=== PATIENT | male | born 1960 | race Caucasian/White ===

== ENCOUNTER 2018-06-06 15:14 | Emergency (ER) | payer OTHER, SELFPAY ==
[2018-06-06 15:15] VITALS: BP 125/82; PULSE 115; RESP 16; TEMP 36.6; O2SAT 95; BMI 39.9
--- NOTE | 2018-06-06 15:35 | RAD_ITS ---
STUDY: X-RAY CHEST REASON FOR EXAM: Male, 57 years old. Fall, pain. TECHNIQUE: PA and lateral views of the chest. COMPARISON: May 15, 2018 FINDINGS: The lungs are clear and expanded. There is no demonstrated pleural abnormality. Normal size heart. Normal mediastinum and artis. Normal visualized pulmonary arteries. Normal visualized aortic arch and descending thoracic aorta. Normal visualized thoracic spine. Normal visualized ribs, clavicles, and shoulders. There are postsurgical changes within the left upper quadrant of the abdomen. RAD/Chest PA and Lateral IMPRESSION: No acute cardiopulmonary process. Electronically Signed: Chen Bass MD at 16:13 EDT Tel , Service support ,
--- NOTE | 2018-06-06 15:35 | RAD_ITS ---
STUDY: X-RAY - RIGHT SHOULDER REASON FOR EXAM: Male, 57 years old. Fall, pain TECHNIQUE: 2 view(s) of the shoulder. COMPARISON: Chest radiograph dated May 15, 2015 and June 06, 2018 FINDINGS: Normal glenohumeral articulation. Normal acromioclavicular joint. Normal acromion. Normal humeral head and visualized proximal humerus. The soft tissue structures are unremarkable. Normal visualized pulmonary apex. RAD/Shoulder min 2 Views IMPRESSION: Within normal limits x-ray examination of the shoulder. Electronically Signed: Chen Bass MD at 16:16 EDT Tel , Service support ,
--- NOTE | 2018-06-06 15:36 | RAD_ITS ---
STUDY: X-RAY - LEFT KNEE REASON FOR EXAM: Male, 57 years old. Fall, pain TECHNIQUE: 5 view(s) of the knee. COMPARISON: None. FINDINGS: Normal visualized distal femur. Normal visualized proximal tibia and fibula. Normal proximal tibiofibular articulation. Normal medial femorotibial compartment. Normal lateral femorotibial compartment. Normal patellofemoral articulation. The soft tissue structures are unremarkable. RAD/Knee 4 or More Views IMPRESSION: No acute osseous injury. Electronically Signed: Chen Bass MD at 16:15 EDT Tel , Service support ,
--- NOTE | 2018-06-06 15:42 | ED.DCSUM_ITS ---
- ER Visit Summary Date of Service: 06/06/18 Chief Complaint: Fall History of Present Illness: The patient is a 57 M who fell on a wet floor in the kitchen last evening. Patient has pain to the right upper chest/shoulder area as well as left knee. Patient did go to work today but has been trying to use his left arm as moving his right arm does create more pain. He denies striking his head or loss of consciousness. Physical Examination: Vital signs are remarkable only for heart rate of 115. Head neck examination was no external sign of trauma. Is no C-spine tenderness. Heart is regular rate and rhythm. Lung sounds are clear. He does have reproducible right upper chest wall tenderness. There is no crepitus. Abdomen is soft and nontender. Extremity examination reveals minimal tenderness at the right shoulder joint itself. He does have full range of motion. He has strong distal pulses. Lower external examination was moderate tenderness of the anterior portion of the left knee with mild edema. There is no ecchymosis or abrasion. He has full range of motion with strong pulses. Test Results: Right shoulder x-rays are unremarkable. Chest x-ray shows no acute process. Left knee x-ray shows no acute osseous injury. Emergency Department Course and Treatment: My suspicion is the patient has muscular tenderness of the right upper chest from his fall. He is a diabetic so we will avoid anti-inflammatories. He will be given a prescription for Percocet. He drove himself to the ER so he will take first dose after getting home. Treatment Plan: [] Disposition: Discharge Impression: 1. Mechanical fall 2. Right shoulder/chest wall strain 3. Left knee contusion This note was generated with [employer] dictation software. It may contain incorrect words, spelling, and punctuation that were not noted in review of the chart prior to signing ED Disposition - Plan for ED Patient: Chief Complaint: Upper Extremity Injury Referrals: Bryn Renteria DO [Primary Care Provider] -
--- NOTE | 2018-06-06 16:26 | ED.DEP ---
ED Disposition - Plan for ED Patient: Disposition: Home or Assisted Living Chief Complaint: Upper Extremity Injury Instructions: ED Strain Chest Wall, ED Contusion Lower Ext Prescriptions: Oxycodone HCl/Acetaminophen [Percocet 5/325] 1 tablet PO Q6H PRN PRN 3 Days #12 tablet PRN Reason: Pain Referrals: Bryn Renteria DO [Primary Care Provider] - 1 Week if not improving
[2018-06-06 16:31] VITALS: PULSE 100; RESP 16; O2SAT 96
--- NOTE | 2018-06-06 16:32 | ED.RN ---
REVIEWED D/C INSTRUCTIONS, FOLLOW UP CARE, PRESCRIPTION, AND S/S THAT WOULD WARRANT A RETURN TO THE ED WITH PT. PT VERBALIZED AN UNDERSTANDING AND DENIES FURTHER QUESTIONS FOR THIS RN. PT SKIN P/W/D, RESP EVEN AND UNLABORED, PT A&O X 3, NO DISTRESS NOTED. PT AMBULATED OUT OF ED, GAIT STEADY.
== END 2018-06-06 16:32 | disposition home or self-care (01) ==
PROVIDERS: Emergency Provider Emergency Medicine; Family Provider Family Medicine; PCP Family Medicine
DX: S29.011A Strain of muscle and tendon of front wall of thorax, initial encounter (principal); S46.911A Strain of unspecified muscle, fascia and tendon at shoulder and upper arm level, right arm, initial encounter; W01.0XXA Fall on same level from slipping, tripping and stumbling without subsequent striking against object, initial encounter; Y93.9 Activity, unspecified; Y92.89 Other specified places as the place of occurrence of the external cause; I11.0 Hypertensive heart disease with heart failure; I50.9 Heart failure, unspecified; E11.9 Type 2 diabetes mellitus without complications; S80.02XA Contusion of left knee, initial encounter
CPT/HCPCS: 71046; 73030; 73564; 99283

== ENCOUNTER → 2018-11-12 08:17 | Outpatient (CLI) | payer OTHER, SELFPAY ==
[2018-11-12 09:42] LABS: Absolute Lymphocyte Count 1.23 X10^3/ul (0.83-4.51); Absolute Neutrophil Count 1.9 X10^3/uL (2.0-7.7); Basophil# 0.01 X10^3/uL; Basophil% 0.3 % (0-1); Eosinophil# 0.06 X10^3/uL; Eosinophils% 1.7 % (0-5); Hematocrit 42.4 % (40-54); Lymphocyte # 1.23 X10^3/ul (4.0); Lymphocyte % 35.5 % (19-41); Mean Corpuscular Hgb 31.7 pg (27.0-32.0); Mean Corpuscular Volume 96.1 fL (80-94); Mean Platelet Vol. 9.7 fl (6.2-12.0); Monocyte# 0.21 X10^3/uL; Monocyte% 6.1 % (0-10); Neutrophil # 1.94 X10^3/uL (2.7-7.7); Neutrophil % 56.1 % (47-70); Platelet Count 191 K/mm3 (150-450); RBC Distribution Width CV 13.1 % (11.6-14.6); RBC Distribution Width SD 44.5 fl (35.1-43.9); Red Blood Count 4.41 M/mm3 (4.6-6.2); White Blood Count 3.5 K/mm3 (4.4-11.0)
[2018-11-12 09:43] LABS: POSITIVE COUNT NO; POSITIVE DIFFERENTIAL NO; POSITIVE MORPHOLOGY NO
[2018-11-12 10:06] LABS: Microalbumin,Random Urine 11.3 mg/L (NO RANGE EST.); Microalbumin:Creatinine Ratio 6.3 mg/g CRE (<30 mg/g CRE)
[2018-11-12 10:23] LABS: ALB/GLOB Ratio 1.2 RATIO (0.9-2.4); AST(SGOT) 20 U/L (15-37); Alanine Aminotransfer ALT/SGPT 41 U/L (16-61); Albumin, Serum 3.6 g/dL (3.2-5.0); Alkaline Phosphatase 84 U/L (45-117); Anion Gap 8 (5-15); BUN 12 mg/dL (7-18); BUN/Creat Ratio 12.6 RATIO (10-20); Calcium,Total 8.7 mg/dL (8.5-10.1); Chloride 107 mmol/L (98-107); Cholesterol 173 mg/dL (200); Creatinine, Serum 0.95 mg/dL (0.70-1.30); EST Glomerular Filtration Rate 87 mL/min (>60); Est Glom Filt Rate - Afr Amer 105 mL/min (>60); Glucose 165 mg/dL (74-106); High Density Lipoprotein 27 mg/dL; Potassium 3.9 mmol/L (3.5-5.1); Protein, Total 6.6 g/dL (6.4-8.2); Sodium Level 143 mmol/L (136-145); Triglycerides 400 mg/dL
== END ==
PROVIDERS: Family Provider Family Medicine; PCP Family Medicine; Referring Provider Family Medicine; Visit Provider Family Medicine
DX: E11.9 Type 2 diabetes mellitus without complications (principal); I25.10 Atherosclerotic heart disease of native coronary artery without angina pectoris
CPT/HCPCS: 36415; 80053; 80061; 82043; 82570; 85025

== ENCOUNTER 2019-01-09 20:15 | Emergency (ER) | payer OTHER, SELFPAY ==
[2019-01-09 20:16] VITALS: BP 134/95; PULSE 104; RESP 18; TEMP 36.4; O2SAT 93; BMI 36.5
--- NOTE | 2019-01-09 23:00 | RAD_ITS ---
STUDY: X-RAY CHEST REASON FOR EXAM: Male, 58 years old. Shortness of breath and cough. TECHNIQUE: Frontal and lateral views of the chest. COMPARISON: 06/06/2018. FINDINGS: The lungs are clear and expanded. There is no demonstrated pleural abnormality. Normal size heart. Implanted rn cardiac is seen in the left chest wall. Normal mediastinum and artis. Normal visualized pulmonary arteries. Normal visualized aortic arch and descending thoracic aorta. Normal visualized thoracic spine. Normal visualized ribs, clavicles, and shoulders. There is no demonstrated abnormality of the visualized soft tissue structures of the upper abdomen. RAD/Chest PA and Lateral IMPRESSION: No acute chest disease. Electronically Signed: Reynaldo Dwyer MD at 23:17 EDT , Service support ,
--- NOTE | 2019-01-09 23:00 | EKG12_ITS ---
Test Reason : SOB Blood Pressure : / mmHG Vent. Rate : 105 BPM Atrial Rate : 105 BPM P-R Int : 144 ms QRS Dur : 082 ms QT Int : 320 ms P-R-T Axes : 042 -03 034 degrees QTc Int : 422 ms Sinus tachycardia Otherwise normal ECG Confirmed by CLAUDIO MCKEON, MARILYN ([id number]), photograph editor RADHA SENA ([id number]) on 01/12/2019 11:08:00 AM Referred By: SUE Confirmed By:MARILYN SNYDER MD
[2019-01-10] LABS: Absolute Neutrophil Count 2.3 X10^3/uL (2.0-7.7); Basophil# 0.01 X10^3/uL; Basophil% 0.2 % (0-1); Eosinophil# 0.05 X10^3/uL; Eosinophils% 1.1 % (0-5); Hematocrit 41.8 % (40-54); Hemoglobin 13.9 g/dl (13.0-16.5); Lymphocyte % 40.3 % (19-41); Mean Corp Hgb Conc 33.3 g/gl (32-36); Mean Corpuscular Hgb 32.3 pg (27.0-32.0); Mean Corpuscular Volume 97.2 fL (80-94); Mean Platelet Vol. 9.3 fl (6.2-12.0); Monocyte# 0.44 X10^3/uL; Monocyte% 9.3 % (0-10); Neutrophil % 48.9 % (47-70); Platelet Count 200 K/mm3 (150-450); RBC Distribution Width CV 13.2 % (11.6-14.6); RBC Distribution Width SD 45.8 fl (35.1-43.9); White Blood Count 4.7 K/mm3 (4.4-11.0)
[2019-01-10 00:04] LABS: POSITIVE COUNT NO; POSITIVE DIFFERENTIAL NO; POSITIVE MORPHOLOGY NO
[2019-01-10 00:17] LABS: Anion Gap 7 (5-15); BUN 13 mg/dL (7-18); BUN/Creat Ratio 11.9 RATIO (10-20); Calcium,Total 8.9 mg/dL (8.5-10.1); Chloride 103 mmol/L (98-107); Creatinine, Serum 1.09 mg/dL (0.70-1.30); EST Glomerular Filtration Rate 74 mL/min (>60); Est Glom Filt Rate - Afr Amer 89 mL/min (>60); Estimated Creatinine Clearance 78.68 ml/min; Glucose 208 mg/dL (74-106); Potassium 4.3 mmol/L (3.5-5.1); Sodium Level 138 mmol/L (136-145)
[2019-01-10 00:53] VITALS: O2SAT 94
[2019-01-10 00:55] VITALS: BP 136/97; PULSE 107; RESP 22; TEMP 36.6; O2SAT 93
[2019-01-10 01:22] VITALS: PULSE 110; RESP 14
[2019-01-10] MEDS: Ipratropium/Albuterol Sulfate 3 ML AMPUL.NEB INHALATION (01:22)
[2019-01-10] MEDS: Albuterol 2.5 MG/3 ML VIAL.NEB. INHALATION (01:22)
[2019-01-10] MEDS: predniSONE 20 MG Tablet 60 MG PO (01:25)
[2019-01-10 01:26] VITALS: BP 133/96; PULSE 115; RESP 14; TEMP 37.1; O2SAT 97
--- NOTE | 2019-01-10 02:03 | ED.DCSUM_ITS ---
- ER Visit Summary Date of Service: 01/10/19 Chief Complaint: Cough and shortness of breath History of Present Illness: The patient is a 58 M who reports a 2-week history of cough and shortness of breath. He has been bringing up yellow sputum. He states he does break out in sweats but does not know if he is running a fever. He was seen by his PCP earlier today. He was given doxycycline, albuterol, and guaifenesin/codeine cough syrup. Patient was unable to lie down tonight to sleep secondary to his cough. He states he feels like he is wheezing and tight. Past history significant for diabetes, hypertension, high cholesterol, CHF, SC, coronary disease, kidney stones. He has no history of lung disease. Physical Examination: Vital signs grossly unremarkable. Patient sitting upright in bed no acute distress. He is nontoxic appearing. Head neck examination is normal. Heart is regular rate and rhythm. Lungs sounds are diminished throughout. Abdomen is soft nontender. Extremity examination was no calf tenderness or edema. Test Results: EKG is sinus at 105 with no acute ischemia. Two-view chest x-ray shows no acute disease. CBC and chemistry studies significant only for glucose of 208. Emergency Department Course and Treatment: Patient is given a DuoNeb treatment followed by albuterol here. He was also given a dose of p.o. prednisone. On repeat evaluation he does have improved air movement throughout. He states his cough seems to be improving. He does feel as if he is able to breathe deeper. He will be given a prescription for 3 or 4 additional days of prednisone at home. Treatment Plan: [] Disposition: Discharge Impression: Bronchitis This note was generated with [employer] dictation software. It may contain incorrect words, spelling, and punctuation that were not noted in review of the chart prior to signing ED Disposition - Plan for ED Patient: Disposition: Home or Assisted Living Instructions: ED Upper Resp Infec Abx Tx Prescriptions: Prednisone [Deltasone] 40 mg PO DAILY #8 tablet Referrals: Bryn Renteria DO [Primary Care Provider] - 5-7 Days
[2019-01-10 02:18] VITALS: BP 144/92; PULSE 105; RESP 22; TEMP 37.1; O2SAT 93; O2SAT 94
== END 2019-01-10 02:20 | disposition home or self-care (01) ==
PROVIDERS: Emergency Provider Emergency Medicine; Family Provider Family Medicine; PCP Family Medicine
DX: J40 Bronchitis, not specified as acute or chronic (principal); I25.10 Atherosclerotic heart disease of native coronary artery without angina pectoris; I11.0 Hypertensive heart disease with heart failure; I50.9 Heart failure, unspecified; E11.9 Type 2 diabetes mellitus without complications; E78.00 Pure hypercholesterolemia, unspecified; F32.9 Major depressive disorder, single episode, unspecified; F41.9 Anxiety disorder, unspecified; Z79.84 Long term (current) use of oral hypoglycemic drugs; Z79.899 Other long term (current) drug therapy; I25.2 Old myocardial infarction; Z87.442 Personal history of urinary calculi
CPT/HCPCS: 71046; 80048; 85025; 93005; 94640; 99284; A4216

== ENCOUNTER → 2019-01-31 17:30 | Outpatient (CLI) | payer OTHER, SELFPAY ==
[2019-01-09 20:16] VITALS: BMI 36.5
== END ==
PROVIDERS: Family Provider Family Medicine; PCP Family Medicine; Visit Provider Family Medicine
DX: R30.0 Dysuria (principal); R35.0 Frequency of micturition
CPT/HCPCS: 87086

== ENCOUNTER → 2019-03-01 15:13 | Outpatient (CLI) | payer OTHER, SELFPAY ==
[2019-02-16 15:56] VITALS: BMI 37.7
[2019-03-01 16:51] LABS: Hematocrit 40.1 % (40-54); Hemoglobin 13.1 g/dl (13.0-16.5); Mean Corp Hgb Conc 32.7 g/gl (32-36); Mean Corpuscular Hgb 31.4 pg (27.0-32.0); Mean Corpuscular Volume 96.2 fL (80-94); Mean Platelet Vol. 9.9 fl (6.2-12.0); Platelet Count 220 K/mm3 (150-450); RBC Distribution Width CV 13.3 % (11.6-14.6); RBC Distribution Width SD 45.1 fl (35.1-43.9); Red Blood Count 4.17 M/mm3 (4.6-6.2); White Blood Count 4.2 K/mm3 (4.4-11.0)
[2019-03-01 16:52] LABS: Scan Indicated on CBC? Y/N NO
[2019-03-01 16:56] LABS: Anion Gap 4 (5-15); BUN 14 mg/dL (7-18); BUN/Creat Ratio 12.3 RATIO (10-20); Calcium,Total 8.8 mg/dL (8.5-10.1); Chloride 106 mmol/L (98-107); Creatinine, Serum 1.14 mg/dL (0.70-1.30); EST Glomerular Filtration Rate 70 mL/min (>60); Est Glom Filt Rate - Afr Amer 85 mL/min (>60); Glucose 163 mg/dL (74-106); Potassium 3.8 mmol/L (3.5-5.1); Sodium Level 140 mmol/L (136-145)
== END ==
PROVIDERS: Family Provider Family Medicine; PCP Family Medicine; Referring Provider Internal Medicine Cardiovascular Disease; Visit Provider Internal Medicine Cardiovascular Disease
DX: R55 Syncope and collapse (principal)
CPT/HCPCS: 36415; 80048; 85027

== ENCOUNTER 2019-03-13 07:22 | Day surgery (SDC) | payer OTHER, SELFPAY ==
[2019-02-16 15:56] VITALS: BMI 37.7
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
[2019-03-09 12:55] VITALS: BMI 37.7
--- NOTE | 2019-03-15 10:39 | CL.IE_ITS ---
Patient: AVE [facility] Study Date: 03/13/2019 Performing: Harvey Pittman MD : 1960 Age: 58 Gender: male PROCEDURES PERFORMED [id number] OF LOOP RECORDER INDICATIONS Removal of loop recorder PROCEDURE DETAILS The patient was brought to the Catheterization Lab in the postabsorptive nonsedated state. Infor med consent was obtained prior to the procedure. Local anesthetic was given subcutaneously to the le ft upper chest area with Lidocaine 2%. Incision was made to the left upper chest. ICM Loop Recorder w as removed. The patient tolerated the procedure well. 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 Device Recommendations: Follow up with Primary Care Physician PROCEDURE MEDICATIONS Versed 1 mg IV Oxygen: 2 L/min via nasal cannula Signed By Harvey Pittman MD On 03/15/2019 10:39:09 Harvey Pittman MD
== END 2019-03-13 09:15 | disposition home or self-care (01) ==
LOC: CLSP 07:23
PROVIDERS: Family Provider Family Medicine; PCP Family Medicine; Referring Provider Internal Medicine Cardiovascular Disease; Visit Provider Internal Medicine Cardiovascular Disease
DX: R55 Syncope and collapse (principal); E11.9 Type 2 diabetes mellitus without complications; I10 Essential (primary) hypertension; I42.9 Cardiomyopathy, unspecified; Z79.84 Long term (current) use of oral hypoglycemic drugs; Z79.899 Other long term (current) drug therapy; Z98.890 Other specified postprocedural states
CPT/HCPCS: 33286; 99152; 99153; J7040

== ENCOUNTER → 2019-10-13 08:48 | Outpatient (CLI) | payer OTHER, SELFPAY ==
[2019-07-25 17:02] VITALS: BMI 37.7
[2019-10-13 10:50] LABS: Hemoglobin A1c 7.1 % (4.2-6.3)
[2019-10-13 10:57] LABS: AST(SGOT) 19 U/L (15-37); Alanine Aminotransfer ALT/SGPT 31 U/L (16-61); Albumin, Serum 3.5 g/dL (3.2-5.0); Alkaline Phosphatase 91 U/L (45-117); Anion Gap 3 (5-15); BUN 18 mg/dL (7-18); Calcium,Total 8.5 mg/dL (8.5-10.1); Chloride 107 mmol/L (98-107); Cholesterol 199 mg/dL (200); EST Glomerular Filtration Rate 81 mL/min (>60); Est Glom Filt Rate - Afr Amer 98 mL/min (>60); Globulin 3.4 g/dL (2.2-4.2); Glucose 173 mg/dL (74-106); High Density Lipoprotein 27 mg/dL; Protein, Total 6.9 g/dL (6.4-8.2); Sodium Level 140 mmol/L (136-145); Triglycerides 349 mg/dL; Very Low Density Lipoprotein 70 mg/dL (5-40)
[2019-10-13 11:04] LABS: Microalbumin,Random Urine < 5.0 mg/L (NO RANGE EST.)
== END ==
PROVIDERS: Family Provider Family Medicine; PCP Family Medicine; Referring Provider Family Medicine; Visit Provider Family Medicine
DX: E11.9 Type 2 diabetes mellitus without complications (principal)
CPT/HCPCS: 36415; 80053; 80061; 82043; 82570; 83036

== ENCOUNTER → 2020-01-08 15:44 | Outpatient (CLI) | payer OTHER, SELFPAY ==
[2020-01-08 15:38] VITALS: BMI 37.7
--- NOTE | 2020-01-08 15:58 | RAD_ITS ---
STUDY: X-RAY - RIGHT HAND REASON FOR EXAM: Male, 59 years old. injury, hit wall, pain across knuckles and at 5th metacarpal TECHNIQUE: 3 view(s) of the hand. COMPARISON: None. FINDINGS: Normal radiocarpal articulation. Normal distal radioulnar joint. Normal visualized carpal bones. Normal carpal articulations Normal carpometacarpal articulation of the thumb. Normal second through fifth carpometacarpal joints. Subtle nondisplaced oblique fracture the base of the fifth metacarpal bone. Normal metacarpophalangeal joint of the thumb. Normal interphalangeal joint of the thumb. Normal proximal and distal phalanges of the thumb. Normal metacarpophalangeal joints of the second through fifth fingers. Normal proximal and distal interphalangeal joints of the second through fifth fingers. Normal phalanges of the second through fifth fingers. The soft tissue structures are unremarkable. RAD/Hand Min 3 Views IMPRESSION: Subtle nondisplaced oblique fracture the base of the fifth metacarpal bone. Electronically Signed: Arpit North MD at 16:09 EDT Tel , Service support ,
== END ==
PROVIDERS: PCP Family Medicine; Referring Provider Physician Assistant Surgical; Visit Provider Physician Assistant Surgical
DX: M79.641 Pain in right hand (principal)
CPT/HCPCS: 73130

== ENCOUNTER 2020-04-23 20:28 | Emergency (ER) | payer OTHER, SELFPAY ==
[2020-04-04 14:45] VITALS: BMI 37.3
[2020-04-23 20:30] VITALS: BP 145/84; PULSE 80; RESP 16; TEMP 36.4; O2SAT 96; BMI 36.8
--- NOTE | 2020-04-23 20:38 | RAD_ITS ---
STUDY: X-RAY - LUMBAR SPINE REASON FOR EXAM: Male, 59 years old. Fall TECHNIQUE: 3 view(s) of the lumbar spine were obtained. COMPARISON: None FINDINGS: There is no evidence of fracture or dislocation in the lumbar spine. The vertebral body heights are well-maintained. There are mild degenerative changes with disc space narrowing at L4/L5 and L5/S1. RAD/Lumbar Spine 2 or 3 Views IMPRESSION: No fracture or dislocation in the lumbar spine. Mild degenerative changes in the lower lumbar spine. Electronically Signed: Nayan Aldrich, at 22:07 EDT Tel , Service support ,
--- NOTE | 2020-04-23 20:45 | ED.VIS.GEN ---
History of Present Illness Informant: Patient Onset: Today Context: Sudden Onset Timing: Continuous Current Severity: Moderate Maximum Severity: Moderate Narrative: The patient is a 59-year-old male who presents to the emergency department with left hip and low back injury. Patient states he was walking his dog. He states he stepped off a curb, and his left hip gave out. He fell to the ground. He was unable to stand because of pain. Did not strike his head. He denies loss of consciousness. Patient was brought in by squad. He denies any numbness or tingling in his leg. He states the fall was strictly mechanical. Prior similar symptoms: No Recent Illness/Hospitalization: No <Houston Ennis - Last Filed: 04/23/20 20:45> <Houston Tian - Last Filed: 04/24/20 00:56> Chief Complaint: Lower Extremity Injury Past Medical History Prior records reviewed: Yes Past Medical History: - - Hypertension Surgical History: - - Multiple knee surgeries Smoking Status: Never smoker - Family History Maternal Family History: Family History (Last Reviewed 04/04/20 @ 15:00 by LEON Colmenares) Mother Cancer Diabetes Father Diabetes Hypertension Hyperlipidemia CVA (cerebral vascular accident) CAD (coronary artery disease) Brother Diabetes Myocardial infarction Family History: Reports: Unknown <Houston Ennis - Last Filed: 04/23/20 20:45> - Family History Maternal Family History: Family History (Last Reviewed 04/04/20 @ 15:00 by LEON Colmenares) Mother Cancer Diabetes Father Diabetes Hypertension Hyperlipidemia CVA (cerebral vascular accident) CAD (coronary artery disease) Brother Diabetes Myocardial infarction <Houston Tian - Last Filed: 04/24/20 00:56> - Allergies and Home Meds Allergies/Adverse Reactions: Allergies adhesive Allergy (Unknown, Verified 04/23/20 20:30) Unknown meperidine HCl [From Demerol] Allergy (Unknown, Verified 04/23/20 20:30) Hives cefadroxil hydrate [From Duricef] Adverse Reaction (Unknown, Verified 04/23/20 20:30) Other PATIENT PASSES OUT Primary Care Physician: Bryn Renteria DO [Primary Care Provider] - Review of Systems General: Denies: Chills, Fever, Sweats Eyes: Denies: Visual changes - bilaterally, Diplopia ENT: Denies: Rhinorrhea, Sore throat Cardiovascular: Denies: Chest pain, Palpitations Respiratory: Denies: Dyspnea, Cough, Dyspnea on exertion Gastrointestinal: Denies: Abdominal pain, Nausea, Vomiting, Diarrhea, Melena, Hematochezia Genitourinary: Denies: Dysuria, Hematuria, Frequency Musculoskeletal: Denies: Back pain, Extremity Pain Skin: Denies: Rash, Wounds Neurological: Denies: Headache, Weakness, Numbness <LoliHouston - Last Filed: 04/23/20 20:45> Physical Exam Vital Signs/Narrative: Vital Signs Temp Pulse Resp BP Pulse Ox 04/23/20 20:30 97.6 F L 80 16 145/84 H 96 Inital Vital Signs reviewed: Yes General: Well nourished, Well developed, No Acute Distress Head: Normocephalic, Atraumatic Eyes: Perrl, EOMI ENT: Moist mucous membranes, No rhinorrhea Neck: Supple, Nontender Cardiovascular: Regular rate, Regular rhythm, No murmurs Respiratory: No distress, CTA bilaterally, Chest nontender Abdomen: Soft, Nontender, Nondistended, Normal bowel sounds Back: Nontender, Normal Inspection Extremities: Nontender, Tenderness - Mild tenderness over the left hip. Minimal pain with logroll. Normal pulses. Skin: Normal color, No rash Neurological: Alert, Oriented x3, Cranial nerves II-XII grossly intact, Normal Strength, Normal Sensation Psychological: Normal affect, Normal Mood <LoliHouston Patrick Last Filed: 04/23/20 20:45> Vital Signs/Narrative: Vital Signs Pulse Resp BP Pulse Ox 04/23/20 23:02 79 18 123/77 H 95 <JaylanHouston Nguyen Last Filed: 04/24/20 00:56> Diagnostic/Tx/Re-eval Clinical Impression(s) from Imaging Studies Lumbar Spine X-Ray 04/23/20 20:38 IMPRESSION: No fracture or dislocation in the lumbar spine. Mild degenerative changes in the lower lumbar spine. Electronically Signed: Nayan Aldrich, at 22:07 EDT Tel , Service support , Hip/Pelvis X-Ray 04/23/20 21:30 IMPRESSION: Normal x-ray examination of the pelvis and left hip. Electronically Signed: Nayan Aldrich, at 22:16 EDT Tel , Service support , Pelvis CT 04/23/20 22:39 IMPRESSION: No acute findings in the pelvis. No fracture identified. Sigmoid diverticulosis. Degenerative changes L5-S1. Electronically Signed: Erasmo Diaz MD at 23:56 EDT , Service support , Laboratory Data 04/23/20 04/23/20 20:20 20:20 WBC 5.3 RBC 4.48 L Hgb 14.5 Hct 43.5 MCV 97.1 H MCH 32.4 H MCHC 33.3 RDW Std Deviation 45.3 H RDW Coeff of Juancarlos 12.8 Plt Count 231 MPV 9.8 Immature Gran % (Auto) 0.400 Neut % (Auto) 58.9 Lymph % (Auto) 32.5 [place] % (Auto) 6.7 Eos % (Auto) 1.3 Baso % (Auto) 0.2 Absolute Neuts (auto) 3.1 Absolute Lymphs (auto) 1.71 Nucleated RBC % 0 Sodium 142 Potassium 3.9 Chloride 107 Carbon Dioxide 31.0 Anion Gap 4 L BUN 16 Creatinine 1.11 Estim Creat Clear Calc 76.32 Est GFR (MDRD) Af Amer 87 Est GFR (MDRD) Non-Af 72 BUN/Creatinine Ratio 14.4 Glucose 230 H Calcium 8.8 - Medical Decision Making Patient was endorsed to me by the outgoing physician. I performed a independent history and physical and agree with the above noted history and physical. Patient CT imaging of his pelvis came back as negative. I repeat evaluated the patient at 0045 and he had improvement of his symptoms and was able to ambulate with nursing. Patient at this point will be discharged home. Patient was discharged in stable condition. <Houston Tian - Last Filed: 04/24/20 00:56> ED Disposition <Houston Ennis - Last Filed: 04/23/20 20:45> <Houston Tian - Last Filed: 04/24/20 00:56> - Plan for ED Patient: Disposition: Home or Assisted Living Diagnosis: Fall, Left hip pain Instructions: ED Sprain Hip Referrals: Bryn Renteria DO [Primary Care Provider] - 3-5 Days if not improving
[2020-04-23 20:51] LABS: Absolute Lymphocyte Count 1.71 X10^3/uL (0.83-4.51); Absolute Neutrophil Count 3.1 X10^3/uL (2.0-7.7); Basophil# 0.01 X10^3/uL; Basophil% 0.2 % (0-1); Eosinophil# 0.07 X10^3/uL; Eosinophils% 1.3 % (0-5); Hematocrit 43.5 % (40-54); Hemoglobin 14.5 g/dL (13.0-16.5); Lymphocyte # 1.71 X10^3/ul (4.0); Lymphocyte % 32.5 % (19-41); Mean Corp Hgb Conc 33.3 g/dL (32-36); Mean Corpuscular Hgb 32.4 pg (27.0-32.0); Mean Corpuscular Volume 97.1 fL (80-94); Mean Platelet Vol. 9.8 fl (6.2-12.0); Monocyte# 0.35 X10^3/uL; Monocyte% 6.7 % (0-10); NRBC Flagged by Analyzer 0 % (0-5); Neutrophil % 58.9 % (47-70); Platelet Count 231 K/mm3 (150-450); RBC Distribution Width CV 12.8 % (11.6-14.6); RBC Distribution Width SD 45.3 fl (35.1-43.9); Red Blood Count 4.48 M/mm3 (4.6-6.2); White Blood Count 5.3 K/mm3 (4.4-11.0)
[2020-04-23 21:02] LABS: Anion Gap 4 (5-15); BUN 16 mg/dL (7-18); BUN/Creat Ratio 14.4 RATIO (10-20); Calcium,Total 8.8 mg/dL (8.5-10.1); Chloride 107 mmol/L (98-107); Creatinine, Serum 1.11 mg/dL (0.70-1.30); EST Glomerular Filtration Rate 72 mL/min (>60); Est Glom Filt Rate - Afr Amer 87 mL/min (>60); Estimated Creatinine Clearance 76.32 ml/min; Glucose 230 mg/dL (74-106); Potassium 3.9 mmol/L (3.5-5.1); Sodium Level 142 mmol/L (136-145)
--- NOTE | 2020-04-23 21:30 | RAD_ITS ---
STUDY: X-RAY - PELVIS AND LEFT HIP REASON FOR EXAM: Male, 59 years old. FALL TECHNIQUE: 3 views of the pelvis and left hip. COMPARISON: None. FINDINGS: There is a non-specific bowel gas pattern. Normal visualized soft tissue structures. Normal bilateral iliac wings, sacroiliac joints and visualized sacrum. Normal bilateral superior and inferior pubic rami. Normal pubic symphysis. Normal bilateral ischial tuberosities. Normal visualized femoral head. Normal acetabulum. Normal hip joint. RAD/HIP, UNI W/ Pelvis 2-3 Views IMPRESSION: Normal x-ray examination of the pelvis and left hip. Electronically Signed: Nayan Aldrich, at 22:16 EDT Tel , Service support ,
--- NOTE | 2020-04-23 22:39 | CT_ITS ---
STUDY: CT PELVIS WITHOUT CONTRAST REASON FOR EXAM: Male, 59 years old. Low back and left hip pain after fall. RADIATION DOSAGE (If Supplied By Facility): CTDIvol = ( 39.94 ) mGy, DLP = ( 1416.26 ) mGycm TECHNIQUE: Transaxial imaging of the pelvis was performed with oral contrast, and without intravenous administration of contrast material. Individualized dose optimization techniques were used for this CT. COMPARISON: CT abdomen and pelvis July 21, 2014. Lumbar spine, pelvis and left hip series April 23, 2020. FINDINGS: Normal urinary bladder. Borderline prostate gland enlargement. Normal visualized small intestine. Sigmoid diverticulosis. No intra-abdominal free air. There is no pelvic fluid. There is no pelvic mass lesion or lymphadenopathy. Normal visualized pelvic arteries. Ventral mesh related to hernia repair. L5-S1 disc space narrowing with vacuum disc. CT/Pelvis without IV Contrast IMPRESSION: No acute findings in the pelvis. No fracture identified. Sigmoid diverticulosis. Degenerative changes L5-S1. Electronically Signed: Erasmo Diaz MD at 23:56 EDT , Service support ,
[2020-04-23 23:02] VITALS: BP 123/77; PULSE 79; RESP 18; O2SAT 95
[2020-04-23] MEDS: Morphine 4 MG/ML Syringe IV (23:16)
[2020-04-24 01:04] VITALS: BP 148/100; PULSE 78; RESP 16; O2SAT 98
== END 2020-04-24 01:05 | disposition home or self-care (01) ==
PROVIDERS: Emergency Medicine; Emergency Provider Emergency Medicine; PCP Family Medicine
DX: M25.552 Pain in left hip (principal); W10.1XXA Fall (on)(from) sidewalk curb, initial encounter; Y93.K1 Activity, walking an animal; Y92.9 Unspecified place or not applicable; Y99.9 Unspecified external cause status; I10 Essential (primary) hypertension; Z79.899 Other long term (current) drug therapy
CPT/HCPCS: 72100; 72192; 73502; 80048; 85025; 96374; 99285; A4216

== ENCOUNTER 2020-11-15 11:21 | Day surgery (SDC) | payer OTHER, SELFPAY ==
[2020-10-11 15:33] VITALS: BMI 36.5
--- NOTE | 2020-11-15 | IMM_PTH ---
PATIENT: [facility] [place] [facility] [id number] AGE/SX: 60/M ROOM: RE11/15/[address]: Dr. Hilario Rodríguez MD : 1960 BED: DIS: 11/15/2020 SPEC #: [id number] RECD: 11/19/20 11:26 STATUS: LAZ REQ #: [id number] MARIA INES: 11/15/20 00:[address]: Hilario Rodríguez DEPT: IMMUNOHISTOCHEMISTRY RECD BY: Светлана Carpenter ENTERED: 11/19/20 11:28 SP TYPE: IMMUNO OTHR DR: Dr. Bryn Renteria DO Tissues: E - Skin of face, NOS Procedures: MELAN-A (initial) S-100 (add) PHYSICIAN & INSTITUTION [place] [id number] SPECIMEN INFORMATION: Tissue Source: E - Soft tissue mass, right lower lateral cheek by earlobe Clinical Info: Lesions Specimen Number: [id number] E1 CPT code: 16334, 48136 METHODOLOGY: Deparaffinized sections of prefer/formalin-fixed tissue or PAP/DQ stained slides are incubated with monoclonal/polyclonal antibodies/oligonucleotide probes. Localization is made via biotin free immunoperoxidase method. Appropriate controls are performed and reacted as expected. Results on target cell population are indicated in the following table: RESULTS: ANTIBODY / CLONE RESULT Block E1 Melan A (A103) positive S-100 (4C4.9) positive These tests were developed and their performance characteristics determined by [facility]. They may not have been cleared or approved by the U.S. Food and Drug Administration. The FDA has determined that such clearance or approval is not necessary. The above immunohistochemical/dualISH markers are ordered and reviewed by the Pathologist. INTERPRETATION: E. Soft tissue mass, right lower lateral cheek by earlobe, biopsy: Consistent with residual intradermal nevus. AM:mela 11/19/2020
--- NOTE | 2020-11-15 | LES_PTH ---
PATIENT: [address] LOC: [facility] [place] U#:[id number] AGE/SX: 60/M ROOM: RE11/15/[address]: Dr. Hilario Rodríguez MD : 1960 BED: DIS: 11/15/2020 SPEC #: [id number] RECD: 11/15/20 13:31 STATUS: LAZ REMainor #: [id number] MARIA INES: 11/15/20 00:[address]: Hilario Rodríguez DEPT: SURGICAL PATHOLOGY RECD BY: Светлана Carpenter ENTERED: 11/15/20 14:11 SP TYPE: Lesion OTHR DR: Dr. Bryn Renteria, DO Tissues: A - Skin of face, NOS B - Skin of face, NOS C - Skin of face, NOS D - Skin of scalp, NOS E - Skin of face, NOS Procedures: Frozen Section (charge) Frozen Section Add'l ([facility]) Surgery Specimen Level IV HEADER OPERATION: Excision infected soft tissue mass right lower lateral cheek PRE-OP DIAGNOSIS: 1.5 cm painful lesion on right lateral lower cheek by earlobe with associated soft tissue mass; 6 mm lesion right lateral lower cheek by mandibular angle; 1.7 cm lesion right cheek; 1.7 cm lesion left temporal scalp by hairline TISSUE SUBMITTED: A - 1.5 cm painful lesion on right lateral cheek by earlobe, FS, B - 6 mm lesion right lateral lower cheek by mandibular angle, FS, C - 1.7 cm lesion right cheek, FS, D - 1.7 cm lesion left temporal scalp by hairline, FS, E - Soft tissue mass, right lower lateral cheek by earlobe, suture at 12 o'clock FROZEN SECTION DIAGNOSIS A. Skin lesion, right lateral lower cheek by earlobe, shave biopsy: Intradermal nevus. B. Skin lesion, right lateral lower cheek, mandible angle, shave biopsy: Intradermal nevus. C. Skin lesion of right cheek, shave biopsy: Actinic keratosis and solar elastosis. D. Skin lesion, left temporal scalp, shave biopsy: Seborrheic keratosis. AM:mela 11/15/2020 MICROSCOPIC DIAGNOSIS A. Skin lesion of right lateral lower cheek by earlobe, biopsy: Intradermal nevus. Solar elastosis. B. Skin lesion, right lateral lower cheek by mandible, shave biopsy: Intradermal nevus. Solar elastosis. C. Skin lesion, right cheek, shave biopsy: Actinic keratosis with seborrheic keratosis-like features. Solar elastosis. D. Skin lesion, left temporal scalp by hairline, shave biopsy: Seborrheic keratosis, inflamed. E. Soft tissue mass, right lower lateral cheek by earlobe, biopsy: Residual intradermal nevus. Solar elastosis and actinic change. Focal ulceration with associated acute and chronic inflammation and granulation. See comment. AM:mela 11/19/2020 COMMENT E. Immunohistochemistry ([id number]) supports the above diagnosis. MICROSCOPIC DESCRIPTION Slides are reviewed. GROSS DESCRIPTION A - Received fresh for frozen section consultation labeled with the patient's name is a specimen designated lesion right lateral lower cheek by earlobe. The specimen consists of an ovoid fragment of shave skin measuring 1 x 1 x 0.5 cm. The specimen is trisected and totally submitted in one cassette for frozen section consultation. / AM: 11/15/20 B - Received fresh for frozen section consultation labeled with the patient's name is a specimen designated lesion right lateral lower cheek by mandible angle. The specimen consists of ovoid fragment of shave skin measuring 0.8 x 0.7 x 0.4 cm. The specimen is inked, bisected and totally submitted in one cassette for frozen section consultation. / AM: 11/15/20 C - Received fresh for frozen section consultation labeled with the patient's name is a specimen designated lesion right cheek. The specimen consists of ovoid fragment of shave skin measuring 1.5 x 1.5 x 0.4 cm. The specimen serially sectioned and totally submitted in one cassette for frozen section consultation. / AM:mela 11/15/20 D - Received fresh for frozen section consultation labeled with the patient's name is a specimen designated lesion left temporal scalp by hairline. The specimen consists of ovoid fragment of shave skin measuring 1.8 x 1.5 x 0.1 cm. The specimen is inked, serially sectioned and totally submitted in two cassettes for frozen section consultation. / AM:mela 11/15/20 E - Received in fixative is one container labeled with the patient's name and designated soft tissue mass right lower lateral cheek by earlobe, suture at 12 o'clock. The specimen consists of a lalitha-shaped piece of prince skin measuring 2 x 1.5 cm and up to 0.5 cm in thickness. The specimen is oriented by a suture at 12 o'clock. The specimen is inked as follows: 12 to 3 o'clock - black, 3 to 6 o'clock - blue, 6 to 9 o'clock - green and 9 to 12 o'clock - yellow. The specimen is serially sectioned and submitted entirely in two cassettes. / SJ:emla 11/18/20 TC:5 CPT: 94009 x5, 91823 x4, 16372
--- NOTE | 2020-11-15 10:14 | PCM.HP.BLA ---
History and Physical Date of Admission: 11/15/20 HISTORY OF PRESENT ILLNESS Patient is a 60 year old male who presents for evaluation for TBSE. He has concerns about lesions on his right lateral lower cheek by the ear lobe, right lateral lower cheek by mandibular angle, right cheek, and left temporal scalp that have increased in size over the last several months and have developed irregular borders and have become more raised in configuration. The lesion right lateral lower cheek by mandibular angle had some recent drainage. I could not express any drainage today. He denies fever. He denies trauma. He presents at this time for further evaluation and treatment. PAST MEDICAL HISTORY Neoplasm of skin of scalp Neoplasm of skin of right cheek Cheek mass Essential (primary) hypertension Electric current accident Afib Heart disease Heart failure IBS (irritable bowel syndrome) Dizziness and giddiness History of ventral hernia Shortness of breath Syncope and collapse Type 2 diabetes mellitus PAST SURGICAL HISTORY Shannan fundoplication arthroscopy of right knee left knee surgery repair of hiatal hernia right knee surgery laparoscopic cholecystectomy left heart catheterization loop recorder ALLERGIES adhesive meperidine HCl [From Demerol] cefadroxil hydrate [From Duricef] MEDICATIONS Glipizide carvedilol ALPRAZolam [Xanax] calcium carbonate-vitamin D3 cyanocobalamin (vitamin B-12) dicyclomine FAMILY HISTORY Mother - Cancer, Diabetes Father - Diabetes, Hypertension, Hyperlipidemia, CVA (cerebral vascular accident), CAD (coronary artery disease Brother - Diabetes, Myocardial infarction SOCIAL HISTORY Smoking Status: Never smoker alcohol intake: never substance use type: does not use REVIEW OF SYSTEMS General - Denies fever, fatigue, and weight loss. Eyes - Denies cataracts. History of glaucoma. ENT - Denies nasal congestion and sore throat. Endocrine - Denies excessive thirst and urination. History Type 2 DM, treated medically. Skin - Denies personal and family history of skin cancer. He has concerns about several facial skin lesions. Right lateral lower cheek by earlobe has increased in size, will drain white/prince drainage on occasion and has become painful. Lesion on right lateral lower cheek by right mandibular angle is enlarging, raised and changing color. Lesion on left temporal scalp is raised and brown in color. Lesion on right cheek is raised brown. Musculoskeletal - Complains of joint pain, joint stiffness, back pain. Denies muscle and joint weakness and arthritis. History of bilateral knee surgery. Neuro - Denies headaches. Cardiovascular - Denies chest pain, fatigue, and shortness of breath with exertion. History of Atrial fibrillation, heart disease, and heart failure. Psych - Denies anxiety and depression. Respiratory - Denies chronic cough and shortness of breath. History of sleep apnea. Gastrointestinal - Denies nausea, vomiting, diarrhea, and constipation. History of Cholecystectomy, hernia repair and irritable bowel syndrome. Hematologic - Denies abnormal bruising and bleeding. Genitourinary - Denies hematuria and urinary frequency. PHYSICAL EXAMINATION General - Alert and oriented. HEENT - PERRL. EOMI. Throat is clear. On the right lateral lower cheek by ear lobe is a lesion that measures 1.5 cm. Adjacent to this lesion inferiorly is an underlying soft tissue mass that is tender to palpation. There has been recent drainage from this mass. It is raised in configuration. Has irregular borders. No ulceration. No fluctuance. No purulent drainage noted. The skin is adherent to the underlying soft tissue mass. On the right lateral lower cheek by mandibular angle is a lesion that measures 6 mm. It is raised in configuration. Has irregular borders. No ulceration. Lesion is nontender. On the right cheek is a lesion that measures 1.5 cm. It is brownish in color and raised in configuration. Has irregular borders. No ulceration. Lesion is nontender. On the left temporal scalp near the hairline is a lesion that measures 1.7 cm. It is brownish in color and raised in configuration. Has irregular borders. No ulceration. Lesion is nontender. Neck - Supple and non-tender. No cervical adenopathy. No suspicious lesions noted. Lungs- Clear to auscultation. Heart - Regular rate and rhythm. Abdomen - Soft and non distended. Extremities - FROM. No axillary adenopathy. Radial pulses are palpable. No suspicious lesions noted. Neuro - CN II-XII grossly intact. Psych - Normal mood and affect. ASSESSMENT 1. 1.5 cm painful lesion on right lateral lower cheek by ear lobe with associated soft tissue mass. 2. 6 mm lesion right lateral lower cheek by mandibular angle. 3. 1.7 cm lesion right cheek. 4. 1.7 cm lesion left temporal scalp by hairline. 5. Diabetes. PLAN Recommend excision of these lesions (right lateral lower cheek by ear lobe, right lateral lower cheek by mandibular angle, right cheek, and left temporal scalp by hairline) and send them to Pathology for analysis to rule out carcinoma. If carcinoma is present, then further excision would be done with skin flap or skin graft reconstruction. For the soft tissue mass component adjacent to the right lateral lower cheek by ear lobe lesion which has skin adherence, depending on how much skin needs to be excised to minimize recurrence, a local skin flap may be needed for reconstruction. Surgery will be done on an outpatient basis under local anesthesia and IV sedation. Patient states he gets HgbA1c checked periodically by his PCP. His last HgbA1c was 7.0 from 11/12/20. For elective surgery, the HgbA1c needs to be less than 8. Patient was informed of the risks and complications of the procedure including alternatives to surgery. These were discussed with the patient personally. Patient voices understanding and wishes to proceed. Some of the risks and complications were included in a form from the [employer]. We discussed the current risks associated with COVID-19. While it is understood that there is a community spread of COVID-19, the risk of tosin COVID-19 while at [facility] ([facility]) is very low; however, the risk cannot be completely mitigated because of the community spread of the disease. We discussed in detail the risk of exposure to and/or potential harm posed by the COVID-19 virus with having a surgery/procedure at this time versus the risk of delaying the surgery/procedure. It is not possible to know either the risk of delaying the surgery or procedure or chance of getting an infection with perfect accuracy, but a joint decision was made to proceed at this time with the scheduled surgery/procedure as indicated on the consent form. Patient was notified that we will need to comply with any screening or testing [facility] wishes to perform or that surgery may be delayed for any positive results. Discussed with the patient that I was tested for COVID-19 on 05/02/20 which was negative and on 05/16/20 which was negative and on 05/30/20 which was negative and on 06/13/20 which was negative and on 06/27/20 which was negative and on 07/18/20 which was negative and on 08/08/20 which was negative and on 09/12/20 which was negative and on 10/03/20 which was negative and on 10/22/20 which was negative. My testing regimen at this time is to be COVID-19 tested every 2 weeks or so. I received the COVID-19 vaccine (Moderna) on 10/30/20. Procedure Criteria Procedure Type: Elective COVID Risk Discussion: The surgeon/proceduralist and patient have discussed in detail the risk of exposure to and/or potential harm posed by the COVID-19 virus with having a surgery/procedure at this time versus the risk of delaying the surgery/procedure. It is not possible to know either the risk of delaying the surgery or procedure or chance of getting an infection with perfect accuracy, but a joint decision was made between the patient and the surgeon/proceduralist to proceed at this time with the scheduled surgery/procedure as indicated on the consent form.
[2020-11-15] MEDS: Lactated Ringers 1,000 ML 100 ML IV ×2 (12:09→14:41)
[2020-11-15 12:10] VITALS: BP 139/93; PULSE 71; RESP 16; TEMP 36.4; O2SAT 96; BMI 36.2
[2020-11-15] MEDS: Lidocaine 1%/Epi 1:200 (30ml) 30 ML AMPUL (13:20)
[2020-11-15] MEDS: Mupirocin Ointment 22gm Tube 1 APPLIC (14:03)
[2020-11-15] MEDS: Silver Nitrate (BKC) 1 EACH (14:20)
--- NOTE | 2020-11-15 14:23 | OP.PCM_ITS ---
Report of Operation Date of Procedure: 11/15/20 Pre-Operative Diagnosis: 1. 1.5 cm painful lesion on right lateral lower cheek by ear lobe with associated soft tissue mass. 2. 6 mm lesion right lateral lower cheek by mandibular angle. 3. 1.7 cm lesion right cheek. 4. 1.7 cm lesion left temporal scalp by hairline. 5. Diabetes. Post-Operative Diagnosis: 1. 1 cm painful soft tissue mass right lateral lower cheek by ear lobe. 2. 1.5 cm intradermal nevus right lateral lower cheek by ea r lobe. 3. 6 mm intradermal nevus right lateral lower cheek by mandibular angle. 4. 1.7 cm actinic keratosis right cheek. 5. 1.7 cm seborrheic keratosis left temporal scalp by hairline. 5. Diabetes. Surgery/Procedure Performed:: 1. Excision 1 cm painful soft tissue mass right lateral lower cheek by ear lobe with rhomboid transposition skin flap reconstruction (4.5 cm2). 2. Intradermal exicison 1.5 cm intradermal nevus right lateral lower cheek by ear lobe. 3. Intradermal excision 6 mm intradermal nevus right lateral lower cheek by mandibular angle. 4. In tradermal excision 1.7 cm actinic keratosis right cheek. 5. Intradermal excision 1.7 cm seborrheic keratosis left temporal scalp by hairline. Description of Surgical Findings:: Patient is a 60 year old male who presents for evaluation for TBSE. He has concerns about lesions on his right lateral lower cheek by the ear lobe, right lateral lower cheek by mandibular angle, right cheek, and left temporal scalp that have increased in size over the last several months and have developed irregular borders and have become more raised in configuration. The lesion right lateral lower cheek by mandibular angle had some recent drainage. I could not express any drainage today. He denies fever. He denies trauma. Patient was informed of the risks and complications of the procedure including alternatives to surgery. These were discussed with the patient personally. Patient voices understanding and wishes to proceed. Some of the risks and complications were included in a form from the [employer]. Frozen section right cheek - actinic keratosis. Frozen section right lateral lower cheek by ear lobe - intradermal nevus. Frozen section right lateral lower cheek by mandibular angle - intradermal nevus. Frozen section left temporal scalp - seborrheic keratosis. group home counselor: None Type of Anesthesia:: General Specimen's removed: 1. Lesion on right lateral lower cheek by ear lobe to Pathology as a frozen section. 2. Lesion right lateral lower cheek by leandro bular angle to Pathology as a frozen section. 3. Lesion right cheek to Pathology as a frozen section. 4. Lesion left temporal scalp by hairline to Pathology as a frozen section.. 5. Painful soft tissue mass right lateral lower cheek by ear lobe to Pathology. Drains: None. Estimated Blood Loss (mL): 10 ml. Description of Procedure: Patient was taken to OR in supine position and was placed under general anesthesia. The face was prepped and draped in the usual fashion. SCD's were placed for DVT prophylaxis. Perioperative antibiotics were given intravenously. For the procedure, I wore an N95 mask and wore proper eyewear protection. Using xylocaine with epinephrine, the lesions were infiltrated, (right lateral lower cheek by ear lobe, right lateral lower cheek by mandibular angle, right cheek, and left temporal scalp). After waiting 5 minutes for the anesthetic to take effect, the lesions were excised in an intradermal fashion and sent to Pathology as a frozen section for analysis to rule out carcinoma. Frozen section showed the lesion right lateral lower cheek by ear lobe was an intradermal nevus, the lesion right lateral lower cheek by mandibular angle was an intradermal nevus, the lesion right cheek was an actinic keratosis, and the lesion left temporal scalp was a seborrheic keratosis. No carcinoma was seen. The soft tissue mass located underneath the lesion right lateral lower cheek by ear lobe was excised with a rhomboid incision. Dissection was carried down to the underlying muscle. Surrounding scar tissue was excised as well. A suture was marked at the 12 oclock position for pathology orientation. The mass was sent to Pathology for analysis to rule out carcinoma. Hemostasis was obtained with electrocautery. A rhomboid flap was designed adjacent to the defect just inferior to the ear lobe. The rhomboid flap was elevated on a subcutaneous pedicle and easily transposed into the defect with minimal tension and minimal distortion. Hemostasis was obtained with electrocautery. The wound was closed with 5-0 Monocryl interrupted sutures for the deep dermis and subcutaneous tissue. The skin was approximated with 6-0 Prolene interrupted sutures. For the lesions that were intradermally excised, hemostasis was obtained with silver nitrate chemical cauterization. Antibiotic ointment was applied to the wounds followed by a small gauze dressing. Patient tolerated the procedure well and was sent to PACU in satisfactory condition. Patient will be sent home on antibiotics and pain medication. He will keep his head elevated during the initial postoperative period. Patient will followup in a week for a wound check and for discussion of the pathology report and for removal of the sutures. Grafts/Implants Used: None. - Complications None. - Admit VTE Documentation VTE Present on Admission: No VTE Mechan Device Prophylaxis: SCD's VTE Pharm Prophylaxis ordered?: No Surgery Charges CPT - 83859 ICD-10 - R22.0, E11.9 24087 D23.30, E11.9 81144 D23.30, E11.9 81927 L57.0, E11.9 11063 L82.1, E11.9
[2020-11-15 14:34] VITALS: BP 121/95; BP 139/93; PULSE 75; RESP 16; TEMP 36.2; O2SAT 96
--- NOTE | 2020-11-15 14:43 | DCINST_ITS ---
You will use the following diet at home:: Calorie/Carbohydrate Controlled (specify 1200, 1400, etc) Discharge Activity: May not drive while taking narcotic pain medications., May Shower - in two days., - - keep head elevated. no heavy lifting. May shower in (days): 2 May resume sexual activity in: No Restrictions Ice area for (Minutes): 5 - as needed for facial swelling. Weight Bearing Status: Weight bearing as tolerated Lifting Restrictions: 20 lbs. Keep extremity elevated above heart level: - - elevate head. Call your doctor if your incision/area has: Continuous Slow Oozing, Sudden Increased Bleeding, Increased Pain/ Swelling, Increased Redness, Foul Smelling Discharge, Swelling at the incision site Call your doctor if you observe: Fever of 101 or Higher, Coldness, Increased Pain, Shortness of breath, Chest pain, Calf discomfort, Uncontrolled pain Suture Line Care: - - apply antibiotic ointment to wounds and suture line daily. Remove Dressing in (days):: 2 Cleanse incision/area with: - - may get wounds and incision wet in the shower in two days. Allergies/Adverse Reactions: Allergies adhesive Allergy (Unknown, Verified 11/15/20 12:09) Unknown USE PAPER TAPE ONLY meperidine HCl [From Demerol] Allergy (Unknown, Verified 11/15/20 12:09) Hives cefadroxil hydrate [From Duricef] Adverse Reaction (Unknown, Verified 11/15/20 12:09) Other PATIENT PASSES OUT Medications to take at Discharge Glipizide 10 mg PO 1700 01/10/19 carvedilol 12.5 mg tablet 12.5 mg PO BID #180 tab 03/14/20 ALPRAZolam [Xanax] 1 mg PO QHS 04/23/20 calcium carbonate-vitamin D3 600 mg (1,500 mg)-1,000 unit tablet 1 tab PO DAILY tab 10/04/20 cyanocobalamin (vitamin B-12) 500 mcg tablet,extended release 500 mcg PO DAILY 10/04/20 dicyclomine 10 mg capsule 10 mg PO BID 10/04/20 Omeprazole Magnesium [Prilosec Otc] 20 mg PO PRN PRN 11/07/20 Clindamycin HCl [Cleocin] 300 mg PO TID #12 cap 11/15/20 Lactobacillus Acidophilus/Fos [Acidophilus Probiotic Tablet] 1 ea PO BID #14 tab 11/15/20 Oxycodone HCl/Acetaminophen [Percocet 5/325] 1 tablet PO Q6H PRN PRN 5 Days #20 tablet 11/15/20 The following prescriptions were given: Lactobacillus Acidophilus/Fos [Acidophilus Probiotic Tablet] 1 ea PO BID #14 tab Transmission Status: Pending to [facility] Clindamycin HCl [Cleocin] 300 mg PO TID #12 cap Transmission Status: Pending to [facility] Oxycodone HCl/Acetaminophen [Percocet 5/325] 1 tablet PO Q6H PRN PRN 5 Days #20 tablet PRN Reason: Pain Score 6-10 Transmission Status: Sent to [facility] Primary Care Physician: Bryn Renteria DO [Primary Care Provider] - Test Results: Test results from this visit will be discussed in further detail at your follow- up appointment, if applicable. Please Follow Up With: Hilario Rodríguez MD When: one week. call [phone] for appt. Proposed Discharge Date: 11/15/20
[2020-11-15 14:45] VITALS: BP 131/97; BP 139/93; PULSE 77; RESP 16; O2SAT 94
[2020-11-15 14:50] LABS: Bedside Glucose 112 mg/dL (70-110)
[2020-11-15 15:00] VITALS: BP 119/93; BP 139/93; PULSE 73; RESP 16; O2SAT 93
[2020-11-15 15:06] VITALS: BP 121/96; BP 139/93; PULSE 72; RESP 16; TEMP 36.7; O2SAT 95
[2020-11-15 15:37] VITALS: BP 113/86; BP 139/93; PULSE 76; RESP 16; TEMP 36; O2SAT 95
== END 2020-11-15 15:40 | disposition home or self-care (01) ==
LOC: SDC 11:21 → AC 11:22
PROVIDERS: PCP Family Medicine; Referring Provider Surgery; Visit Provider Surgery
PROC: (CPT 11422; principal; 2020-11-15 12:45)
DX: D49.2 Neoplasm of unspecified behavior of bone, soft tissue, and skin (principal); L82.1 Other seborrheic keratosis; R52 Pain, unspecified; L57.8 Other skin changes due to chronic exposure to nonionizing radiation; W89.9XXA Exposure to unspecified man-made visible and ultraviolet light, initial encounter; Y93.9 Activity, unspecified; Y92.9 Unspecified place or not applicable; Y99.9 Unspecified external cause status; Z20.822 Contact with and (suspected) exposure to COVID-19; I11.0 Hypertensive heart disease with heart failure; I50.9 Heart failure, unspecified; I48.91 Unspecified atrial fibrillation; E11.9 Type 2 diabetes mellitus without complications; E78.00 Pure hypercholesterolemia, unspecified; K58.9 Irritable bowel syndrome, unspecified; K21.9 Gastro-esophageal reflux disease without esophagitis; Z79.84 Long term (current) use of oral hypoglycemic drugs; Z79.899 Other long term (current) drug therapy
CPT/HCPCS: 11422 ×2; 11441; 14040; 21011; 82962; 87426; 88305; 88331; 88332; 88341; 88342; C9803; J7120

== ENCOUNTER → 2021-02-11 16:24 | Outpatient (CLI) | payer OTHER, SELFPAY ==
[2021-02-11 17:07] LABS: Absolute Lymphocyte Count 2.01 X10^3/uL (0.83-4.51); Absolute Neutrophil Count 2.1 X10^3/uL (2.0-7.7); Basophil# 0.02 X10^3/uL; Basophil% 0.4 % (0-1); Eosinophil# 0.08 X10^3/uL; Eosinophils% 1.8 % (0-5); Hematocrit 42.3 % (40-54); Hemoglobin 13.6 g/dL (13.0-16.5); Lymphocyte # 2.01 X10^3/ul (4.0); Lymphocyte % 44.7 % (19-41); Mean Corp Hgb Conc 32.2 g/dL (32-36); Mean Corpuscular Hgb 31.6 pg (27.0-32.0); Mean Corpuscular Volume 98.1 fL (80-94); Mean Platelet Vol. 9.6 fl (6.2-12.0); Monocyte# 0.32 X10^3/uL; Monocyte% 7.1 % (0-10); NRBC Flagged by Analyzer 0 % (0-5); Neutrophil # 2.05 X10^3/uL (2.7-7.7); Neutrophil % 45.6 % (47-70); Platelet Count 186 K/mm3 (150-450); RBC Distribution Width CV 12.5 % (11.6-14.6); RBC Distribution Width SD 45.2 fl (35.1-43.9); Red Blood Count 4.31 M/mm3 (4.6-6.2); White Blood Count 4.5 K/mm3 (4.4-11.0)
[2021-02-11 17:13] LABS: Color, Urine Yellow (Yellow); Glucose, Dipstick Normal (Normal); Ketone-Dipstick Negative (Negative); Leukocyte Esterase-Dipstick Negative /ul (Negative); Nitrite-Dipstick Negative (Negative); Occult Blood-Urine Negative /ul (Negative); Protein-Dipstick Negative (Negative); Specific Gravity, Urine 1.025 (1.002-1.030); Urine Bilirubin Dipstick Negative (Negative); Urine Clarity Clear (Clear); Urine Urobilinogen Normal (Normal)
[2021-02-11 17:36] LABS: Microalbumin:Creatinine Ratio 4.7 mg/g CRE (<30 mg/g CRE)
[2021-02-11 18:38] LABS: ALB/GLOB Ratio 1.1 RATIO (0.9-2.4); AST(SGOT) 20 U/L (15-37); Alanine Aminotransfer ALT/SGPT 38 U/L (16-61); Albumin, Serum 3.6 g/dL (3.2-5.0); Alkaline Phosphatase 80 U/L (45-117); Anion Gap 4 (5-15); BUN 16 mg/dL (7-18); BUN/Creat Ratio 17.2 RATIO (10-20); Calcium,Total 8.7 mg/dL (8.5-10.1); Chloride 109 mmol/L (98-107); Cholesterol 204 mg/dL (200); Creatinine, Serum 0.93 mg/dL (0.70-1.30); EST Glomerular Filtration Rate 88 mL/min (>60); Est Glom Filt Rate - Afr Amer 107 mL/min (>60); Globulin 3.2 g/dL (2.2-4.2); Glucose 130 mg/dL (74-106); High Density Lipoprotein 31 mg/dL; PSA,Total - Annual Screen 1.71 ng/mL (0.00-4.00); Potassium 3.8 mmol/L (3.5-5.1); Protein, Total 6.8 g/dL (6.4-8.2); Sodium Level 141 mmol/L (136-145); Triglycerides 400 mg/dL
[2021-02-11 20:22] LABS: Hemoglobin A1c 6.5 % (3.8-5.6)
== END ==
PROVIDERS: PCP Family Medicine; Referring Provider Family Medicine; Visit Provider Family Medicine
DX: Z00.00 Encounter for general adult medical examination without abnormal findings (principal); E11.9 Type 2 diabetes mellitus without complications; Z12.5 Encounter for screening for malignant neoplasm of prostate; R35.8 Other polyuria
CPT/HCPCS: 36415; 80053; 80061; 81002; 82043; 82570; 83036; 84153; 85025; G0103

== ENCOUNTER → 2021-02-20 14:59 | Outpatient (CLI) | payer OTHER, SELFPAY ==
[2021-02-20 15:56] LABS: Erythrocyte Sedimentation Rate 4 mm/hr (0-20)
[2021-02-20 16:24] LABS: CPK Total, Creatine Kinase 385 U/L (39-308); CRP < 2.90 mg/L (0.0-3.0)
[2021-02-24 18:44] LABS: ANTINUCLEAR ANTIBODIES DIRECT Negative (Negative)
== END ==
PROVIDERS: PCP Family Medicine; Referring Provider Family Medicine; Visit Provider Family Medicine
DX: M62.81 Muscle weakness (generalized) (principal); M79.10 Myalgia, unspecified site
CPT/HCPCS: 36415; 82550; 85652; 86038; 86140; 86225; 86235

== ENCOUNTER 2021-03-07 11:39 | Day surgery (SDC) | payer OTHER, SELFPAY ==
[2020-04-04 14:45] VITALS: BMI 37.3
[2021-03-07] VITALS (7 sets, daily range): BP systolic 104–119; BP diastolic 76–91; PULSE 66–77; RESP 16–18; TEMP 36.3–36.7; O2SAT 93–97; BMI 35.3
--- NOTE | 2021-03-07 | LES_PTH ---
PATIENT: [address] LOC: [facility] [place] U#:[id number] AGE/SX: 60/M ROOM: RE03/07/[address]: Dr. Hilario Rodríguez MD : 1960 BED: DIS: 03/07/2021 SPEC #: [id number] RECD: 03/07/21 14:07 STATUS: LAZ REQ #: [id number] MARIA INES: 03/07/21 00:[address]: Hilario Rodríguez DEPT: SURGICAL PATHOLOGY RECD BY: Светлана Carpetner ENTERED: 03/07/21 14:35 SP TYPE: Lesion OTHR DR: Dr. Bryn Renteria DO Tissues: A - Skin of scalp, NOS B - Skin of scalp, NOS C - Preauricular region Procedures: Frozen Section (charge) Frozen Section Add'l ([facility]) Surgery Specimen Level IV HEADER OPERATION: Excision pigmented lesions cluster preauricular area PRE-OP DIAGNOSIS: 2.5 cm lesion right temporal scalp by hairline; 1.2 cm lesion right temporal scalp above ear; 2.5 cm lesions cluster right preauricular area TISSUE SUBMITTED: A - 2.5 cm lesion right temporal scalp by hairline, FS, B - 1.2 cm lesion right temporal scalp above ear, FS, C - 2.5 cm lesions cluster right preauricular area, FS FROZEN SECTION DIAGNOSIS A. Right temporal scalp by hairline lesion, shave biopsy: Seborrheic keratosis and mild actinic keratosis, negative for carcinoma. B. Right temporal scalp lesion above the ear, shave biopsy: Actinic keratosis with features of seborrheic keratosis, negative for carcinoma. C. 2.5 cm lesion, three clusters, right preauricular area, shave biopsy: Actinic keratosis, negative for carcinoma. ROSA MARIA:mela 03/07/2021 MICROSCOPIC DIAGNOSIS A. Right temporal scalp by hairline lesion, shave biopsy: Seborrheic keratosis with mild actinic keratosis. Negative for carcinoma. B. Right temporal scalp lesion above the ear, shave biopsy: Seborrheic keratosis with mild actinic keratosis. Negative for carcinoma. C. 2.5 cm lesion, three clusters, right preauricular area, shave biopsies: Seborrheic keratosis with mild actinic keratosis. Benign vascular proliferation, consistent with capillary hemangioma (one fragment). Solar elastosis. Focal mild chronic inflammation. Negative for carcinoma. ROSA MARIA:mela 03/10/2021 MICROSCOPIC DESCRIPTION Slides are reviewed. GROSS DESCRIPTION A - Received fresh for frozen section diagnosis labeled with the patient's name is a specimen designated 2.5 cm lesion right temporal scalp by [facility]. The specimen consists of a piece of prince-light brown hair-bearing skin measuring 2 x 1.2 x 0.1 cm. The specimen is serially sectioned and submitted entirely for frozen section diagnosis in one cassette. B - Received fresh for frozen section diagnosis labeled with the patient's name is a specimen designated 1.2 cm lesion right temporal scalp above ear. The specimen consists of a shave biopsy of prince-light brown hair-bearing skin measuring 1.7 x 1 x 0.1 cm. The entire specimen is inked, serially sectioned and submitted entirely for frozen section diagnosis in one cassette. C - Received fresh for frozen section diagnosis labeled with the patient's name is a specimen designated 2.5 cm lesion three clusters right preauricular area. The specimen consists of seven variable sized pieces of prince-white to prince-brown skin measuring 0.3 to 0.7 cm in greatest dimension and 0.1 cm in thickness. The largest piece is bisected. The entire specimen is submitted for frozen section diagnosis in two cassettes. / ROSA MARIA:mela 03/07/21 TC:5 CPT: 00838 x3, 70276 x3, 66184
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
[2021-03-07] MEDS: Lactated Ringers 1,000 ML 100 ML IV (12:11)
[2021-03-07 12:15] LABS: Bedside Glucose 117 mg/dL (70-110)
[2021-03-07] MEDS: Lidocaine 1% /Epi 1:100 (20ml) 20 ML Vial (13:52)
[2021-03-07] MEDS: Silver Nitrate (BKC) 1 EACH (14:15)
[2021-03-07] MEDS: Mupirocin Ointment 22gm Tube 1 APPLIC (14:35)
--- NOTE | 2021-03-07 14:38 | OP.PCM_ITS ---
Problems Associated Problem List Diagnoses (1) Actinic keratosis: (2) Diabetes: (3) Neoplasm of skin of scalp: (4) Neoplasm of skin of jainism region: Report of Operation Date of Procedure: 03/07/21 Pre-Operative Diagnosis: 1. 2.5 cm lesion right temporal scalp by his hairline. 2. 1.2 cm lesion right temporal scalp above the ear. 3. 2.5 cm lesions x6 cluster right preauricular area by jainism. 4. Diabetes. Post-Operative Diagnosis: 1. 2.5 cm actinic keratosis right temporal scalp by his hairline. 2. 1.2 cm actinic keratosis right temporal scalp above the ear. 3. 2.5 cm actinic keratoses x6 cluster right preauricular area by jainism. 4. Diabetes. Surgery/Procedure Performed:: 1. Intradermal excision 2.5 cm actinic keratosis right temporal scalp by his hairline. 2. Intradermal excision 1.2 cm actinic keratosis right temporal scalp above the ear. 3. Intradermal excision 2.5 cm actinic keratoses x6 cluster right preauricular area by jainism. Description of Surgical Findings:: Patient is a 60 year old male who presents for evaluation for TBSE.? He has concerns about lesions on his right temporal scalp by his hairline, right temporal scalp above the ear, and right preauricular area by jainism that have increased in size over the last couple months and have developed irregular borders and have become more raised in configuration.?? He denies fever.? He denies trauma.? Patient was informed of the risks and complications of the procedure including alternatives to surgery. These were discussed with the patient personally. Patient voices understanding and wishes to proceed. Some of the risks and complications were included in a form from the [employer]. Frozen section right temporal scalp by his hairline - actinic keratosis and no carcinoma seen. Frozen section right temporal scalp above the ear - actinic keratosis and no carcinoma seen. Frozen section right preauricular area by jainism cluster x6 - actinic keratoses and no carcinoma seen. charge master specialist: None Type of Anesthesia: General Specimen's removed: 1. Lesion right temporal scalp by his hairline to Pathology as a frozen section. 2. Lesion right temporal scalp above the ear to Pathology as a frozen section. 3. Lesions x6 cluster right preauricular area by jainism to Pathology as a frozen section. Drains: None. Estimated Blood Loss (mL): 2. Description of Procedure: Patient was taken to OR in supine position and was placed under general anesthesia. The right scalp, face, and neck areas were prepped and draped in the usual fashion. SCD's were placed for DVT prophylaxis. Perioperative antibiotics were given intravenously. Using xylocaine with epinephrine, the lesions right temporal scalp by his hairline, right temporal scalp above the ear, and right preauricular area by jainism were infiltrated. After waiting 5 minutes for the anesthetic to take effect, I proceeded with intradermal excision of these three areas (right temporal scalp by his hairline, right temporal scalp above the ear, and right preauricular area by jainism). I used separate scalpels for each area. For the right preauricular area by jainism cluster, there were 6 lesions that were excised. The lesions in these three areas were sent to Pathology as frozen sections for analysis to rule out carcinoma. Frozen section came back that all three areas showed actinic keratoses and no carcinoma seen. Therefore postoperatively will apply Aldara to these areas. Hemostasis was obtained with gauze compression and silver nitrate chemical cauterization. The wounds were irrigated with saline. Antibiotic ointment was applied to all three areas. Patient tolerated the procedure well and was sent to PACU in satisfactory condition. Patient will be sent home on antibiotics. He will use Tylenol for pain. He will keep his head elevated during the initial postoperative period. Patient will followup in a week for a wound check and for discussion of the pathology report. At that time will send in a script for Aldara. Once the chemical cauterization scabs have been removed, will start the Aldara treatment which entails application daily at night 5 days per week for 6 weeks and then r e-evaluation in two months. Grafts/Implants Used: None. Complications None. Admit VTE Documentation VTE Present on Admission: No VTE Mechan Device Prophylaxis: SCD's VTE Pharm Prophylaxis ordered?: No Addendum Addendum: Surgery Charges CPT - 89591 ICD-10 - D49.2, L57.0, E11.9 42304 D49.2, L57.0, E11.9 45580 D49.2, L57.0, E11.9
--- NOTE | 2021-03-07 15:36 | PCM.DC ---
Discharge Instructions Diet Discharge Diet: Carb Control Diet Activity Discharge Activity: Return to Normal Activity and - (elevate head.) May shower in (days): 2 May resume sexual activity in: No Restrictions Weight Bearing Status: Weight bearing as tolerated Keep extremity elevated above heart level: - (elevate head.) Dressing / Incision Call your doctor if your incision/area has: Continuous Slow Oozing, Sudden Increased Bleeding, Increased Pain/ Swelling, Increased Redness, Foul Smelling Discharge and Swelling at the incision site Call your doctor if you observe: Fever of 101 or Higher, Coldness, Increased Pain, Shortness of breath, Chest pain, Calf discomfort and Uncontrolled pain Suture Line Care: - (apply antibiotic ointment to wounds daily.) Cleanse incision/area with: - (may get wounds wet in the shower in two days.) Follow Up Care Please Follow Up With: Hilario Rodríguez MD When: one week. call [phone] for appt. Test Results: Test results from this visit will be discussed in further detail at your follow-up appointment, if applicable. Discharge Plan Admission Attending Provider: Hilario Rodríguez Primary Care Provider: Bryn Renteria Discharge Orders/Prescriptions Prescriptions: New clindamycin HCl [Cleocin HCl] 300 mg capsule 300 mg PO TID Qty: 12 RF: 0 Continued dicyclomine 10 mg capsule 10 mg PO BID RF: 0 cyanocobalamin (vitamin B-12) 500 mcg tablet,extended release 500 mcg tablet extended release 500 mcg PO DAILY RF: 0 calcium carbonate-vitamin D3 600 mg (1,500 mg)-1,000 unit tablet 600mg (1,000mg) -1,000 unit tablet 1 tab PO DAILY RF: 0 glipizide 5 MG tablet 10 mg PO 1700 RF: 0 alprazolam 1 MG tablet 1 mg PO QHS RF: 0 omeprazole magnesium 20 MG tablet,delayed release (DR/EC) 20 mg PO PRN PRN (Reason: Indigestion) RF: 0 carvedilol 12.5 mg tablet 12.5 mg PO BID Qty: 180 RF: 3 Referrals / Follow Up: Bryn Renteria DO [Primary Care Provider] -
== END 2021-03-07 16:31 | disposition home or self-care (01) ==
LOC: SDC 11:39 → AC 11:39
PROVIDERS: PCP Family Medicine; Referring Provider Surgery; Visit Provider Surgery
PROC: (CPT 11422; principal; 2021-03-07 13:15)
DX: L82.1 Other seborrheic keratosis (principal); D49.2 Neoplasm of unspecified behavior of bone, soft tissue, and skin; L57.0 Actinic keratosis; W89.9XXA Exposure to unspecified man-made visible and ultraviolet light, initial encounter; Y93.9 Activity, unspecified; Y92.9 Unspecified place or not applicable; Y99.9 Unspecified external cause status; Z20.822 Contact with and (suspected) exposure to COVID-19; I11.0 Hypertensive heart disease with heart failure; I50.9 Heart failure, unspecified; I48.91 Unspecified atrial fibrillation; E11.9 Type 2 diabetes mellitus without complications; K58.9 Irritable bowel syndrome, unspecified; K21.9 Gastro-esophageal reflux disease without esophagitis; F41.9 Anxiety disorder, unspecified; Z79.84 Long term (current) use of oral hypoglycemic drugs; Z79.899 Other long term (current) drug therapy
CPT/HCPCS: 00300; 11422; 11423; 11443; 82962; 87426; 88305; 88331; 88332; C9803; J7120; J2405

== ENCOUNTER 2021-06-20 12:15 | Emergency (ER) | payer OTHER, SELFPAY ==
[2021-06-20 12:15] VITALS: BP 134/81; PULSE 90; RESP 20; TEMP 37.1; O2SAT 95; BMI 35.6
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
[2021-06-20 13:21] LABS: Bedside Glucose 128 mg/dL (70-110)
== END 2021-06-20 13:41 | disposition home or self-care (01) ==
PROVIDERS: Emergency Provider Emergency Medicine; PCP Family Medicine
DX: U07.1 COVID-19 (principal); I48.91 Unspecified atrial fibrillation; I11.0 Hypertensive heart disease with heart failure; I50.9 Heart failure, unspecified; E11.65 Type 2 diabetes mellitus with hyperglycemia; K58.9 Irritable bowel syndrome, unspecified; K21.9 Gastro-esophageal reflux disease without esophagitis; F41.9 Anxiety disorder, unspecified; Z79.84 Long term (current) use of oral hypoglycemic drugs; Z79.899 Other long term (current) drug therapy
CPT/HCPCS: 82962; 99282

== ENCOUNTER 2021-06-24 15:58 | Outpatient (CLI) | payer OTHER, SELFPAY ==
[2021-06-24] MEDS: 0.9% Saline Lock 10 ML Syringe IV (16:16)
[2021-06-24 16:28] VITALS: BP 143/91; PULSE 110; RESP 18; TEMP 39.3; O2SAT 94; BMI 32.8
[2021-06-24] MEDS: Acetaminophen 325 MG Tablet 650 MG PO (16:56)
[2021-06-24 16:59] VITALS: BP 119/91; PULSE 110; RESP 20; TEMP 39.4; O2SAT 93
[2021-06-24 18:00] VITALS: BP 112/85; PULSE 97; RESP 20; TEMP 38.3; O2SAT 97
== END 2021-06-24 18:00 | disposition home or self-care (01) ==
LOC: ICUOUT 15:59 → MS2 16:00
PROVIDERS: PCP Family Medicine; Referring Provider Nurse Practitioner Acute Care; Visit Provider Nurse Practitioner Acute Care
DX: Z23 Encounter for immunization (principal); U07.1 COVID-19
CPT/HCPCS: J7050; M0243; A4216; Q0244

== ENCOUNTER 2021-06-27 04:00 | Inpatient (IN) | payer OTHER, SELFPAY ==
[2021-06-27] VITALS (17 sets, daily range): BP systolic 107–129; BP diastolic 71–92; PULSE 66–95; RESP 20–25; TEMP 36.2–36.7; O2SAT 88–98; BMI 34.1; BMI 33.6
--- NOTE | 2021-06-27 04:07 | EKG12_ITS ---
Test Reason : SOB Blood Pressure : / mmHG Vent. Rate : 082 BPM Atrial Rate : 082 BPM P-R Int : 144 ms QRS Dur : 088 ms QT Int : 360 ms P-R-T Axes : 034 -10 002 degrees QTc Int : 420 ms Normal sinus rhythm Normal ECG Confirmed by CLAUDIO MCKEON, MARILYN ([id number]), script editor RADHA SENA ([id number]) on 06/30/2021 12:46:06 PM Referred By: Confirmed By:MARILYN SNYDER MD
--- NOTE | 2021-06-27 04:07 | RAD_ITS ---
STUDY: X-RAY CHEST REASON FOR EXAM: Male, 60 years old. cough TECHNIQUE: Single AP portable view of the chest. COMPARISON: 01/09/2019 FINDINGS: There are superimposed monitor leads. Hazy airspace opacification in the right lung. There is no demonstrated pleural abnormality. Normal size heart. Normal mediastinum and artis. Normal visualized pulmonary arteries. Normal visualized aortic arch and descending thoracic aorta. There are diffuse degenerative changes of the visualized thoracic spine. Normal visualized ribs, clavicles, and shoulders. There is no demonstrated abnormality of the visualized soft tissue structures of the upper abdomen. RAD/Chest 1 View (Portable) IMPRESSION: Pneumonia in the right lung suspected. Imaging features can be seen with covid 19 pneumonia, but are nonspecific and may occur with a variety of infectious and noninfectious processes. Electronically Signed: Zuleyma Schulz MD at 4:44 EDT , Service support ,
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
[2021-06-27] MEDS: 0.9% Normal Saline 1,000 ML 125 ML IV (04:20)
[2021-06-27] MEDS: dexAMETHasone 10 MG/ML Vial IV (04:21)
[2021-06-27 04:24] LABS: Absolute Lymphocyte Count 2.47 X10^3/uL (0.83-4.51); Absolute Neutrophil Count 1.9 X10^3/uL (2.0-7.7); Basophil# 0.01 X10^3/uL; Basophil% 0.2 % (0-1); Eosinophil# 0.01 X10^3/uL; Eosinophils% 0.2 % (0-5); Hematocrit 42.2 % (40-54); Hemoglobin 13.5 g/dL (13.0-16.5); Lymphocyte # 2.47 X10^3/ul (0.83-4.51); Lymphocyte % 53.1 % (19-41); Monocyte# 0.21 X10^3/uL; Monocyte% 4.5 % (0-10); NRBC Flagged by Analyzer 0 % (0-5); Neutrophil # 1.93 X10^3/uL (2.7-7.7); Neutrophil % 41.6 % (47-70); POSITIVE MORPHOLOGY YES; Platelet Count 162 K/mm3 (150-450); RBC Distribution Width CV 13.1 % (11.6-14.6); RBC Distribution Width SD 48.7 fl (35.1-43.9); Red Blood Count 4.22 M/mm3 (4.6-6.2); White Blood Count 4.7 K/mm3 (4.4-11.0)
[2021-06-27 04:40] LABS: ALB/GLOB Ratio 0.8 RATIO (0.9-2.4); AST(SGOT) 63 U/L (15-37); Alanine Aminotransfer ALT/SGPT 59 U/L (16-61); Alkaline Phosphatase 69 U/L (45-117); Anion Gap 7 (5-15); BUN 31 mg/dL (7-18); BUN/Creat Ratio 16.9 RATIO (10-20); Calcium,Total 8.4 mg/dL (8.5-10.1); Chloride 104 mmol/L (98-107); Creatinine, Serum 1.83 mg/dL (0.70-1.30); EST Glomerular Filtration Rate 40 mL/min (>60); Est Glom Filt Rate - Afr Amer 49 mL/min (>60); Estimated Creatinine Clearance 45.72 ml/min; Globulin 3.9 g/dL (2.2-4.2); Glucose 155 mg/dL (74-106); Potassium 3.7 mmol/L (3.5-5.1); Protein, Total 6.9 g/dL (6.4-8.2); Sodium Level 140 mmol/L (136-145)
[2021-06-27 04:51] LABS: Differential Indicated SCAN CRITERIA MET
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
[2021-06-27 05:04] LABS: Lactic Acid 1.3 mmol/L (0.4-1.9)
--- NOTE | 2021-06-27 05:43 | ED.RN ---
D-DIMER OF 1.50 REPORTED TO . VERBALIZES UNDERSTANDING
--- NOTE | 2021-06-27 05:56 | VDLE_ITS ---
Reason For Study: Elevated D Dimer RIGHT LEFT GSV is normal. GSV is normal. Rt CFV is compressible Lt CFV is compressible Rt FV is compressible Lt FV is compressible Rt PopV is compressible. Lt PopV is compressible. T/P Trunk is compressible. T/P Trunk is compressible. PTV is compressible. PTV is compressible. RT PerV is compressible. LT PerV is compressible. Procedure This is a venous duplex using B-mode, color flow and spectral Doppler. The exam was abbreviated due to the COVID 19 protocol. Exam performed portable in patient room. A preliminary report was called and/or faxed to [facility]. VL/Venous Duplex US - Elmo Extrem Interpretation Summary No evidence for acute deep venous thrombosis bilateral lower extremities with p atent and compressible bilateral great saphenous veins. Covid 19 protocol Ordering Physician: Genevieve Case Referring Physician: Bryn Renteria Performed By: Yolis Vega RVT
[2021-06-27 06:15] LABS: AST(SGOT) 62 U/L (15-37); Alanine Aminotransfer ALT/SGPT 60 U/L (16-61); Alkaline Phosphatase 72 U/L (45-117); Bilirubin, Direct 0.16 mg/dL (0.00-0.30); Ferritin 419 ng/mL (26-388); LDH 411 U/L (87-241); Magnesium 2.4 mg/dL (1.6-2.6)
[2021-06-27 06:40] LABS: BNP,B-Type NATRIURETIC PEPTIDE 5.8 pg/mL (0-100)
[2021-06-27 06:48] LABS: Procalcitonin 0.21 ng/mL (0.00-0.09)
[2021-06-27] MEDS: 0.9% Normal Saline 1,000 ML 100 ML IV ×2 (06:56→16:48)
[2021-06-27] MEDS: Insulin Lispro 100 UNIT/ML INSULN.PEN SC ×4 (07:03→23:37)
[2021-06-27] MEDS: Calcium Carb/Vitamin D 1 TABLET Tablet PO (07:52)
[2021-06-27] MEDS: Pantoprazole Sodium 20 MG Tablet PO (07:52)
[2021-06-27] MEDS: Carvedilol 12.5 MG Tablet PO ×2 (07:52→23:35)
[2021-06-27] MEDS: Glucerna Shake 120 ML LIQUID PO (07:54)
[2021-06-27] MEDS: Enoxaparin 30 MG/0.3 ML Syringe SC ×2 (07:58→23:36)
--- NOTE | 2021-06-27 11:17 | CPS ---
started by nursing
--- NOTE | 2021-06-27 11:55 | CASEMGMT ---
VAHID KAPOOR Assessment: Face to Face with pt for initial transition planning/care coordination assessment. VAHID KAPOOR introduced self and role at [facility], pt voices understanding and consents to assessment. Pt is A/O x4 and answers all questions appropriately at this time. Pt sitting up in bed with O2 on in no distress. Care providers, pharmacy, and demographics verified/updated. Admitting Dx: Covid PNA, hypoxia PCP:[facility] Specialists: Pt denies. Preferred Pharmacy: [facility] Retail Insurance: MMO Prescription Benefit: yes LW/HPOA: Pt denies having a LW/DPOA or need for info regarding. LNOK: Yanique Patel, Living Arrangements: Pt lives with in a 2 story house with no steps to enter. Pt reports being I in ADL's and denies concerns at home. Transportation: Pt drives self and denies concerns with transportation. DME/HHC/SNF: Pt denies having any DME or previous HHC. 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 Pt states he was tested at [facility]. Pt is also covid positive. They have been quarantining from each other using separate bedrooms and bathrooms as she was positive prior to him. He states family/friends have been bringing supplies and groceries to their home. Pt provided with a local in network list of DME companies, pt chose [employer] should he need home O2. Green sheet on chart in case pt is dc'd this weekend. Pt states no concerns with going home at time of dc. Pt states no further concerns/needs. CM to follow. Advised pt to ask CM if any further question/concerns/needs arise, voices understanding. Pt Goal: Home Plan: Home
[2021-06-27 12:01] LABS: Bedside Glucose 196 mg/dL (70-110)
[2021-06-27 12:51] LABS: Bedside Glucose 361 mg/dL (70-110)
--- NOTE | 2021-06-27 13:23 | PCS.PANDOC ---
PANDEMIC DOCUMENTATION INITIATED: Date: 06/16/2021 Time: 190
[2021-06-27] MEDS: guaiFENesin 10 ML UDC (200MG/10ML) 20 ML PO ×2 (15:13→23:45)
[2021-06-27] MEDS: BENZOCAINE/MENTHOL 1 LOZENGE MUCOUS MEM (15:13)
--- NOTE | 2021-06-27 15:37 | PN.HOSP_ITS ---
Subjective Subjective Patient seen and examined. He had no complaints and felt his breathing had worsened. Review of systems otherwise negative. He has remained hemodynamically stable though he was mildly tachypneic this morning. Objective Data Objective Data Vital Signs: Vital Signs Temp Pulse Resp BP Pulse Ox 97.1 F L 88 22 H 115/85 H 96 06/27/21 12:07 06/27/21 12:07 06/27/21 12:07 06/27/21 12:07 06/27/21 12:07 Oxygen Flow Rate (L/min) 2 Oxygen Delivery Method Nasal Cannula Weight: 241 lb 2.971 oz Body Mass Index (BMI) 33.6 Intake & Output: Intake and Output for Last 24 Hours 06/25/21 06/26/21 06/27/21 23:59 23:59 23:59 Intake Total 637.5 / 637.5 Output Total 1000 / 1000 Balance -362.5 / -362.5 Medical Nutrition Assessment Dietitian: Malnutrition Criteria Met Start: 06/27/21 10:12 Freq: Status: Active Protocol: Document 06/27/21 10:12 FRANCESCA (Rec: 06/27/21 10:13 FRANCESCA [id number]) Nutrition Malnutrition Evidence of Malnutrition Exists Yes Malnutrition (severe): Acute Illness/Injury Evidenced By Suboptimal Energy Intake ( Severe),Weight Loss (Severe) Clinical Problem Acute Disease or Injury Related Malnutrition Etiology (suspected) related to COVID PNA/hypoxia Signs/Symptoms as evidenced by 5.6% wt loss x 1 wk, and issues w/ nausea, no taste or smell and decreased po intake 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 Lab / Micro Data Result Diagrams: 06/27/21 04:10 06/27/21 04:10 Labs: Laboratory Results - last 24 hr 06/27/21 04:10: WBC 4.7, RBC 4.22 L, Hgb 13.5, Hct 42.2, MCV 100.0 H, MCH 32.0, MCHC 32.0, RDW Std Deviation 48.7 H, RDW Coeff of Juancarlos 13.1, Plt Count 162, MPV 10.0, Immature Gran % (Auto) 0.400, Neut % (Auto) 41.6 L, Lymph % (Auto) 53.1 H, Waller % (Auto) 4.5, Eos % (Auto) 0.2, Baso % (Auto) 0.2, Absolute Neuts (auto) 1.9 L, Absolute Lymphs (auto) 2.47, Nucleated RBC % 0 06/27/21 04:10: Sodium 140, Potassium 3.7, Chloride 104, Carbon Dioxide 29.0, Anion Gap 7, BUN 31 H, Creatinine 1.83 H, Estim Creat Clear Calc 45.72, Est GFR (MDRD) Af Amer 49 L, Est GFR (MDRD) Non-Af 40 L, BUN/Creatinine Ratio 16.9, Glucose 155 H, Calcium 8.4 L, Total Bilirubin 0.50, AST 63 H, ALT 59, Alkaline Phosphatase 69, Total Protein 6.9, Albumin 3.0 L, Globulin 3.9, Albumin/Globulin Ratio 0.8 L 06/27/21 04:10: Lactic Acid 1.3 06/27/21 04:10: D-Dimer Quant (PE/DVT) 1.50 H* 06/27/21 04:10: Magnesium 2.4, Ferritin 419 H, Total Bilirubin 0.50, Direct Bilirubin 0.16, AST 62 H, ALT 60, Alkaline Phosphatase 72, Lactate Dehydrogenase 411 H, C-React Prot Ext Range 64.00 H, Total Protein 7.0, Albumin 3.0 L, Globulin 4.0 06/27/21 04:10: B-Natriuretic Peptide 5.8 06/27/21 04:10: Procalcitonin 0.21 H 06/27/21 07:00: POC Glucose 196 H 06/27/21 12:02: POC Glucose 361 H Micro: Microbiology 06/27/21 00:52 Mucosa - Nose Respiratory Panel (PCR) - Final 06/27/21 05:40 Urine, Clean Catch Legionella Antigen - Final 06/27/21 05:40 Urine, Clean Catch Streptococcus pneumoniae Antigen (M - Final Radiography Diagnostic Testing: Radiology Impression Chest X-Ray 06/27/21 04:07 IMPRESSION: Pneumonia in the right lung suspected. Imaging features can be seen with covid 19 pneumonia, but are nonspecific and may occur with a variety of infectious and noninfectious processes. Electronically Signed: Zuleyma Schulz MD at 4:44 EDT , Service support , Rhythm Strip Rhythm Strip: Sinus Rhythm Rate: 86 Ectopy: None Physical Exam Const alert, oriented x3 and no apparent distress Exam Limitations: no limitations HEENT head/scalp atraumatic and moist oral mucous membranes Head and Scalp: normocephalic Eyes PERRL, EOMs intact bilaterally and conjunctivae normal Neck no lymphadenopathy, supple and no JVD Resp Resp Narrative: mildly diminished breath sounds bibasally, no wheezes or crackl es. on 2L of oxygen by nasal canula. tachypneic Cardio regular rate, regular rhythm, S1 normal heart sound, S2 normal heart sound and no murmurs GI normal to inspection, nondistended, normoactive bowel sounds, soft to palpation, non-tender and non-distended Extremity normal to inspection, full ROM and no clubbing, cyanosis or edema Peripheral Pulses: Yes pulses 2+ throughout Skin no rashes or lesions noted Neuro oriented x3, CN's II-XII intact bilaterally and moves all extremities Sensorium / Orientation: awake and alert Motor Exam: strength 5/5 throughout Psych affect normal Assessment & Plan Assessment/Plan (1) Acute respiratory failure with hypoxia: (2) Pneumonia due to 2019-nCoV: (3) Acute kidney injury due to COVID-19: (4) COVID-19: PLAN: #Acute hypoxic respiratory failure due to COVID 19 infection * Was on 4 L of oxygen at time he came in but had been weaned down to 2 L at time of review. * On Decadron. Titrate oxygen to maintain saturation above 90%. * not on remdesivir due to >10 days since onset of symptoms * Breathing treatments with bronchodilators. * #COVID 19 infection #FREEDOM * Cr was 1.83 on admission. Being gently hydrate with IVF * baseline is ~1 * trend Cr * #HFpEF: not in exacerbation. Last known EF was 55% from 2015. on lasix. #Hypertension: on coreg. #Type 2 diabetes mellitus: ISS. Accuchecks ACHS. Glipizide on hold. #GERD: s/p Shannan's fundoplication. on PPI #Paroxysmal afib: on coreg. Not anticoagulated DVT prophylaxis: sc lovenox 30mg bid. Charges/Coding Visit Charges Inpatient E&M: 90265 Subs Hosp L2
[2021-06-27] MEDS: ALPRAZolam 0.5 MG Tablet 1 MG PO (23:35)
[2021-06-28] VITALS (12 sets, daily range): BP systolic 114–130; BP diastolic 72–87; PULSE 59–90; RESP 18–20; TEMP 36.3–36.6; O2SAT 86–96
[2021-06-28 00:16] LABS: Bedside Glucose 314 mg/dL (70-110)
[2021-06-28 00:25] LABS: Bedside Glucose 350 mg/dL (70-110)
[2021-06-28] MEDS: 0.9% Normal Saline 1,000 ML 100 ML IV (03:09)
[2021-06-28] MEDS: Insulin Lispro 100 UNIT/ML INSULN.PEN SC ×2 (06:43→11:03)
[2021-06-28 07:10] LABS: Bedside Glucose 246 mg/dL (70-110)
[2021-06-28 08:31] LABS: Absolute Lymphocyte Count 0.94 X10^3/uL (0.83-4.51); Absolute Neutrophil Count 3.5 X10^3/uL (2.0-7.7); Hematocrit 35.2 % (40-54); Hemoglobin 11.5 g/dL (13.0-16.5); Lymphocyte # 0.94 X10^3/ul (0.83-4.51); Lymphocyte % 20.3 % (19-41); Mean Corp Hgb Conc 32.7 g/dL (32-36); Mean Corpuscular Hgb 32.4 pg (27.0-32.0); Mean Corpuscular Volume 99.2 fL (80-94); Mean Platelet Vol. 10.1 fl (6.2-12.0); Monocyte# 0.18 X10^3/uL; Monocyte% 3.9 % (0-10); NRBC Flagged by Analyzer 0 % (0-5); Neutrophil % 75.4 % (47-70); POSITIVE MORPHOLOGY YES; Platelet Count 185 K/mm3 (150-450); RBC Distribution Width CV 12.2 % (11.6-14.6); RBC Distribution Width SD 44.9 fl (35.1-43.9); Red Blood Count 3.55 M/mm3 (4.6-6.2); White Blood Count 4.6 K/mm3 (4.4-11.0)
[2021-06-28] MEDS: 0.9% Saline Lock 10 ML Syringe IV (08:33)
[2021-06-28] MEDS: Enoxaparin 30 MG/0.3 ML Syringe SC (08:33)
[2021-06-28] MEDS: Carvedilol 12.5 MG Tablet PO (08:33)
[2021-06-28] MEDS: dexAMETHasone 10 MG/ML Vial 6 MG IV (08:33)
[2021-06-28] MEDS: Pantoprazole Sodium 20 MG Tablet PO (08:33)
[2021-06-28] MEDS: Calcium Carb/Vitamin D 1 TABLET Tablet PO (08:33)
[2021-06-28] MEDS: guaiFENesin 10 ML UDC (200MG/10ML) 20 ML PO (08:34)
[2021-06-28 08:39] LABS: Differential Indicated SCAN CRITERIA MET
[2021-06-28 09:02] LABS: ALB/GLOB Ratio 0.7 RATIO (0.9-2.4); AST(SGOT) 26 U/L (15-37); Alanine Aminotransfer ALT/SGPT 46 U/L (16-61); Albumin, Serum 2.5 g/dL (3.2-5.0); Alkaline Phosphatase 59 U/L (45-117); Anion Gap 6 (5-15); BUN 23 mg/dL (7-18); Calcium,Total 8.3 mg/dL (8.5-10.1); Chloride 108 mmol/L (98-107); EST Glomerular Filtration Rate 81 mL/min (>60); Est Glom Filt Rate - Afr Amer 98 mL/min (>60); Estimated Creatinine Clearance 83.67 ml/min; Globulin 3.5 g/dL (2.2-4.2); Glucose 234 mg/dL (74-106); Potassium 4.3 mmol/L (3.5-5.1); Sodium Level 141 mmol/L (136-145)
[2021-06-28 11:30] LABS: Bedside Glucose 327 mg/dL (70-110)
--- NOTE | 2021-06-28 12:07 | DS.PCM_ITS ---
Providers Date of Admission: 06/27/21 Primary Care Physician: Dr. Bryn Renteria, DO Reason For Visit: COVID PNA, HYPOXIA Diagnosis Discharge Diagnosis (1) Acute respiratory failure with hypoxia: Status: Acute Code(s): J96.01 - Acute respiratory failure with hypoxia (2) Pneumonia due to 2019-nCoV: Status: Acute Code(s): U07.1 - COVID-19; J12.82 - Pneumonia due to coronavirus disease 2019 (3) Acute kidney injury due to COVID-19: Status: Acute Code(s): U07.1 - COVID-19; N17.9 - Acute kidney failure, unspecified (4) COVID-19: Status: Acute Code(s): U07.1 - COVID-19 Medications at Discharge Home Medications glipizide 10 mg PO 1700 01/10/19 alprazolam 1 mg PO QHS 04/23/20 calcium carbonate-vitamin D3 600 mg (1,500 mg)-1,000 unit tablet 1 tab PO DAILY tab 10/04/20 cyanocobalamin (vitamin B-12) 500 mcg tablet,extended release 500 mcg PO DAILY 10/04/20 omeprazole magnesium 20 mg PO PRN PRN 11/07/20 carvedilol 12.5 mg tablet 12.5 mg PO BID #180 tab 03/17/21 dexamethasone [Decadron] 6 mg PO DAILY #8 tab 06/28/21 Hospital Course Operations None Procedures None Summary of Care Provided Minutes Spent on Discharge: 45 Hospital Course: Patient is a 60-year-old male with an extensive past medical history as outlined was admitted through the ED with a complaint of fever, chills, nausea and diminished sense of taste and smell as well as congestion and sore throat and shortness of breath as well as a cough which started around 06/16/2021. He went to an urgent care on 06/19/2021 and refused a Covid test at that time. However he went back on 06/20/2021 because his symptoms were worsen ing so he did a Covid test done which was positive. He went home but his symptoms worsen so he came into the ED on 06/27/2021. He had not been able to eat or drink well at home. On arrival in the ED, he was saturating at 81% on room air presented sporadically went up to 88% and then to 19% on 3 L of oxygen. Chest x-ray showed hazy opacification in the right lung. He was admitted and managed for acute hypoxic respiratory insufficiency due to COVID-19 infection. Of note he had received monoclonal antibody 2 days prior to this admission. He was started on Decadron. He was not started on remdesivir on account of how long ago his symptoms started. Patient shortness of breath gradually improved. He felt much better. He was weaned down to 1 L of oxygen and felt much better. He was discharged home on 06/28/2021 with a prescription for p.o. Decadron 6 mg daily for 8 days to complete a 10-day course. He is to remain in isolation till July for 2020 to complete a 20-day course of current time. He is follow-up with his primary care doctor in about 2 weeks. Patient counseled, to the ED if his symptoms worsen p.o. at home. Patient seen and examined prior to discharge. He felt much better and had no complaints. Review of systems otherwise negative. Labs and vitals reviewed. Her medication reviewed and reconciled. Patient qualified for 2L of home oxygen with ambulatory pulse oximetry, and so was discharged on 2L of oxygen to use for shortness of breath at home. Physical Exam Const alert, oriented x3 and no apparent distress General Appearance: cooperative, comfortable and well kempt Exam Limitations: no limitations HEENT normocephalic, head/scalp atraumatic and moist oral mucous membranes Eyes PERRL, EOMs intact bilaterally and conjunctivae normal Neck no lymphadenopathy, supple and no JVD Resp normal respiratory effort and no use of accessory muscles Resp Narrative: mildly diminished breath sounds bibasally, no wheezes or crackles. on 1L of oxygen by nasal canula. Cardio regular rate, regular rhythm, S1 normal heart sound, S2 normal heart sound and no murmurs GI normal to inspection, nondistended, normoactive bowel sounds, soft to palpation, non-tender and non-distended Extremity normal to inspection, full ROM and no clubbing, cyanosis or edema Skin no rashes or lesions noted Neuro oriented x3, CN's II-XII intact bilaterally and moves all extremities Sensorium / Orientation: awake and alert Motor Exam: strength 5/5 throughout Psych affect normal Medical Records Data Medical Nutrition Assessment Dietitian: Malnutrition Criteria Met Start: 06/27/21 10:12 Freq: Status: Active Protocol: Document 06/27/21 10:12 FRANCESCA (Rec: 06/27/21 10:13 FRANCESCA [id number]) Nutrition Malnutrition Evidence of Malnutrition Exists Yes Malnutrition (severe): Acute Illness/Injury Evidenced By Suboptimal Energy Intake ( Severe),Weight Loss (Severe) Clinical Problem Acute Disease or Injury Related Malnutrition Etiology (suspected) related to COVID PNA/hypoxia Signs/Symptoms as evidenced by 5.6% wt loss x 1 wk, and issues w/ nausea, no taste or smell and 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 Weight / BMI Weight Weight: 241 lb 2.971 oz Body Mass Index (BMI) 33.6 ABG / Lab / Microbiology Data Result Diagrams: 06/28/21 08:00 06/28/21 08:00 Laboratory: Laboratory Results - last 24 hr 06/27/21 12:02: POC Glucose 361 H 06/27/21 16:47: POC Glucose 314 H 06/27/21 23:28: POC Glucose 350 H 06/28/21 06:39: POC Glucose 246 H 06/28/21 08:00: WBC 4.6, RBC 3.55 L, Hgb 11.5 L, Hct 35.2 L, MCV 99.2 H, MCH 32.4 H, MCHC 32.7, RDW Std Deviation 44.9 H, RDW Coeff of Juancarlos 12.2, Plt Count 185, MPV 10.1, Immature Gran % (Auto) 0.400, Neut % (Auto) 75.4 H, Lymph % (Auto) 20.3, [place] % (Auto) 3.9, Eos % (Auto) 0.0, Baso % (Auto) 0.0, Absolute Neuts (auto) 3.5, Absolute Lymphs (auto) 0.94, Nucleated RBC % 0 06/28/21 08:00: Sodium 141, Potassium 4.3, Chloride 108 H, Carbon Dioxide 27.0, Anion Gap 6, BUN 23 H, Creatinine 1.00, Estim Creat Clear Calc 83.67, Est GFR (MDRD) Af Amer 98, Est GFR (MDRD) Non-Af 81, BUN/Creatinine Ratio 23.0 H, Glucose 234 H, Calcium 8.3 L, Total Bilirubin 0.50, AST 26, ALT 46, Alkaline Phosphatase 59, Total Protein 6.0 L, Albumin 2.5 L, Globulin 3.5, Albumin/Globulin Ratio 0.7 L 06/28/21 11:01: POC Glucose 327 H Microbiology: Microbiology 06/27/21 00:52 Mucosa - Nose Respiratory Panel (PCR) - Final 06/27/21 05:40 Urine, Clean Catch Legionella Antigen - Final 06/27/21 05:40 Urine, Clean Catch Streptococcus pneumoniae Antigen (M - Final Radiography Diagnostic Testing: Radiology Impression Venous Doppler Study 06/27/21 05:56 Interpretation Summary No evidence for acute deep venous thrombosis bilateral lower extremities with patent and compressible bilateral great saphenous veins. Covid 19 protocol Ordering Physician: Genevieve Case Referring Physician: Bryn Renteria Performed By: Yolis Vega RVT D/C Instructions Discharge Diet: Low fat / Low cholesterol Discharge Activity: Return to Normal Activity Weight Bearing Status: Weight bearing as tolerated Call your doctor if you observe: Fever of 101 or Higher, Shortness of breath, Dizziness, Swelling in the ankles and Chest pain Meaningful Use Info Meaningful Use Diagnoses (Choose all that apply): None applicable Discharge Plan Admission Admit Date/Time: 06/27/21 05:16 Primary Reason for Your Visit: COVID 19 infection Attending Provider: Sherry Miranda Primary Care Provider: Bryn Renteria Instructions Patient Instructions: Coronavirus Disease 2019 (COVID-19): Overview, Coronavirus Disease 2019 (COVID-19): Caring for Yourself or Others, COVID-19 and the Flu: What's the Difference? Additional Instructions / Restrictions: to self quarantine till July 06, 2021 Discharge Orders/Prescriptions Prescriptions: New dexamethasone [Decadron] 6 mg tablet 6 mg PO DAILY Qty: 8 RF: 0 Continued cyanocobalamin (vitamin B-12) 500 mcg tablet,extended release 500 mcg tablet extended release 500 mcg PO DAILY RF: 0 calcium carbonate-vitamin D3 600 mg (1,500 mg)-1,000 unit tablet 600mg (1,000mg) -1,000 unit tablet 1 tab PO DAILY RF: 0 glipizide 5 MG tablet 10 mg PO 1700 RF: 0 alprazolam 1 MG tablet 1 mg PO QHS RF: 0 omeprazole magnesium 20 MG tablet,delayed release (DR/EC) 20 mg PO PRN PRN (Reason: Indigestion) RF: 0 carvedilol 12.5 mg tablet 12.5 mg PO BID Qty: 180 RF: 3 Referrals / Follow Up: Bryn Renteria DO [Primary Care Provider] - Within 2 Weeks Disposition Discharge Orders: Discharge Patient (Routine); Ordered 06/28/21 Ordered By: Dr. Sherry Miranda Charges/Coding Visit Charges Inpatient E&M: [id number] Disch Hosp
== END 2021-06-28 15:20 | disposition home or self-care (01) | DRG 177 ==
LOC: ED 04:53 → MS3 05:22
PROVIDERS: Admitting Provider Family Medicine; Emergency Provider Emergency Medicine; PCP Family Medicine; Visit Provider Student in an Organized Health Care Education/Training Program
DX: U07.1 COVID-19 (principal); J12.82 Pneumonia due to coronavirus disease 2019; J96.01 Acute respiratory failure with hypoxia; E43 Unspecified severe protein-calorie malnutrition; N17.9 Acute kidney failure, unspecified; I50.32 Chronic diastolic (congestive) heart failure; I11.0 Hypertensive heart disease with heart failure; Z68.33 Body mass index [BMI] 33.0-33.9, adult; E11.9 Type 2 diabetes mellitus without complications; I48.0 Paroxysmal atrial fibrillation; K58.9 Irritable bowel syndrome, unspecified; E78.5 Hyperlipidemia, unspecified; K21.9 Gastro-esophageal reflux disease without esophagitis; F41.9 Anxiety disorder, unspecified; Z79.84 Long term (current) use of oral hypoglycemic drugs; Z79.899 Other long term (current) drug therapy
CPT/HCPCS: 36415; 71045; 80053; 80076; 82728; 82962; 83605; 83615; 83735; 83880; 84145; 85025; 85379; 86140; 87070; 87205; 87449; 87633; 93005; 93970; 99251; 99284; J7030; A4216; G0463

== ENCOUNTER 2021-06-29 00:47 | Inpatient (IN) | payer OTHER, SELFPAY ==
[2021-06-29] VITALS (18 sets, daily range): BP systolic 121–145; BP diastolic 80–94; PULSE 57–88; RESP 18–28; TEMP 36.4–37; O2SAT 89–100; BMI 34.4
--- NOTE | 2021-06-29 01:05 | EKG12_ITS ---
Test Reason : Blood Pressure : / mmHG Vent. Rate : 072 BPM Atrial Rate : 072 BPM P-R Int : 146 ms QRS Dur : 090 ms QT Int : 370 ms P-R-T Axes : 049 -02 001 degrees QTc Int : 405 ms Normal sinus rhythm Normal ECG Confirmed by CLAUDIO MCKEON, MARILYN ([id number]), editorial assistant RADHA SENA ([id number]) on 07/01/2021 9:34:40 AM Referred By: IRA Confirmed By:MARILYN SNYDER MD
--- NOTE | 2021-06-29 01:05 | CT_ITS ---
STUDY: CTA CHEST REASON FOR EXAM: Male, 60 years old. sob,elevated ddimer,covid RADIATION DOSAGE (If Supplied By Facility): CTDIvol = ( 20.98 ) mGy, DLP = ( 575.47 ) mGycm TECHNIQUE: The examination was performed with the intravenous administration of IV 100mL Isovue-370. Post-processing of the angiographic images was performed, with multiplanar reformation and 3D reconstruction. Individualized dose optimization techniques were used for this CT. COMPARISON: None. FINDINGS: Exam is limited due to motion/breathing artifact and decreased resolution from body habitus from beam hardening artifact. Normal enhancement of the main pulmonary artery and right and left pulmonary arteries. Normal enhancement of the bilateral peripheral pulmonary arteries. There is no demonstrated pulmonary embolism. Normal thoracic aorta and visualized great vessels. There is no demonstrated aortic dissection. Normal cardiac size with coronary artery calcifications. Normal mediastinum. Normal hilar regions. Normal visualized trachea and bronchi. The lungs are well expanded. Multifocal bilateral groundglass opacities scattered throughout the bilateral lung santiago with a predominantly subpleural distribution and compatible with diffuse multifocal pneumonitis. Normal pleura. Normal chest wall structures. Multilevel disc degenerative disease throughout the thoracic spine. Upper abdomen reveals a moderate size hiatal hernia. Nonvisualized gallbladder suggestive of previous cholecystectomy. Remainder of the visualized upper abdominal structures are unremarkable. CT/CTA Chest W/WO Contrast IMPRESSION: Negative CTA chest examination, without a demonstrated pulmonary embolism or arterial dissection. Diffuse multifocal pneumonitis consistent with known history of Covid 19. Electronically Signed: Nicolle Najera MD at 2:34 EDT , Service support ,
[2021-06-29 01:16] LABS: Absolute Lymphocyte Count 1.06 X10^3/uL (0.83-4.51); Absolute Neutrophil Count 5.8 X10^3/uL (2.0-7.7); Basophil# 0.01 X10^3/uL; Basophil% 0.1 % (0-1); Hematocrit 37.2 % (40-54); Lymphocyte # 1.06 X10^3/ul (0.83-4.51); Lymphocyte % 14.8 % (19-41); Mean Corp Hgb Conc 32.3 g/dL (32-36); Mean Corpuscular Volume 99.2 fL (80-94); Monocyte# 0.25 X10^3/uL; Monocyte% 3.5 % (0-10); NRBC Flagged by Analyzer 0 % (0-5); Neutrophil # 5.77 X10^3/uL (2.7-7.7); Neutrophil % 80.8 % (47-70); Platelet Count 236 K/mm3 (150-450); RBC Distribution Width CV 12.2 % (11.6-14.6); Red Blood Count 3.75 M/mm3 (4.6-6.2); White Blood Count 7.2 K/mm3 (4.4-11.0)
[2021-06-29 01:34] LABS: Anion Gap 6 (5-15); BUN 26 mg/dL (7-18); BUN/Creat Ratio 21.8 RATIO (10-20); Calcium,Total 8.8 mg/dL (8.5-10.1); Chloride 109 mmol/L (98-107); Creatinine, Serum 1.19 mg/dL (0.70-1.30); EST Glomerular Filtration Rate 66 mL/min (>60); Est Glom Filt Rate - Afr Amer 80 mL/min (>60); Estimated Creatinine Clearance 70.31 ml/min; Glucose 316 mg/dL (74-106); Potassium 4.2 mmol/L (3.5-5.1); Sodium Level 141 mmol/L (136-145); Troponin-I HS 8 pg/mL (3.0-78.0)
[2021-06-29 01:37] LABS: BNP,B-Type NATRIURETIC PEPTIDE 171.8 pg/mL (0-100)
[2021-06-29 01:45] LABS: Lactic Acid 2.3 mmol/L (0.4-1.9)
--- NOTE | 2021-06-29 01:50 | RAD_ITS ---
STUDY: X-RAY CHEST REASON FOR EXAM: Male, 60 years old. sob TECHNIQUE: Single AP portable view of the chest. COMPARISON: 01/09/2019. FINDINGS: The lungs are normally expanded with multiple focal airspace opacities within the right lung field concerning for multifocal pneumonia. There is no demonstrated pleural abnormality. Normal size heart. Normal mediastinum and artis. Normal visualized pulmonary arteries. Normal visualized aortic arch and descending thoracic aorta. There are diffuse degenerative changes of the visualized thoracic spine. Normal visualized ribs, clavicles, and shoulders. There is no demonstrated abnormality of the visualized soft tissue structures of the upper abdomen. RAD/Chest 1 View (Portable) IMPRESSION: Multifocal right-sided pneumonia. Electronically Signed: Nicolle Najera MD at 2:11 EDT , Service support ,
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
--- NOTE | 2021-06-29 05:01 | NURSING ---
Covid emergency documentation initiated.
[2021-06-29 05:18] LABS: Reflex Lactate? Y
[2021-06-29] MEDS: Insulin Lispro 100 UNIT/ML INSULN.PEN SC ×4 (06:56→21:11)
[2021-06-29 07:15] LABS: Bedside Glucose 161 mg/dL (70-110)
[2021-06-29] MEDS: Carvedilol 12.5 MG Tablet PO ×2 (10:58→21:10)
[2021-06-29] MEDS: Cyanocobalamin 500 MCG Tablet PO (10:58)
[2021-06-29] MEDS: Calcium Carb/Vitamin D 1 TABLET Tablet PO (10:58)
[2021-06-29] MEDS: dexAMETHasone 4 MG Tablet 6 MG PO (10:59)
[2021-06-29] MEDS: Enoxaparin 40 MG/0.4 ML Syringe 30 MG SC ×2 (11:01→21:10)
--- NOTE | 2021-06-29 12:52 | PN.HOSP_ITS ---
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 Patient was discharged yesterday on 2 L of at home he got more short of breath and was still hypoxic at 4 L therefore came to ER was admitted. CTPA did not show evidence of pulmonary embolism but revealed multifocal pneumonitis consistent with COVID-19 pneumonia Lungs: Air entry diminished bilaterally. Bilateral crepitations present. Hypoxic. On Decadron. Prone positioning while awake. Other comorbidities as mentioned in HPI. On dexamethasone 6 mg daily
[2021-06-29 15:51] LABS: Bedside Glucose 219 mg/dL (70-110)
[2021-06-29 18:25] LABS: Bedside Glucose 373 mg/dL (70-110)
[2021-06-29] MEDS: ALPRAZolam 0.5 MG Tablet 1 MG PO (21:10)
[2021-06-29 21:21] LABS: Bedside Glucose 380 mg/dL (70-110)
[2021-06-30] VITALS (14 sets, daily range): BP systolic 119–136; BP diastolic 71–94; PULSE 46–84; RESP 15–20; TEMP 36.3–36.8; O2SAT 93–97
[2021-06-30] MEDS: Insulin Lispro 100 UNIT/ML INSULN.PEN SC ×4 (06:35→23:51)
[2021-06-30 06:50] LABS: Bedside Glucose 241 mg/dL (70-110)
[2021-06-30 07:15] LABS: Absolute Lymphocyte Count 1.31 X10^3/uL (0.83-4.51); Absolute Neutrophil Count 4.1 X10^3/uL (2.0-7.7); Basophil# 0.01 X10^3/uL; Basophil% 0.2 % (0-1); Hematocrit 35.9 % (40-54); Hemoglobin 11.7 g/dL (13.0-16.5); Lymphocyte # 1.31 X10^3/ul (0.83-4.51); Lymphocyte % 22.2 % (19-41); Mean Corp Hgb Conc 32.6 g/dL (32-36); Mean Corpuscular Hgb 32.3 pg (27.0-32.0); Mean Corpuscular Volume 99.2 fL (80-94); Mean Platelet Vol. 9.7 fl (6.2-12.0); Monocyte% 6.8 % (0-10); NRBC Flagged by Analyzer 0 % (0-5); Neutrophil # 4.09 X10^3/uL (2.7-7.7); Neutrophil % 69.3 % (47-70); Platelet Count 245 K/mm3 (150-450); RBC Distribution Width SD 44.1 fl (35.1-43.9); Red Blood Count 3.62 M/mm3 (4.6-6.2); White Blood Count 5.9 K/mm3 (4.4-11.0)
[2021-06-30 07:39] LABS: ALB/GLOB Ratio 0.7 RATIO (0.9-2.4); AST(SGOT) 27 U/L (15-37); Alanine Aminotransfer ALT/SGPT 59 U/L (16-61); Albumin, Serum 2.6 g/dL (3.2-5.0); Alkaline Phosphatase 66 U/L (45-117); Anion Gap 5 (5-15); BUN 20 mg/dL (7-18); BUN/Creat Ratio 21.1 RATIO (10-20); Calcium,Total 8.8 mg/dL (8.5-10.1); Chloride 106 mmol/L (98-107); Creatinine, Serum 0.95 mg/dL (0.70-1.30); EST Glomerular Filtration Rate 86 mL/min (>60); Est Glom Filt Rate - Afr Amer 104 mL/min (>60); Estimated Creatinine Clearance 88.07 ml/min; Globulin 3.5 g/dL (2.2-4.2); Glucose 237 mg/dL (74-106); Potassium 4.2 mmol/L (3.5-5.1); Protein, Total 6.1 g/dL (6.4-8.2); Sodium Level 139 mmol/L (136-145)
[2021-06-30] MEDS: Cyanocobalamin 500 MCG Tablet PO (09:23)
[2021-06-30] MEDS: Calcium Carb/Vitamin D 1 TABLET Tablet PO (09:23)
[2021-06-30] MEDS: dexAMETHasone 4 MG Tablet 6 MG PO (09:24)
[2021-06-30] MEDS: Carvedilol 12.5 MG Tablet PO ×2 (09:24→23:48)
[2021-06-30] MEDS: Enoxaparin 40 MG/0.4 ML Syringe 30 MG SC ×2 (09:25→23:48)
--- NOTE | 2021-06-30 10:05 | PCM.PN.HOSP ---
Subjective Subjective Patient was seen and examined. He feels improved. He is currently on 2 L of oxygen. Denied any progressive shortness of breath. Objective Data Objective Data Vital Signs: Vital Signs Temp Pulse Resp BP Pulse Ox 98.3 F 75 16 119/83 H 96 06/30/21 09:20 06/30/21 09:54 06/30/21 09:20 06/30/21 09:20 06/30/21 09:20 Oxygen Flow Rate (L/min) 2 Oxygen Delivery Method Nasal Cannula Weight: 112.173 kg Body Mass Index (BMI) 34.4 Intake & Output: Intake and Output for Last 24 Hours 06/28/21 06/29/21 06/30/21 23:59 23:59 23:59 Intake Total 1310 / 1310 300 / 300 Output Total 1550 / 1550 700 / 700 Balance -240 / -240 -400 / -400 Lab / Micro Data Result Diagrams: 06/30/21 06:35 06/30/21 06:35 Labs: Laboratory Results - last 24 hr 06/29/21 12:56: POC Glucose 219 H 06/29/21 17:16: POC Glucose 373 H 06/29/21 21:04: POC Glucose 380 H 06/30/21 06:33: POC Glucose 241 H 06/30/21 06:35: WBC 5.9, RBC 3.62 L, Hgb 11.7 L, Hct 35.9 L, MCV 99.2 H, MCH 32.3 H, MCHC 32.6, RDW Std Deviation 44.1 H, RDW Coeff of Juancarlos 12.0, Plt Count 245, MPV 9.7, Immature Gran % (Auto) 1.500 H, Neut % (Auto) 69.3, Lymph % (Auto) 22.2, [place] % (Auto) 6.8, Eos % (Auto) 0.0, Baso % (Auto) 0.2, Absolute Neuts (auto) 4.1, Absolute Lymphs (auto) 1.31, Nucleated RBC % 0 06/30/21 06:35: Sodium 139, Potassium 4.2, Chloride 106, Carbon Dioxide 28.0, Anion Gap 5, BUN 20 H, Creatinine 0.95, Estim Creat Clear Calc 88.07, Est GFR (MDRD) Af Amer 104, Est GFR (MDRD) Non-Af 86, BUN/Creatinine Ratio 21.1 H, Glucose 237 H, Calcium 8.8, Total Bilirubin 0.40, AST 27, ALT 59, Alkaline Phosphatase 66, Total Protein 6.1 L, Albumin 2.6 L, Globulin 3.5, Albumin/Globulin Ratio 0.7 L Rhythm Strip Rhythm Strip: Sinus Rhythm Rate: 72 Ectopy: None Physical Exam Narrative Physical exam: General: Alert, Oriented x3, Cooperative, No apparent distress, Well developed, on 2L oxygen HEENT: Atraumatic Oral: Moist Mucosa Neck: Supple Lungs: Clear to auscultation Cardiovascular: HS I+II, regular, no murmurs Abdomen: Bowel Sounds Present, Soft, Non Tender Extremities: No edema Assessment & Plan Assessment/Plan (1) Pneumonia due to 2019-nCoV: (2) Hypoxia: PLAN: 1.Acute hypoxia secondary to acute COVID-19 pneumonia, patient is currently on 2 L of oxygen Admitting chest x-ray shows multifocal right-sided pneumonia. CTA of the chest is negative Will give a challenge of Lasix 20 mg IV x1, continue on DuoNeb breathing treatments scheduled, albuterol as needed 2.Type II DM, blood sugars are uncontrolled secondary to steroids, will continue to monitor was on Decadron. Continue on medium to high-dose insulin sliding scale 3. Recent FREEDOM, resolved, creatinine is 0.95 from 1.19 Will continue to monitor 4.Rest of chronic medical conditions including chronic CHF, unclear type/hypertension/GERD/paroxysmal atrial fibrillation, all remained stable Charges/Coding Visit Charges Inpatient E&M: 28013 Subs Hosp L2
[2021-06-30] MEDS: Furosemide 20 MG/2 ML VIAL IV (11:46)
[2021-06-30] MEDS: 0.9% Saline Lock 10 ML Syringe IV (11:46)
[2021-06-30] MEDS: Psyllium 1 PACKET PO (11:46)
--- NOTE | 2021-06-30 12:51 | CASEMGMT ---
RN CM Readmission Note Previous Admission: 06/27/21-06/28/21 Diagnosis: COVID PNA, hypoxia DC Disposition: Home with Home O2. Current Admission Presentation: shortness of breath Pt presented to ER from home with increased shortness of breath. Pt has been taking medications as prescribed. Pt feels improved and is currently on 2L O2 cont. VAHID KAPOOR to follow. DC PLAN: Home
[2021-06-30 12:56] LABS: Bedside Glucose 348 mg/dL (70-110)
[2021-06-30] MEDS: Ipratropium/Albuterol Sulfate 3 ML AMPUL.NEB INHALATION ×2 (15:20→19:05)
--- NOTE | 2021-06-30 15:40 | CASEMGMT ---
Pt screened with [facility] Palliative Care Screening Tool due to strata 3 and readmission, pt did not meet criteria.
[2021-06-30 19:05] LABS: Anion Gap 8 (5-15); BUN 24 mg/dL (7-18); Calcium,Total 9.2 mg/dL (8.5-10.1); Chloride 100 mmol/L (98-107); Creatinine, Serum 1.33 mg/dL (0.70-1.30); EST Glomerular Filtration Rate 58 mL/min (>60); Est Glom Filt Rate - Afr Amer 70 mL/min (>60); Estimated Creatinine Clearance 62.91 ml/min; Glucose 497 mg/dL (74-106); Potassium 4.5 mmol/L (3.5-5.1); Sodium Level 135 mmol/L (136-145)
[2021-06-30] MEDS: MELATONIN 3 MG TABLET PO (23:48)
[2021-06-30] MEDS: ALPRAZolam 0.5 MG Tablet 1 MG PO (23:48)
[2021-06-30] MEDS: guaiFENesin 10 ML UDC (200MG/10ML) 20 ML PO (23:50)
[2021-07-01] VITALS (17 sets, daily range): BP systolic 91–144; BP diastolic 59–81; PULSE 49–89; RESP 17–22; TEMP 36.2–36.6; O2SAT 91–96
[2021-07-01 00:01] LABS: Bedside Glucose 328 mg/dL (70-110)
[2021-07-01] MEDS: Insulin Lispro 100 UNIT/ML INSULN.PEN SC ×4 (06:22→21:50)
[2021-07-01 06:30] LABS: Bedside Glucose 256 mg/dL (70-110)
[2021-07-01 06:46] LABS: Absolute Lymphocyte Count 1.49 X10^3/uL (0.83-4.51); Absolute Neutrophil Count 4.6 X10^3/uL (2.0-7.7); Basophil# 0.03 X10^3/uL; Basophil% 0.4 % (0-1); Eosinophil# 0.01 X10^3/uL; Eosinophils% 0.1 % (0-5); Hematocrit 39.6 % (40-54); Hemoglobin 13.1 g/dL (13.0-16.5); Lymphocyte # 1.49 X10^3/ul (0.83-4.51); Lymphocyte % 21.8 % (19-41); Mean Corp Hgb Conc 33.1 g/dL (32-36); Mean Corpuscular Hgb 32.3 pg (27.0-32.0); Mean Corpuscular Volume 97.8 fL (80-94); Mean Platelet Vol. 9.8 fl (6.2-12.0); Monocyte# 0.46 X10^3/uL; Monocyte% 6.7 % (0-10); NRBC Flagged by Analyzer 0 % (0-5); Neutrophil # 4.61 X10^3/uL (2.7-7.7); Neutrophil % 67.8 % (47-70); Platelet Count 289 K/mm3 (150-450); RBC Distribution Width CV 12.1 % (11.6-14.6); RBC Distribution Width SD 43.2 fl (35.1-43.9); Red Blood Count 4.05 M/mm3 (4.6-6.2); White Blood Count 6.8 K/mm3 (4.4-11.0)
[2021-07-01] MEDS: Ipratropium/Albuterol Sulfate 3 ML AMPUL.NEB INHALATION ×4 (07:11→19:29)
[2021-07-01 07:39] LABS: ALB/GLOB Ratio 0.8 RATIO (0.9-2.4); AST(SGOT) 30 U/L (15-37); Alanine Aminotransfer ALT/SGPT 91 U/L (16-61); Albumin, Serum 2.8 g/dL (3.2-5.0); Alkaline Phosphatase 71 U/L (45-117); Anion Gap 5 (5-15); BUN 26 mg/dL (7-18); BUN/Creat Ratio 22.6 RATIO (10-20); Calcium,Total 9.1 mg/dL (8.5-10.1); Chloride 102 mmol/L (98-107); Creatinine, Serum 1.15 mg/dL (0.70-1.30); EST Glomerular Filtration Rate 69 mL/min (>60); Est Glom Filt Rate - Afr Amer 83 mL/min (>60); Estimated Creatinine Clearance 72.75 ml/min; Globulin 3.7 g/dL (2.2-4.2); Glucose 273 mg/dL (74-106); Potassium 4.5 mmol/L (3.5-5.1); Protein, Total 6.5 g/dL (6.4-8.2); Sodium Level 138 mmol/L (136-145)
[2021-07-01 08:16] LABS: Bedside Glucose 468 mg/dL (70-110)
[2021-07-01 08:16] LABS: Bedside Glucose 496 mg/dL (70-110)
[2021-07-01] MEDS: dexAMETHasone 4 MG Tablet 6 MG PO (10:14)
[2021-07-01] MEDS: Calcium Carb/Vitamin D 1 TABLET Tablet PO (10:14)
[2021-07-01] MEDS: Cyanocobalamin 500 MCG Tablet PO (10:14)
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
[2021-07-01] MEDS: Enoxaparin 30 MG/0.3 ML Syringe SC ×2 (12:34→21:49)
[2021-07-01 13:01] LABS: Bedside Glucose 352 mg/dL (70-110)
--- NOTE | 2021-07-01 13:44 | PCM.PN.HOSP ---
Subjective Subjective Patient was seen and examined. He was discharged back to started to complain of progressive shortness of breath. Blood pressure relatively low. Objective Data Objective Data Vital Signs: Vital Signs Temp Pulse Resp BP Pulse Ox 97.4 F L 70 20 H 91/59 L 94 07/01/21 12:38 07/01/21 12:38 07/01/21 12:38 07/01/21 12:38 07/01/21 12:38 Oxygen Flow Rate (L/min) [At 1.5 REST with Oxygen] Oxygen Flow Rate (L/min) 2 Oxygen Delivery Method Nasal Cannula Weight: 110.813 kg Body Mass Index (BMI) 34.4 Intake & Output: Intake and Output for Last 24 Hours 06/29/21 06/30/21 07/01/21 23:59 23:59 23:59 Intake Total 1310 / 1310 575 / 575 350 / 350 Output Total 1550 / 1550 1025 / 1025 400 / 400 Balance -240 / -240 -450 / -450 -50 / -50 Lab / Micro Data Result Diagrams: 07/01/21 06:00 07/01/21 06:00 Labs: Laboratory Results - last 24 hr 06/30/21 16:08: POC Glucose 468 H* 06/30/21 16:10: POC Glucose 496 H* 06/30/21 17:47: Sodium 135 L, Potassium 4.5, Chloride 100, Carbon Dioxide 27.0, Anion Gap 8, BUN 24 H, Creatinine 1.33 H, Estim Creat Clear Calc 62.91, Est GFR (MDRD) Af Amer 70, Est GFR (MDRD) Non-Af 58 L, BUN/Creatinine Ratio 18.0, Glucose 497 H*, Calcium 9.2 06/30/21 23:40: POC Glucose 328 H 07/01/21 06:00: WBC 6.8, RBC 4.05 L, Hgb 13.1, Hct 39.6 L, MCV 97.8 H, MCH 32.3 H, MCHC 33.1, RDW Std Deviation 43.2, RDW Coeff of Juancarlos 12.1, Plt Count 289, MPV 9.8, Immature Gran % (Auto) 3.200 H, Neut % (Auto) 67.8, Lymph % (Auto) 21.8, [place] % (Auto) 6.7, Eos % (Auto) 0.1, Baso % (Auto) 0.4, Absolute Neuts (auto) 4.6, Absolute Lymphs (auto) 1.49, Nucleated RBC % 0 07/01/21 06:00: Sodium 138, Potassium 4.5, Chloride 102, Carbon Dioxide 31.0, Anion Gap 5, BUN 26 H, Creatinine 1.15, Estim Creat Clear Calc 72.75, Est GFR (MDRD) Af Amer 83, Est GFR (MDRD) Non-Af 69, BUN/Creatinine Ratio 22.6 H, Glucose 273 H, Calcium 9.1, Total Bilirubin 0.50, AST 30, ALT 91 H, Alkaline Phosphatase 71, Total Protein 6.5, Albumin 2.8 L, Globulin 3.7, Albumin/Globulin Ratio 0.8 L 07/01/21 06:21: POC Glucose 256 H 07/01/21 12:30: POC Glucose 352 H Rhythm Strip Rhythm Strip: Sinus Rhythm Rate: 72 Ectopy: None Physical Exam Narrative Physical exam: General: Alert, Oriented x3, Cooperative, No apparent distress, Well developed, on 2L oxygen HEENT: Atraumatic Oral: Moist Mucosa Neck: Supple Lungs: Clear to auscultation Cardiovascular: HS I+II, regular, no murmurs Abdomen: Bowel Sounds Present, Soft, Non Tender Extremities: No edema Assessment & Plan Assessment/Plan (1) Pneumonia due to 2019-nCoV: (2) Hypoxia: PLAN: 1.Acute hypoxia secondary to acute COVID-19 pneumonia, remains on 2 L of oxygen Admitting chest x-ray shows multifocal right-sided pneumonia. CTA of the chest is negative Continue on DuoNeb breathing treatments scheduled, Decadron, albuterol as needed 2.Type II DM, blood sugars are uncontrolled secondary to steroids, will continue to monitor was on Decadron. Continue on medium to high-dose insulin sliding scale 3. Recent FREEDOM, resolved, creatinine is 0.95 from 1.19 Will continue to monitor 4.Rest of chronic medical conditions including chronic CHF, unclear type/hypertension/GERD/paroxysmal atrial fibrillation, all remained stable Charges/Coding Visit Charges Inpatient E&M: 49168 Subs Hosp L2
[2021-07-01] MEDS: Magnesium Hydroxide 30 ML UDC PO (15:35)
[2021-07-01 19:16] LABS: Bedside Glucose 349 mg/dL (70-110)
[2021-07-01] MEDS: ALPRAZolam 0.5 MG Tablet 1 MG PO (21:49)
[2021-07-01] MEDS: Carvedilol 12.5 MG Tablet PO (21:50)
[2021-07-01 22:30] LABS: Bedside Glucose 433 mg/dL (70-110)
[2021-07-02] VITALS (10 sets, daily range): BP systolic 107–112; BP diastolic 74–83; PULSE 65–80; RESP 16–21; TEMP 36.2–36.7; O2SAT 90–97
[2021-07-02] MEDS: Insulin Lispro 100 UNIT/ML INSULN.PEN SC ×2 (06:11→12:32)
[2021-07-02 06:35] LABS: Bedside Glucose 323 mg/dL (70-110)
[2021-07-02] MEDS: Ipratropium/Albuterol Sulfate 3 ML AMPUL.NEB INHALATION ×2 (07:29→11:08)
[2021-07-02] MEDS: dexAMETHasone 4 MG Tablet 6 MG PO (12:28)
[2021-07-02] MEDS: Cyanocobalamin 500 MCG Tablet PO (12:29)
[2021-07-02] MEDS: Calcium Carb/Vitamin D 1 TABLET Tablet PO (12:30)
[2021-07-02] MEDS: Carvedilol 12.5 MG Tablet PO (12:30)
[2021-07-02] MEDS: Enoxaparin 30 MG/0.3 ML Syringe SC (12:30)
[2021-07-02 13:31] LABS: Bedside Glucose 342 mg/dL (70-110)
--- NOTE | 2021-07-02 16:10 | PHA.DC.MR ---
Pharmacy Service has performed discharge medication reconciliation for this patient. The patient's discharge medication list was reviewed for discrepancies and discrepancies were resolved. Home Medications glipizide 10 mg PO 1700 01/10/19 alprazolam 1 mg PO QHS 04/23/20 calcium carbonate-vitamin D3 600 mg (1,500 mg)-1,000 unit tablet 1 tab PO DAILY tab 10/04/20 cyanocobalamin (vitamin B-12) 500 mcg tablet,extended release 500 mcg PO DAILY 10/04/20 omeprazole magnesium 20 mg PO PRN PRN 11/07/20 carvedilol 12.5 mg tablet 12.5 mg PO BID #180 tab 03/17/21 dexamethasone [Decadron] 6 mg PO DAILY #8 tab 06/28/21
--- NOTE | 2021-07-03 14:58 | CASEMGMT ---
RN CM Discharge Follow-Up Phone Call. Lace: 13 Strata: 3 Discharge Date: 07/03/21 Adm Dx: COVID PNA, hypoxia-worsening. Attempted discharge f/u phone call. No answer. Recording w/pt's name identified came on. VM left for return call to RN CM if there are any questions or concerns. Phone number provided. Julieth BUTTSN RN CM
== END 2021-07-02 15:43 | disposition home or self-care (01) | DRG 177 ==
LOC: ED 03:56 → MS3 04:05
PROVIDERS: Internal Medicine; Admitting Provider Family Medicine; Emergency Provider Emergency Medicine; PCP Family Medicine; Visit Provider Internal Medicine
DX: U07.1 COVID-19 (principal); J12.82 Pneumonia due to coronavirus disease 2019; J96.01 Acute respiratory failure with hypoxia; K21.9 Gastro-esophageal reflux disease without esophagitis; I11.0 Hypertensive heart disease with heart failure; I50.9 Heart failure, unspecified; E11.9 Type 2 diabetes mellitus without complications; E78.5 Hyperlipidemia, unspecified; I48.0 Paroxysmal atrial fibrillation; Z79.899 Other long term (current) drug therapy; Z79.84 Long term (current) use of oral hypoglycemic drugs; T38.0X5A Adverse effect of glucocorticoids and synthetic analogues, initial encounter
CPT/HCPCS: 36415; 71045; 71275; 80048; 80053; 82962; 83605; 83880; 84484; 85025; 93005; 94640; 99251; 99285; Q9967; A4216; G0463; J1940

== ENCOUNTER 2021-08-10 14:08 | Inpatient (IN) | payer OTHER, SELFPAY ==
[2021-08-10] VITALS (8 sets, daily range): BP systolic 108–121; BP diastolic 81–89; PULSE 91–109; RESP 16–96; TEMP 36.4–36.8; O2SAT 23–97; BMI 35.9; BMI 35.2
--- NOTE | 2021-08-10 14:12 | EKG12_ITS ---
Test Reason : Blood Pressure : / mmHG Vent. Rate : 103 BPM Atrial Rate : 103 BPM P-R Int : 158 ms QRS Dur : 084 ms QT Int : 346 ms P-R-T Axes : 042 -17 006 degrees QTc Int : 453 ms Sinus tachycardia Inferior infarct , age undetermined Abnormal ECG Confirmed by CLAUDIO MCKEON, MARILYN ([id number]), state editor RADHA SENA ([id number]) on 08/11/2021 12:53:10 PM Referred By: MARY Confirmed By:MARILYN SNYDER MD
--- NOTE | 2021-08-10 14:20 | RAD_ITS ---
EXAM: XR CHEST, 1 VIEW CLINICAL INDICATION: chest pain TECHNIQUE: Frontal view of the chest. This report was created using [employer] report generation technology. COMPARISON: 06/29/2021. FINDINGS: LUNGS AND PLEURAL SPACES: Mild hazy pulmonary opacity in the right lung, decreased compared to the prior examination. No pneumothorax. No effusion. HEART: Unremarkable. Cardiac silhouette not enlarged. MEDIASTINUM: Central airways and mediastinal contour are unremarkable. BONES/JOINTS: Unremarkable. No displaced fracture. No destructive or sclerotic lesions. Visualized joint spaces are unremarkable. SOFT TISSUES: Unremarkable. OTHER FINDINGS: This study was submitted for interpretation at 4:00 PM on 08/10/2021. RAD/Chest 1 View (Portable) IMPRESSION: Decreased pulmonary opacities consistent with resolving pneumonia. Electronically Signed: Suzanne Hamlin MD at 16:20 EDT Tel , Service support ,
[2021-08-10 14:39] LABS: Absolute Lymphocyte Count 1.35 X10^3/uL (0.83-4.51); Absolute Neutrophil Count 2.3 X10^3/uL (2.0-7.7); Basophil# 0.02 X10^3/uL; Basophil% 0.5 % (0-1); Eosinophil# 0.04 X10^3/uL; Hematocrit 37.5 % (40-54); Hemoglobin 12.4 g/dL (13.0-16.5); Lymphocyte # 1.35 X10^3/ul (0.83-4.51); Lymphocyte % 33.5 % (19-41); Mean Corp Hgb Conc 33.1 g/dL (32-36); Mean Corpuscular Hgb 32.5 pg (27.0-32.0); Mean Corpuscular Volume 98.4 fL (80-94); Mean Platelet Vol. 8.8 fl (6.2-12.0); Monocyte# 0.28 X10^3/uL; Monocyte% 6.9 % (0-10); NRBC Flagged by Analyzer 0 % (0-5); Neutrophil % 57.1 % (47-70); Platelet Count 164 K/mm3 (150-450); RBC Distribution Width CV 15.3 % (11.6-14.6); RBC Distribution Width SD 53.7 fl (35.1-43.9); Red Blood Count 3.81 M/mm3 (4.6-6.2)
[2021-08-10 14:59] LABS: Anion Gap 5 (5-15); BUN 18 mg/dL (7-18); BUN/Creat Ratio 16.7 RATIO (10-20); Chloride 105 mmol/L (98-107); Creatinine, Serum 1.08 mg/dL (0.70-1.30); EST Glomerular Filtration Rate 74 mL/min (>60); Est Glom Filt Rate - Afr Amer 89 mL/min (>60); Estimated Creatinine Clearance 77.47 ml/min; Glucose 230 mg/dL (74-106); Potassium 4.5 mmol/L (3.5-5.1); Sodium Level 138 mmol/L (136-145); Troponin-I HS 171 pg/mL (3.0-78.0)
[2021-08-10] MEDS: Aspirin 81 MG TAB.CHEW 324 MG PO (15:22)
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
--- NOTE | 2021-08-10 15:30 | CT_ITS ---
EXAM: CT ANGIOGRAPHY CHEST WITHOUT AND WITH INTRAVENOUS CONTRAST CLINICAL INDICATION: chest pain TECHNIQUE: Helically acquired angiography images were obtained of the chest without and with intravenous contrast. This CT exam was performed using one or more of the following dose reduction techniques: automated exposure control, adjustment of the mA and/or kV according to patient size, and/or use of iterative reconstruction technique. This report was created using [employer] report generation technology. MIP reconstructed images were created and reviewed. CONTRAST: IV 100mL [id number] COMPARISON: 06/29/2021. FINDINGS: PULMONARY ARTERIES: Extensive pulmonary emboli including saddle embolus. Emboli are demonstrated in the lower lobes bilaterally, left upper and right middle lobes. AORTA: Unremarkable. Normal in caliber. No evidence of dissection. GREAT VESSELS OF AORTIC ARCH: Unremarkable. Normal in caliber. No evidence of dissection. LUNGS AND PLEURAL SPACES: No pleural effusion or thickening. No pneumothorax. Mild bilateral groundglass opacities, decreased compared to the prior study. This is consistent with pneumonia. New pleural-based nodular densities are likely fibrotic/postinflammatory. HEART: Unremarkable. Heart size is normal. No pericardial effusion. No signs of right heart strain, ratio of right ventricle to left ventricle measures less than 1. MEDIASTINUM: Unremarkable. No mediastinal or hilar adenopathy. Esophagus is unremarkable. No hiatal hernia. THYROID: Unremarkable. No thyroid lesions. BONES/JOINTS: Unremarkable. No suspicious lytic or blastic abnormality. CT/CTA Chest W/WO Contrast IMPRESSION: 1. Extensive pulmonary emboli including saddle embolus. 2. Bilateral groundglass opacities suspicious for Covid-19 pneumonia. N.B. : The above Results were Read Back by Suzanne Hamlin MD to Dr. Freddy MD, and understanding confirmed on 08/10/2021 17:23:39 (ET). Electronically Signed: Suzanne Hamlin MD at 17:30 EDT Tel , Service support ,
[2021-08-10 16:30] LABS: International Normalized Ratio 1.1; Prothrombin Time (Protime)PT. 13.5 SECONDS (11.7-14.9)
[2021-08-10 16:31] LABS: Partial Thromboplast Time 28.9 Seconds (24.1-36.2)
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
[2021-08-10] MEDS: HEPARIN/D5w 25,000 UNITS 25,000 UNITS/250 ML IV.SOLN. 16 UNITS IV (16:38)
[2021-08-10] MEDS: Heparin Injection (Vial) 5,000 UNIT/ML VIAL 9500 UNIT IV (16:39)
--- NOTE | 2021-08-10 16:40 | NURSING ---
PCU WHITE PE, ELEVATED TROP
[2021-08-10 17:20] LABS: Troponin-I HS 189 pg/mL (3.0-78.0)
--- NOTE | 2021-08-10 18:18 | ECHOD_ITS ---
Reason For Study: Saddle PE Procedure This was a 2D Doppler, Color Flow transthoracic echocardiogram. The study was technically difficult. Exam performed portable in patient room. Left Ventricle Normal LV size. Left ventricular systolic function is normal. The estimated ejection fraction is 55 %. Stage 1 diastolic dysfunction. No regional wall motion abnormalities noted. Right Ventricle Moderately dilated right ventricle. Moderately decreased right ventricular systolic function. Apical sparing noted. Atria Normal left atrium. Normal right atrium. Mitral Valve Normal mitral valve. Tricuspid Valve Normal tricuspid valve. Mild (1+) tricuspid valve insufficiency. Pulmonary artery systolic pressure is 30 mmHg. Aortic Valve Normal aortic valve. Trisinus/trileaflet aortic valve. Pulmonic Valve Normal pulmonic valve. Great Vessels Normal aortic root. The pulmonary artery is normal size. Thrombus noted in PA. Normal inferior vena cava. Pericardium/Pleural No pericardial effusion. MMode/2D Measurements & Calculations LVIDd: 4.7 cm IVSd: 1.1 cm Ao root diam: 3.3 cm LVIDs: 3.0 cm LVPWd: 1.1 cm RVDd: 5.0 cm FS: 37.2 % LAV(MOD-bp): 41.8 ml LA A4 area: 16.1 cm2 LA dimension(2D): 3.6 cm LAV(MOD-bp) Indexed: 18.0 ml/m2 LAV(MOD-sp2): 43.4 ml LAV(MOD-sp4): 36.5 ml RA A4 area: 20.0 cm2 Doppler Measurements & Calculations MV E max gael: 37.7 cm/sec Lat Peak E' Gael: 6.8 cm/sec Med Peak E' Gael: 5.8 cm/sec MV A max gael: 53.2 cm/sec E/E' lat: 5.6 E/E' med: 6.5 MV E/A: 0.71 Ao V2 max: 94.5 cm/sec LV V1 max: 75.5 cm/sec PA V2 max: 66.6 cm/sec Ao max P.6 mmHg LV V1 max P.3 mmHg TR max gael: 261.3 cm/sec TR max P.4 mmHg ECHO/Echo Complete Interpretation Summary Normal LV size. Left ventricular systolic function is normal. The estimated ejection fraction is 55 %. Stage 1 diastolic dysfunction. Pulmonary artery systolic pressure is 30 mmHg. Moderately dilated right ventricle. Moderately decreased right ventricular systolic function Apical sparing noted. Thrombus noted in PA Ordering Physician: Shannan Stephen Referring Physician: Bryn Renteria Performed By: Mary Carmen Melton RDCS, RVT
[2021-08-10] MEDS: Carvedilol 12.5 MG Tablet PO (20:29)
[2021-08-10 21:30] LABS: Bedside Glucose 134 mg/dL (70-110)
[2021-08-10 21:40] LABS: Troponin-I HS 181 pg/mL (3.0-78.0)
[2021-08-10 23:02] LABS: Partial Thromboplast Time 104.9 Seconds (24.1-36.2)
[2021-08-11] VITALS (10 sets, daily range): BP systolic 102–116; BP diastolic 70–79; PULSE 87–107; RESP 16–18; TEMP 36.3–37.4; O2SAT 95–96
--- NOTE | 2021-08-11 03:03 | PCS.PANDOC ---
PANDEMIC DOCUMENTATION INITIATED: Date: 06/16/2021 Time: 190
[2021-08-11] MEDS: Insulin Lispro 100 UNIT/ML INSULN.PEN SC ×4 (06:27→21:57)
[2021-08-11 07:01] LABS: Bedside Glucose 219 mg/dL (70-110)
[2021-08-11 07:29] LABS: Absolute Lymphocyte Count 1.77 X10^3/uL (0.83-4.51); Absolute Neutrophil Count 1.7 X10^3/uL (2.0-7.7); Basophil# 0.01 X10^3/uL; Basophil% 0.3 % (0-1); Eosinophil# 0.05 X10^3/uL; Eosinophils% 1.3 % (0-5); Hematocrit 33.1 % (40-54); Hemoglobin 10.9 g/dL (13.0-16.5); Lymphocyte # 1.77 X10^3/ul (0.83-4.51); Lymphocyte % 46.6 % (19-41); Mean Corp Hgb Conc 32.9 g/dL (32-36); Mean Corpuscular Hgb 32.4 pg (27.0-32.0); Mean Corpuscular Volume 98.5 fL (80-94); Mean Platelet Vol. 8.8 fl (6.2-12.0); Monocyte# 0.27 X10^3/uL; Monocyte% 7.1 % (0-10); NRBC Flagged by Analyzer 0 % (0-5); Neutrophil # 1.67 X10^3/uL (2.7-7.7); Neutrophil % 43.9 % (47-70); Platelet Count 153 K/mm3 (150-450); RBC Distribution Width CV 15.5 % (11.6-14.6); RBC Distribution Width SD 54.8 fl (35.1-43.9); Red Blood Count 3.36 M/mm3 (4.6-6.2); White Blood Count 3.8 K/mm3 (4.4-11.0)
[2021-08-11 08:00] LABS: Anion Gap 6 (5-15); BUN 12 mg/dL (7-18); BUN/Creat Ratio 13.3 RATIO (10-20); Calcium,Total 8.8 mg/dL (8.5-10.1); Chloride 105 mmol/L (98-107); EST Glomerular Filtration Rate 91 mL/min (>60); Est Glom Filt Rate - Afr Amer 110 mL/min (>60); Estimated Creatinine Clearance 92.96 ml/min; Glucose 226 mg/dL (74-106); Partial Thromboplast Time 44.9 Seconds (24.1-36.2); Potassium 4.1 mmol/L (3.5-5.1); Sodium Level 139 mmol/L (136-145)
[2021-08-11] MEDS: Heparin Injection (Vial) 5,000 UNIT/ML VIAL IV ×3 (08:17→21:05)
[2021-08-11] MEDS: Carvedilol 12.5 MG Tablet PO ×2 (08:30→21:57)
[2021-08-11] MEDS: Pantoprazole Sodium 40 MG Tablet PO (08:30)
--- NOTE | 2021-08-11 10:34 | CASEMGMT ---
Call to [facility] and per Symone, pt's order is for 2-4L continuous. Pt to be tested on this. Sam REDDING CM
--- NOTE | 2021-08-11 11:35 | CASEMGMT ---
VAHID KAPOOR assessment: Face to face with pt for initial transition planning/care coordination assessment. RN EMELIA introduced self and role at [facility], pt voices understanding and consents to assessment. Pt is on 2L nc and has home oxygen thru [employer] 2-4L continuous. Pt is A/Ox4 and answers all questions appropriately. Pt recently had COVID at the end of June. Care providers, pharmacy, and demographics verified. Presentation: Pt c/o CP, SOB Admitting dx: Hypoxic resp failure, PE PCP: [facility] Specialists: Pt states no current specialists. Preferred Pharmacy: [facility]-CM to follow for anti-coag Insurance: MMO Prescription Benefit: MMO Living Will/HPOA: Pt states does not have LW/HPOA and declines AD info. LNOK: Yanique Patel, Living Arrangements: Pt lives with in 2 story home and states no concerns at home. Pt states independent with ADL's. Transportation: Pt states drives self or drives and states no transportation concerns. DME/HHC: Pt has 2-4L nc continuous thru [employer]. Pt states no need for any further DME. Pt states no hx of HHC or SNF. Pt states no concerns with going home at time of discharge. 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 Pt states does not smoke cigarettes and rarely drinks ETOH. Pt states no further concerns/needs. CM to follow for increased home oxygen need and any further discharge planning/needs. Advised pt to ask for CM if any further questions/concerns/needs arise, voices understanding. Pt Goal: Home Plan: Home. [place] VAHID KAPOOR
[2021-08-11 11:40] LABS: Bedside Glucose 314 mg/dL (70-110)
[2021-08-11] MEDS: HEPARIN/D5w 25,000 UNITS 25,000 UNITS/250 ML IV.SOLN. 14 UNITS IV (11:44)
[2021-08-11 15:07] LABS: Partial Thromboplast Time 44.3 Seconds (24.1-36.2)
--- NOTE | 2021-08-11 15:10 | PN.HOSP_ITS ---
Documented by User: Shannan Stephen NP, COMMUNITY SERVICE SPECIALIST-C 08/11/21 15:15 Subjective Subjective Patient seen and examined. Continues to report shortness of breath with minimal exertion. Denies other symptoms or complaints. Underwent echocardiogram this morning, report pending. Objective Data Objective Data Vital Signs: Vital Signs Temp Pulse Resp BP Pulse Ox 97.5 F L 95 16 116/79 96 08/11/21 14:25 08/11/21 14:25 08/11/21 14:25 08/11/21 14:25 08/11/21 14:25 Oxygen Flow Rate (L/min) 2 Oxygen Delivery Method Nasal Cannula Weight: 252 lb 13.923 oz Body Mass Index (BMI) 35.2 Intake & Output: Intake and Output for Last 24 Hours 08/09/21 08/10/21 08/11/21 23:59 23:59 23:59 Intake Total 404.8 / 404.8 680.33 / 680.33 Balance 404.8 / 404.8 680.33 / 680.33 Lab / Micro Data Result Diagrams: 08/11/21 07:10 08/11/21 07:10 Labs: Laboratory Results - last 24 hr 08/10/21 16:10: PT 13.5, INR 1.1, APTT 28.9 08/10/21 16:45: Troponin I High Sens 189 H* 08/10/21 20:29: Troponin I High Sens 181 H* 08/10/21 20:36: POC Glucose 134 H 08/10/21 22:06: APTT 104.9 H* 08/11/21 06:24: POC Glucose 219 H 08/11/21 07:10: WBC 3.8 L, RBC 3.36 L, Hgb 10.9 L, Hct 33.1 L, MCV 98.5 H, MCH 32.4 H, MCHC 32.9, RDW Std Deviation 54.8 H, RDW Coeff of Juancarlos 15.5 H, Plt Count 153, MPV 8.8, Immature Gran % (Auto) 0.800, Neut % (Auto) 43.9 L, Lymph % (Auto) 46.6 H, [place] % (Auto) 7.1, Eos % (Auto) 1.3, Baso % (Auto) 0.3, Absolute Neuts ( auto) 1.7 L, Absolute Lymphs (auto) 1.77, Nucleated RBC % 0 08/11/21 07:10: Sodium 139, Potassium 4.1, Chloride 105, Carbon Dioxide 28.0, Anion Gap 6, BUN 12, Creatinine 0.90, Estim Creat Clear Calc 92.96, Est GFR (MDRD) Af Amer 110, Est GFR (MDRD) Non-Af 91, BUN/Creatinine Ratio 13.3, Glucose 226 H, Calcium 8.8 08/11/21 07:10: APTT 44.9 H 08/11/21 11:37: POC Glucose 314 H 08/11/21 14:30: APTT 44.3 H Radiography Diagnostic Testing: Radiology Impression Chest X-Ray 08/10/21 14:20 IMPRESSION: Decreased pulmonary opacities consistent with resolving pneumonia. Electronically Signed: Suzanne Hamlin MD at 16:20 EDT Tel , Service support , Chest CTA 08/10/21 15:30 IMPRESSION: 1. Extensive pulmonary emboli including saddle embolus. 2. Bilateral groundglass opacities suspicious for Covid-19 pneumonia. N.B. : The above Results were Read Back by Suzanne Hamlin MD to Dr. Freddy MD, and understanding confirmed on 08/10/2021 17:23:39 (ET). Electronically Signed: Suzanne Hamlin MD at 17:30 EDT Tel , Service support , ADDENDUM: 08/10/21 1737 IMPRESSION: 1. Extensive pulmonary emboli including saddle embolus. 2. Bilateral groundglass opacities suspicious for Covid-19 pneumonia. N.B. : The above Results were Read Back by Suzanne Hamlin MD to Dr. Freddy MD, and understanding confirmed on 08/10/2021 17:23:39 (ET). Electronically Signed: Suzanne Hamlin MD at 17:30 EDT Tel , Service support , Physical Exam Const alert, oriented x3 and no apparent distress Orientation / Consciousness: awake, oriented to person, oriented to place and oriented to time HEENT normocephalic and moist oral mucous membranes Eyes PERRL, EOMs intact bilaterally and conjunctivae normal Neck no lymphadenopathy Resp clear to auscultation bilaterally Auscultation: diminished lung sounds Cardio regular rate, regular rhythm and no murmurs Peripheral Pulses: pulses 2+ throughout GI normal to inspection, nondistended, normoactive bowel sounds, non-tender and non-distended Extremity normal to inspection Skin no rashes or lesions noted Lesions: no lesions Rashes: no rashes Trauma: no lacerations or abrasions Neuro CN's II-XII intact bilaterally, no focal motor deficits, no sensory deficits noted and deep tendon reflexes 2+ bilaterally Psych mental status grossly normal and affect normal Assessment & Plan Assessment/Plan (1) Acute respiratory failure with hypoxia: PLAN: 1. Acute hypoxic respiratory failure secondary to acute pulmonary embolism- CTA demonstrates extensive PE including saddle embolus. Heparin drip. Continue supplement oxygen to maintain O2 above 90%. Echocardiogram completed, report pending. Anticipate discharge 08/12/2021 with transition to oral anticoagulation if patient remains hemodynamically stable. 2. Elevated troponin-suspect demand ischemia secondary to #1. Enzymes did not significantly trend. Echocardiogram pending as noted above. 3. History of COVID-19 pneumonia-positive test 06/20/2021. Completed treatment/quarantine. Previously discharged on supplemental oxygen however he has only been wearing it as needed. 4. Chronic heart failure with preserved ejection fraction-echocardiogram 2014 demonstrated an EF of 55%. Repeat echo as noted above. 5. Hypertension-stable, continue carvedilol. 6. Type 2 diabetes mellitus-hold oral regimen. Accu-Cheks with sliding scale insulin. Hemoglobin A1c 02/11/2021 6.5%. 7. GERD, history of Shannan fundoplication-continue PPI. 8. Paroxysmal atrial fibrillation-on carvedilol. Not previous on anticoagulation. 9. Anxiety- on alprazolam. DVT prophylaxis- Heparin gtt Code status- Full code. This patient was seen by AIXA Del Angel under the supervision of Dr. Andrade. Documented by User: Dr. Frank Andrade MD 08/11/21 17:10 Subjective Subjective Mild shortness of breath. Earlier patient was admitted for COVID-19 pneumonia and was discharged on oxygen. Troponin is elevated suggestive of right ventricular strain. Patient had chest pain and shortness of breath but chest pain resolved and shortness of breath is better. CT chest shows saddle embolus but patient maintained blood pressure. Objective Data Lab / Micro Data Result Diagrams: 08/11/21 07:10 08/11/21 07:10 Physical Exam Narrative General: Alert, Oriented x3, Cooperative HEENT: Atraumatic, PERRLA, EOMI, Normocephalic Oral: No Gingival or Mucosal Lesions/ Ulcerations Neck: Supple, No JVD, Negative Carotid Bruits Lungs: Air entry diminished in bilateral lung bases. No crepitation/rhonchi. Mild hypoxia Cardiovascular: Regular rate, Regular Rhythm, Normal S1, Normal S2, No murmurs Abdomen: Bowel Sounds Present, Soft, Non Tender, Non-Distended : No renal angle tenderness. No suprapubic tenderness. Extremities: No edema, Capillary Refill Less than 3 Seconds Skin: No rashes, No breakdown Musculoskeletal: No Tenderness to Palpation of Joints or Extremities Neurological: Cranial nerves II-XII grossly intact, DTR 2+/4 and Symmetrical, Neuro grossly intact Psych/Mental Status: Normal Affect, Appropriate. Assessment & Plan Assessment/Plan (1) Saddle pulmonary embolus: PLAN: This patient was seen in conjunction with Shannan MEDLEY. I have independently interviewed and examined the patient and reviewed pertinent history, examination findings, laboratory and plan of management. I have reviewed the note and agree with the documented findings with the few additional points. In brief, patient is admitted for acute hypoxic respiratory failure secondary to bilateral saddle pulmonary embolism: Patient currently on IV heparin drip. 2D echo report is pending. Patient was discharged on home oxygen, hypoxia due to COVID-19 pneumonia. Cardiac markers elevated troponin high sensitive secondary to right ventricular strain. Chronic heart failure with preserved EF as mentioned above. Other comorbidities as mentioned above I have discussed my assessment with Shannan MEDLEY and orders have been reviewed.
[2021-08-11 16:55] LABS: Bedside Glucose 258 mg/dL (70-110)
[2021-08-11 20:45] LABS: Partial Thromboplast Time 51.9 Seconds (24.1-36.2)
[2021-08-11 22:26] LABS: Bedside Glucose 290 mg/dL (70-110)
[2021-08-12] VITALS (7 sets, daily range): BP systolic 120–124; BP diastolic 80–83; PULSE 93–108; RESP 18; TEMP 36.7–36.8; O2SAT 93–97
[2021-08-12 03:19] LABS: Partial Thromboplast Time 51.6 Seconds (24.1-36.2)
[2021-08-12] MEDS: HEPARIN/D5w 25,000 UNITS 25,000 UNITS/250 ML IV.SOLN. 17 UNITS IV (03:36)
[2021-08-12] MEDS: Heparin Injection (Vial) 5,000 UNIT/ML VIAL IV (03:37)
[2021-08-12] MEDS: Insulin Lispro 100 UNIT/ML INSULN.PEN SC ×2 (06:35→11:19)
[2021-08-12 06:51] LABS: Bedside Glucose 255 mg/dL (70-110)
[2021-08-12] MEDS: Pantoprazole Sodium 40 MG Tablet PO (09:51)
[2021-08-12] MEDS: Carvedilol 12.5 MG Tablet PO (09:51)
[2021-08-12 09:59] LABS: Partial Thromboplast Time 67.6 Seconds (24.1-36.2)
[2021-08-12 11:30] LABS: Bedside Glucose 357 mg/dL (70-110)
--- NOTE | 2021-08-12 11:32 | PCM.DC ---
Discharge Instructions Diet Discharge Diet: Low fat / Low cholesterol and Carb Control Diet Activity Discharge Activity: Return to Normal Activity Dressing / Incision Call your doctor if you observe: Shortness of breath (worsening), Dizziness and Chest pain Follow Up Care Test Results: Test results from this visit will be discussed in further detail at your follow-up appointment, if applicable. Discharge Plan Admission Admit Date/Time: 08/10/21 17:07 Primary Reason for Your Visit: Pulmonary Embolism Attending Provider: Frank Andrade Primary Care Provider: Bryn Renteria Discharge Orders/Prescriptions Prescriptions: New pantoprazole 40 mg Tablet,Delayed Release (Dr/Ec) 40 mg PO DAILY 30 Days Qty: 30 RF: 0 Eliquis 5 mg tablet 5 mg PO BID Qty: 70 RF: 0 Continued cyanocobalamin (vitamin B-12) 500 mcg tablet,extended release 500 mcg tablet extended release 500 mcg PO DAILY RF: 0 calcium carbonate-vitamin D3 600 mg (1,500 mg)-1,000 unit tablet 600mg (1,000mg) -1,000 unit tablet 1 tab PO DAILY RF: 0 glipizide 5 MG tablet 10 mg PO 1700 RF: 0 alprazolam 1 MG tablet 1 mg PO QHS RF: 0 carvedilol 12.5 mg tablet 12.5 mg PO BID Qty: 180 RF: 3 Discontinued omeprazole magnesium 20 MG tablet,delayed release (DR/EC) 20 mg PO PRN PRN (Reason: Indigestion) RF: 0 dexamethasone [Decadron] 6 mg tablet 6 mg PO DAILY Qty: 8 RF: 0 Referrals / Follow Up: Bryn Renteria DO [Primary Care Provider] - In 1 Week Elizabeth Chua NP, [employer]-C [Nurse Practitioner] - Within 2 Weeks Disposition Disposition (needs filled in before D/C Order can be placed): Home, Self Care
--- NOTE | 2021-08-12 12:24 | DS.PCM_ITS ---
Documented by User: Shannan Stephen NP, [employer] 08/12/21 12:43 Providers Date of Admission: 08/10/21 Date of Discharge: 08/12/21 Primary Care Physician: Dr. Bryn Renteria DO Reason For Visit: HYPOXIC REPIRATORY FAILURE/PE Diagnosis Discharge Diagnosis (1) Saddle pulmonary embolus: Status: Acute Code(s): I26.92 - Saddle embolus of pulmonary artery without acute cor pulmonale Medications at Discharge Home Medications glipizide 10 mg PO 1700 01/10/19 alprazolam 1 mg PO QHS 04/23/20 calcium carbonate-vitamin D3 600 mg (1,500 mg)-1,000 unit tablet 1 tab PO DAILY tab 10/04/20 cyanocobalamin (vitamin B-12) 500 mcg tablet,extended release 500 mcg PO DAILY 10/04/20 carvedilol 12.5 mg tablet 12.5 mg PO BID #180 tab 03/17/21 apixaban [Eliquis] 5 mg PO BID #70 tab 08/12/21 pantoprazole 40 mg PO DAILY 30 Days #30 tab 08/12/21 Hospital Course Operations None Procedures 2-D Echocardiogram Summary of Care Provided Minutes Spent on Discharge: 35 Hospital Course: Patient is a 60-year-old male admitted 08/10/2021 due to shortness of breath. 1. Acute hypoxic respiratory failure secondary to acute pulmonary embolism- CTA demonstrates extensive PE including saddle embolus. Continue supplement oxygen to maintain O2 above 90%, does not require increased oxygen from prior order post-covid. Echocardiogram completed, demonstrates an EF of 55%, stage I diastolic dysfunction, pulmonary artery systolic pressure 30 mmHg, thrombus noted in PA, moderately dilated right ventricle. Transition from heparin drip to acute Eliquis dosing at discharge. Follow-up with PCP and pulmonary medicine at discharge. 2. Elevated troponin-suspect demand ischemia secondary to #1. Enzymes did not significantly trend. Echocardiogram as noted above. 3. History of COVID-19 pneumonia-positive test 06/20/2021. Completed treatment/quarantine. Previously discharged on supplemental oxygen however he has only been wearing it as needed. 4. Chronic heart failure with preserved ejection fraction-echocardiogram 2014 demonstrated an EF of 55%. Repeat echo as noted above. 5. Hypertension-stable, continue carvedilol. 6. Type 2 diabetes mellitus-Hemoglobin A1c 02/11/2021 6.5%. Continue home oral regimen. Patient reports he was recently started on insulin by his primary care provider however this is not listed on his home medications. Continue previously prescribed regimen. 7. GERD, history of Shannan fundoplication-continue PPI. 8. Paroxysmal atrial fibrillation-on carvedilol. Not previous on anticoagula tion. 9. Anxiety- on alprazolam. Physical Exam Const alert, oriented x3 and no apparent distress Orientation / Consciousness: awake, oriented to person, oriented to place and oriented to time HEENT normocephalic and moist oral mucous membranes Eyes PERRL, EOMs intact bilaterally and conjunctivae normal Neck no lymphadenopathy Resp clear to auscultation bilaterally Auscultation: diminished lung sounds Cardio regular rate, regular rhythm and no murmurs Peripheral Pulses: pulses 2+ throughout GI normal to inspection, nondistended, normoactive bowel sounds, non-tender and non-distended Extremity normal to inspection Skin no rashes or lesions noted Lesions: no lesions Rashes: no rashes Trauma: no lacerations or abrasions Neuro CN's II-XII intact bilaterally, no focal motor deficits, no sensory deficits noted and deep tendon reflexes 2+ bilaterally Psych mental status grossly normal and affect normal Patient seen and examined prior to discharge. Physical assessment as noted above. Patient is stable for discharge with follow up recommendations as noted above. This patient was seen by AIXA Del Angel under the supervision of Dr. Andrade. Weight / BMI Weight Weight: 252 lb 13.923 oz Body Mass Index (BMI) 35.2 ABG / Lab / Microbiology Data Result Diagrams: 08/11/21 07:10 08/11/21 07:10 Laboratory: Laboratory Results - last 24 hr 08/11/21 14:30: APTT 44.3 H 08/11/21 16:42: POC Glucose 258 H 08/11/21 19:20: APTT 51.9 H 08/11/21 21:56: POC Glucose 290 H 08/12/21 02:35: APTT 51.6 H 08/12/21 06:34: POC Glucose 255 H 08/12/21 09:26: APTT 67.6 H 08/12/21 11:18: POC Glucose 357 H Radiography Diagnostic Testing: Radiology Impression Echocardiogram 10/10/21 18:18 Interpretation Summary Normal LV size. Left ventricular systolic function is normal. The estimated ejection fraction is 55 %. Stage 1 diastolic dysfunction. Pulmonary artery systolic pressure is 30 mmHg. Moderately dilated right ventricle. Moderately decreased right ventricular systolic function Apical sparing noted. Thrombus noted in PA Ordering Physician: Shannan Stephen Referring Physician: Bryn Renteria Performed By: Mary Carmen Melton RDCS, RVT D/C Instructions Discharge Diet: Low fat / Low cholesterol and Carb Control Diet Call your doctor if you observe: Shortness of breath (worsening), Dizziness and Chest pain Meaningful Use Info Meaningful Use Diagnoses (Choose all that apply): VTE VTE Anticoag overlap given w/in hospital stay or rx'd at dc?: Yes Pt receive overlap for 5 days?: Yes Discharge Plan Admission Admit Date/Time: 08/10/21 17:07 Primary Reason for Your Visit: Pulmonary Embolism Attending Provider: Frank Andrade Primary Care Provider: Bryn Renteria Discharge Orders/Prescriptions Prescriptions: New pantoprazole 40 mg Tablet,Delayed Release (Dr/Ec) 40 mg PO DAILY 30 Days Qty: 30 RF: 0 Eliquis 5 mg tablet 5 mg PO BID Qty: 70 RF: 0 Continued cyanocobalamin (vitamin B-12) 500 mcg tablet,extended release 500 mcg tablet extended release 500 mcg PO DAILY RF: 0 calcium carbonate-vitamin D3 600 mg (1,500 mg)-1,000 unit tablet 600mg (1,000mg) -1,000 unit tablet 1 tab PO DAILY RF: 0 glipizide 5 MG tablet 10 mg PO 1700 RF: 0 alprazolam 1 MG tablet 1 mg PO QHS RF: 0 carvedilol 12.5 mg tablet 12.5 mg PO BID Qty: 180 RF: 3 Discontinued omeprazole magnesium 20 MG tablet,delayed release (DR/EC) 20 mg PO PRN PRN (Reason: Indigestion) RF: 0 dexamethasone [Decadron] 6 mg tablet 6 mg PO DAILY Qty: 8 RF: 0 Referrals / Follow Up: Bryn Renteria DO [Primary Care Provider] - 08/20/21 11:00 am Elizabeth Chua NP, [employer] [Nurse Practitioner] - Within 2 Weeks Disposition Disposition (needs filled in before D/C Order can be placed): Home, Self Care Documented by User: Dr. Frank Andrade MD 08/12/21 15:02 Providers Date of Admission: 08/10/21 Reason For Visit: HYPOXIC REPIRATORY FAILURE/PE Medications at Discharge Home Medications glipizide 10 mg PO 1700 01/10/19 alprazolam 1 mg PO QHS 04/23/20 calcium carbonate-vitamin D3 600 mg (1,500 mg)-1,000 unit tablet 1 tab PO DAILY tab 10/04/20 cyanocobalamin (vitamin B-12) 500 mcg tablet,extended release 500 mcg PO DAILY 10/04/20 carvedilol 12.5 mg tablet 12.5 mg PO BID #180 tab 03/17/21 apixaban [Eliquis] 5 mg PO BID #70 tab 08/12/21 pantoprazole 40 mg PO DAILY 30 Days #30 tab 08/12/21 Hospital Course Summary of Care Provided Hospital Course: This patient was seen in conjunction with Shannan MEDLEY. I have independently interviewed and examined the patient and reviewed pertinent history, examination findings, laboratory and plan of management. I have reviewed the note and agree with the documented findings with the few additional points. In brief, patient is admitted for acute hypoxic respiratory failure secondary to bilateral saddle pulmonary embolism: Patient currently on IV heparin drip. 2D echo report is pending. Patient was discharged on home oxygen, hypoxia due to COVID-19 pneumonia. Cardiac markers elevated troponin high sensitive secondary to right ventricular strain. Chronic heart failure with preserved EF as mentioned above. 2D echo reviewed shows moderate RV dilation with moderate decrease in RV systolic function. RVSP 30 mmHg. Patient advised long-term anticoagulant, Eliquis 10 mg p.o. twice daily for 1 week and then 5 mg daily to continue. Patient needs at least 3 months but 6-mo nth is preferred if no bleeding complication. Discharge plan discussed with the patient and advised to follow with pulmonary clinic and patient might need VQ scan after 9 months to see changes to see changes of CTEPH. Other comorbidities as mentioned above I have discussed my assessment with ST[employer] UNITShannan and orders have been reviewed. Physical Exam Narrative Seen and examined. General: Alert, Oriented x3, Cooperative HEENT: Atraumatic, PERRLA, EOMI, Normocephalic Oral: No Gingival or Mucosal Lesions/ Ulcerations Neck: Supple, No JVD, Negative Carotid Bruits Lungs: Air entry diminished in bilateral lung bases. No crepitation/rhonchi. Dyspnea at rest resolved. Cardiovascular: Regular rate, Regular Rhythm, Normal S1, Normal S2, No murmurs Abdomen: Bowel Sounds Present, Soft, Non Tender, Non-Distended : No renal angle tenderness. No suprapubic tenderness. Extremities: No edema, Capillary Refill Less than 3 Seconds Skin: No rashes, No breakdown Musculoskeletal: No Tenderness to Palpation of Joints or Extremities Neurological: Cranial nerves II-XII grossly intact, DTR 2+/4 and Symmetrical, Neuro grossly intact Psych/Mental Status: Normal Affect, Appropriate. ABG / Lab / Microbiology Data Result Diagrams: 08/11/21 07:10 08/11/21 07:10 Discharge Plan Admission Admit Date/Time: 08/10/21 17:07 Primary Reason for Your Visit: Pulmonary Embolism Attending Provider: Frank Andrade Primary Care Provider: Bryn Renteria Discharge Orders/Prescriptions Prescriptions: New pantoprazole 40 mg Tablet,Delayed Release (Dr/Ec) 40 mg PO DAILY 30 Days Qty: 30 RF: 0 Eliquis 5 mg tablet 5 mg PO BID Qty: 70 RF: 0 Continued cyanocobalamin (vitamin B-12) 500 mcg tablet,extended release 500 mcg tablet extended release 500 mcg PO DAILY RF: 0 calcium carbonate-vitamin D3 600 mg (1,500 mg)-1,000 unit tablet 600mg (1,000mg) -1,000 unit tablet 1 tab PO DAILY RF: 0 glipizide 5 MG tablet 10 mg PO 1700 RF: 0 alprazolam 1 MG tablet 1 mg PO QHS RF: 0 carvedilol 12.5 mg tablet 12.5 mg PO BID Qty: 180 RF: 3 Discontinued omeprazole magnesium 20 MG tablet,delayed release (DR/EC) 20 mg PO PRN PRN (Reason: Indigestion) RF: 0 dexamethasone [Decadron] 6 mg tablet 6 mg PO DAILY Qty: 8 RF: 0 Referrals / Follow Up: Bryn Renteria DO [Primary Care Provider] - 08/20/21 11:00 am Elizabeth Chua NP, [employer] [Nurse Practitioner] - Within 2 Weeks Disposition Disposition (needs filled in before D/C Order can be placed): Home, Self Care Charges/Coding Visit Charges Inpatient E&M: 38753 Disch Hosp
--- NOTE | 2021-08-12 12:55 | CASEMGMT ---
Pt does not qualify for increased home oxygen per Zenon REDDING. Pt to be sent home on Eliquis at discharge and [facility] pharmacy to apply 30 day free trial card. Pt also provided with [employer] $10 co-pay card and instructions, voices understanding. Pt/ voice no further questions/concerns/needs. Sam REDDING CM
--- NOTE | 2021-08-13 15:08 | CASEMGMT ---
VAHID KAPO[facility] Discharge F/U Phone Call LACE: 13 Strata: 3 Discharge date: 08/12/21 Call date: 08/13/21 Call time: [id number] Admission dx: Hypoxic resp failure, PE Pt states still gets SOB w/ ambulation/exertion and states has pulse ox at home to monitor. Pt states no questions regarding discharge instructions/medications. Pt states plans to f/u with Dr Renteria next week. Pt states no suggestions for [facility] and voices no further questions/concerns/needs. [place] VAHID KAPOOR
== END 2021-08-12 14:26 | disposition home or self-care (01) | DRG 175 ==
LOC: ED 17:09 → PCU 17:40
PROVIDERS: Nurse Practitioner Family; Admitting Provider Family Medicine; Emergency Provider Student in an Organized Health Care Education/Training Program; PCP Family Medicine; Visit Provider Internal Medicine
DX: I26.92 Saddle embolus of pulmonary artery without acute cor pulmonale (principal); J96.01 Acute respiratory failure with hypoxia; I11.0 Hypertensive heart disease with heart failure; I50.32 Chronic diastolic (congestive) heart failure; I24.8 Other forms of acute ischemic heart disease; U09.9 Post COVID-19 condition, unspecified; I48.0 Paroxysmal atrial fibrillation; E11.9 Type 2 diabetes mellitus without complications; K58.9 Irritable bowel syndrome, unspecified; E78.5 Hyperlipidemia, unspecified; K21.9 Gastro-esophageal reflux disease without esophagitis; F41.9 Anxiety disorder, unspecified; Z99.81 Dependence on supplemental oxygen; Z79.84 Long term (current) use of oral hypoglycemic drugs; Z79.899 Other long term (current) drug therapy
CPT/HCPCS: 36415; 71045; 71275; 80048; 82962; 84484; 85025; 85610; 85730; 93005; 93306; 97802; 99285; Q9957; Q9967; A4216; J3490

== ENCOUNTER 2021-09-23 06:38 | Emergency (ER) | payer OTHER, SELFPAY ==
[2021-09-23 06:39] VITALS: BP 140/97; PULSE 83; RESP 24; TEMP 36.1; O2SAT 98; BMI 37.8
--- NOTE | 2021-09-23 06:58 | EKG12_ITS ---
Test Reason : CP Blood Pressure : / mmHG Vent. Rate : 083 BPM Atrial Rate : 083 BPM P-R Int : 172 ms QRS Dur : 086 ms QT Int : 354 ms P-R-T Axes : 007 -20 004 degrees QTc Int : 415 ms Normal sinus rhythm Inferior infarct , age undetermined Abnormal ECG Confirmed by CLAUDIO MCKEON, MARILYN ([id number]), newspaper editor managing RADHA SENA ([id number]) on 09/26/2021 7:06:48 AM Referred By: GREGORIO Confirmed By:MARILYN SNYDER MD
--- NOTE | 2021-09-23 06:58 | CT_ITS ---
We are attempting to reach an attending provider to discuss findings. An addendum with communication details will be sent when the communication is complete. STUDY: CTA CHEST REASON FOR EXAM: Male, 61 years old. Chest pain with PMHX of PE/COVID RADIATION DOSAGE (If Supplied By Facility): CTDIvol = ( 21.43 ) mGy, DLP = ( 714.21 ) mGycm TECHNIQUE: The examination was performed with the intravenous administration of IV 100mL Isovue-370. Post-processing of the angiographic images was performed, with multiplanar reformation and 3D reconstruction. Individualized dose optimization techniques were used for this CT. COMPARISON: None. FINDINGS: There are mild peripheral groundglass opacities in the mid to lower lung santiago. There are no pleural effusions. There are subcentimeter bilateral pulmonary nodules with the largest measuring 8 mm in the left lung base. The central airways are patent. There is no pneumothorax. There is a thin linear filling defect spanning the bifurcation of the right and left main pulmonary arteries, consistent with an acute pulmonary embolus. This extends into the subsegmental branches of the right middle and lower lobes. There are no additional pulmonary emboli. There is no thoracic aortic aneurysm or dissection. The heart and pericardium are within normal limits. There are coronary artery calcifications noted. There is no thoracic lymphadenopathy. There is a moderate-sized hiatal hernia. There are no destructive osseous lesions. CT/CTA Chest W/WO Contrast IMPRESSION: Thin linear filling defect spanning the bifurcation of the right and left main pulmonary arteries, consistent with an acute pulmonary embolus. This extends into the subsegmental branches of the right middle and lower lobes. No additional pulmonary embolus. No thoracic aortic aneurysm or dissection. Mild peripheral groundglass opacities in the mid to lower lung santiago, consistent with mild COVID infection. Bilateral subcentimeter pulmonary nodules, measuring up to 8 mm. Short-term follow-up or further evaluation with PET/CT is recommended. Coronary artery disease. Moderate hiatal hernia. Electronically Signed: Nayan Aldrich MD at 8:44 EST Tel , Service support ,
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
[2021-09-23] MEDS: Ondansetron 4 MG/2 ML Vial IV (07:09)
[2021-09-23 07:11] LABS: Absolute Neutrophil Count 2.2 X10^3/uL (2.0-7.7); Basophil# 0.01 X10^3/uL; Basophil% 0.2 % (0-1); Eosinophil# 0.08 X10^3/uL; Eosinophils% 1.9 % (0-5); Hematocrit 37.4 % (40-54); Hemoglobin 12.5 g/dL (13.0-16.5); Lymphocyte % 41.7 % (19-41); Mean Corp Hgb Conc 33.4 g/dL (32-36); Mean Corpuscular Hgb 32.4 pg (27.0-32.0); Mean Corpuscular Volume 96.9 fL (80-94); Mean Platelet Vol. 9.3 fl (6.2-12.0); Monocyte# 0.25 X10^3/uL; Monocyte% 5.8 % (0-10); NRBC Flagged by Analyzer 0 % (0-5); Neutrophil # 2.15 X10^3/uL (2.7-7.7); Neutrophil % 49.7 % (47-70); Platelet Count 172 K/mm3 (150-450); RBC Distribution Width CV 13.1 % (11.6-14.6); RBC Distribution Width SD 46.5 fl (35.1-43.9); Red Blood Count 3.86 M/mm3 (4.6-6.2); White Blood Count 4.3 K/mm3 (4.4-11.0)
[2021-09-23] MEDS: Morphine 4 MG/ML Syringe IV (07:11)
[2021-09-23 07:18] LABS: International Normalized Ratio 1.1
[2021-09-23 07:19] LABS: Partial Thromboplast Time 32.4 Seconds (24.1-36.2)
[2021-09-23 07:23] LABS: Anion Gap 5 (5-15); BUN 17 mg/dL (7-18); BUN/Creat Ratio 18.5 RATIO (10-20); Calcium,Total 8.7 mg/dL (8.5-10.1); Chloride 106 mmol/L (98-107); Creatinine, Serum 0.92 mg/dL (0.70-1.30); EST Glomerular Filtration Rate 89 mL/min (>60); Est Glom Filt Rate - Afr Amer 108 mL/min (>60); Estimated Creatinine Clearance 89.81 ml/min; Glucose 172 mg/dL (74-106); Magnesium 2.1 mg/dL (1.6-2.6); Potassium 3.7 mmol/L (3.5-5.1); Sodium Level 139 mmol/L (136-145); Troponin-I HS 6 pg/mL (3.0-78.0)
[2021-09-23 09:05] VITALS: BP 102/76; PULSE 74; RESP 22; O2SAT 97
[2021-09-23 09:32] VITALS: BP 103/76; PULSE 63; RESP 16; O2SAT 98
== END 2021-09-23 09:33 | disposition home or self-care (01) ==
PROVIDERS: Emergency Provider Emergency Medicine; PCP Family Medicine
DX: I26.92 Saddle embolus of pulmonary artery without acute cor pulmonale (principal); I48.91 Unspecified atrial fibrillation; I11.0 Hypertensive heart disease with heart failure; I50.9 Heart failure, unspecified; E11.9 Type 2 diabetes mellitus without complications; E78.5 Hyperlipidemia, unspecified; K58.9 Irritable bowel syndrome, unspecified; K21.9 Gastro-esophageal reflux disease without esophagitis; F41.9 Anxiety disorder, unspecified; Z79.01 Long term (current) use of anticoagulants; Z79.84 Long term (current) use of oral hypoglycemic drugs; Z79.899 Other long term (current) drug therapy; Z86.16 Personal history of COVID-19
CPT/HCPCS: 71275; 80048; 83735; 84484; 85025; 85610; 85730; 93005; 96361; 96374; 96375; 99284; J7030; Q9967; A4216; J2405

== ENCOUNTER 2021-10-22 12:48 | Inpatient (IN) | payer OTHER, SELFPAY ==
[2021-10-22] VITALS (11 sets, daily range): BP systolic 125–147; BP diastolic 85–107; PULSE 57–69; RESP 15–19; TEMP 36.3–37.2; O2SAT 81–100; BMI 38.7; BMI 37.3
--- NOTE | 2021-10-22 13:21 | CT_ITS ---
STUDY: CTA CHEST REASON FOR EXAM: Male, 61 years old. Pulmonary embolism hypoxia RADIATION DOSAGE (If Supplied By Facility): CTDIvol = ( 12.66 ) mGy, DLP = ( 539.46 ) mGycm TECHNIQUE: The examination was performed with the intravenous administration of IV 100mL Isovue-370. Post-processing of the angiographic images was performed, with multiplanar reformation and 3D reconstruction. Individualized dose optimization techniques were used for this CT. COMPARISON: Comparison is made with prior study dated 09/23/2021. FINDINGS: Small residual pulmonary embolus seen at the origin of the right interlobar stem pulmonary artery. Tiny pulmonary emboli are also seen in the proximal branches of the right upper lobe pulmonary artery. Normal thoracic aorta and visualized great vessels. There is no demonstrated aortic dissection. There are calcifications of the coronary arteries. Normal mediastinum. Normal hilar regions. Normal visualized trachea and bronchi. The lungs are well expanded. Stable bilateral subcentimeter pulmonary nodules measuring up to 8 mm. Normal pleura. Normal chest wall structures. There are degenerative changes of thoracic spine. Moderate sized hiatal hernia. CT/CTA Chest W/WO Contrast IMPRESSION: Mild residual pleural emboli in the interlobar right pulmonary artery as well as in the proximal branches of the right upper lobe pulmonary artery. Electronically Signed: Thomas Obrien MD at 14:37 EST , Service support ,
--- NOTE | 2021-10-22 13:22 | EKG12_ITS ---
Test Reason : CP Blood Pressure : / mmHG Vent. Rate : 067 BPM Atrial Rate : 067 BPM P-R Int : 156 ms QRS Dur : 088 ms QT Int : 384 ms P-R-T Axes : 036 -24 007 degrees QTc Int : 405 ms Normal sinus rhythm Leftward axis Poor R wave progression Confirmed by ELBA MCKEON, AWA ([id number]), editor & co founder RADHA SENA ([id number]) on 10/27/2021 10:10:24 AM Referred By: THAD Confirmed By:AWA ARREOLA MD
[2021-10-22 13:32] LABS: Absolute Lymphocyte Count 1.42 X10^3/uL (0.83-4.51); Absolute Neutrophil Count 1.7 X10^3/uL (2.0-7.7); Basophil# 0.01 X10^3/uL; Basophil% 0.3 % (0-1); Eosinophil# 0.05 X10^3/uL; Eosinophils% 1.5 % (0-5); Hematocrit 39.7 % (40-54); Hemoglobin 13.2 g/dL (13.0-16.5); Lymphocyte # 1.42 X10^3/ul (0.83-4.51); Lymphocyte % 41.4 % (19-41); Mean Corp Hgb Conc 33.2 g/dL (32-36); Mean Corpuscular Hgb 31.9 pg (27.0-32.0); Mean Corpuscular Volume 95.9 fL (80-94); Mean Platelet Vol. 9.5 fl (6.2-12.0); Monocyte% 5.8 % (0-10); NRBC Flagged by Analyzer 0 % (0-5); Neutrophil # 1.73 X10^3/uL (2.7-7.7); Neutrophil % 50.4 % (47-70); Platelet Count 174 K/mm3 (150-450); RBC Distribution Width CV 12.1 % (11.6-14.6); RBC Distribution Width SD 42.3 fl (35.1-43.9); Red Blood Count 4.14 M/mm3 (4.6-6.2); White Blood Count 3.4 K/mm3 (4.4-11.0)
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
[2021-10-22 13:39] LABS: Prothrombin Time (Protime)PT. 12.7 SECONDS (11.7-14.9)
[2021-10-22 13:40] LABS: Partial Thromboplast Time 30.1 Seconds (24.1-36.2)
[2021-10-22 13:45] LABS: ALB/GLOB Ratio 0.9 RATIO (0.9-2.4); AST(SGOT) 12 U/L (15-37); Alanine Aminotransfer ALT/SGPT 32 U/L (16-61); Albumin, Serum 3.3 g/dL (3.2-5.0); Alkaline Phosphatase 80 U/L (45-117); Anion Gap 10 (5-15); BUN 10 mg/dL (7-18); BUN/Creat Ratio 9.8 RATIO (10-20); Calcium,Total 8.7 mg/dL (8.5-10.1); Chloride 103 mmol/L (98-107); Creatinine, Serum 1.02 mg/dL (0.70-1.30); EST Glomerular Filtration Rate 79 mL/min (>60); Est Glom Filt Rate - Afr Amer 96 mL/min (>60); Globulin 3.5 g/dL (2.2-4.2); Glucose 158 mg/dL (74-106); Potassium 4.3 mmol/L (3.5-5.1); Protein, Total 6.8 g/dL (6.4-8.2); Sodium Level 141 mmol/L (136-145); Troponin-I HS 49 pg/mL (3.0-78.0)
[2021-10-22 13:53] LABS: BNP,B-Type NATRIURETIC PEPTIDE 49.4 pg/mL (0-100)
[2021-10-22 16:31] LABS: Troponin-I HS 256 pg/mL (3.0-78.0)
[2021-10-22] MEDS: Aspirin 325 MG Tablet PO (16:52)
[2021-10-22] MEDS: Carvedilol 12.5 MG Tablet PO ×2 (16:52→22:45)
[2021-10-22] MEDS: Heparin Injection (Vial) 5,000 UNIT/ML VIAL 9500 UNIT IV (17:11)
--- NOTE | 2021-10-22 17:23 | ED.RN ---
heparin dripped verified with coy kaur rn
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
--- NOTE | 2021-10-22 17:53 | PCS.PANDOC ---
PANDEMIC DOCUMENTATION INITIATED: Date: 06/16/2021 Time: 190
--- NOTE | 2021-10-22 17:58 | CASEMGMT ---
Insurance review for hospitals In-network with [employer] PPO Insurance if transfer is recommended is as follows: [facility], [facility], [facility], [facility], [facility], [place], [facility] ([facility]), and . Julieth BSN RN CM
[2021-10-22] MEDS: Atorvastatin Calcium 10 MG Tablet PO (18:15)
[2021-10-22 18:21] LABS: Bedside Glucose 113 mg/dL (70-110)
--- NOTE | 2021-10-22 18:53 | EKG12_ITS ---
Test Reason : CP ADMISSION Blood Pressure : / mmHG Vent. Rate : 059 BPM Atrial Rate : 059 BPM P-R Int : 158 ms QRS Dur : 092 ms QT Int : 374 ms P-R-T Axes : 044 -08 015 degrees QTc Int : 370 ms Sinus bradycardia Nonspecific T wave abnormality Confirmed by ELBA MCKEON, AWA ([id number]), senior editor RADHA SENA ([id number]) on 10/27/2021 10:26:34 AM Referred By: ELBA Confirmed By:AWA ARREOLA MD
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
[2021-10-22 19:56] LABS: Troponin-I HS 517 pg/mL (3.0-78.0)
[2021-10-22] MEDS: ALPRAZolam 0.5 MG Tablet 1 MG PO (22:44)
[2021-10-22] MEDS: Insulin Lispro 100 UNIT/ML INSULN.PEN SC (22:44)
[2021-10-22] MEDS: Nitroglycerin Oint 1 INCH PACKET TD (22:45)
[2021-10-22 23:01] LABS: Bedside Glucose 154 mg/dL (70-110)
[2021-10-23] VITALS (15 sets, daily range): BP systolic 104–115; BP diastolic 71–84; PULSE 61–81; RESP 16–18; TEMP 36.3–36.5; O2SAT 93–100
[2021-10-23 00:28] LABS: Partial Thromboplast Time 140.3 Seconds (24.1-36.2)
[2021-10-23] MEDS: Carvedilol 12.5 MG Tablet PO ×2 (05:42→21:55)
[2021-10-23] MEDS: Nitroglycerin Oint 1 INCH PACKET TD ×3 (05:42→16:56)
--- NOTE | 2021-10-23 05:55 | EKG12_ITS ---
Test Reason : AM EKG Blood Pressure : / mmHG Vent. Rate : 068 BPM Atrial Rate : 068 BPM P-R Int : 164 ms QRS Dur : 090 ms QT Int : 386 ms P-R-T Axes : 047 -11 001 degrees QTc Int : 410 ms Normal sinus rhythm Low voltage QRS Nonspecific T wave abnormality Confirmed by ELBA MCKEON, AWA ([id number]), board runner RADHA SENA ([id number]) on 10/27/2021 10:21:58 AM Referred By: SOCO Confirmed By:AWA ARREOLA MD
[2021-10-23 06:59] LABS: Absolute Lymphocyte Count 1.58 X10^3/uL (0.83-4.51); Absolute Neutrophil Count 1.8 X10^3/uL (2.0-7.7); Basophil# 0.02 X10^3/uL; Basophil% 0.6 % (0-1); Eosinophil# 0.04 X10^3/uL; Eosinophils% 1.1 % (0-5); Hematocrit 37.2 % (40-54); Hemoglobin 12.3 g/dL (13.0-16.5); Lymphocyte # 1.58 X10^3/ul (0.83-4.51); Lymphocyte % 43.6 % (19-41); Mean Corp Hgb Conc 33.1 g/dL (32-36); Mean Corpuscular Hgb 32.3 pg (27.0-32.0); Mean Corpuscular Volume 97.6 fL (80-94); Mean Platelet Vol. 9.6 fl (6.2-12.0); Monocyte% 5.5 % (0-10); NRBC Flagged by Analyzer 0 % (0-5); Neutrophil # 1.77 X10^3/uL (2.7-7.7); Neutrophil % 48.9 % (47-70); Platelet Count 170 K/mm3 (150-450); RBC Distribution Width CV 12.2 % (11.6-14.6); RBC Distribution Width SD 43.8 fl (35.1-43.9); Red Blood Count 3.81 M/mm3 (4.6-6.2); White Blood Count 3.6 K/mm3 (4.4-11.0)
[2021-10-23 07:00] LABS: Bedside Glucose 175 mg/dL (70-110)
[2021-10-23 07:11] LABS: Partial Thromboplast Time 29.5 Seconds (24.1-36.2)
[2021-10-23 07:25] LABS: Phosphorus 3.7 mg/dL (2.5-4.9)
[2021-10-23] MEDS: Acetaminophen 325 MG Tablet 650 MG PO (07:33)
[2021-10-23] MEDS: 0.9% Saline Lock 10 ML Syringe IV (07:34)
[2021-10-23] MEDS: 0.9% Normal Saline 1,000 ML 50 ML IV (07:36)
[2021-10-23 07:37] LABS: Anion Gap 6 (5-15); BUN 14 mg/dL (7-18); BUN/Creat Ratio 13.5 RATIO (10-20); Calcium,Total 8.5 mg/dL (8.5-10.1); Chloride 102 mmol/L (98-107); Creatinine, Serum 1.04 mg/dL (0.70-1.30); EST Glomerular Filtration Rate 77 mL/min (>60); Est Glom Filt Rate - Afr Amer 93 mL/min (>60); Estimated Creatinine Clearance 79.44 ml/min; Glucose 176 mg/dL (74-106); Potassium 3.6 mmol/L (3.5-5.1); Sodium Level 138 mmol/L (136-145); Troponin-I HS 328 pg/mL (3.0-78.0)
--- NOTE | 2021-10-23 10:22 | CL.D_ITS ---
Patient Name: [facility] Study Date: 10/23/2021 Performing: Jarred Ferrari MD Ht: 70.87 inches 180 cm : 1960 Wt: 268.96 lbs 122 kg Age: 61 Gender: male BSA: 2.39 PROCEDURE(S) PERFORMED DC01-(08197)LHC/COR/LV IC12-(61525/C9600)JASON W/WO PTCA, SINGLE CORONARY ARTERY CLINICAL PROFILE AND INDICATIONS Indications: ACS <= 24 hrs, Suspected CAD Heart Failure: None Stress/Imaging Stress/Image Study Performed: No Angina Classification Anginal Classification w/in 2 Weeks: CCS IV CAD Presentations: Non-STEMI. CONCLUSIONS Elevated Left Ventricular End Diastolic Pressure Normal LV size, wall motion,and systolic function LVEF: by LV gram 55 % RECOMMENDATIONS Risk factor modification Medical therapy Referred for immediate PCI Case discussed / reviewed with Dr. Soriano of Interventional Cardiology DESCRIPTION OF PROCEDURE The patient arrived to the procedure lab. The risks and benefits of the procedure as well as a full d escription of our services here and current unavailability of surgical backup were fully explained to the patient and/or their significant other prior to the catheterization. The Timeout was completed, verifying the correct patient and procedure. The patient's procedural site was prepped and draped in the usual fashion. Local anesthetic was given subcutaneously to right radial region with Lidocaine 2% . Using a modified Seldinger technique, arterial access was obtained via the right radial artery, a 6 Fr sheath was inserted. Right Coronary Artery selective angiography was then performed in multiple v iews using a 5 Fr. 4.0 Redmond catheter. Left Coronary Artery selective angiography was performed in mu ltiple views using a 5 Fr. 4.0 Redmond catheter. Left Ventriculography was performed in LEONG projection using a 5 Fr. Pigtail catheter. LV to AO pullback pressures were then recorded.The arterial sheath was pulled and a TR Band was applied for hemostasis CORONARY ANGIOGRAPHY DOMINANCE: Right Dominant LEFT HEART ASSESSMENT Left Ventricular Ejection Fraction: by LV Gram 55 % Normal LV wall motion Elevated Left Ventricular End Diastolic Pressure LVEDP: 20 mmHg LEFT MAIN: Angiographically normal LEFT ANTERIOR DESCENDING ARTERY: MID LAD: eccentric: hazy: 85 % Stenosis, Mild luminal irregularities DIAGONAL 1: Mid - 95 % Stenosis CIRCUMFLEX ARTERY: Angiographically normal RIGHT CORONARY ARTERY: Angiographically normal AORTIC ROOT: Angiographically normal COMPLICATIONS No Complications PROCEDURE MEDICATIONS Versed 1 mg IV Fentanyl 50 mcg IV Oxygen: 4 L/min via nasal cannula Baby Aspirin (81mg) 1 Tabs PO 10/23/2021 08:20:13 Brilinta 180 mg PO @ 10/23/2021 08:52:21 Heparin given IA 10/23/2021 08:11:12 Heparin 6000 unit(s) IV 10/23/2021 09:33:48 Heparin 3000 unit(s) IV 10/23/2021 10:02:13 Verapamil 2.5mg, Ntg 100mcgs, 2000 units of Heparin given IA 10/23/2021 08:11:12 SUMMARY OF HEMODYNAMIC DATA Time AIR REST ECG 07:56:36 Art 120/74 (90) 08:13:40 AO 96/68 (81) SA 08:25:39 LV 111/0, 17 08:35:30 LV 106/1, 20 08:35:37 LV 110/0, 20 08:36:22 LV 109/0, 21 08:36:29 LVp 105/0, 20 08:36:36 AOp 102/65 (81) 08:36:41 Signed By Jarred Ferrari MD On 10/23/2021 10:21:38 Jarred Ferrari MD
[2021-10-23] MEDS: 0.9% Normal Saline 1,000 ML 75 ML IV (10:45)
--- NOTE | 2021-10-23 10:45 | EKG12_ITS ---
Test Reason : POST PCI Blood Pressure : / mmHG Vent. Rate : 062 BPM Atrial Rate : 062 BPM P-R Int : 162 ms QRS Dur : 090 ms QT Int : 390 ms P-R-T Axes : 055 -12 009 degrees QTc Int : 395 ms Normal sinus rhythm with sinus arrhythmia Low voltage QRS Inferior infarct , age undetermined Abnormal ECG When compared with ECG of 23-OCT-2021 05:15, MANUAL COMPARISON REQUIRED, DATA IS UNCONFIRMED Confirmed by CLAUDIO MCKEON, MARILYN ([id number]), assistant editor RADHA SENA ([id number]) on 10/28/2021 10:10:24 AM Referred By: PHYLICIA Confirmed By:MARILYN SNYDER MD
--- NOTE | 2021-10-23 10:47 | PCIREPORT_ITS ---
PCI Cardiac Cath Report PCI Report: Procedure performed: 1. Successful PCI and stent of the mid LAD with reduction of stenosis from 85% to 0% with placement of drug-eluting stent 2.75 x 18 mm/JASON/Orsiro Fowler Postdilated using 3 x 12 mm NC emerge MR balloon. Pre and post procedure GARY-3 flow. 2. Successful PCI and stent of the mid first diagonal/D1 with predilatation and placement of drug-eluting stent/JASON/Orsiro Fowler 2.25 x 22 mm With reduction of stenosis from 95% to 0%. Pre and post procedure GARY-3 flow 3. Placement of TR band to close the right radial artery arteriotomy site. Consent; Risk and benefits of the procedure explained in detail to the patient elected to proceed informed consent obtained. Preprocedure diagnosis; 61-year-old patient who has pulmonary believes him was on apixaban Diabetes test and a history of Covid 19 This presentation had symptoms of chest pain and had non-ST elevation AK with elevated high sensitive troponin I Based on his clinical presentation he was brought into the [facility] underwent cardiac catheterization by his primary teacher of the sight impaired Dr. Ferrari finding of cardiac cath revealed LV function preserved ejection fraction 55% with elevated LVEDP to 20 mmHg Cardiac cath angiographic films reviewed and discussed, left main normal angiographically, mid LAD had eccentric hazy 85% stenosis 30 diagonal has a mid 95% stenosis, left circumflex and RCA were normal. Interventional equipment and plan; 1. Access from the right radial artery approach with a 6 Urdu sheath in the right radial artery. 2. 6 Urdu 3.5 EBU guide catheter 3. 0.014 run-through extra floppy 180 cm strut 4. 2 x 12 mm image MR balloon 5. Drug-eluting stent/Orsiro Fowler 2.25 x 22 mm 6. Drug-eluting stent/Orsiro mission 2.75 x 18 mm 7. NC balloon 3 x 12 mm emerge MR. Procedure in detail; We proceed under fluoroscopic guidance with the guide catheter advanced ascending aorta cannulated the left main angiographic view of the left colon system obtained Following this we will proceed with the guidewire 0.014 run-through extra floppy guide across the lesion in the 30s diagonal and followed by predilatation using the 2 x 12 mm balloon followed by placement of drug-eluting stent and achieved an excellent result with no dissection or complication Then using the same guidewire across the lesion in the mid LAD predilate the lesion followed by placement of stent 2.75 x 18 mm proximal portion of the stent was dilated using 3 x 12 mm NC balloon with no complication in the [employer] Patient was given heparin in the [facility] [facility] ACT level was being checked twice last ACT was 214 and was given additional 2000 of heparin and patient was already given the Brilinta aspirin and will start on his medication with apixaban Recommendation and plan; 1. We will continue DAPT with Brilinta and aspirin in addition to his apixaban due to the pulmonary embolism. 2. Patient will schedule for phase 1 cardiac rehab program at [facility] 3. Patient will follow up with his primary teacher of the sight impaired Dr. Ferrari, for continuation of cardiac care plan Trmaaine Soriano MD,FAC,[facility]
[2021-10-23] MEDS: BRIMONIDINE 0.2% 5ML BOTTLE 1 DRP OPHTHALMIC (10:53)
[2021-10-23] MEDS: Ergocalciferol 1.25 MG (50, 000 UNIT) Capsule PO (10:54)
[2021-10-23] MEDS: Dicyclomine 10 MG Capsule PO (10:55)
[2021-10-23] MEDS: Calcium Carb/Vitamin D 1 TABLET Tablet PO (10:55)
[2021-10-23] MEDS: Citalopram 40 MG TABLET PO (10:55)
[2021-10-23] MEDS: Cyanocobalamin 500 MCG Tablet PO (10:55)
[2021-10-23] MEDS: Pantoprazole Sodium 40 MG Tablet PO (10:55)
--- NOTE | 2021-10-23 11:10 | CASEMGMT ---
RN CM Face to Face with patient for initial transition planning/care coordination assessment. RN CM introduced self and role at [facility]. Patient lying in bed, alert and oriented, at bedside. Patient willing to participate in assessment and is able to answer all questions appropriately. Care providers, pharmacy, and demographics verified. Patient wishes to discharge home, denies need for home health at this time. Patient states he has no further needs or concerns at this time. CM to follow for discharge planning needs that may arise. PCP: Dexter Specialists: Zain digital media intern Preferred Pharmacy: [facility] retail Insurance: MMO Prescription Benefit: yes Living Will/HPOA: none LNOK: Living Arrangements: Patient lives with in a split level home with 8 steps and railing. Patient is independent and able to ambulate stairs at home. Transportation: DME/HHC: Patient has walker and home oxygen through [employer] with portabilty 2-4 lpm. Patient has had [facility] in the past. Disposition Plan: Patient to discharge home with family support and follow-up plans in place. Yolis RAYMOND, RN, CM
--- NOTE | 2021-10-23 11:54 | CASEMGMT ---
VAHID KAPOOR NOTE: Per cardiology note, pt will be discharging home on Brilinta in addition to Eliquis he was on prior to admission. VAHID KAPOOR to room. Pt sleeping. @ bedside. Brilinta savings card given to and instructed on use. Questions answered. voices understanding. states she will call MMO to inquire if pt has met his deductible for the year for rx's and inquire about cost of Brilinta. She states if pt has met most or all of his deductible for the year and cost is low for 1st fill, she may use Brilinta savings card for refill. Julieth RAYMOND RN CM
[2021-10-23 12:06] LABS: Bedside Glucose 142 mg/dL (70-110)
--- NOTE | 2021-10-23 12:33 | PCM.PN.HOSP ---
Documented by User: James QUINTERO 10/23/21 12:52 Subjective Subjective Patient is a 61-year-old male comfortably resting in bed after cardiac catheterization, alert and orient x3. Reports improvement in his chest pain from admission. Denies development of any new symptoms overnight. Does not appear in acute distress. Objective Data Objective Data Vital Signs: Vital Signs Temp Pulse Resp BP Pulse Ox 97.3 F L 69 16 104/71 95 10/23/21 05:40 10/23/21 12:00 10/23/21 12:00 10/23/21 12:00 10/23/21 12:00 Oxygen Flow Rate (L/min) 2 Oxygen Delivery Method Room Air Weight: 268 lb 1.314 oz Body Mass Index (BMI) 37.3 Intake & Output: Intake and Output for Last 24 Hours 10/21/21 10/22/21 10/23/21 23:59 23:59 23:59 Intake Total 85.6 / 205.6 801.90 / 801.90 Balance 85.6 / 205.6 801.90 / 801.90 Lab / Micro Data Result Diagrams: 10/23/21 06:00 10/23/21 06:00 Labs: Laboratory Results - last 24 hr 10/22/21 12:53: WBC 3.4 L, RBC 4.14 L, Hgb 13.2, Hct 39.7 L, MCV 95.9 H, MCH 31.9, MCHC 33.2, RDW Std Deviation 42.3, RDW Coeff of Juancarlos 12.1, Plt Count 174, MPV 9.5, Immature Gran % (Auto) 0.600, Neut % (Auto) 50.4, Lymph % (Auto) 41.4 H, [place] % (Auto) 5.8, Eos % (Auto) 1.5, Baso % (Auto) 0.3, Absolute Neuts (auto) 1.7 L, Absolute Lymphs (auto) 1.42, Nucleated RBC % 0 10/22/21 12:53: PT 12.7, INR 1.0, APTT 30.1 10/22/21 12:53: Sodium 141, Potassium 4.3, Chloride 103, Carbon Dioxide 28.0, Anion Gap 10, BUN 10, Creatinine 1.02, Estim Creat Clear Calc 81.00, Est GFR (MDRD) Af Amer 96, Est GFR (MDRD) Non-Af 79, BUN/Creatinine Ratio 9.8 L, Glucose 158 H, Calcium 8.7, Total Bilirubin 0.30, AST 12 L, ALT 32, Alkaline Phosphatase 80, Troponin I High Sens 49, Total Protein 6.8, Albumin 3.3, Globulin 3.5, Albumin/Globulin Ratio 0.9 10/22/21 12:53: B-Natriuretic Peptide 49.4 10/22/21 15:55: Troponin I High Sens 256 H* 10/22/21 18:14: POC Glucose 113 H 10/22/21 19:03: Troponin I High Sens 517 H* 10/22/21 20:40: COVID-19 ([place]) Not Detected 10/22/21 22:42: POC Glucose 154 H 10/22/21 23:00: APTT 140.3 H* 10/23/21 06:00: Sodium 138, Potassium 3.6, Chloride 102, Carbon Dioxide 30.0, Anion Gap 6, BUN 14, Creatinine 1.04, Estim Creat Clear Calc 79.44, Est GFR (MDRD) Af Amer 93, Est GFR (MDRD) Non-Af 77, BUN/Creatinine Ratio 13.5, Glucose 176 H, Calcium 8.5, Troponin I High Sens 328 H* 10/23/21 06:00: WBC 3.6 L, RBC 3.81 L, Hgb 12.3 L, Hct 37.2 L, MCV 97.6 H, MCH 32.3 H, MCHC 33.1, RDW Std Deviation 43.8, RDW Coeff of Juancarlos 12.2, Plt Count 170, MPV 9.6, Immature Gran % (Auto) 0.300, Neut % (Auto) 48.9, Lymph % (Auto) 43.6 H, [place] % (Auto) 5.5, Eos % (Auto) 1.1, Baso % (Auto) 0.6, Absolute Neuts (auto) 1.8 L, Absolute Lymphs (auto) 1.58, Nucleated RBC % 0 10/23/21 06:00: Phosphorus 3.7 10/23/21 06:00: APTT 29.5 10/23/21 06:56: POC Glucose 175 H 10/23/21 10:52: POC Glucose 142 H Radiography Diagnostic Testing: Radiology Impression Chest CTA 10/22/21 13:21 IMPRESSION: Mild residual pleural emboli in the interlobar right pulmonary artery as well as in the proximal branches of the right upper lobe pulmonary artery. Electronically Signed: Thomas Obrien MD at 14:37 EST , Service support , Physical Exam Const alert, oriented x3 and no apparent distress HEENT head/scalp atraumatic and moist oral mucous membranes Head and Scalp: normocephalic Eyes PERRL, EOMs intact bilaterally and conjunctivae normal Neck no lymphadenopathy, supple and no JVD Resp normal respiratory effort, no retractions, no use of accessory muscles and clear to auscultation bilaterally Cardio regular rate, regular rhythm, no murmurs and no JVD GI normal to inspection, nondistended, normoactive bowel sounds, soft to palpation and non-tender Extremity normal to inspection, full ROM and no clubbing, cyanosis or edema Skin no rashes or lesions noted, no wounds and skin turgor normal Neuro CN's II-XII intact bilaterally Psych affect normal Assessment & Plan Assessment/Plan (1) Chest pain: (2) Non-ST elevation [place] (NSTEMI): PLAN: Day 1 Discharge planning: Current plan is for patient to discharge home. 1) NSTEMI Patient underwent successful PCI and stenting of the LAD and mid first diagonal/D1. Catheterization revealed normal LV size, wall motion and systolic function and an estimated EF of 55%. Recommendation from cardiology is to remain admitted overnight for monitoring, initiate dual antiplatelet therapy with Brilinta and aspirin and to continue Eliquis. Is to follow-up with cardiology within 2 weeks of discharge. 2) HTN Stable, continue Coreg. Hydralazine as needed. 3) DM2 Stable, continue home insulin regimen, Accu-Cheks with sliding scale insulin ordered. Glipizide added, per cardiology. 4) History of PE Patient was placed on heparin drip overnight in anticipation for catheterization this morning. Cleared to continue Eliquis, per cardiology. 5) GERD Continue PPI. DVT prophylaxis - Eliquis Patient seen by James Souza PA-C, under the supervision of Dr. Virk. Documented by User: Dr. Germán Virk, 10/23/21 14:48 Subjective Subjective Midsternal chest pain post cath. Otherwise feels well. Objective Data Lab / Micro Data Result Diagrams: 10/23/21 06:00 10/23/21 06:00 Physical Exam Const alert and no apparent distress Resp normal respiratory effort, no retractions, no use of accessory muscles and clear to auscultation bilaterally Cardio regular rate, regular rhythm, S1 normal heart sound and S2 normal heart sound GI normal to inspection, nondistended, normoactive bowel sounds, soft to palpation, non-tender and non-distended Extremity normal to inspection Neuro oriented x3 Sensorium / Orientation: awake, alert and oriented to person Assessment & Plan Assessment/Plan (1) Non-ST elevation [place] (NSTEMI): PLAN: Patient seen and examined independently. Data and vitals reviewed. I agree with the above note by the physician sales assistant entertainment and media. 1. Non-STEMI Patient went PCI with stenting to the LAD. Patient continue with aspirin, ticagrelor. Statin Charges/Coding Visit Charges Inpatient E&M: 74466 Subs Hosp L2
--- NOTE | 2021-10-23 13:15 | PN.CARD_ITS ---
Subjective Subjective The patient is now status post diagnostic cardiac catheterization. He has had no new acute cardiovascular complaints. Objective Data Vital Signs: Vital Signs Temp Pulse Resp BP Pulse Ox 97.6 F L 70 16 114/77 97 10/23/21 13:00 10/23/21 13:00 10/23/21 13:00 10/23/21 13:00 10/23/21 13:00 Oxygen Flow Rate (L/min) 2 Oxygen Delivery Method Room Air Weight: 268 lb 1.314 oz Body Mass Index (BMI) 37.3 Intake & Output: Intake and Output for Last 24 Hours 10/21/21 10/22/21 10/23/21 23:59 23:59 23:59 Intake Total 85.6 / 205.6 801.90 / 801.90 Balance 85.6 / 205.6 801.90 / 801.90 Lab / Micro Data Result Diagrams: 10/23/21 06:00 10/23/21 06:00 Labs: Laboratory Results - last 24 hr 10/22/21 12:53: WBC 3.4 L, RBC 4.14 L, Hgb 13.2, Hct 39.7 L, MCV 95.9 H, MCH 31.9, MCHC 33.2, RDW Std Deviation 42.3, RDW Coeff of Juancarlos 12.1, Plt Count 174, MPV 9.5, Immature Gran % (Auto) 0.600, Neut % (Auto) 50.4, Lymph % (Auto) 41.4 H , [place] % (Auto) 5.8, Eos % (Auto) 1.5, Baso % (Auto) 0.3, Absolute Neuts (auto) 1.7 L, Absolute Lymphs (auto) 1.42, Nucleated RBC % 0 10/22/21 12:53: PT 12.7, INR 1.0, APTT 30.1 10/22/21 12:53: Sodium 141, Potassium 4.3, Chloride 103, Carbon Dioxide 28.0, Anion Gap 10, BUN 10, Creatinine 1.02, Estim Creat Clear Calc 81.00, Est GFR (MDRD) Af Amer 96, Est GFR (MDRD) Non-Af 79, BUN/Creatinine Ratio 9.8 L, Glucose 158 H, Calcium 8.7, Total Bilirubin 0.30, AST 12 L, ALT 32, Alkaline Phosphatase 80, Troponin I High Sens 49, Total Protein 6.8, Albumin 3.3, Globulin 3.5, Albumin/Globulin Ratio 0.9 10/22/21 12:53: B-Natriuretic Peptide 49.4 10/22/21 15:55: Troponin I High Sens 256 H* 10/22/21 18:14: POC Glucose 113 H 10/22/21 19:03: Troponin I High Sens 517 H* 10/22/21 20:40: COVID-19 ([place]) Not Detected 10/22/21 22:42: POC Glucose 154 H 10/22/21 23:00: APTT 140.3 H* 10/23/21 06:00: Sodium 138, Potassium 3.6, Chloride 102, Carbon Dioxide 30.0, Anion Gap 6, BUN 14, Creatinine 1.04, Estim Creat Clear Calc 79.44, Est GFR (MDRD) Af Amer 93, Est GFR (MDRD) Non-Af 77, BUN/Creatinine Ratio 13.5, Glucose 176 H, Calcium 8.5, Troponin I High Sens 328 H* 10/23/21 06:00: WBC 3.6 L, RBC 3.81 L, Hgb 12.3 L, Hct 37.2 L, MCV 97.6 H, MCH 32.3 H, MCHC 33.1, RDW Std Deviation 43.8, RDW Coeff of Juancarlos 12.2, Plt Count 170, MPV 9.6, Immature Gran % (Auto) 0.300, Neut % (Auto) 48.9, Lymph % (Auto) 43.6 H , [place] % (Auto) 5.5, Eos % (Auto) 1.1, Baso % (Auto) 0.6, Absolute Neuts (auto) 1.8 L, Absolute Lymphs (auto) 1.58, Nucleated RBC % 0 10/23/21 06:00: Phosphorus 3.7 10/23/21 06:00: APTT 29.5 10/23/21 06:56: POC Glucose 175 H 10/23/21 10:52: POC Glucose 142 H Cardiology Labs/Tests 10/22/21 12:53: WBC 3.4 L, RBC 4.14 L, Hgb 13.2, Hct 39.7 L, MCV 95.9 H, MCH 31.9, MCHC 33.2, Plt Count 174, MPV 9.5, Immature Gran % (Auto) 0.600, Neut % (Auto) 50.4, Lymph % (Auto) 41.4 H, [place] % (Auto) 5.8, Eos % (Auto) 1.5, Baso % (Auto) 0.3, Absolute Neuts (auto) 1.7 L, Nucleated RBC % 0 10/22/21 12:53: PT 12.7, INR 1.0, APTT 30.1 10/22/21 12:53: Sodium 141, Potassium 4.3, Chloride 103, Carbon Dioxide 28.0, Anion Gap 10, BUN 10, Creatinine 1.02, Est GFR (MDRD) Af Amer 96, Est GFR (MDRD) Non-Af 79, BUN/Creatinine Ratio 9.8 L, Glucose 158 H, Calcium 8.7, Total Bilirubin 0.30 10/22/21 12:53: B-Natriuretic Peptide 49.4 10/22/21 23:00: APTT 140.3 H* 10/23/21 06:00: Sodium 138, Potassium 3.6, Chloride 102, Carbon Dioxide 30.0, Anion Gap 6, BUN 14, Creatinine 1.04, Est GFR (MDRD) Af Amer 93, Est GFR (MDRD) Non-Af 77, BUN/Creatinine Ratio 13.5, Glucose 176 H, Calcium 8.5 10/23/21 06:00: WBC 3.6 L, RBC 3.81 L, Hgb 12.3 L, Hct 37.2 L, MCV 97.6 H, MCH 32.3 H, MCHC 33.1, Plt Count 170, MPV 9.6, Immature Gran % (Auto) 0.300, Neut % (Auto) 48.9, Lymph % (Auto) 43.6 H, [place] % (Auto) 5.5, Eos % (Auto) 1.1, Baso % (Auto) 0.6, Absolute Neuts (auto) 1.8 L, Nucleated RBC % 0 10/23/21 06:00: Phosphorus 3.7 10/23/21 06:00: APTT 29.5 Rhythm: Sinus rhythm EKG: Sinus rhythm; no acute ECG changes Radiography Diagnostic Testing: Radiology Impression Chest CTA 10/22/21 13:21 IMPRESSION: Mild residual pleural emboli in the interlobar right pulmonary artery as well as in the proximal branches of the right upper lobe pulmonary artery. Electronically Signed: Thomas Obrien MD at 14:37 EST , Service support , Assessment & Plan Assessment/Plan (1) Non-ST elevation [place] (NSTEMI): PLAN: The patient presents with concerns of an acute non-ST segment elevation [place]. He has now undergone additional evaluation with diagnostic cardiac catheterization. He was found to have angiographically significant disease of the LAD and diagonal branch distribution. He subsequently underwent PCI of both distributions. He will continue medical therapy and follow-up which will include aspirin therapy and antiplatelet therapy with ticagrelor/Brilinta superimposed upon his anticoagulant therapy for his history of pulmonary emboli with apixaban/Eliquis. (2) Hyperlipidemia: PLAN: He should continue risk factor evaluation and care with medical therapy as deemed appropriate. (3) Essential (primary) hypertension: PLAN: He will need continued medical therapy of his hypertension. (4) Pulmonary embolism: PLAN: The patient will need to continue anticoagulant therapy. He will Zoom his anticoagulant therapy with respect to his pulmonary emboli. (5) COVID-19: PLAN: The patient did experience COVID-19 earlier this year-being diag nosed in June of this year. He states he has been recuperating from this diagnosis. His repeat COVID-19 PCR test was negative at this time. Addt'l Comments The patient will continue his post PCI monitoring. He will continue medical therapy. Hopefully if the patient remains symptomatically and hemodynamically stable he will be able to be released home tomorrow for continued outpatient cardiovascular follow-up. This note was generated using a voice recognition system and there may be incorrect words, spelling or punctuation that were not noted when reviewing the office note prior to saving. Procedure Criteria Type of Procedure Procedure Type: Elective Elective Risks - COVID COVID Risk Discussion: The surgeon/proceduralist and patient have discussed in detail the risk of exposure to and/or potential harm posed by the COVID-19 virus with having a surgery/procedure at this time versus the risk of delaying the surgery/procedure. It is not possible to know either the risk of delaying the surgery or procedure or chance of getting an infection with perfect accuracy, but a joint decision was made between the patient and the surgeon/proceduralist to proceed at this time with the scheduled surgery/procedure as indicated on the consent form.
--- NOTE | 2021-10-23 14:09 | CRPHASE1_ITS ---
Patient Communication PHII Cardiac Rehab Discussed with Patient:: Yes Guide to Cardiac Rehab Given to Patient:: Yes Cardiac Rehab Facility Choice List Given to Patient:: Yes Choice Program [facility] CR PHII:: Communication Given to CR Choice Program Other:: Communication Given to CR News Clerk:: Tramaine Soriano Phase II Cardiac Rehab:: Yes Sessions:: 36 sessions - 3 days/wk, 12 weeks Cardiac Rehabilitation Info Cardiac Rehabilitation Program Information: Cardiac Rehabilitation is important for patients like you who are recovering from a heart problem. Cardiac rehabilitation programs are recognized as integral to the continued care of the patient with coronary heart disease. The cardiac rehabilitation program is designed to optimize a patient's physical, psychological, and social functioning. Health dialysis patient care technician work in cardiac rehabilitation programs and assist you with getting the treatments you need to get stronger and healthier - like exercise, healthy eating habits, and medications. Cardiac rehabilitation has been show to help people with heart problems live longer and have better life enjoyment than people who do not go to cardiac rehabilitation. Please contact the Cardiac Rehabilitation Program at [facility] at in two weeks if you have not heard from them.
--- NOTE | 2021-10-23 14:09 | CRPH1.INSTRU ---
General Education CAD and cardiac anatomy and function:: Patient communicates acknowledgment, Family communicates acknowledgment Explanation of diagnoses and procedures:: Patient communicates acknowledgment, Family communicates acknowledgment Sign/Symptoms of ID:: Patient communicates acknowledgment, Family communicates acknowledgment Antiplatelet therapy: Patient communicates acknowledgment Smoking Patient Nicotine/Smoking Risk Factors Are:: Non-smoker Dyslipidemia Patient Dyslipidemia Risk Factors Are:: Total Cholesterol, Triglycerides, HDL, LDL Recommendations Include:: Lipid profile provided, Reviewed NCEP/ATP guidelines, Therapeutic Lifestyle Change dietary guidelines Dyslipidemia Response Code:: Patient communicates acknowledgment, Family communicates acknowledgment Overweight/Obesity Patient Overweight/Obesity Risk Factors Are:: Obesity - > or = 30 Recommendations Include:: Weight loss of 5-10%, Reduced calorie diet, Exercise 5-7 times/week Overweight/Obesity:: Patient communicates acknowledgment, Family communicates acknowledgment Hypertension Recommendations Include:: BP <130/80 if diabetic, DASH dietary guidelines, Decrease/maintain normal body weight, Moderation of ETOH Hypertension:: Patient communicates acknowledgment, Family communicates acknowledgment Diabetes Patient Diabetes Risk Factors Are:: Elevated blood sugars, Post-op hyperglycemia Recommendations Include:: Maintain fasting blood sugars 70-110 md/dL, Maintain HgbA1c of 6% or less, Monitor blood sugar as prescribed, Diabetic dietary guidelines, Decrease/maintain body weight Diabetes:: Patient communicates acknowledgment, Family communicates acknowledgment Metabolic Syndrome Patient Metabolic Syndrome Risk Factors Are [3 of 5]:: Waist circumference > 35 [female] or 40 [male], High triglyceride >150, Hypertension, Low HDL <40 [male] or < 50 [female] Recommendations Include:: Patient is diabetic, Encouraged follow-up with Primary Care Physician Metabolic Syndrome Response Code:: Patient communicates acknowledgment, Family communicates acknowledgment Sedentary Patient Sedentary Risk Factors Are:: Lack of regular exercise Recommendations Include:: Aerobic exercise 5-7 times/week for 20-30 minutes continuously, Benefits of regular exercise, Discussed home walking program, Monitored Outpatient Cardiac Rehab Sedentary Response Code:: Patient communicates acknowledgment, Family communicates acknowledgment Stress Recommendations Include:: Identification of stressors, and assessment of coping skills, Stress management techniques Stress Response Code:: Patient communicates acknowledgment
[2021-10-23 16:35] LABS: Bedside Glucose 156 mg/dL (70-110)
[2021-10-23] MEDS: glipiZIDE 10 MG Tablet PO (16:56)
[2021-10-23] MEDS: Insulin Lispro 100 UNIT/ML INSULN.PEN SC (16:57)
[2021-10-23] MEDS: APIXABAN 5 MG TABLET PO (21:55)
[2021-10-23] MEDS: Atorvastatin Calcium 10 MG Tablet PO (21:55)
[2021-10-23] MEDS: TICAGRELOR 90 MG TABLET PO (21:55)
[2021-10-23] MEDS: ALPRAZolam 0.5 MG Tablet 1 MG PO (21:57)
[2021-10-23 22:05] LABS: Bedside Glucose 134 mg/dL (70-110)
[2021-10-24] VITALS (7 sets, daily range): BP systolic 118–139; BP diastolic 80–93; PULSE 70–89; RESP 16–18; TEMP 36.6–37; O2SAT 94–96
[2021-10-24] MEDS: Nitroglycerin Oint 1 INCH PACKET TD ×2 (00:17→05:48)
[2021-10-24 06:10] LABS: Bedside Glucose 149 mg/dL (70-110)
[2021-10-24 07:10] LABS: Absolute Lymphocyte Count 1.45 X10^3/uL (0.83-4.51); Absolute Neutrophil Count 4.3 X10^3/uL (2.0-7.7); Basophil# 0.01 X10^3/uL; Basophil% 0.2 % (0-1); Eosinophil# 0.03 X10^3/uL; Eosinophils% 0.5 % (0-5); Hematocrit 35.5 % (40-54); Lymphocyte # 1.45 X10^3/ul (0.83-4.51); Lymphocyte % 23.5 % (19-41); Mean Corp Hgb Conc 33.8 g/dL (32-36); Mean Corpuscular Hgb 32.4 pg (27.0-32.0); Mean Corpuscular Volume 95.9 fL (80-94); Mean Platelet Vol. 9.4 fl (6.2-12.0); Monocyte# 0.37 X10^3/uL; NRBC Flagged by Analyzer 0 % (0-5); Neutrophil # 4.31 X10^3/uL (2.7-7.7); Neutrophil % 69.6 % (47-70); Platelet Count 156 K/mm3 (150-450); RBC Distribution Width CV 12.2 % (11.6-14.6); RBC Distribution Width SD 42.7 fl (35.1-43.9); White Blood Count 6.2 K/mm3 (4.4-11.0)
[2021-10-24 07:38] LABS: AST(SGOT) 12 U/L (15-37); Alanine Aminotransfer ALT/SGPT 25 U/L (16-61); Albumin, Serum 3.1 g/dL (3.2-5.0); Alkaline Phosphatase 67 U/L (45-117); Anion Gap 5 (5-15); BUN 14 mg/dL (7-18); BUN/Creat Ratio 12.3 RATIO (10-20); Calcium,Total 8.7 mg/dL (8.5-10.1); Chloride 106 mmol/L (98-107); Creatinine, Serum 1.14 mg/dL (0.70-1.30); EST Glomerular Filtration Rate 69 mL/min (>60); Est Glom Filt Rate - Afr Amer 84 mL/min (>60); Estimated Creatinine Clearance 72.47 ml/min; Globulin 3.1 g/dL (2.2-4.2); Glucose 151 mg/dL (74-106); Potassium 3.7 mmol/L (3.5-5.1); Protein, Total 6.2 g/dL (6.4-8.2); Sodium Level 140 mmol/L (136-145)
[2021-10-24] MEDS: APIXABAN 5 MG TABLET PO (08:29)
[2021-10-24] MEDS: Aspirin E.C. 81 MG Tablet PO (08:30)
[2021-10-24] MEDS: Citalopram 40 MG TABLET PO (08:30)
[2021-10-24] MEDS: Pantoprazole Sodium 40 MG Tablet PO (08:30)
[2021-10-24] MEDS: TICAGRELOR 90 MG TABLET PO (08:30)
[2021-10-24] MEDS: Calcium Carb/Vitamin D 1 TABLET Tablet PO (08:30)
[2021-10-24] MEDS: BRIMONIDINE 0.2% 5ML BOTTLE 1 DRP OPHTHALMIC (08:31)
[2021-10-24] MEDS: Cyanocobalamin 500 MCG Tablet PO (08:31)
[2021-10-24] MEDS: Carvedilol 12.5 MG Tablet PO (08:31)
--- NOTE | 2021-10-24 10:00 | EKG12_ITS ---
Test Reason : AM EKG Blood Pressure : / mmHG Vent. Rate : 084 BPM Atrial Rate : 084 BPM P-R Int : 158 ms QRS Dur : 090 ms QT Int : 350 ms P-R-T Axes : 047 -14 019 degrees QTc Int : 413 ms Normal sinus rhythm Normal ECG When compared with ECG of 23-OCT-2021 11:12, MANUAL COMPARISON REQUIRED, DATA IS UNCONFIRMED Confirmed by CLAUDIO MCKEON, MARILYN ([id number]), development editor RADHA SENA ([id number]) on 10/28/2021 10:08:59 AM Referred By: SOCO Confirmed By:MARILYN SNYDER MD
--- NOTE | 2021-10-24 11:06 | PCM.DC ---
Discharge Instructions Diet Discharge Diet: No restrictions Activity Discharge Activity: Return to Normal Activity Weight Bearing Status: Weight bearing as tolerated Dressing / Incision Call your doctor if you observe: Fever of 101 or Higher, Numbness or Tingling, Shortness of breath, Dizziness, Chest pain, Increased palpitations (irregular heartbeat) and Calf discomfort Follow Up Care Please Follow Up With: Primary care provider When: Within the next two weeks. Test Results: Test results from this visit will be discussed in further detail at your follow-up appointment, if applicable. Discharge Plan Admission Admit Date/Time: 10/22/21 17:35 Primary Reason for Your Visit: Chest pain Attending Provider: Germán Virk Primary Care Provider: Bryn Renteria Consulting Providers: Jarred Ferrari Discharge Orders/Prescriptions Prescriptions: New Brilinta 90 mg tablet 90 mg PO BID Qty: 60 RF: 0 aspirin 81 mg tablet,chewable 81 mg PO DAILY Qty: 30 RF: 0 atorvastatin [Lipitor] 40 mg tablet 40 mg PO QHS Qty: 30 RF: 0 Continued citalopram 40 mg tablet 40 mg PO DAILY RF: 0 dicyclomine 10 mg capsule 10 mg PO QODAY RF: 0 alprazolam 1 MG tablet 1 mg PO QHS RF: 0 pantoprazole 40 mg Tablet,Delayed Release (Dr/Ec) 40 mg PO DAILY 30 Days Qty: 30 RF: 0 Eliquis 5 mg tablet 5 mg PO BID Qty: 70 RF: 0 brimonidine 0.2 % drops 1 drp ophthalmic (eye) DAILY RF: 0 ergocalciferol (vitamin D2) [Vitamin D2] 1,250 mcg (50,000 unit) Capsule 1,250 mcg PO TUTH RF: 0 garlic 100 mg Tablet 100 mg PO DAILY RF: 0 glipizide 10 mg tablet 10 mg PO DAILY@1700 RF: 0 calcium carbonate-vitamin D3 600 mg-5 mcg (200 unit) Tablet 1 tab PO DAILY RF: 0 cyanocobalamin (vitamin B-12) 500 mcg Tablet 500 mcg PO DAILY RF: 0 Lantus Solostar U-100 Insulin 100 unit/mL (3 mL) insulin pen 14 unit SUBCUT DAILY RF: 0 carvedilol 12.5 mg tablet 12.5 mg PO BID Qty: 180 RF: 3 Referrals / Follow Up: Bryn Renteria DO [Primary Care Provider] - Within 2 Weeks Jarred Ferrari MD [STAFF PHYSICIAN] - Within 2 Weeks Disposition Disposition (needs filled in before D/C Order can be placed): Home, Self Care
--- NOTE | 2021-10-24 12:02 | PCM.PN.CARD ---
Subjective Subjective , at bedside when I came to evaluate today at bedside along with the nursing staffPatient seen and evaluateNo symptoms reported and no event from last night. Objective Data Vital Signs: Vital Signs Temp Pulse Resp BP Pulse Ox 98.6 F 79 18 139/93 H 94 10/24/21 11:32 10/24/21 11:32 10/24/21 11:32 10/24/21 11:32 10/24/21 11:32 Oxygen Flow Rate (L/min) 2 Oxygen Delivery Method Room Air Weight: 268 lb 1.314 oz Body Mass Index (BMI) 37.3 Intake & Output: Intake and Output for Last 24 Hours 10/22/21 10/23/21 10/24/21 23:59 23:59 23:59 Intake Total 85.6 / 205.6 1901.90 / 2051.90 750 / 750 Output Total 600 / 1050 800 / 800 Balance 85.6 / 205.6 1301.90 / 1001.90 -50 / -50 Lab / Micro Data Result Diagrams: 10/24/21 06:35 10/24/21 06:35 Labs: Laboratory Results - last 24 hr 10/23/21 10:52: POC Glucose 142 H 10/23/21 16:25: POC Glucose 156 H 10/23/21 21:39: POC Glucose 134 H 10/24/21 06:03: POC Glucose 149 H 10/24/21 06:35: WBC 6.2, RBC 3.70 L, Hgb 12.0 L, Hct 35.5 L, MCV 95.9 H, MCH 32.4 H, MCHC 33.8, RDW Std Deviation 42.7, RDW Coeff of Juancarlos 12.2, Plt Count 156, MPV 9.4, Immature Gran % (Auto) 0.200, Neut % (Auto) 69.6, Lymph % (Auto) 23.5, [place] % (Auto) 6.0, Eos % (Auto) 0.5, Baso % (Auto) 0.2, Absolute Neuts (auto) 4.3, Absolute Lymphs (auto) 1.45, Nucleated RBC % 0 10/24/21 06:35: Sodium 140, Potassium 3.7, Chloride 106, Carbon Dioxide 29.0, Anion Gap 5, BUN 14, Creatinine 1.14, Estim Creat Clear Calc 72.47, Est GFR (MDRD) Af Amer 84, Est GFR (MDRD) Non-Af 69, BUN/Creatinine Ratio 12.3, Glucose 151 H, Calcium 8.7, Phosphorus 3.0, Total Bilirubin 0.40, AST 12 L, ALT 25, Alkaline Phosphatase 67, Total Protein 6.2 L, Albumin 3.1 L, Globulin 3.1, Albumin/Globulin Ratio 1.0 Cardiology Labs/Tests 10/24/21 06:35: WBC 6.2, RBC 3.70 L, Hgb 12.0 L, Hct 35.5 L, MCV 95.9 H, MCH 32.4 H, MCHC 33.8, Plt Count 156, MPV 9.4, Immature Gran % (Auto) 0.200, Neut % (Auto) 69.6, Lymph % (Auto) 23.5, [place] % (Auto) 6.0, Eos % (Auto) 0.5, Baso % (Auto) 0.2, Absolute Neuts (auto) 4.3, Nucleated RBC % 0 10/24/21 06:35: Sodium 140, Potassium 3.7, Chloride 106, Carbon Dioxide 29.0, Anion Gap 5, BUN 14, Creatinine 1.14, Est GFR (MDRD) Af Amer 84, Est GFR (MDRD) Non-Af 69, BUN/Creatinine Ratio 12.3, Glucose 151 H, Calcium 8.7, Phosphorus 3.0, Total Bilirubin 0.40 Rhythm: Normal sinus rhythm Physical Exam Narrative Bedside examination Patient alert orientated x3 sitting out in bed not having any symptoms of chest pain Cardiovascular semination; S1-S2 is regular there is no murmur no systolic or diastolic murmur, no pericardial rub, no gallop Chest examination clear to auscultation bilateral. Examination lower extremity no clubbing no cyanosis no lower extremity edema Assessment & Plan Assessment/Plan (1) History of pulmonary embolism: (2) History of 2019 novel coronavirus disease (COVID-19): (3) Pneumonia due to 2019-nCoV: (4) Atherosclerotic heart disease of [place] coronary artery without angina pectoris: (5) Presence of stent in coronary artery: PLAN: 61-year-old patient with history of CAD Recent diagnosis of valve embolism Underwent cardiac catheterization by his primary field sales representative Dr. Ferrari And he has a PCI and stent of the diagonal branch, D1 as well as LAD. Using drug-eluting stent. LV function is preserved with normal ejection fraction. Post PCI patient remained stable with no symptoms of chest pain, right radial pulse intact with no evidence of hematoma Cardiac care plan and recommendations; 1. I discussed with the medical team in regard to his medication patient will be on triple therapy with Eliquis, Brilinta, low-dose aspirin DAPT to continue for 1 year 2. Patient is scheduled for phase 1 cardiac rehab program 3. Patient to follow-up with his primary field sales representative Dr. Ferrari for continuation of cardiac care plan.
--- NOTE | 2021-10-24 13:57 | PCM.DC.SUM ---
Documented by User: James QUINTERO 10/24/21 14:03 Providers Date of Admission: 10/22/21 Primary Care Physician: Dr. Bryn Renteria, Consultations 10/22/21 20:37 Consult: Cardiology Routine Consulting Provider: Jarred Ferrari Reason for Consult: Evaluation NSTEMI and need for intervention vs testing EMERGENT Consult: No MD Notified: Yes Date Notified: 10/22/21 Time Notified: 20:38 Method of Notification: Verbal Method of Consult:: In-Person Comments:: cardiology already saw pt Reason For Visit: NSTEMI Diagnosis Discharge Diagnosis (1) History of pulmonary embolism: Status: Acute Code(s): Z86.711 - Personal history of pulmonary embolism (2) History of 2019 novel coronavirus disease (COVID-19): Status: Acute Code(s): Z86.16 - Personal history of COVID-19 (3) Pneumonia due to 2019-nCoV: Status: Acute Code(s): U07.1 - COVID-19; J12.82 - Pneumonia due to coronavirus disease 2019 (4) Atherosclerotic heart disease of [place] coronary artery without angina pectoris: Status: Acute Code(s): I25.10 - Atherosclerotic heart disease of [place] coronary artery without angina pectoris (5) Presence of stent in coronary artery: Status: Acute Code(s): Z95.5 - Presence of coronary angioplasty implant and graft Medications at Discharge Home Medications alprazolam 1 mg PO QHS 04/23/20 carvedilol 12.5 mg tablet 12.5 mg PO BID #180 tab 03/17/21 Eliquis 5 mg PO BID #70 tab 08/12/21 pantoprazole 40 mg PO DAILY 30 Days #30 tab 08/12/21 citalopram 40 mg tablet 40 mg PO DAILY 09/04/21 dicyclomine 10 mg capsule 10 mg PO QODAY cap 09/04/21 brimonidine 1 drp OPHTHALMIC (EYE) DAILY 09/23/21 ergocalciferol (vitamin D2) [Vitamin D2] 1,250 mcg PO TUTH 09/23/21 Lantus Solostar U-100 Insulin 14 unit SUBCUT DAILY 10/22/21 calcium carbonate-vitamin D3 1 tab PO DAILY 10/22/21 cyanocobalamin (vitamin B-12) 500 mcg PO DAILY 10/22/21 garlic 100 mg PO DAILY 10/22/21 glipizide 10 mg PO DAILY@1700 10/22/21 aspirin 81 mg PO DAILY #30 tab 10/24/21 atorvastatin [Lipitor] 40 mg PO QHS #30 tab 10/24/21 ticagrelor [Brilinta] 90 mg PO BID #60 tab 10/24/21 Hospital Course Procedures 2-D Echocardiogram and Cardiac catheterization Summary of Care Provided Minutes Spent on Discharge: 35 Hospital Course: Disposition: Patient to be discharged home. 1) NSTEMI Patient underwent successful PCI and stenting of the LAD and mid first diagonal/D1 on 10/23/2021. Catheterization revealed normal LV size, wall motion and systolic function and an estimated EF of 55%. Cardiology was consulted patient recommendations as follows: Continue dual antiplatelet therapy for 1 year, continue cardiac rehab program on discharge, follow-up with certified travel counselor Dr. Ferrari within the next 2 weeks after discharge. Initiate aspirin, statin and ticagrelor. Continue Eliquis and Coreg. 2) HTN Stable, continue home BP regimen. 3) DM2 Continue home diabetic regimen. 4) History of PE Continue Eliquis. 5) GERD Continue PPI. Patient seen by James Souza PA-C, under the supervision of Dr. Virk. Physical Exam Narrative Patient is a 61-year-old male comfortably resting in a chair, alert and orient x3. Patient reports resolution of chest pain from admission. Denies development of any new symptoms overnight. Does not appear in acute distress. Const alert, oriented x3 and no apparent distress HEENT normocephalic, head/scalp atraumatic and hearing grossly normal bilaterally Eyes PERRL, EOMs intact bilaterally and conjunctivae normal Neck no lymphadenopathy, supple and no JVD Resp normal respiratory effort, no retractions, no use of accessory muscles and clear to auscultation bilaterally Cardio regular rate, regular rhythm, no murmurs and no JVD GI normal to inspection, nondistended, normoactive bowel sounds, soft to palpation and non-tender Extremity normal to inspection, full ROM and no clubbing, cyanosis or edema Skin no rashes or lesions noted, no wounds and skin turgor normal Neuro CN's II-XII intact bilaterally Psych affect normal Weight / BMI Weight Weight: 268 lb 1.314 oz Body Mass Index (BMI) 37.3 ABG / Lab / Microbiology Data Result Diagrams: 10/24/21 06:35 10/24/21 06:35 Laboratory: Laboratory Results - last 24 hr 10/23/21 16:25: POC Glucose 156 H 10/23/21 21:39: POC Glucose 134 H 10/24/21 06:03: POC Glucose 149 H 10/24/21 06:35: WBC 6.2, RBC 3.70 L, Hgb 12.0 L, Hct 35.5 L, MCV 95.9 H, MCH 32.4 H, MCHC 33.8, RDW Std Deviation 42.7, RDW Coeff of Juancarlos 12.2, Plt Count 156, MPV 9.4, Immature Gran % (Auto) 0.200, Neut % (Auto) 69.6, Lymph % (Auto) 23.5, [place] % (Auto) 6.0, Eos % (Auto) 0.5, Baso % (Auto) 0.2, Absolute Neuts (auto) 4.3, Absolute Lymphs (auto) 1.45, Nucleated RBC % 0 10/24/21 06:35: Sodium 140, Potassium 3.7, Chloride 106, Carbon Dioxide 29.0, Anion Gap 5, BUN 14, Creatinine 1.14, Estim Creat Clear Calc 72.47, Est GFR (MDRD) Af Amer 84, Est GFR (MDRD) Non-Af 69, BUN/Creatinine Ratio 12.3, Glucose 151 H, Calcium 8.7, Phosphorus 3.0, Total Bilirubin 0.40, AST 12 L, ALT 25, Alkaline Phosphatase 67, Total Protein 6.2 L, Albumin 3.1 L, Globulin 3.1, Albumin/Globulin Ratio 1.0 D/C Instructions Discharge Diet: No restrictions Weight Bearing Status: Weight bearing as tolerated Call your doctor if you observe: Fever of 101 or Higher, Numbness or Tingling, Shortness of breath, Dizziness, Chest pain, Increased palpitations (irregular heartbeat) and Calf discomfort Please Follow Up With: Primary care provider When: Within the next two weeks. Meaningful Use Info Meaningful Use Diagnoses (Choose all that apply): None applicable Discharge Plan Admission Admit Date/Time: 10/22/21 17:35 Primary Reason for Your Visit: Chest pain Attending Provider: Germán Virk Primary Care Provider: Bryn Renteria Providers: Jarred Ferrari Discharge Orders/Prescriptions Prescriptions: New Brilinta 90 mg tablet 90 mg PO BID Qty: 60 RF: 0 aspirin 81 mg tablet,chewable 81 mg PO DAILY Qty: 30 RF: 0 atorvastatin [Lipitor] 40 mg tablet 40 mg PO QHS Qty: 30 RF: 0 Continued citalopram 40 mg tablet 40 mg PO DAILY RF: 0 dicyclomine 10 mg capsule 10 mg PO QODAY RF: 0 alprazolam 1 MG tablet 1 mg PO QHS RF: 0 pantoprazole 40 mg Tablet,Delayed Release (Dr/Ec) 40 mg PO DAILY 30 Days Qty: 30 RF: 0 Eliquis 5 mg tablet 5 mg PO BID Qty: 70 RF: 0 brimonidine 0.2 % drops 1 drp ophthalmic (eye) DAILY RF: 0 ergocalciferol (vitamin D2) [Vitamin D2] 1,250 mcg (50,000 unit) Capsule 1,250 mcg PO TUTH RF: 0 garlic 100 mg Tablet 100 mg PO DAILY RF: 0 glipizide 10 mg tablet 10 mg PO DAILY@1700 RF: 0 calcium carbonate-vitamin D3 600 mg-5 mcg (200 unit) Tablet 1 tab PO DAILY RF: 0 cyanocobalamin (vitamin B-12) 500 mcg Tablet 500 mcg PO DAILY RF: 0 Lantus Solostar U-100 Insulin 100 unit/mL (3 mL) insulin pen 14 unit SUBCUT DAILY RF: 0 carvedilol 12.5 mg tablet 12.5 mg PO BID Qty: 180 RF: 3 Referrals / Follow Up: Bryn Renteria DO [Primary Care Provider] - Within 2 Weeks Jarred Ferrari MD [STAFF PHYSICIAN] - Within 2 Weeks Disposition Disposition (needs filled in before D/C Order can be placed): Home, Self Care Documented by User: Dr. Germán Virk DO 10/24/21 14:43 Providers Date of Admission: 10/22/21 Reason For Visit: NSTEMI Medications at Discharge Home Medications alprazolam 1 mg PO QHS 04/23/20 carvedilol 12.5 mg tablet 12.5 mg PO BID #180 tab 03/17/21 Eliquis 5 mg PO BID #70 tab 08/12/21 pantoprazole 40 mg PO DAILY 30 Days #30 tab 08/12/21 citalopram 40 mg tablet 40 mg PO DAILY 09/04/21 dicyclomine 10 mg capsule 10 mg PO QODAY cap 09/04/21 brimonidine 1 drp OPHTHALMIC (EYE) DAILY 09/23/21 ergocalciferol (vitamin D2) [Vitamin D2] 1,250 mcg PO TUTH 09/23/21 Lantus Solostar U-100 Insulin 14 unit SUBCUT DAILY 10/22/21 calcium carbonate-vitamin D3 1 tab PO DAILY 10/22/21 cyanocobalamin (vitamin B-12) 500 mcg PO DAILY 10/22/21 garlic 100 mg PO DAILY 10/22/21 glipizide 10 mg PO DAILY@1700 10/22/21 aspirin 81 mg PO DAILY #30 tab 10/24/21 atorvastatin [Lipitor] 40 mg PO QHS #30 tab 10/24/21 ticagrelor [Brilinta] 90 mg PO BID #60 tab 10/24/21 Hospital Course Operations None Procedures 2-D Echocardiogram and Cardiac catheterization Summary of Care Provided Minutes Spent on Discharge: 35 Hospital Course: 61-year-old male presents with chest pain. Patient was found to have a non-ST ovation myocardial infarction. Patient underwent PCI and stenting to the LAD of the mid first diagonal on . Patient's hospitalization was uncomplicated. Patient will be discharged with aspirin, statin and ticagrelor. Patient will follow with cardiology as outpatient. 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 He is advised that if he does hit his head significantly that he may need to be evaluated to rule out any intracranial hemorrhage. Physical Exam Const alert Cardio regular rate, regular rhythm, S1 normal heart sound and S2 normal heart sound GI normal to inspection, nondistended, normoactive bowel sounds, soft to palpation, non-tender and non-distended Extremity normal to inspection, full ROM and no clubbing, cyanosis or edema ABG / Lab / Microbiology Data Result Diagrams: 10/24/21 06:35 10/24/21 06:35 Discharge Plan Admission Admit Date/Time: 10/22/21 17:35 Primary Reason for Your Visit: Chest pain Attending Provider: Germán Virk Primary Care Provider: Bryn Renteria Consulting Providers: Jarred Ferrari Discharge Orders/Prescriptions Prescriptions: New Brilinta 90 mg tablet 90 mg PO BID Qty: 60 RF: 0 aspirin 81 mg tablet,chewable 81 mg PO DAILY Qty: 30 RF: 0 atorvastatin [Lipitor] 40 mg tablet 40 mg PO QHS Qty: 30 RF: 0 Continued citalopram 40 mg tablet 40 mg PO DAILY RF: 0 dicyclomine 10 mg capsule 10 mg PO QODAY RF: 0 alprazolam 1 MG tablet 1 mg PO QHS RF: 0 pantoprazole 40 mg Tablet,Delayed Release (Dr/Ec) 40 mg PO DAILY 30 Days Qty: 30 RF: 0 Eliquis 5 mg tablet 5 mg PO BID Qty: 70 RF: 0 brimonidine 0.2 % drops 1 drp ophthalmic (eye) DAILY RF: 0 ergocalciferol (vitamin D2) [Vitamin D2] 1,250 mcg (50,000 unit) Capsule 1,250 mcg PO TUTH RF: 0 garlic 100 mg Tablet 100 mg PO DAILY RF: 0 glipizide 10 mg tablet 10 mg PO DAILY@1700 RF: 0 calcium carbonate-vitamin D3 600 mg-5 mcg (200 unit) Tablet 1 tab PO DAILY RF: 0 cyanocobalamin (vitamin B-12) 500 mcg Tablet 500 mcg PO DAILY RF: 0 Lantus Solostar U-100 Insulin 100 unit/mL (3 mL) insulin pen 14 unit SUBCUT DAILY RF: 0 carvedilol 12.5 mg tablet 12.5 mg PO BID Qty: 180 RF: 3 Referrals / Follow Up: Bryn Renteria DO [Primary Care Provider] - Within 2 Weeks Jarred Ferrari MD [STAFF PHYSICIAN] - Within 2 Weeks Disposition Disposition (needs filled in before D/C Order can be placed): Home, Self Care Charges/Coding Visit Charges Inpatient E&M: 07775 Disch Hosp
== END 2021-10-24 12:10 | disposition home or self-care (01) | DRG 247 ==
LOC: ED 16:39 → PCU 10-23 07:06
PROVIDERS: Internal Medicine Cardiovascular Disease; Admitting Provider Hospitalist; Emergency Provider Emergency Medicine; PCP Family Medicine
DX: I21.4 Non-ST elevation (NSTEMI) myocardial infarction (principal); R09.02 Hypoxemia; I25.10 Atherosclerotic heart disease of native coronary artery without angina pectoris; Z20.822 Contact with and (suspected) exposure to COVID-19; I48.91 Unspecified atrial fibrillation; E11.9 Type 2 diabetes mellitus without complications; I10 Essential (primary) hypertension; E78.5 Hyperlipidemia, unspecified; K58.9 Irritable bowel syndrome, unspecified; K21.9 Gastro-esophageal reflux disease without esophagitis; F41.9 Anxiety disorder, unspecified; E66.9 Obesity, unspecified; Z68.38 Body mass index [BMI] 38.0-38.9, adult; Z99.81 Dependence on supplemental oxygen; Z79.4 Long term (current) use of insulin; Z79.01 Long term (current) use of anticoagulants; Z79.02 Long term (current) use of antithrombotics/antiplatelets; Z79.82 Long term (current) use of aspirin; Z79.899 Other long term (current) drug therapy; Z86.16 Personal history of COVID-19; Z87.01 Personal history of pneumonia (recurrent); Z86.711 Personal history of pulmonary embolism
CPT/HCPCS: 36415; 71275; 80048; 80053; 82962; 83880; 84100; 84484; 85025; 85610; 85730; 87635; 92928; 92929; 93005; 93458; 99152; 99153; 99285; J7030; Q9967; U0005; A4216; C1769; C1894; C9600; C9601; U0003

== ENCOUNTER 2021-11-18 10:53 | Outpatient (CLI) | payer OTHER, SELFPAY ==
[2021-11-07 14:13] VITALS: BMI 37.3
--- NOTE | 2021-11-18 10:55 | ECHOCS_ITS ---
Reason For Study: PE Procedure This was a 2D Doppler, Color Flow transthoracic echocardiogram. The study was technically difficult. Contrast injection was performed. Exam performed in department. Left Ventricle Normal LV size. Left ventricular systolic function is normal. The estimated ejection fraction is 53 %. Stage 1 diastolic dysfunction. No regional wall motion abnormalities noted. Right Ventricle Normal RV size. Normal systolic function. Atria Normal left atrium. Normal right atrium. Mitral Valve Normal mitral valve. Tricuspid Valve Normal tricuspid valve. Aortic Valve Trisinus/trileaflet aortic valve. Pulmonic Valve The pulmonic valve is not well visualized. Great Vessels Mildly dilated aortic root. The pulmonary artery is normal size. Normal inferior vena cava. Pericardium/Pleural No pericardial effusion. Medication 22 gauge I.V. with prn adaptor inserted into right arm. Diluted definity 4ml given slow IV push to enhance endocardial definition. MMode/2D Measurements & Calculations LVIDd: 5.2 cm IVSd: 1.0 cm Ao root diam: 3.8 cm LVIDs: 3.7 cm LVPWd: 1.2 cm LA dimension: 3.5 cm RVDd: 4.3 cm FS: 29.7 % LAV(MOD-bp): 50.5 ml LVAd ap4: 31.1 cm2 SV(MOD-sp4): 49.1 ml LAV(MOD-bp) Indexed: 21.3 ml/m2 LVLd ap4: 7.6 cm LAV(MOD-sp2): 52.4 ml EDV(MOD-sp4): 102.5 ml LAV(MOD-sp4): 50.7 ml EDV(sp4-el): 107.5 ml LVAs ap4: 20.2 cm2 LVLs ap4: 6.5 cm ESV(MOD-sp4): 53.3 ml ESV(sp4-el): 53.0 ml EF(MOD-sp4): 48.0 % EF(sp4-el): 50.7 % SV(sp4-el): 54.5 ml LA A4 area: 17.7 cm2 RA A4 area: 15.5 cm2 Time Measurements MV dec time: 0.35 sec Doppler Measurements & Calculations MV E max gael: 46.2 cm/sec Lat Peak E' Gael: 5.0 cm/sec Med Peak E' Gael: 4.7 cm/sec MV A max gael: 62.9 cm/sec E/E' lat: 9.3 E/E' med: 9.8 MV E/A: 0.73 MV V2 max: 60.4 cm/sec MV P1/2t max gael: 44.5 cm/sec Ao V2 max: 98.9 cm/sec MV max P.5 mmHg MV P1/2t: 92.5 msec Ao max P.9 mmHg MV V2 mean: 34.8 cm/sec MV mean P.55 mmHg MV dec slope: 141.0 cm/sec2 MV V2 VTI: 13.4 cm MVA(P1/2t): 2.4 cm2 LV V1 max: 81.4 cm/sec PA V2 max: 97.3 cm/sec LV V1 max P.6 mmHg ECHO/Echo Complete W/ Contrast Interpretation Summary Normal LV size. Left ventricular systolic function is normal. The estimated ejection fraction is 53 %. Stage 1 diastolic dysfunction. Mildly dilated aortic root. Contrast injection was performed. Ordering Physician: Janice Dodd Referring Physician: Bryn Renteria Performed By: Robby Martínez RCS
== END 2021-11-18 23:59 | disposition short-term general hospital (02) ==
LOC: CVS 10:54
PROVIDERS: PCP Family Medicine; Referring Provider Physician Assistant Medical; Visit Provider Physician Assistant Medical
DX: I51.7 Cardiomegaly (principal)
CPT/HCPCS: 93306; Q9957; A4216; C8929

== ENCOUNTER 2021-11-26 09:19 | Observation (INO) | payer OTHER, SELFPAY ==
[2021-11-07 14:13] VITALS: BMI 37.3
[2021-11-26] VITALS (8 sets, daily range): BP systolic 117–156; BP diastolic 89–104; PULSE 72–80; RESP 16–20; TEMP 36.1–36.6; O2SAT 97–98; BMI 37.3; BMI 36.6
--- NOTE | 2021-11-26 09:27 | EKG12_ITS ---
Test Reason : CP Blood Pressure : / mmHG Vent. Rate : 078 BPM Atrial Rate : 078 BPM P-R Int : 152 ms QRS Dur : 082 ms QT Int : 360 ms P-R-T Axes : 050 -30 005 degrees QTc Int : 410 ms Normal sinus rhythm Left axis deviation Inferior infarct , age undetermined Abnormal ECG Confirmed by FABIANA MCKEON, ZACKERY ([id number]), editorial director RADHA SENA ([id number]) on 11/28/2021 1:03:26 PM Referred By: DAYNA Confirmed By:KUMAR JUNG MD
--- NOTE | 2021-11-26 09:27 | CT_ITS ---
We are attempting to reach an attending provider to discuss findings. An addendum with communication details will be sent when the communication is complete. STUDY: CT HEAD STROKE PROTOCOL W/O CONTRAST INJECTION REASON FOR EXAM: Male, 61 years old. Neuro deficit, acute, stroke suspected RADIATION DOSAGE (If Supplied By Facility): CTDIvol = ( 44.99 ) mGy, DLP = ( 863.6 ) mGycm TECHNIQUE: Transaxial CT imaging of the brain was performed without administration of intravenous contrast material. Individualized dose optimization techniques were used for this CT. COMPARISON: Comparison is made with prior examination of 05/15/2015. FINDINGS: Normal soft tissue structures. Normal calvarium. There is mild cerebral atrophy with widening of the extra-axial spaces and ventricular dilatation. Normal white matter tracts of the cerebral hemispheres. Normal basal ganglia and thalami. Normal brainstem. Normal cerebellum. There is no intracranial hemorrhage. There are no findings of an acute ischemic infarction. Opacification of the right maxillary sinus. CT/STROKE Brain/Head without Cont IMPRESSION: Chronic involutional changes of the brain. Electronically Signed: Thomas Obrien MD at 10:02 EST ,
--- NOTE | 2021-11-26 09:27 | NURSING ---
0926 STROKE ALERT CALLED
--- NOTE | 2021-11-26 09:28 | CT_ITS ---
STUDY: CTA HEAD AND NECK WITH CONTRAST REASON FOR EXAM: Male, 61 years old. Neuro deficit, acute, stroke suspected RADIATION DOSAGE (If Supplied By Facility): CTDIvol = ( 17.72 ) mGy, DLP = ( 769.64 ) mGycm TECHNIQUE: CT angiography was performed with a multi-detector CT scanner. Data acquisition was obtained from the skull base through the vertex following intravenous administration of IV 100mL [id number]-370. MIP images were reconstructed from the axial data set. Post-processing of the angiographic images was performed, with multiplanar reformation and 3D reconstruction. Individualized dose optimization techniques were used for this CT. COMPARISON: No relevant priors. FINDINGS: Normal bilateral petrous carotid arteries. There is calcified plaque formation of the right cavernous carotid artery, without a cross-sectional luminal stenosis. There is calcified plaque formation of the left cavernous carotid artery, without a cross-sectional luminal stenosis. Normal right A1 segments of the anterior cerebral artery. Normal left A1 segments of the anterior cerebral artery. Normal intact anterior communicating artery (ACOM). Normal bilateral A2 segments of the anterior cerebral arteries. Normal right M1 and M2 segments of the middle cerebral arteries, with a normal M1 bifurcation. Normal left M1 and M2 segments of the middle cerebral arteries, with a normal M1 bifurcation. Normal right posterior communicating artery (PCOM). Normal left posterior communicating artery (PCOM). Normal bilateral vertebral arteries. Normal basilar artery with a normal basilar bifurcation. The visualized bilateral superior cerebellar (SCA) arteries are normal. Normal bilateral P1, P2 and visualized P3 segments of the posterior cerebral arteries. There is no demonstrated aneurysm of the crow of [place]. AORTIC ARCH: Normal visualized aortic arch. Normal origins of the brachiocephalic, left common carotid, and left subclavian arteries. RIGHT CAROTID ARTERIES: Normal right common carotid artery (CCA). Normal right common carotid bulb. There is mild atherosclerotic plaque formation of the origin of the right internal carotid artery with less than 50% cross sectional diameter stenosis. Normal visualized cervical portion of the right internal carotid artery. Normal origin of the right external carotid artery (ECA). LEFT CAROTID ARTERIES: Normal left common carotid artery (CCA). Normal left common carotid bulb. Normal origin of the left internal carotid (ICA) artery without a hemodynamically significant stenosis. Normal visualized cervical portion of the left internal carotid artery. Normal origin of the left external carotid artery (ECA). VERTEBRAL ARTERIES: Normal bilateral vertebral arteries. CT/STROKE CTA Head AND Neck W/Con IMPRESSION: Minimal calcific plaques seen at the origin of the right internal carotid artery. N.B. : The above Results were Read Back by Thomas Obrien MD to Macho Cook and understanding confirmed on 11/26/2021 10:03:13 (ET). Electronically Signed: Thomas Obrien MD at 10:04 EST ,
[2021-11-26 09:31] LABS: Bedside Glucose 205 mg/dL (70-110)
--- NOTE | 2021-11-26 09:36 | NURSING ---
FACESHEET FAXED TO [facility]
--- NOTE | 2021-11-26 09:41 | EDS_ITS ---
HPI History of Present Illness Chief Complaint: Neuro S/Sx Informant: patient and spouse/S.O. Narrative Narrative: Patient presenting multiple complaints. Primary complaint on arrival facial weakness left side starting 8:30 AM. States felt a pulling sensation. N o headache symptoms. No speech changes. No hemiparesis. No stroke history. Additional stated around 7:45 AM noted some chest burning with indigestion symptoms. No pain in the back arms or neck. No vomiting or diarrhea normal bowel movements nonbloody. Reports had a NSTEMI last month with 2 cardiac stents placed. He is on aspirin and Brilinta. In addition had a recent saddle PE in August of last year on Eliquis twice a day, he took his anticoagulants this morning prior to arrival here. History of hypertension, diabetes, hypercholesterolemia. Denies tobacco history. Family history Father with TX at age of 61 who is currently . He states the burning chest sensation is different from his TX last month which was heavy pressure. Prior similar symptoms: No PFSH PFSH Medical History (HFpEF) heart failure with preserved ejection fraction Actinic keratosis Acute kidney injury due to COVID-19 Anxiety Atherosclerotic heart disease of [place] coronary artery without angina pectoris Cheek mass Closed fracture of 5th metacarpal Contact dermatitis and eczema due to plant Diabetes Dizziness and giddiness Electric current accident Elevated troponin Essential (primary) hypertension GERD (gastroesophageal reflux disease) History of 2019 novel coronavirus disease (COVID-19) (~06/2021) History of non-ST elevation myocardial infarction (NSTEMI) (10/22/21) History of ventral hernia Hyperlipidemia IBS (irritable bowel syndrome) Intradermal nevus of face Neoplasm of skin of right cheek Neoplasm of skin of scalp Neoplasm of skin of scalp Neoplasm of skin of yarsani region Non-ST elevation TX (NSTEMI) Pneumonia due to 2019-nCoV (06/27/21) Right ventricular dilation Right ventricular systolic dysfunction Saddle pulmonary embolus Seborrheic keratosis Syncope and collapse Type 2 diabetes mellitus URI (upper respiratory infection) Home Medications alprazolam 1 mg PO QHS 04/23/20 [History Last Taken 10/21/21] Eliquis 5 mg PO BID #70 tab 08/12/21 [Rx Last Taken 10/21/21] pantoprazole 40 mg PO DAILY 30 Days #30 tab 08/12/21 [Rx Last Taken 10/21/21] citalopram 40 mg tablet 40 mg PO DAILY 09/04/21 [History Last Taken 10/21/21] dicyclomine 10 mg capsule 10 mg PO QODAY cap 09/04/21 [History Last Taken 10/21/21] brimonidine 1 drp OPHTHALMIC (EYE) DAILY 09/23/21 [History Last Taken 10/21/21] ergocalciferol (vitamin D2) [Vitamin D2] 1,250 mcg PO TUTH 09/23/21 [History Las t Taken 10/21/21] Lantus Solostar U-100 Insulin 14 unit SUBCUT DAILY 10/22/21 [History Last Taken 10/21/21] calcium carbonate-vitamin D3 1 tab PO DAILY 10/22/21 [History Last Taken 10/21/21] cyanocobalamin (vitamin B-12) 500 mcg PO DAILY 10/22/21 [History Last Taken 10/21/21] garlic 100 mg PO DAILY 10/22/21 [History Last Taken 10/21/21] glipizide 10 mg PO DAILY@1700 10/22/21 [History Last Taken 10/21/21] aspirin 81 mg PO DAILY #30 tab 10/24/21 [Rx Last Taken Unknown] atorvastatin 40 mg tablet 40 mg PO QHS #90 tab 11/12/21 [Rx Last Taken Unknown] carvedilol 12.5 mg tablet 12.5 mg PO BID #180 tab 11/12/21 [Rx Last Taken Unknown] ticagrelor 90 mg tablet 90 mg PO BID #180 tab 11/12/21 [Rx Last Taken Unknown] Allergy/AdvReac Type Severity Reaction Status Date / Time adhesive Allergy Unknown Unknown Verified 11/26/21 09:20 meperidine HCl [From Demerol] Allergy Unknown Hives Verified 11/26/21 09:20 cefadroxil hydrate AdvReac Unknown Other Verified 11/26/21 09:20 [From Duricef] Family History Mother Cancer Diabetes Father Diabetes Hypertension Hyperlipidemia CVA (cerebral vascular accident) CAD (coronary artery disease) Hx CABG Brother Diabetes Myocardial infarction Surgical History History of arthroscopy of right knee (2005) History of coronary artery stent placement (10/23/21) History of excision of lesion History of left heart catheterization (12/13/14) History of left knee surgery History of loop recorder (03/15/19) History of Shannan fundoplication (2000) History of repair of hiatal hernia (2000) History of right knee surgery Hx laparoscopic cholecystectomy (08/2012) Social History household members: spouse Smoking Status: Never smoker alcohol intake: never substance use type: does not use caffeine: Yes Type: coffee what type of physical activity do you participate in: none seatbelt use: always do you feel safe at home: Yes additional social history: DOES NOT TAKE ASPIRIN DOES TAKE IBUPROFEN NEEDED ROS ROS ED Constitutional Constitutional ED: Denies chills, fever(s) or sweats Eyes Eyes: Denies change in vision ENT ENT ED: Denies dysphagia or sore throat Cardiovascular Cardiovascular: Reports chest pain; Denies leg edema, palpitations or racing heartbeat Respiratory/Chest Respiratory/Chest: Denies cough, dyspnea or dyspnea on exertion Gastrointestinal Gastrointestinal: Denies abdominal pain, diarrhea, nausea or vomiting Genitourinary Genitourinary ED: Denies dysuria, hematuria or urinary frequency Musculoskeletal Musculoskeletal: Denies back pain, extremity pain or neck pain Integumentary Denies rash or wounds Neurologic Neurologic: Reports paresthesias and other Details: Facial weakness left side ; Denies headache(s) or weakness EXAM Physical Exam Const Vital Signs: 11/26/21 09:21 11/26/21 09:38 11/26/21 09:52 Temperature 97 F L Temperature Source Oral Pulse Rate 80 74 Respiratory Rate 20 H 20 H Respiratory Effort Normal Non-Labored Blood Pressure 156/103 H 146/98 H Blood Pressure Mean 120 114 Pulse Ox 97 97 Oxygen Delivery Method Room Air Nasal Cannula Oxygen Flow Rate (L/min) 2 11/26/21 10:00 11/26/21 10:30 Temperature Temperature Source Pulse Rate 76 73 Respiratory Rate 16 16 Respiratory Effort Blood Pressure 132/99 H 117/104 H Blood Pressure Mean 110 108 Pulse Ox 97 98 Oxygen Delivery Method Nasal Cannula Room Air Oxygen Flow Rate (L/min) 2 Positive well nourished and well developed General Appearance ED: well developed and NAD HEENT Reports moist mucous membranes normocephalic and atraumatic Nose: other Other Details: Mild left lip droop Eyes PERRL, EOMs intact bilaterally and conjunctivae normal General Eye ED: Yes normal appearance of both eyes Neck no lymphadenopathy and supple General: Negative for tenderness Chest Wall Chest: Negative for tenderness Resp normal respiratory effort and normal air movement Effort and Inspection: symmetric chest movement; Negative for respiratory distress Cardio regular rate, regular rhythm and no murmurs Peripheral Pulses: pulses 2+ throughout GI normal to inspection, nondistended, normoactive bowel sounds and non-tender Palpation: Negative for guarding or rebound tenderness present Back/Spine no CVA tenderness and no thoracic nor lumbar tenderness Extremity normal to inspection General Extremety ED: Negative for edema or tenderness General Extremity: Negative for edema Neuro oriented x3 Neuro Narrative: NIH equals 2, for slight left lip droop, there was facial paresthesias and left mandibular. Cerebellar testing upper and lower extremities were normal. Sensorium / Orientation: awake and alert Motor Exam: strength 5/5 throughout Skin no rashes or lesions noted and no wounds STROKE Vital Signs/Narrative: Vital Signs Temp Pulse Resp BP Pulse Ox 11/26/21 10:43 97.5 F L 73 16 117/104 H 98 11/26/21 10:30 73 16 117/104 H 98 11/26/21 10:00 76 16 132/99 H 97 11/26/21 09:38 74 20 H 146/98 H 97 11/26/21 09:21 97 F L 80 20 H 156/103 H 97 NIHSS Initial: 1a Level of Consciousness: 0 1b LOC Questions (Score 2 if aphasic/stupor): 0 1c LOC Commands (Only score 1st attempt): 0 2 Best Gaze (If aphasic, use reflexive mvmts.): 0 3 Visual: 0 4 Facial Palsy: 1 5 Motor Arm Right (UN = amputation/fusion): 0 5 Motor Arm Left: 0 6 Motor Leg Right: 0 6 Motor Leg Left: 0 7 Limb ataxia (Only + if out of proportion): 0 8 Sensory (Aphasia/stupor=0 or 1, coma=2): 1 9 Best Language: 0 10 Dysarthria (mute, coma=2, intubated=UN): 0 11 Extinction and Inattention (only scored if +): 0 Total Score: 2 MDM MDM MDM Narrative Medical decision making narrative: After evaluation stroke team was activated due to acute onset of symptoms seen within 1 hour of symptoms with NIH of 2. However patient is on Eliquis for his history of PE, he is not a candidate for peripheral TPA. Patient was evaluated by telemetry stroke neurologist they evaluated reported their NIH was 0, agree he is not a TPA candidate. They are awaiting CT angiogram for rule out LVO. Results negative minimal plaque right internal carotid at the origin. He was given a GI cocktail with some improvement of his chest discomfort. His troponin returned normal. 2-hour troponin ordered. He will need admission for an MRI to rule out stroke. Repeat NIH myself he still had paresthesias left jaw therefore this is a 1. 1 view chest x-ray reviewed by myself and read by radiology with no acute process mild cardiomegaly noted. I spoke with Dr. Adames for admission to PCU. Lab Data Attestation: I reviewed the patient's lab results. Labs: Laboratory Results - last 24 hr 11/26/21 11/26/21 11/26/21 09:24 09:30 09:30 WBC 4.2 L RBC 4.08 L Hgb 12.7 L Hct 39.0 L MCV 95.6 H MCH 31.1 MCHC 32.6 RDW Std Deviation 42.8 RDW Coeff of Juancarlos 12.3 Plt Count 187 MPV 9.1 Immature Gran % (Auto) 0.500 Neut % (Auto) 59.6 Lymph % (Auto) 34.0 [place] % (Auto) 4.5 Eos % (Auto) 1.2 Baso % (Auto) 0.2 Absolute Neuts (auto) 2.5 Absolute Lymphs (auto) 1.44 Nucleated RBC % 0 PT 12.7 INR 1.0 APTT 27.6 Sodium Potassium Chloride Carbon Dioxide Anion Gap BUN Creatinine Estim Creat Clear Calc Est GFR (MDRD) Af Amer Est GFR (MDRD) Non-Af BUN/Creatinine Ratio Glucose Calcium Troponin I High Sens POC Glucose 205 H 11/26/21 09:30 WBC RBC Hgb Hct MCV MCH MCHC RDW Std Deviation RDW Coeff of Juancarlos Plt Count MPV Immature Gran % (Auto) Neut % (Auto) Lymph % (Auto) [place] % (Auto) Eos % (Auto) Baso % (Auto) Absolute Neuts (auto) Absolute Lymphs (auto) Nucleated RBC % PT INR APTT Sodium 140 Potassium 4.1 Chloride 108 H Carbon Dioxide 27.0 Anion Gap 5 BUN 13 Creatinine 1.03 Estim Creat Clear Calc 80.21 Est GFR (MDRD) Af Amer 94 Est GFR (MDRD) Non-Af 78 BUN/Creatinine Ratio 12.6 Glucose 209 H Calcium 8.3 L Troponin I High Sens 8 POC Glucose Radiography Diagnostic Testing: Clinical Impression(s) from Imaging Studies Brain CT 11/26/21 09:27 IMPRESSION: Chronic involutional changes of the brain. Electronically Signed: Thomas Obrien MD at 10:02 EST , ADDENDUM: 11/26/21 1012 IMPRESSION: Chronic involutional changes of the brain. N.B. : The above Results were Read Back by Thomas Obrien MD to Macho Cook and understanding confirmed on 11/26/2021 10:05:34 (ET). Electronically Signed: Thomas Obrien MD at 10:02 EST , Head/Neck CTA 11/26/21 09:28 IMPRESSION: Minimal calcific plaques seen at the origin of the right internal carotid artery. N.B. : The above Results were Read Back by Thomas Obrien MD to Macho Cook and understanding confirmed on 11/26/2021 10:03:13 (ET). Electronically Signed: Thomas Obrien MD at 10:04 EST , ADDENDUM: 11/26/21 1011 IMPRESSION: Minimal calcific plaques seen at the origin of the right internal carotid artery. N.B. : The above Results were Read Back by Thomas Obrien MD to Macho Cook and understanding confirmed on 11/26/2021 10:03:13 (ET). Electronically Signed: Thomas Obrien MD at 10:04 EST , Chest X-Ray 11/26/21 09:44 IMPRESSION: Mild cardiomegaly. Electronically Signed: Thomas Obrien MD at 10:09 EST , EKG Initial EKG: Comments: Sinus rate of 78, no ST changes. QTc 410. Q waves noted inferior leads. Stroke Documentation Questions Stroke Team Activated: Yes Reviewed Inclusion/Exclusion criteria: Yes Was Patient considered for Endovascular Intervention?: No IV Alteplase (t-PA) Administered: No No contraindications for IV Alteplase (t-PA) administration.: Yes (Patient currently on Eliquis twice a day last dose this morning) Critical Care Time Critical Care Time: Yes Critical care time (excluding procedures): 30-74 minutes, Discussing w/Patient &/or Family/Computer Systems Technician, Discussing w/Consultants, Arranging Admission or Transfer, Performing Direct Patient Care at Bedside and - (35 minutes.) Discharge Plan Dx/Rx/DC Orders Clinical Impression: Left facial numbness, Chest pain Disposition Disposition: Acute Care Hospital [facility] Discharge Date/Time: 11/26/21 10:59
[2021-11-26 09:42] LABS: Absolute Lymphocyte Count 1.44 X10^3/uL (0.83-4.51); Absolute Neutrophil Count 2.5 X10^3/uL (2.0-7.7); Basophil# 0.01 X10^3/uL; Basophil% 0.2 % (0-1); Eosinophil# 0.05 X10^3/uL; Eosinophils% 1.2 % (0-5); Hemoglobin 12.7 g/dL (13.0-16.5); Lymphocyte # 1.44 X10^3/ul (0.83-4.51); Mean Corp Hgb Conc 32.6 g/dL (32-36); Mean Corpuscular Hgb 31.1 pg (27.0-32.0); Mean Corpuscular Volume 95.6 fL (80-94); Mean Platelet Vol. 9.1 fl (6.2-12.0); Monocyte# 0.19 X10^3/uL; Monocyte% 4.5 % (0-10); NRBC Flagged by Analyzer 0 % (0-5); Neutrophil # 2.52 X10^3/uL (2.7-7.7); Neutrophil % 59.6 % (47-70); Platelet Count 187 K/mm3 (150-450); RBC Distribution Width CV 12.3 % (11.6-14.6); RBC Distribution Width SD 42.8 fl (35.1-43.9); Red Blood Count 4.08 M/mm3 (4.6-6.2); White Blood Count 4.2 K/mm3 (4.4-11.0)
--- NOTE | 2021-11-26 09:44 | RAD_ITS ---
STUDY: X-RAY CHEST REASON FOR EXAM: Male, 61 years old. Neuro deficit, acute, stroke suspected TECHNIQUE: Single AP portable view of the chest. COMPARISON: Comparison is made with prior study dated 08/10/2021. FINDINGS: EKG electrodes are seen. The lungs are clear and expanded. There is no demonstrated pleural abnormality. There is mild cardiac enlargement. Normal mediastinum and artis. Normal visualized pulmonary arteries. Normal visualized aortic arch and descending thoracic aorta. There are degenerative changes of the visualized thoracic spine. Normal visualized ribs, clavicles, and shoulders. There is no demonstrated abnormality of the visualized soft tissue structures of the upper abdomen. RAD/Chest 1 View IMPRESSION: Mild cardiomegaly. Electronically Signed: Thomas Obrien MD at 10:09 [facility] ,
[2021-11-26 09:51] LABS: Prothrombin Time (Protime)PT. 12.7 SECONDS (11.7-14.9)
[2021-11-26 09:52] LABS: Partial Thromboplast Time 27.6 Seconds (24.1-36.2)
[2021-11-26 10:01] LABS: Anion Gap 5 (5-15); BUN 13 mg/dL (7-18); BUN/Creat Ratio 12.6 RATIO (10-20); Calcium,Total 8.3 mg/dL (8.5-10.1); Chloride 108 mmol/L (98-107); Creatinine, Serum 1.03 mg/dL (0.70-1.30); EST Glomerular Filtration Rate 78 mL/min (>60); Est Glom Filt Rate - Afr Amer 94 mL/min (>60); Estimated Creatinine Clearance 80.21 ml/min; Glucose 209 mg/dL (74-106); Potassium 4.1 mmol/L (3.5-5.1); Sodium Level 140 mmol/L (136-145); Troponin-I HS 8 pg/mL (3.0-78.0)
[2021-11-26] MEDS: Mag Hydrox/Al Hydrox/Simeth 30 ML UDC PO (10:08)
--- NOTE | 2021-11-26 10:38 | NURSING ---
DR FLACO TABOR
--- NOTE | 2021-11-26 10:43 | NURSING ---
PCU KITTOE FACIAL PARETHESIA, CP
--- NOTE | 2021-11-26 10:45 | MRI_ITS ---
STUDY: MRI BRAIN WITHOUT CONTRAST REASON FOR EXAM: Male, 61 years old. L facial weakness TECHNIQUE: Standardized multiplanar fat and water weighted pulse sequences were obtained. COMPARISON: 11/26/2014, CT earlier today FINDINGS: Normal size of the ventricles and extra-axial spaces for the patient''s age. Normal white matter tracts of the supratentorial brain. There is no evidence for recent intracranial ischemia or other cause of cytotoxic edema on diffusion weighted imaging (DWI). Normal T2* images of the brain without demonstrated susceptibility artifact. There is no demonstrated hemosiderin stain. Normal bilateral basal ganglia. Normal thalami. There is no extra-axial fluid accumulation. Normal flow voids within the major intracranial circulation suggesting patency by spin echo criteria. Normal sella turcica, pituitary gland, infundibular stalk, optic chiasm and hypothalamus. Normal tectal plate and pineal gland. Normal midbrain, magda and medulla. Normal cerebellum. Normal basal cisterns. Normal bilateral temporal bones. Normal bilateral internal auditory canals. No demonstrated orbital abnormality, within the constraints of a routine brain study. Mucosal thickening in the maxillary sinuses consistent with chronic sinusitis. Normal calvarium and skull base. Normal visualized soft tissue structures. Normal visualized upper cervical spine. MRI/Brain without Contrast IMPRESSION: Normal unenhanced MRI of the brain. Electronically Signed: Arpit North MD at 13:00 EST ,
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
--- NOTE | 2021-11-26 10:57 | EKG12_ITS ---
Test Reason : FACIAL NUMBNESS Blood Pressure : / mmHG Vent. Rate : 067 BPM Atrial Rate : 067 BPM P-R Int : 148 ms QRS Dur : 092 ms QT Int : 408 ms P-R-T Axes : 043 -11 -02 degrees QTc Int : 431 ms Normal sinus rhythm Normal ECG When compared with ECG of 24-OCT-2021 05:35, No significant change was found Confirmed by FABIANA MCKEON, ZACKERY ([id number]), film editor supervisor RADHA SENA ([id number]) on 11/28/2021 1:13:09 PM Referred By: FLACO Confirmed By:KUMAR JUNG MD
[2021-11-26 12:10] LABS: Bedside Glucose 181 mg/dL (70-110)
[2021-11-26 12:17] LABS: Troponin-I HS 7 pg/mL (3.0-78.0)
[2021-11-26] MEDS: Insulin Lispro 100 UNIT/ML INSULN.PEN SC (13:17)
[2021-11-26] MEDS: 0.9% Normal Saline 1,000 ML 125 ML IV (13:17)
--- NOTE | 2021-11-26 15:13 | PCM.DC.SUM ---
Providers Date of Admission: 11/26/21 Primary Care Physician: Dr. Bryn Renteria, Reason For Visit: FACIAL NUMBNESS Diagnosis Discharge Diagnosis (1) Left facial numbness: Status: Acute Code(s): R20.0 - Anesthesia of skin (2) Chest pain: Status: Acute Code(s): R07.9 - Chest pain, unspecified Medications at Discharge Home Medications alprazolam 1 mg PO QHS 04/23/20 Eliquis 5 mg PO BID #70 tab 08/12/21 pantoprazole 40 mg PO DAILY 30 Days #30 tab 08/12/21 citalopram 40 mg tablet 40 mg PO DAILY 09/04/21 dicyclomine 10 mg capsule 10 mg PO QODAY cap 09/04/21 brimonidine 1 drp OPHTHALMIC (EYE) DAILY 09/23/21 ergocalciferol (vitamin D2) [Vitamin D2] 1,250 mcg PO TUTH 09/23/21 Lantus Solostar U-100 Insulin 14 unit SUBCUT DAILY 10/22/21 calcium carbonate-vitamin D3 1 tab PO DAILY 10/22/21 cyanocobalamin (vitamin B-12) 500 mcg PO DAILY 10/22/21 garlic 100 mg PO DAILY 10/22/21 glipizide 10 mg PO DAILY@1700 10/22/21 aspirin 81 mg PO DAILY #30 tab 10/24/21 atorvastatin 40 mg tablet 40 mg PO QHS #90 tab 11/12/21 carvedilol 12.5 mg tablet 12.5 mg PO BID #180 tab 11/12/21 ticagrelor 90 mg tablet 90 mg PO BID #180 tab 11/12/21 Hospital Course Summary of Care Provided Minutes Spent on Discharge: 45 Hospital Course: Patient is a 61-year-old gentleman presented with left facial numbness as well as heartburn 1. Left facial numbness ?TIA versus CVA. Patient has been admitted to a monitored bed subsequent evaluation with an MRI ordered to rule out acute CVA. Patient is already on antiplatelet therapy did continue -Patient MRI was negative for acute CVA 2. Heartburn ?Patient has history of GERD as well as recent non-STEMI. Given his significant history patient was placed in a monitored bed serial cardiac enzymes and EKG ordered to rule out acute coronary syndrome -Had been the result cardiac enzymes remain negative 3. Coronary artery disease ?With recent non-STEMI and subsequent PCI with stenting of an LAD and first diagonal branch on 10/23/2021. Patient is on recommended medications including dual antiplatelet therapy, atorvastatin as well as beta-blockers 4. 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 Hypertension - Blood pressure controlled, home medications continued with dose adjustment as needed 6. Dyslipidemia -Patient is on statin therapy, continued at home dose 7. Diabetes mellitus type II -patient's oral hypoglycemics held. Placed on long acting insulin, Accu-Cheks a.c. and at bedtime and covered with sliding scale insulin 8. DVT prophylaxis ?Patient is on Eliquis did continue Physical Exam Narrative GENERAL: cooperative HEENT: Atraumatic; EYES; Anicteric, Normal Conjunctiva NECK; supple, normal thyroid, RESPIRATORY: Diminished to auscultation CARDIOVASCULAR: Regular S1 S2, GI: soft, normoactive bowel sounds, : No Renal angle tenderness; EXTREMITIES: No edema, no clubbing, MUSCULOSKELETAL: no muscle waisting NEURO: Awake; no lateralizing signs. SKIN: No Rash PSYCH; Flat affect Weight / BMI Weight Weight: 119.023 kg Body Mass Index (BMI) 36.6 ABG / Lab / Microbiology Data Result Diagrams: 11/26/21 09:30 11/26/21 09:30 Laboratory: Laboratory Results - last 24 hr 11/26/21 09:24: POC Glucose 205 H 11/26/21 09:30: WBC 4.2 L, RBC 4.08 L, Hgb 12.7 L, Hct 39.0 L, MCV 95.6 H, MCH 31.1, MCHC 32.6, RDW Std Deviation 42.8, RDW Coeff of Juancarlos 12.3, Plt Count 187, MPV 9.1, Immature Gran % (Auto) 0.500, Neut % (Auto) 59.6, Lymph % (Auto) 34.0, [place] % (Auto) 4.5, Eos % (Auto) 1.2, Baso % (Auto) 0.2, Absolute Neuts (auto) 2.5, Absolute Lymphs (auto) 1.44, Nucleated RBC % 0 11/26/21 09:30: PT 12.7, INR 1.0, APTT 27.6 11/26/21 09:30: Sodium 140, Potassium 4.1, Chloride 108 H, Carbon Dioxide 27.0, Anion Gap 5, BUN 13, Creatinine 1.03, Estim Creat Clear Calc 80.21, Est GFR (MDRD) Af Amer 94, Est GFR (MDRD) Non-Af 78, BUN/Creatinine Ratio 12.6, Glucose 209 H, Calcium 8.3 L, Troponin I High Sens 8 11/26/21 11:52: Troponin I High Sens 7 11/26/21 11:53: POC Glucose 181 H Radiography Diagnostic Testing: Radiology Impression Brain CT 11/26/21 09:27 IMPRESSION: Chronic involutional changes of the brain. Electronically Signed: Thomas Obrien MD at 10:02 EST , ADDENDUM: 11/26/21 1012 IMPRESSION: Chronic involutional changes of the brain. N.B. : The above Results were Read Back by Thomas Obrien MD to Macho Cook and understanding confirmed on 11/26/2021 10:05:34 (ET). Electronically Signed: Thomas Obrien MD at 10:02 EST , Head/Neck CTA 11/26/21 09:28 IMPRESSION: Minimal calcific plaques seen at the origin of the right internal carotid artery. N.B. : The above Results were Read Back by Thomas Obrien MD to Macho Cook and understanding confirmed on 11/26/2021 10:03:13 (ET). Electronically Signed: Thomas Obrien MD at 10:04 EST , ADDENDUM: 11/26/21 1011 IMPRESSION: Minimal calcific plaques seen at the origin of the right internal carotid artery. N.B. : The above Results were Read Back by Thomas Obrien MD to Macho Cook and understanding confirmed on 11/26/2021 10:03:13 (ET). Electronically Signed: Thomas Obrien MD at 10:04 EST , Chest X-Ray 11/26/21 09:44 IMPRESSION: Mild cardiomegaly. Electronically Signed: Thomas Obrien MD at 10:09 EST , Brain MRI 11/26/21 10:45 IMPRESSION: Normal unenhanced MRI of the brain. Electronically Signed: Arpit North MD at 13:00 EST , Meaningful Use Info Meaningful Use Diagnoses (Choose all that apply): None applicable Discharge Plan Admission Admit Date/Time: 11/26/21 10:41 Attending Provider: Moises Adames Primary Care Provider: Bryn Renteria Discharge Orders/Prescriptions Prescriptions: Continued citalopram 40 mg tablet 40 mg PO DAILY RF: 0 dicyclomine 10 mg capsule 10 mg PO QODAY RF: 0 carvedilol 12.5 mg tablet 12.5 mg PO BID Qty: 180 RF: 3 Brilinta 90 mg tablet 90 mg PO BID Qty: 180 RF: 3 atorvastatin [Lipitor] 40 mg tablet 40 mg PO QHS Qty: 90 RF: 3 alprazolam 1 MG tablet 1 mg PO QHS RF: 0 pantoprazole 40 mg Tablet,Delayed Release (Dr/Ec) 40 mg PO DAILY 30 Days Qty: 30 RF: 0 Eliquis 5 mg tablet 5 mg PO BID Qty: 70 RF: 0 brimonidine 0.2 % drops 1 drp ophthalmic (eye) DAILY RF: 0 ergocalciferol (vitamin D2) [Vitamin D2] 1,250 mcg (50,000 unit) Capsule 1,250 mcg PO TUTH RF: 0 garlic 100 mg Tablet 100 mg PO DAILY RF: 0 glipizide 10 mg tablet 10 mg PO DAILY@1700 RF: 0 calcium carbonate-vitamin D3 600 mg-5 mcg (200 unit) Tablet 1 tab PO DAILY RF: 0 cyanocobalamin (vitamin B-12) 500 mcg Tablet 500 mcg PO DAILY RF: 0 Lantus Solostar U-100 Insulin 100 unit/mL (3 mL) insulin pen 14 unit SUBCUT DAILY RF: 0 aspirin 81 mg tablet,chewable 81 mg PO DAILY Qty: 30 RF: 0 Referrals / Follow Up: Bryn Renteria DO [Primary Care Provider] - Within 1 Week Disposition Disposition (needs filled in before D/C Order can be placed): Home, Self Care Charges/Coding Visit Charges OBSV E&M: 03337 Observ/hosp same date L3
[2021-11-26 16:10] LABS: Troponin-I HS 5 pg/mL (3.0-78.0)
== END 2021-11-26 15:15 | disposition home or self-care (01) ==
LOC: ED 10:28 → PCU 11:07
PROVIDERS: Admitting Provider Internal Medicine; Emergency Provider Emergency Medicine; PCP Family Medicine; Visit Provider Internal Medicine
DX: R20.0 Anesthesia of skin (principal); I11.0 Hypertensive heart disease with heart failure; I50.32 Chronic diastolic (congestive) heart failure; E11.9 Type 2 diabetes mellitus without complications; Z79.4 Long term (current) use of insulin; R07.89 Other chest pain; Z79.01 Long term (current) use of anticoagulants; K21.9 Gastro-esophageal reflux disease without esophagitis; Z79.02 Long term (current) use of antithrombotics/antiplatelets; R10.13 Epigastric pain; E78.5 Hyperlipidemia, unspecified; R29.810 Facial weakness; I25.10 Atherosclerotic heart disease of native coronary artery without angina pectoris; Z79.82 Long term (current) use of aspirin; Z79.899 Other long term (current) drug therapy; Z86.16 Personal history of COVID-19; R29.702 NIHSS score 2
CPT/HCPCS: 36415; 70450; 70496; 70498; 70551; 71045; 80048; 82962; 84484; 85025; 85610; 85730; 93005; 94762; 96360; 96361; 99218; 99285; 99406; J7030; Q9967; A4216; G0378

== ENCOUNTER 2021-12-01 14:30 | Outpatient (RCR) | payer OTHER, SELFPAY ==
[2021-11-07 14:13] VITALS: BMI 37.3
== END 2021-12-01 23:59 ==
LOC: CR 14:30
PROVIDERS: PCP Family Medicine; Referring Provider Internal Medicine Cardiovascular Disease; Visit Provider Internal Medicine Cardiovascular Disease
DX: I25.10 Atherosclerotic heart disease of native coronary artery without angina pectoris (principal); Z95.5 Presence of coronary angioplasty implant and graft
CPT/HCPCS: 93798

== ENCOUNTER 2021-12-17 14:30 | Outpatient (RCR) | payer OTHER, SELFPAY ==
[2021-11-07 14:13] VITALS: BMI 37.3
--- NOTE | 2021-12-08 07:33 | PCM.CR.ITP ---
Diagnosis Exercise - 30-day Assessment - Visit Date of Eval: 12/08/21 Session #:: 6 - Admitted to hospital on 11/26/2021 and has not returned to [facility] to date. - Physician Prescribed Exercise Modalities: NuStep - Oxygen at 2 liters to maintain SpO2>90% Frequency: 3x/week for 12 weeks [36 sessions] Intensity: 60-80% of age predicted maximum heart rate reserve Current METSs:: 3.5 Target Heart Rate:: 130-146 Current RPE:: 11-12 Maximum Excercise HR:: 106 Resting Blood Pressure: 112/80 Maximum Exercise Blood Pressure: 138/84 EKG Type: NSR to sinus tach with rare PAC Current Physical Activity or Exercising minutes: 35:48 - Outcomes & Goals Goals:: Verbalizes understanding of THR, RPE & goal METS by session 6, Documents in home exercise log/reports 30 min aerobic 5 day/wk by DC, Demonstrates accurate pulse taking by DC - Intervention & Plan Exercise Program Goals: Instruct on personal THR & RPE, Instruct on MET level & personal MET goal, Show patient to take own pulse /validate performance until accurate, Instruct on home exercise - 30-day Reassessments 30 day Reassessments:: Progressing - Physical Activity Home Exercise Physical Activity - Home Exercise: Safe Exercise, Warm-up, Self-monitoring, Cool-Down, Home Exercise > 30 min Daily, Sitting Time <3 hours/daily - Outcomes & Goals Outcomes/Goals: Demonstrates correct Warm-up/exercise Cool-Down (S3) if = 2.5 METs, Verbalizes symptoms of exercise intolerance by Session 3 (S3), Demonstrate safe equipment use (S3) & follows exercise prescrition (6) - Intervention & Plan Plan/Intervention: Instruct warm-up & cool-down if exercising at > 2 METs, Instruct on symptoms of exercise intolerance & actions to take, Instruct & monitor on saf, Assess intial functional capacity & safety risk - 30-day Reassessments 30 day Reassessments:: Progressing Nutrition - Initial Assessment Nutrition - 30-Day Assessment - Program Goals Nutrition Program Goals: LDL <100 optimal. 100 - 129 Near optimal. 130 - 159 Borderline High. 160 - 189 High. Total Cholesterol <200 desirable. 200 - 239 Borderline High. >/= 240 High. HDL < 40 Low >/=60 High. Triglycerides <150 desirable. <199 optimal. VlDL 5 - 40. HgbA1C <7%. BMI <25 Patient has diagnosis of Hyperlipidemia (ICD E78)?: Yes - Visit Date of Assessment:: 12/08/21 Session #:: 6 - Cholesterol/Lipids Triglycerides (mg/dL): 400 - 02/11/2021 Total Cholesterol (mg/dL): 204 LDL Cholesterol (mg/dL): 0 - TNP HDL Cholesterol (mg/dL): 0 - TNP Lipid Medication: atorvastatin Determine presence & major risk factors that modify LDL goal: Hypertension or hypertensive medication, Family history of premature CHD in Male < 55 years: female <65 yearsFa, Age men > 45 years; women >/= 55 years Outcomes/Goals: Pt IDs own risk factors & lifestyle modifications by Session 10, Verbalizes symptoms of angina & response by session 3., Pt independently manages Intervention/Plan: Instruct on personal lipid levels & lipid goals/NCEP guidelines, Instruct on cholesterol Referral to dietitian:: Yes - Medical Nutrition Therapy 30-day Reassessments:: Progressing - Diabetes (Other Core Measures) Diabetes Type: Diagnosis Type II ICD-10 E11 Fasting blood glucose:: 151 Hgb A1C (4.2 -6.3): 6.5 Insulin dependent injection/pump?: Yes - Lantus 12units Non-Insulin Dependent?: Yes - Glipizide 10mg BID Do you monitor your blood sugar at home?: Yes Referral to Diabetic Clinic:: Yes Outcomes/Goals:: Able to state symptoms of, Able to state, Able to state Intervention/Plan:: Instruct on, Refer to, Instruct on 30-day Reassessments:: Progressing - Weight Mgt (Other Care) Height: 5 ft 11 in Weight:: 264 lb BMI: 36.8 Diagnosis Overweight/Obesity BMI> 30% ICD-10 E66: Yes Diagnosis High BMI/Morbid Obesity BMI> 35% ICD-10 Z68: Yes Outcomes/Goals: Pt sets, maintains & shows weight loss goal & trend during rehab Intervention/Plan: Instruct on ideal BMI & set weight loss goal w/patient, Assist pt to ID & incorporate diet changes for weight loss by S9, Refer to Structured Weight Loss program as appropriate, Encourage goal of using 250-300dcal per session for weight loss 30 day Reassessments:: Progressing - Healthy Eating Habits Will attend diet classes:: Yes Outcomes/Goals:: Consume diet rich in vegs,fruits,whole grain/high fiber,fish,lean meat, Limit sat/trans fats,cholesterol & added salts & sugars Intervention/Plan:: Assess current eating habits 30-day Reassessments:: Progressing - Education Gave educational materials for:: Signs & symptoms of hypoglycemia, Signs & symptoms of hyperglycemia, Relate diabetes to coronary artery disease, Healthy eating Nutrition - 60-Day Assessment Nutrition - 90-Day Assessment Nutrition - Final Assessment Medical - Initial Assessment Medical- 30-Day Assessment - Visit Date of Eval: 12/08/21 Session #:: 6 - Medication Compliance Preventative Medication(s):: Aspirin, Ticagrelor/P2Y12 inhibitor, Statin/lipid, Beta jany, Eliquis H/O mental health issues: depression, anxiety, or addiction?: Yes Doesn?t believe in the benefits of treatment?: No Believes medications are unnecessary or harmful?: No Has a concern about medication side effects?: No Expresses concern over the cost of medications?: No Outcomes/Goals: Verbalizes medications,desired effect & common side effects @ DC, Pt self-reports following medication regimen, Keeps card in wallet w/medications listed by DC Interventions/plans: Instruct on medication effects & side effects, Review medication list w/patient every two weeks, Instruct importance of taking meds as ordered & assist problem solving 30-day Reassessments:: Progressing - Tobacco Use Tobacco Use: Non-smoker - Hypertension Hypertension Diagnosis:: Hypertension ICD-10 I10 Resting Blood Pressure:: 112/80 - well controlled [place] [employer] Hypertension Guidelines: [place] [employer] Hypertension Guidelines. Normal BP Less than 120/80. Elevated BP 120/80. Hypertension Stage 1: BP 130-139/80-89. Hypertesnion Stage 2: BP 140 or higher/90 or higher. Hypertension Crisis: BP higher than 180/120 Peak Exercise Blood Pressure:: 138/84 Outcomes/Goals: Able to verbalize/achieve optimal blood pressure <130/80, Incorporates diet changes & exercise for blood pressure control by DC Interventions/plan: Instruct on optimal blood pressure, hypertension & medications, Instruct on effects of sodium, alcohol, stress, exercise &hypertension 30 day Reassessments:: Progressing - Tobacco Cessation Referral Smoking Cessation Referral:: No Individual Education/Counseling:: No Education Schedule Given:: Yes Medical- 60-Day Assessment Medical- 90-Day Assessment Medical - Final Assessment Psychosocial - Initial Assess Psychosocial - 30-Day Assess - VIsit Date of Eval: 12/08/21 Session #:: 6 Not Applicable: No History of previous Mental disease:: Yes History of Emotional Disorders: Depression Self-reported stressors: Medical/Health, Recent Illness - Psychosocial Test Tool Used:: PHQ-9 Questionnaire phq-9 Severity: Severity. 1-4 Minimal Depression. 5-9 Mild Depression. 10-14 Moderate Depression. 15-19 Moderately Sever Depression. 20-27 Severe Depression. Rule: See PHQ-9 Score: 9 - Mild to Moderate Depression - Referral to Behavioral Health PS - Interventions: Yes Referral to Physician if PHQ-9 if score is 5-9: - Mild-Moderate Depression, Yes Attend Stress Management Classes, No Referral to Behavioral Health if PHQ-9 score >9:, No Referral to [facility] - Outcomes/Goals: See list Psychosocial Outcomes/Goals:: ID's personal stressors & 2 strategies to manage stress by discharge - Intervention/Plan: See List Interventions/Plan:: Assess stressors,coping strategies & signs of derpression on admission, Instruct/assist pt to develop coping & personal stress Mgt strategies, Instruct patient to recognize signs & symptoms of depression, Instruct patient to recog - 30-day Reassessments: 30 day Reassessments:: Progressing Psychosocial - 60-Day Assess Psychosocial - 90-Day Assess Psychosocial - Final Assessmen Patient Health Questionnaire 30-Day Re-eval Assessment 1. Little interest or pleasure in doing things: Several days 2. Feeling down, depressed, or hopeless: Several days 3. Trouble falling or staying asleep, or sleeping too much: More than half the days 4. Feeling tired or having little energy: More than half the days 5. Poor appetite or overeating: Not at all 6. Feeling bad about yourself -- or that you are a failure or have let yourself or your family down: Several days 7. Trouble concentrating on things, such as reading the newspaper or watching television: More than half the days 8. Moving or speaking so slowly that other people could have noticed. Or the opposite - being so fidgety or restless that you have been moving around a lot more than usual: Several days 9. Thoughts that you would be better off , or of hurting yourself in some way: Not at all How difficult have these problems made it for you to do your work, take care of things at home, or get along with other people?: Somewhat difficult Total Score: 10 Self-Efficacy 30-Day Re-eval Assessment We would like to know how confident you are in doing certain activities. Please select your confidence level for:: Select your confidence level for the following using the scale 1-10 where 1 is not at all confident and 10 is totally confident. Your score is the average of all 6 responses. Fatigue: How confident are you that you can keep the fatigue caused by your disease from interfering with the things you want to do? Select Number: 5 Physical Discomfort or Pain: How confident are you that you can keep the physical discomfort or pain of your disease from interfering with the things you want to do? Select Number: 10 Emotional Distress: How confident are you that you can keep the emotional distress caused by your disease from interfering with the things you want to do? Select Number: 2 Other Symptoms or Health Problems: How confident are you that you can keep other symptoms or health problems from interfering with the things you want to do? Select Number: 3 Different Tasks and Activities: How confident are you that you can do the different tasks and activities needed to manage your health condition so as to reduce your need to see a doctor? Select Number: 6 Medication: How confident are you that you can do things other than just taking medication to reduce how much your illness affects your everyday life? Select Number: 5 Total Score:: 5 Nutrition Survey
[2021-12-08 07:45] VITALS: BP 112/80; BP 138/84; BMI 36.8
== END 2021-12-29 23:59 ==
LOC: CR 14:30
PROVIDERS: PCP Family Medicine; Referring Provider Internal Medicine Cardiovascular Disease; Visit Provider Internal Medicine Cardiovascular Disease
DX: I25.10 Atherosclerotic heart disease of native coronary artery without angina pectoris (principal); Z95.5 Presence of coronary angioplasty implant and graft
CPT/HCPCS: 93798

== ENCOUNTER → 2022-02-25 | Outpatient (CLI) | payer OTHER, SELFPAY ==
[2021-12-08 07:45] VITALS: BMI 36.8
--- NOTE | 2022-02-25 13:41 | CT_ITS ---
STUDY: CTA CHEST REASON FOR EXAM: Male, 61 years old. PRIOR PE. Chest pain. RADIATION DOSAGE (If Supplied By Facility): CTDIvol = ( 9.95 ) mGy, DLP = ( 484.20 ) mGycm TECHNIQUE: The examination was performed with the intravenous administration of IV 100mL Isovue-370. Post-processing of the angiographic images was performed, with multiplanar reformation and 3D reconstruction. Individualized dose optimization techniques were used for this CT. COMPARISON: Comparison is made with prior study dated 10/22/2021. FINDINGS: Small residual intraluminal filling defects in branches of the right upper lobe and right lower lobe pulmonary arteries. Normal thoracic aorta and visualized great vessels. There is no demonstrated aortic dissection. Normal heart and pericardium. Normal mediastinum. Normal hilar regions. Normal visualized trachea and bronchi. The lungs are well expanded. Normal pulmonary parenchyma. Normal pleura. Normal chest wall structures. There are degenerative changes of thoracic spine. Moderate sized hiatal hernia. CT/CTA Chest W/WO Contrast IMPRESSION: Small residual intraluminal filling defects in branches of the right upper and right lower lobe pulmonary artery branches. Moderate sized hiatal hernia. Electronically Signed: Thomas Obrien MD at 15:20 EDT ,
[2022-02-25 14:00] LABS: EGFR FINGERSTICK > 60.0000 mL/min (>60)
== END | disposition home or self-care (01) ==
LOC: CT 13:40
PROVIDERS: PCP Family Medicine; Referring Provider Family Medicine; Visit Provider Family Medicine
DX: R09.02 Hypoxemia (principal); I26.99 Other pulmonary embolism without acute cor pulmonale
CPT/HCPCS: 71275

== ENCOUNTER 2022-06-02 05:07 | Emergency (ER) | payer OTHER, SELFPAY ==
[2021-12-08 07:45] VITALS: BMI 36.8
[2022-06-02 05:08] VITALS: PULSE 64; RESP 18; TEMP 36.5; O2SAT 99; BMI 38.6
[2022-06-02 05:10] VITALS: BP 150/99; PULSE 67; RESP 18; O2SAT 99
--- NOTE | 2022-06-02 05:10 | RAD_ITS ---
INDICATION: chest pain EXAMINATION/TECHNIQUE: X-RAY - XR Chest AP View COMPARISON: Chest x-ray from 11/26/2021. FINDINGS: LINES/DEVICES: None. LUNGS: No pulmonary edema or focal airspace consolidation. No sizable pleural effusion. No pneumothorax detected. MEDIASTINUM AND CARDIOVASCULAR STRUCTURES: Heart size within normal limits. Mediastinal contours unremarkable. BONES AND SOFT TISSUES: No acute findings. Surgical clips within upper abdomen. RAD/Chest 1 View (Portable) IMPRESSION: No radiographic evidence of acute cardiopulmonary disease. Electronically Signed: Bryn Martinez MD at 5:53 EDT ,
--- NOTE | 2022-06-02 05:10 | EKG12_ITS ---
Test Reason : CP Blood Pressure : / mmHG Vent. Rate : 060 BPM Atrial Rate : 060 BPM P-R Int : 156 ms QRS Dur : 094 ms QT Int : 398 ms P-R-T Axes : 047 -08 006 degrees QTc Int : 398 ms Normal sinus rhythm Normal ECG Confirmed by MARILYN SNYDER MD ([id number]), supervising editor news reel RADHA SENA ([id number]) on 06/04/2022 1:54:30 PM Referred By: INES Confirmed By:MARILYN SNYDER MD
[2022-06-02] MEDS: Aspirin 81 MG TAB.CHEW 324 MG PO (05:21)
--- NOTE | 2022-06-02 05:26 | EDS_ITS ---
HPI History of Present Illness Chief Complaint: Chest Pain Informant: patient and family Onset/Context/Timing Onset: Yesterday Activity at onset: gradual Timing: Intermittent Quality: Positive for Burning Location: Substernal Current Severity: Mild Maximum Severity: Mild Worsened By: Nothing Relieved By: Nothing Associated Symptoms: Positive for Acid Reflux; Negative for Nausea, Vomiting, Diaphoresis, Cough, Fever or Lightheadedness Narrative Narrative: 61-year-old male history of HI, CAD, 2 cardiac stents. Also history of prior COVID with pulmonary emboli in 2019. He is diabetic he also has reflux. Due to his pulmonary emboli and cardiac stents he is on Eliquis and Brilinta. States Wednesday morning about 24 hours ago he started having midsternal chest discomfort that he describes as burning. He said when he had his heart attack it was much more intense pain and this is. Nothing particular makes the pain better or worse. He is chronically on 2 to 3 L of oxygen at home and has not noticed any change in his shortness of breath. He has no hemoptysis. The pain is not specifically pleuritic. Prior Similar Symptoms: Yes Recent Illness/Hospitalization: No CVD Risk Factors: Positive for Diabetes PE Risk Factors: Positive for Prior DVT or PE; Negative for Recent Travel/S urgery, Recent Immobilization or OCP + Smoking + >/=35 TAD Risk Factors: Negative for Marfan's Syndrome [facility] Medical History (HFpEF) heart failure with preserved ejection fraction Actinic keratosis Acute kidney injury due to COVID-19 Anxiety Atherosclerotic heart disease of [place] coronary artery without angina pectoris Cheek mass Closed fracture of 5th metacarpal Contact dermatitis and eczema due to plant Diabetes Dizziness and giddiness Electric current accident Elevated troponin Essential (primary) hypertension GERD (gastroesophageal reflux disease) History of 2019 novel coronavirus disease (COVID-19) (~06/2021) History of CVA (cerebrovascular accident) (11/2021) History of non-ST elevation myocardial infarction (NSTEMI) (10/22/21) History of ventral hernia Hyperlipidemia IBS (irritable bowel syndrome) Intradermal nevus of face Neoplasm of skin of right cheek Neoplasm of skin of scalp Neoplasm of skin of scalp Neoplasm of skin of [place] region Non-ST elevation HI (NSTEMI) Pneumonia due to 2019-nCoV (06/27/21) Right ventricular dilation Right ventricular systolic dysfunction Saddle pulmonary embolus Seborrheic keratosis Syncope and collapse Type 2 diabetes mellitus URI (upper respiratory infection) Home Medications alprazolam 1 mg tablet 1 mg PO QHS sleep 04/23/20 [History Last Taken 10/21/21] apixaban 5 mg tablet (Eliquis) 5 mg PO BID #70 tabs 08/12/21 [Rx Last Taken 10/21/21] citalopram 40 mg tablet 40 mg PO DAILY mental health 09/04/21 [History Last Taken 10/21/21] brimonidine 0.2 % eye drops 1 drp ophthalmic (eye) DAILY eye health 09/23/21 [History Last Taken 10/21/21] ergocalciferol (vitamin D2) 1,250 mcg (50,000 unit) capsule (Vitamin D2) 1,250 mcg PO TUTH vitamin 09/23/21 [History Last Taken 10/21/21] cyanocobalamin (vitamin B-12) 500 mcg tablet 500 mcg PO DAILY vitamin 10/22/21 [History Last Taken 10/21/21] garlic 100 mg tablet 100 mg PO DAILY supplement 10/22/21 [History Last Taken 10/21/21] aspirin 81 mg chewable tablet 81 mg PO DAILY #30 tabs 10/24/21 [Rx Last Taken Unknown] ticagrelor 90 mg tablet (Brilinta) 90 mg PO BID #180 tabs 11/12/21 [Rx Last Taken Unknown] cholecalciferol (vitamin D3) 125 mcg (5,000 unit) tablet 125 mcg PO 2XW 12/18/21 [History Last Taken Unknown] glipizide 10 mg tablet 10 mg PO BID DM 12/18/21 [History Last Taken Unknown] insulin glargine 100 unit/mL (3 mL) subcutaneous pen (Lantus Solostar U-100 Insulin) 16 unit subcut DAILY DM 12/18/21 [History Last Taken Unknown] omeprazole 40 mg capsule,delayed release 40 mg PO DAILY 12/18/21 [History Last Taken Unknown] simvastatin 20 mg tablet 20 mg PO QHS 12/18/21 [History Last Taken Unknown] tamsulosin 0.4 mg capsule 0.4 mg PO DAILY 12/18/21 [History Last Taken Unknown] carvedilol 12.5 mg tablet 12.5 mg PO BID #180 tabs 02/12/22 [Rx Last Taken Unknown] sucralfate 1 gram tablet (Carafate) 1 g PO BID 10 days #20 tabs 06/02/22 [Rx Last Taken Unknown] Allergy/AdvReac Type Severity Reaction Status Date / Time adhesive Allergy Unknown Unknown Verified 06/02/22 05:14 meperidine HCl [From Demerol] Allergy Unknown Hives Verified 06/02/22 05:14 cefadroxil hydrate AdvReac Unknown Other Verified 06/02/22 05:14 [From Duricef] Family History Mother Cancer Diabetes Father Diabetes Hypertension Hyperlipidemia CVA (cerebral vascular accident) CAD (coronary artery disease) Hx CABG Brother Diabetes Myocardial infarction Surgical History History of arthroscopy of right knee (2005) History of coronary artery stent placement (10/23/21) History of excision of lesion History of left heart catheterization (12/13/14) History of left knee surgery History of loop recorder (03/15/19) History of Shannan fundoplication (2000) History of repair of hiatal hernia (2000) History of right knee surgery Hx laparoscopic cholecystectomy (08/2012) Social History household members: spouse Smoking Status: Never smoker alcohol intake: never substance use type: does not use caffeine: Yes Type: coffee what type of physical activity do you participate in: none seatbelt use: always do you feel safe at home: Yes additional social history: DOES NOT TAKE ASPIRIN DOES TAKE IBUPROFEN NEEDED ROS ROS ED ROS Narrative No recent illness. Review of Systems ROS Unobtainable: Denies due to encephalopathy Constitutional Constitutional ED: Denies chills Eyes Eyes: Denies none ENT ENT ED: Denies ear pain Cardiovascular Cardiovascular: Reports as per HPI and chest pain; Denies palpitations or racing heartbeat Respiratory/Chest Respiratory/Chest: Reports dyspnea; Denies cough Gastrointestinal Gastrointestinal: Denies abdominal pain, diarrhea, melena or nausea Genitourinary Genitourinary ED: Denies dysuria Musculoskeletal Musculoskeletal: Denies arthralgias Integumentary Denies abscess Neurologic Neurologic: Denies headache(s) Psychiatric Psychiatric: Denies anxiety Endocrine Endocrinology: Denies cold intolerance Hematologic/Lymphatic Hematologic/Lymphatic: Denies easy bleeding Allergic/Immunologic Allergic/Immunologic ED: Denies mouth swelling EXAM Physical Exam Narrative Exam Narrative: 61-year-old male no acute distress vital signs stable afebrile. Pulse ox 90% on 2 L. He is chronically on oxygen at home. H EENT exam unremarkable. Neck nontender. Lungs clear to auscultation bilaterally. Heart regular rhythm rate about 65 no murmur. Abdomen is soft, nontender, nondistended normal bowel sounds no peritoneal signs. Chest wall is nontender. Moving all 4 extremities. Calves are nontender without edema. Neurologically is awake and alert with no focal motor deficits. Const Vital Signs: 06/02/22 05:08 06/02/22 05:10 06/02/22 05:22 Temperature 97.7 F L Temperature Source Temporal Pulse Rate 64 67 Respiratory Rate 18 18 Blood Pressure 150/99 H Blood Pressure Mean 116 Pulse Ox 99 99 Oxygen Delivery Method Room Air Room Air Nasal Cannula Oxygen Flow Rate (L/min) 2 06/02/22 06:04 Temperature Temperature Source Pulse Rate 82 Respiratory Rate 20 H Blood Pressure 151/79 H Blood Pressure Mean 103 Pulse Ox 98 Oxygen Delivery Method Nasal Cannula Oxygen Flow Rate (L/min) 2 Positive well nourished, well developed and obese; Negative for cachectic, contractures or unkempt General Appearance ED: well developed and NAD; Negative for unkempt, cachectic, contractures or pallor Nutritional Appearance: obese; Negative for cachectic HEENT Reports moist mucous membranes normocephalic and atraumatic; Negative for trauma or tenderness Eyes PERRL and EOMs intact bilaterally General Eye ED: Negative for pale conjunctiva Neck no lymphadenopathy, supple and no JVD General: Negative for tenderness Chest Wall inspection of chest normal and palpation of chest normal Chest: Negative for tenderness Resp normal respiratory effort and clear to auscultation bilaterally Effort and Inspection: Negative for respiratory distress Auscultation: Negative for rales, rhonchi or wheezes Cardio regular rate, regular rhythm, S1 normal heart sound, S2 normal heart sound and no murmurs GI normal to inspection, nondistended, normoactive bowel sounds, soft to palpation, non-tender, non-distended and no masses Palpation: Negative for splenomegaly Back/Spine no CVA tenderness Extremity normal to inspection General Extremety ED: Negative for edema or pulses abnormal General Extremity: Negative for edema or pulses abnormal Neuro oriented x3 Sensorium / Orientation: awake, alert, oriented to person, oriented to place and oriented to time; Negative for confused, lethargic or stuporous Psych Appearance: Negative for unkempt Attitude: No agitated Mood & Affect: Negative for depressed, anxious or tearful Skin no wounds General Skin Exam: Negative for jaundice or pallor Rashes: No rashes noted Heart Score History: Slightly/Non-Suspicious ECG: Normal Age: >45 - <65 years Risk Factors: >/= 3 Risk Factors or History of CAD Score: 3 MDM MDM MDM Narrative Medical decision making narrative: 51-year-old male history of cardiac disease. With nonexertional burning chest pain with a history of reflux and also history of prior pulmonary emboli. He is on anticoagulation chronically with Eliquis and Brilinta. Will undergo cardiac work-up. Repeat exam unchanged at 5:52 AM. We went over the patient's test results. She will be given a GI cocktail and Protonix and reassess. Repeat exam at 7:20 a.m. patient is doing well but relates that no change of his symptoms. He had a history of a prior Niesen fundoplication many years ago. He states that the discomfort is basically consistent with his prior reflux. Its n ot associated with exertion. He has had the pain for 24 hours. I do not think he needs a second troponin. He will be discharged home on Carafate. Lab Data Attestation: I reviewed the patient's lab results. Lab results narrative: CBC shows a white count of 4.9. H&H 12.7 and 39 which is his baseline. Platelets 176. Electrolytes show a gap of 4 normal BUN of 14 creatinine 1.1. Glucose 128. Initial troponin is 8. Chest x-ray is unremarkable. Labs: Laboratory Results - last 24 hr 06/02/22 06/02/22 05:20 05:20 WBC 4.9 RBC 4.01 L Hgb 12.7 L Hct 39.2 L MCV 97.8 H MCH 31.7 MCHC 32.4 RDW Std Deviation 47.9 H RDW Coeff of Ujancarlos 13.4 Plt Count 176 MPV 9.2 Immature Gran % (Auto) 0.400 Neut % (Auto) 53.7 Lymph % (Auto) 37.6 [place] % (Auto) 6.7 Eos % (Auto) 1.4 Baso % (Auto) 0.2 Absolute Neuts (auto) 2.6 Absolute Lymphs (auto) 1.85 Nucleated RBC % 0 Sodium 140 Potassium 3.6 Chloride 108 H Carbon Dioxide 28.0 Anion Gap 4 L BUN 14 Creatinine 1.11 Estim Creat Clear Calc 74.43 Est GFR (MDRD) Af Amer 86 Est GFR (MDRD) Non-Af 71 BUN/Creatinine Ratio 12.6 Glucose 128 H Calcium 8.8 Troponin I High Sens 8 Radiography Chest X-Ray - ED: 1 View, Read by ED Physician, Heart, Lungs, Mediastinum, Bony Structures, No Acute Disease and Chronic Changes Diagnostic Testing: Clinical Impression(s) from Imaging Studies Chest X-Ray 06/02/22 05:10 IMPRESSION: No radiographic evidence of acute cardiopulmonary disease. Electronically Signed: Bryn Martinez MD at 5:53 EDT , Chest x-ray, portable, single view interpreted by myself shows no acute abnormality. Normal cardiac silhouette mediastinum. No infiltrates. Rhythm Strip Rhythm Strip: Sinus Rhythm Rate: 60 Ectopy: None EKG Initial EKG: Attestation: I personally reviewed and interpreted this EKG as follows: Interpretation: Sinus Rhythm and No Acute Injury Pattern Comments: Normal sinus rhythm rate of 60 no acute signs of HI or ischemia. Unchanged from prior EKG from November of this year. Prior EKG tracings: available for review Prior: Unchanged Discharge Plan Triage Chief Complaint: Chest Pain ED Provider: [place] [facility] Dx/Rx/DC Orders Clinical Impression: Chest pain, Hx pulmonary embolism, History of coronary artery stent placement, Hx of esophageal reflux Instructions: ED GERD (Adult) Prescriptions: New sucralfate [Carafate] 1 gram tablet 1 g PO BID 10 Days Qty: 20 0RF No Action citalopram 40 mg tablet 40 mg PO DAILY cholecalciferol (vitamin D3) 125 mcg (5,000 unit) tablet 125 mcg PO 2XW omeprazole 40 mg capsule,delayed release(DR/EC) 40 mg PO DAILY simvastatin 20 mg tablet 20 mg PO QHS tamsulosin 0.4 mg capsule 0.4 mg PO DAILY Brilinta 90 mg tablet 90 mg PO BID Qty: 180 3RF carvedilol 12.5 mg tablet 12.5 mg PO BID Qty: 180 3RF alprazolam 1 MG tablet 1 mg PO QHS Eliquis 5 mg tablet 5 mg PO BID Qty: 70 0RF Rx Instructions: Take 10 mg twice daily for 7 days followed by 5 mg twice daily. brimonidine 0.2 % drops 1 drp ophthalmic (eye) DAILY ergocalciferol (vitamin D2) [Vitamin D2] 1,250 mcg (50,000 unit) Capsule 1,250 mcg PO TUTH garlic 100 mg Tablet 100 mg PO DAILY cyanocobalamin (vitamin B-12) 500 mcg Tablet 500 mcg PO DAILY aspirin 81 mg tablet,chewable 81 mg PO DAILY Qty: 30 0RF glipizide 10 mg tablet 10 mg PO BID Lantus Solostar U-100 Insulin 100 unit/mL (3 mL) insulin pen 16 unit SUBCUT DAILY Primary Care Provider: Bryn Renteria Referrals: Bryn Renteria DO [Primary Care Provider] - Keep [facility] appointment Activity Restrictions/Additional Instructions: Follow-up with primary care physician. Your symptoms sound like your gastroesophageal reflux. Your cardiac work-up was negative. And you are already on maximum anticoagulation therapy for your blood clots. Try the medication Carafate along with your omeprazole to see if it controls your reflux better. Discussed your primary care physician a repeat echocardiogram for your shortness of breath. Disposition Disposition: Home, Self Care
[2022-06-02 05:27] LABS: Absolute Lymphocyte Count 1.85 X10^3/uL (0.83-4.51); Absolute Neutrophil Count 2.6 X10^3/uL (2.0-7.7); Basophil# 0.01 X10^3/uL; Basophil% 0.2 % (0-1); Eosinophil# 0.07 X10^3/uL; Eosinophils% 1.4 % (0-5); Hematocrit 39.2 % (40-54); Hemoglobin 12.7 g/dL (13.0-16.5); Lymphocyte # 1.85 X10^3/ul (0.83-4.51); Lymphocyte % 37.6 % (19-41); Mean Corp Hgb Conc 32.4 g/dL (32-36); Mean Corpuscular Hgb 31.7 pg (27.0-32.0); Mean Corpuscular Volume 97.8 fL (80-94); Mean Platelet Vol. 9.2 fl (6.2-12.0); Monocyte# 0.33 X10^3/uL; Monocyte% 6.7 % (0-10); NRBC Flagged by Analyzer 0 % (0-5); Neutrophil # 2.64 X10^3/uL (2.7-7.7); Neutrophil % 53.7 % (47-70); Platelet Count 176 K/mm3 (150-450); RBC Distribution Width CV 13.4 % (11.6-14.6); RBC Distribution Width SD 47.9 fl (35.1-43.9); Red Blood Count 4.01 M/mm3 (4.6-6.2); White Blood Count 4.9 K/mm3 (4.4-11.0)
[2022-06-02 05:45] LABS: Anion Gap 4 (5-15); BUN 14 mg/dL (7-18); BUN/Creat Ratio 12.6 RATIO (10-20); Calcium,Total 8.8 mg/dL (8.5-10.1); Chloride 108 mmol/L (98-107); Creatinine, Serum 1.11 mg/dL (0.70-1.30); EST Glomerular Filtration Rate 71 mL/min (>60); Est Glom Filt Rate - Afr Amer 86 mL/min (>60); Estimated Creatinine Clearance 74.43 ml/min; Glucose 128 mg/dL (74-106); Potassium 3.6 mmol/L (3.5-5.1); Sodium Level 140 mmol/L (136-145); Troponin-I HS (w/2H Reflex) 8 pg/mL (3.0-78.0)
[2022-06-02] MEDS: Mag Hydrox/Al Hydrox/Simeth 30 ML UDC PO (06:00)
[2022-06-02] MEDS: Pantoprazole Sodium 40 MG Tablet PO (06:00)
[2022-06-02 06:04] VITALS: BP 151/79; PULSE 82; RESP 20; O2SAT 98
[2022-06-02 07:22] VITALS: BP 131/89; PULSE 65; RESP 19; O2SAT 97
[2022-06-02 07:25] LABS: Reflex Troponin-HS? (from REC) Y
== END 2022-06-02 07:33 | disposition home or self-care (01) ==
PROVIDERS: Emergency Provider Emergency Medicine; PCP Family Medicine; Visit Provider Emergency Medicine
DX: R07.9 Chest pain, unspecified (principal); I11.0 Hypertensive heart disease with heart failure; I50.32 Chronic diastolic (congestive) heart failure; E11.9 Type 2 diabetes mellitus without complications; Z79.4 Long term (current) use of insulin; I25.10 Atherosclerotic heart disease of native coronary artery without angina pectoris; E78.5 Hyperlipidemia, unspecified; K21.9 Gastro-esophageal reflux disease without esophagitis; I25.2 Old myocardial infarction; Z79.01 Long term (current) use of anticoagulants; Z79.02 Long term (current) use of antithrombotics/antiplatelets; Z79.82 Long term (current) use of aspirin; Z99.81 Dependence on supplemental oxygen; Z79.899 Other long term (current) drug therapy; Z86.73 Personal history of transient ischemic attack (TIA), and cerebral infarction without residual deficits; Z86.711 Personal history of pulmonary embolism; Z86.16 Personal history of COVID-19; Z95.5 Presence of coronary angioplasty implant and graft
CPT/HCPCS: 71045; 80048; 84484; 85025; 93005; 99285; A4216

== ENCOUNTER 2022-07-09 18:32 | Emergency (ER) | payer OTHER, SELFPAY ==
[2021-12-08 07:45] VITALS: BMI 36.8
[2022-07-09 18:33] VITALS: BP 132/91; PULSE 89; RESP 16; TEMP 36.6; O2SAT 96; BMI 37.1
--- NOTE | 2022-07-09 18:51 | EKG12_ITS ---
Test Reason : SOB Blood Pressure : / mmHG Vent. Rate : 080 BPM Atrial Rate : 080 BPM P-R Int : 156 ms QRS Dur : 088 ms QT Int : 358 ms P-R-T Axes : 038 -30 -13 degrees QTc Int : 412 ms Normal sinus rhythm Left axis deviation Abnormal ECG Confirmed by CLAUDIO MCKEON, MARILYN ([id number]), copy editor RADHA SENA ([id number]) on 07/13/2022 10:46:54 AM Referred By: BAKARI Confirmed By:MARILYN SNYDER MD
--- NOTE | 2022-07-09 18:53 | ED.VIS.DYS ---
HPI History of Present Illness Chief Complaint: Shortness of Breath Detail of Chief Complaint: Shortness of breath Informant: patient and family Narrative Narrative: Patient presents the emergency department complaint of shortness of breath is been going on for the last 6 days. Patient started with a cough and cough is productive at times with some white to brown sputum. Patient feels like he is wheezing at times. He complains of exertional dyspnea. His O2 sat today went down to 89% on his 3 L. He denies any chest pain. Patient currently on Eliquis for history of PEs. Patient had COVID a year ago and at that time had a stroke and an OK. Patient has 2 cardiac stents. Patient has history of CHF. He has not been gaining water weight. Patient has had subjective fever at home. [facility] Medical History (HFpEF) heart failure with preserved ejection fraction Actinic keratosis Acute kidney injury due to COVID-19 Anxiety Atherosclerotic heart disease of [place] coronary artery without angina pectoris Cheek mass Closed fracture of 5th metacarpal Contact dermatitis and eczema due to plant Diabetes Dizziness and giddiness Electric current accident Elevated troponin Essential (primary) hypertension GERD (gastroesophageal reflux disease) History of 2019 novel coronavirus disease (COVID-19) (~06/2021) History of CVA (cerebrovascular accident) (11/2021) History of non-ST elevation myocardial infarction (NSTEMI) (10/22/21) History of ventral hernia Hyperlipidemia IBS (irritable bowel syndrome) Intradermal nevus of face Neoplasm of skin of right cheek Neoplasm of skin of scalp Neoplasm of skin of scalp Neoplasm of skin of [place] region Non-ST elevation OK (NSTEMI) Pneumonia due to 2019-nCoV (06/27/21) Right ventricular dilation Right ventricular systolic dysfunction Saddle pulmonary embolus Seborrheic keratosis Syncope and collapse Type 2 diabetes mellitus URI (upper respiratory infection) Home Medications alprazolam 1 mg tablet 1 mg PO QHS sleep 04/23/20 [History Last Taken 10/21/21] apixaban 5 mg tablet (Eliquis) 5 mg PO BID #70 tabs 08/12/21 [Rx Last Taken 10/21/21] citalopram 40 mg tablet 40 mg PO DAILY mental health 09/04/21 [History Last Taken 10/21/21] brimonidine 0.2 % eye drops 1 drp ophthalmic (eye) DAILY eye health 09/23/21 [History Last Taken 10/21/21] ergocalciferol (vitamin D2) 1,250 mcg (50,000 unit) capsule (Vitamin D2) 1,250 mcg PO TUTH vitamin 09/23/21 [History Last Taken 10/21/21] cyanocobalamin (vitamin B-12) 500 mcg tablet 500 mcg PO DAILY vitamin 10/22/21 [History Last Taken 10/21/21] garlic 100 mg tablet 100 mg PO DAILY supplement 10/22/21 [History Last Taken 10/21/21] aspirin 81 mg chewable tablet 81 mg PO DAILY #30 tabs 10/24/21 [Rx Last Taken Unknown] ticagrelor 90 mg tablet (Brilinta) 90 mg PO BID #180 tabs 11/12/21 [Rx Last Taken Unknown] cholecalciferol (vitamin D3) 125 mcg (5,000 unit) tablet 125 mcg PO 2XW 12/18/21 [History Last Taken Unknown] glipizide 10 mg tablet 10 mg PO BID DM 12/18/21 [History Last Taken Unknown] insulin glargine 100 unit/mL (3 mL) subcutaneous pen (Lantus Solostar U-100 Insulin) 16 unit subcut DAILY DM 12/18/21 [History Last Taken Unknown] omeprazole 40 mg capsule,delayed release 40 mg PO DAILY 12/18/21 [History Last Taken Unknown] simvastatin 20 mg tablet 20 mg PO QHS 12/18/21 [History Last Taken Unknown] tamsulosin 0.4 mg capsule 0.4 mg PO DAILY 12/18/21 [History Last Taken Unknown] carvedilol 12.5 mg tablet 12.5 mg PO BID #180 tabs 02/12/22 [Rx Last Taken Unknown] sucralfate 1 gram tablet (Carafate) 1 g PO BID 10 days #20 tabs 06/02/22 [Rx Last Taken Unknown] benzonatate 100 mg capsule 200 mg PO TID PRN cough #30 caps 07/07/22 [Rx Last Taken Unknown] prednisone 20 mg tablet 20 mg PO BID #10 tabs 07/09/22 [Rx Last Taken Unknown] Allergy/AdvReac Type Severity Reaction Status Date / Time adhesive Allergy Unknown Unknown Verified 07/09/22 18:33 meperidine HCl [From Demerol] Allergy Unknown Hives Verified 07/09/22 18:33 cefadroxil hydrate AdvReac Unknown Other Verified 07/09/22 18:33 [From Duricef] Family History Mother Cancer Diabetes Father Diabetes Hypertension Hyperlipidemia CVA (cerebral vascular accident) CAD (coronary artery disease) Hx CABG Brother Diabetes Myocardial infarction Surgical History History of arthroscopy of right knee (2005) History of coronary artery stent placement (10/23/21) History of excision of lesion History of left heart catheterization (12/13/14) History of left knee surgery History of loop recorder (03/15/19) History of Shannan fundoplication (2000) History of repair of hiatal hernia (2000) History of right knee surgery Hx laparoscopic cholecystectomy (08/2012) Social History household members: spouse Smoking Status: Never smoker alcohol intake: never substance use type: does not use caffeine: Yes Type: coffee what type of physical activity do you participate in: none seatbelt use: always do you feel safe at home: Yes additional social history: DOES NOT TAKE ASPIRIN DOES TAKE IBUPROFEN NEEDED ROS ROS ED Review of Systems ROS Unobtainable: other Constitutional Constitutional ED: Reports lethargy; Denies chills, fever(s), sweats or weight loss Eyes Eyes: Denies blurry vision, change in vision or diplopia ENT ENT ED: Denies rhinorrhea or sore throat Cardiovascular Cardiovascular: Denies chest pain, orthopnea or racing heartbeat Respiratory/Chest Respiratory/Chest: Reports cough, dyspnea, dyspnea on exertion and sputum; Denies orthopnea Gastrointestinal Gastrointestinal: Reports diarrhea; Denies abdominal pain, nausea or vomiting Genitourinary Genitourinary ED: Denies dysuria, hematuria or urinary frequency Musculoskeletal Musculoskeletal: Denies arthralgias, back pain, myalgias or neck pain Integumentary Denies abscess, Abrasions or rash Neurologic Neurologic: Denies headache(s) or weakness Psychiatric Psychiatric: Denies anxiety, depression or suicidal thoughts Endocrine Endocrinology: Denies polydipsia, polyphagia or polyuria Hematologic/Lymphatic Hematologic/Lymphatic: Denies easy bleeding, easy bruising or lymphadenopathy Allergic/Immunologic Allergic/Immunologic ED: Denies mouth swelling, tongue swelling or urticaria EXAM Physical Exam Const Vital Signs: 07/09/22 18:33 07/09/22 18:40 07/09/22 18:58 Temperature 97.8 F Temperature Source Temporal Pulse Rate 89 85 Respiratory Rate 16 19 H Respiratory Effort Short of Breath Blood Pressure 132/91 H Blood Pressure Mean 104 Pulse Ox 96 Oxygen Delivery Method Nasal Cannula Nasal Cannula Oxygen Flow Rate (L/min) 3 3 Positive well nourished and well developed General Appearance ED: well developed and NAD HEENT Reports TM's clear and moist mucous membranes normocephalic and atraumatic; Negative for trauma or tenderness Tympanic Membrane ED: Yes TM's clear Eyes PERRL and EOMs intact bilaterally General Eye ED: Negative for pale conjunctiva or scleral icterus Neck no lymphadenopathy, supple and no JVD General: Negative for tenderness Chest Wall inspection of chest normal and palpation of chest normal Chest: Negative for tenderness Resp normal respiratory effort and No clear to auscultation bilaterally Effort and Inspection: Negative for respiratory distress or pain with movement Auscultation: wheezes; Negative for rhonchi or diminished lung sounds Cardio regular rate, regular rhythm, S1 normal heart sound, S2 normal heart sound and no murmurs Peripheral Pulses: pulses 2+ throughout GI normal to inspection, nondistended, normoactive bowel sounds, soft to palpation, non-tender, non-distended and no masses Back/Spine no CVA tenderness and no thoracic nor lumbar tenderness Extremity normal to inspection General Extremety ED: Negative for edema General Extremity: Negative for edema Neuro oriented x3, CN's II-XII intact bilaterally, no sensory deficits noted and gait normal Sensorium / Orientation: awake, alert, oriented to person, oriented to place and oriented to time Motor Exam: strength 5/5 throughout and strength abnormal Psych mental status grossly normal Skin no rashes or lesions noted and no wounds MDM MDM MDM Narrative Medical decision making narrative: Established on arrival. Patient was given a DuoNeb aerosol. He symptomatically felt much improved. Chemistries and lab work-up was unremarkable. EKG shows sinus rhythm with no acute ST segment changes and his troponin was normal. BNP was normal. Lactate was normal. Chest x-ray showed nothing acute. At this point I suspect then asthmatic bronchitis. Patient to finish his antibiotics that he started 2 days ago. I will start patient on an albuterol inhaler and prednisone. Patient to follow-up with his primary care physician 3 to 5 days. Lab Data Attestation: I reviewed the patient's lab results. Labs: Laboratory Results - last 24 hr 07/09/22 07/09/22 07/09/22 19:00 19:00 19:00 WBC 4.2 L RBC 4.03 L Hgb 12.6 L Hct 39.0 L MCV 96.8 H MCH 31.3 MCHC 32.3 RDW Std Deviation 48.0 H RDW Coeff of Juancarlos 13.6 Plt Count 192 MPV 9.1 Immature Gran % (Auto) 0.500 Neut % (Auto) 48.6 Lymph % (Auto) 40.0 [place] % (Auto) 7.6 Eos % (Auto) 3.1 Baso % (Auto) 0.2 Absolute Neuts (auto) 2.1 Absolute Lymphs (auto) 1.69 Nucleated RBC % 0 Sodium 141 Potassium 4.1 Chloride 106 Carbon Dioxide 30.0 Anion Gap 5 BUN 13 Creatinine 1.19 Estim Creat Clear Calc 69.43 Est GFR (MDRD) Af Amer 80 Est GFR (MDRD) Non-Af 66 BUN/Creatinine Ratio 10.9 Glucose 153 H Lactic Acid Calcium 9.5 Troponin I High Sens 5 B-Natriuretic Peptide 22.4 07/09/22 19:00 WBC RBC Hgb Hct MCV MCH MCHC RDW Std Deviation RDW Coeff of Juancarlos Plt Count MPV Immature Gran % (Auto) Neut % (Auto) Lymph % (Auto) [place] % (Auto) Eos % (Auto) Baso % (Auto) Absolute Neuts (auto) Absolute Lymphs (auto) Nucleated RBC % Sodium Potassium Chloride Carbon Dioxide Anion Gap BUN Creatinine Estim Creat Clear Calc Est GFR (MDRD) Af Amer Est GFR (MDRD) Non-Af BUN/Creatinine Ratio Glucose Lactic Acid 0.7 Calcium Troponin I High Sens B-Natriuretic Peptide Radiography Diagnostic Testing: Clinical Impression(s) from Imaging Studies Chest X-Ray 07/09/22 19:08 IMPRESSION: No acute cardiopulmonary disease or major interval change. Electronically Signed: Gagandeep Craig DO at 19:22 EDT , 1 view chest x-ray obtained interpreted by myself no acute disease process. Radiology in agreement. EKG Initial EKG: Attestation: I personally reviewed and interpreted this EKG as follows: Comments: Sinus rhythm with a ventricular rate of 80 bpm with no acute ST segment changes Discharge Plan Triage Chief Complaint: Shortness of Breath ED Provider: Nigel Linton Dx/Rx/DC Orders Clinical Impression: Asthmatic bronchitis Instructions: ED Bronchitis with Wheezing (Adult) Prescriptions: New prednisone 20 mg tablet 20 mg PO BID Qty: 10 0RF No Action citalopram 40 mg tablet 40 mg PO DAILY cholecalciferol (vitamin D3) 125 mcg (5,000 unit) tablet 125 mcg PO 2XW omeprazole 40 mg capsule,delayed release(DR/EC) 40 mg PO DAILY simvastatin 20 mg tablet 20 mg PO QHS tamsulosin 0.4 mg capsule 0.4 mg PO DAILY Brilinta 90 mg tablet 90 mg PO BID Qty: 180 3RF carvedilol 12.5 mg tablet 12.5 mg PO BID Qty: 180 3RF benzonatate 100 mg capsule 200 mg PO TID PRN (Reason: cough) Qty: 30 0RF alprazolam 1 MG tablet 1 mg PO QHS Eliquis 5 mg tablet 5 mg PO BID Qty: 70 0RF Rx Instructions: Take 10 mg twice daily for 7 days followed by 5 mg twice daily. brimonidine 0.2 % drops 1 drp ophthalmic (eye) DAILY ergocalciferol (vitamin D2) [Vitamin D2] 1,250 mcg (50,000 unit) Capsule 1,250 mcg PO TUTH garlic 100 mg Tablet 100 mg PO DAILY cyanocobalamin (vitamin B-12) 500 mcg Tablet 500 mcg PO DAILY aspirin 81 mg tablet,chewable 81 mg PO DAILY Qty: 30 0RF glipizide 10 mg tablet 10 mg PO BID Lantus Solostar U-100 Insulin 100 unit/mL (3 mL) insulin pen 16 unit SUBCUT DAILY sucralfate [Carafate] 1 gram tablet 1 g PO BID 10 Days Qty: 20 0RF Primary Care Provider: Bryn Renteria Referrals: Bryn Renteria DO [Primary Care Provider] - 3-5 Days Disposition Disposition: Home, Self Care
[2022-07-09] MEDS: Ipratropium/Albuterol Sulfate 3 ML AMPUL.NEB INHALATION (18:57)
[2022-07-09 18:58] VITALS: PULSE 85; RESP 19
--- NOTE | 2022-07-09 19:08 | RAD_ITS ---
STUDY: X-RAY CHEST REASON FOR EXAM: Male, 61 years old. Cough. Increasing shortness of breath and hypoxia. Pulse ox of 99 and 91%. TECHNIQUE: Single AP portable view of the chest. COMPARISON: 06/02/2022. FINDINGS: The lungs are clear and expanded. There is no demonstrated pleural abnormality. Normal size heart. Normal mediastinum and artis. Normal visualized pulmonary arteries. Normal visualized aortic arch and descending thoracic aorta. No osseous changes. Patency and small surgical clips left upper quadrant otherwise unremarkable abdomen. RAD/Chest 1 View (Portable) IMPRESSION: No acute cardiopulmonary disease or major interval change. Electronically Signed: Gagandeep Craig DO at 19:22 EDT ,
[2022-07-09 19:10] LABS: Absolute Lymphocyte Count 1.69 X10^3/uL (0.83-4.51); Absolute Neutrophil Count 2.1 X10^3/uL (2.0-7.7); Basophil# 0.01 X10^3/uL; Basophil% 0.2 % (0-1); Eosinophil# 0.13 X10^3/uL; Eosinophils% 3.1 % (0-5); Hemoglobin 12.6 g/dL (13.0-16.5); Lymphocyte # 1.69 X10^3/ul (0.83-4.51); Mean Corp Hgb Conc 32.3 g/dL (32-36); Mean Corpuscular Hgb 31.3 pg (27.0-32.0); Mean Corpuscular Volume 96.8 fL (80-94); Mean Platelet Vol. 9.1 fl (6.2-12.0); Monocyte# 0.32 X10^3/uL; Monocyte% 7.6 % (0-10); NRBC Flagged by Analyzer 0 % (0-5); Neutrophil # 2.06 X10^3/uL (2.7-7.7); Neutrophil % 48.6 % (47-70); Platelet Count 192 K/mm3 (150-450); RBC Distribution Width CV 13.6 % (11.6-14.6); Red Blood Count 4.03 M/mm3 (4.6-6.2); White Blood Count 4.2 K/mm3 (4.4-11.0)
[2022-07-09 19:27] LABS: Anion Gap 5 (5-15); BUN 13 mg/dL (7-18); BUN/Creat Ratio 10.9 RATIO (10-20); Calcium,Total 9.5 mg/dL (8.5-10.1); Chloride 106 mmol/L (98-107); Creatinine, Serum 1.19 mg/dL (0.70-1.30); EST Glomerular Filtration Rate 66 mL/min (>60); Est Glom Filt Rate - Afr Amer 80 mL/min (>60); Estimated Creatinine Clearance 69.43 ml/min; Glucose 153 mg/dL (74-106); Potassium 4.1 mmol/L (3.5-5.1); Sodium Level 141 mmol/L (136-145); Troponin-I HS 5 pg/mL (3.0-78.0)
[2022-07-09 19:29] LABS: BNP,B-Type NATRIURETIC PEPTIDE 22.4 pg/mL (0-100)
[2022-07-09 19:48] LABS: Lactic Acid 0.7 mmol/L (0.4-1.9)
[2022-07-09] MEDS: predniSONE 20 MG Tablet 40 MG PO (20:19)
[2022-07-09 20:23] VITALS: BP 116/84; PULSE 81; RESP 16; O2SAT 97
== END 2022-07-09 20:23 | disposition home or self-care (01) ==
PROVIDERS: Emergency Provider Emergency Medicine; PCP Family Medicine; Visit Provider Emergency Medicine
DX: J45.909 Unspecified asthma, uncomplicated (principal); I11.0 Hypertensive heart disease with heart failure; I50.32 Chronic diastolic (congestive) heart failure; E11.9 Type 2 diabetes mellitus without complications; Z79.4 Long term (current) use of insulin; E78.5 Hyperlipidemia, unspecified; I25.10 Atherosclerotic heart disease of native coronary artery without angina pectoris; K21.9 Gastro-esophageal reflux disease without esophagitis; Z79.82 Long term (current) use of aspirin; Z79.01 Long term (current) use of anticoagulants; I25.2 Old myocardial infarction; Z86.711 Personal history of pulmonary embolism; Z86.16 Personal history of COVID-19; Z86.73 Personal history of transient ischemic attack (TIA), and cerebral infarction without residual deficits; Z95.5 Presence of coronary angioplasty implant and graft
CPT/HCPCS: 71045; 80048; 83605; 83880; 84484; 85025; 87040; 87428; 93005; 94640; 99284; A4216

== ENCOUNTER 2022-09-10 10:51 | Emergency (ER) | payer OTHER, SELFPAY ==
[2021-12-08 07:45] VITALS: BMI 36.8
[2022-09-10 10:52] VITALS: BP 159/108; PULSE 95; RESP 18; TEMP 36.6; O2SAT 96; BMI 36.9
--- NOTE | 2022-09-10 10:54 | ED.RN ---
dr lai reports to take patient to room to be further evaluated.
--- NOTE | 2022-09-10 11:03 | EKG12_ITS ---
Test Reason : NEURO Blood Pressure : / mmHG Vent. Rate : 076 BPM Atrial Rate : 076 BPM P-R Int : 162 ms QRS Dur : 088 ms QT Int : 366 ms P-R-T Axes : 048 -21 009 degrees QTc Int : 411 ms Normal sinus rhythm Normal ECG Confirmed by FABIANA MCKEON, ZACKERY ([id number]), legal editor RADHA SENA ([id number]) on 09/15/2022 9:12:54 A M Referred By: Confirmed By:KUMAR JUNG MD
[2022-09-10 11:09] VITALS: BP 114/95; BP 144/95; PULSE 79; PULSE 80; RESP 19; RESP 20; O2SAT 98; O2SAT 99
[2022-09-10 11:12] VITALS: BMI 38.7
--- NOTE | 2022-09-10 11:15 | RAD_ITS ---
STUDY: X-RAY CHEST REASON FOR EXAM: Male, 61 years old. Neuro deficit, acute, stroke suspected TECHNIQUE: Single AP portable view of the chest. COMPARISON: Comparison is made with prior study 06/02/2022. FINDINGS: EKG electrodes are seen. The lungs are clear and expanded. There is no demonstrated pleural abnormality. Normal size heart. Normal mediastinum and artis. Normal visualized pulmonary arteries. Normal visualized aortic arch and descending thoracic aorta. Normal visualized thoracic spine. Normal visualized ribs, clavicles, and shoulders. There is no demonstrated abnormality of the visualized soft tissue structures of the upper abdomen. RAD/Chest 1 View IMPRESSION: No acute abnormality seen. Electronically Signed: Thomas Obrien MD at 12:09 [facility] ,
[2022-09-10 11:18] LABS: Absolute Neutrophil Count 3.2 X10^3/uL (2.0-7.7); Basophil# 0.01 X10^3/uL; Basophil% 0.2 % (0-1); Eosinophil# 0.06 X10^3/uL; Eosinophils% 1.1 % (0-5); Hematocrit 38.9 % (40-54); Hemoglobin 12.7 g/dL (13.0-16.5); Lymphocyte % 34.8 % (19-41); Mean Corp Hgb Conc 32.6 g/dL (32-36); Mean Corpuscular Hgb 32.3 pg (27.0-32.0); Mean Platelet Vol. 9.5 fl (6.2-12.0); Monocyte# 0.26 X10^3/uL; Monocyte% 4.8 % (0-10); NRBC Flagged by Analyzer 0 % (0-5); Neutrophil # 3.18 X10^3/uL (2.7-7.7); Neutrophil % 58.2 % (47-70); Platelet Count 173 K/mm3 (150-450); RBC Distribution Width CV 13.7 % (11.6-14.6); RBC Distribution Width SD 49.1 fl (35.1-43.9); Red Blood Count 3.93 M/mm3 (4.6-6.2); White Blood Count 5.5 K/mm3 (4.4-11.0)
[2022-09-10 11:20] LABS: Bedside Glucose 216 mg/dL (74-106)
--- NOTE | 2022-09-10 11:25 | ED.RN ---
PER DR TABOR NO NEED TO CONTINUE NIHs
[2022-09-10 11:30] LABS: International Normalized Ratio 1.2; Prothrombin Time (Protime)PT. 14.6 SECONDS (11.7-14.9)
[2022-09-10 11:31] LABS: Partial Thromboplast Time 30.3 Seconds (24.1-36.2)
--- NOTE | 2022-09-10 11:32 | CT_ITS ---
STUDY: CT HEAD STROKE PROTOCOL W/O CONTRAST INJECTION REASON FOR EXAM: Male, 61 years old. Neuro deficit, acute, stroke suspected RADIATION DOSAGE (If Supplied By Facility): CTDIvol = ( 44.99 ) mGy, DLP = ( 880.47 ) mGycm TECHNIQUE: Transaxial CT imaging of the brain was performed without administration of intravenous contrast material. Individualized dose optimization techniques were used for this CT. COMPARISON: With prior study dated 11/26/2021. FINDINGS: Normal soft tissue structures. Normal calvarium. There is mild cerebral atrophy with widening of the extra-axial spaces and ventricular dilatation. Normal white matter tracts of the cerebral hemispheres. Normal basal ganglia and thalami. Normal brainstem. Normal cerebellum. There is no intracranial hemorrhage. There are no findings of an acute ischemic infarction. Normal visualized paranasal sinuses. ASPECT score: 10 CT/STROKE Brain/Head without Cont IMPRESSION: Chronic involutional changes of the brain. N.B. : The above Results were Read Back by Thomas Obrien MD to Macho Cook and understanding confirmed on 09/10/2022 12:00:45 (ET). Electronically Signed: Thomas Obrien MD at 12:02 EST ,
[2022-09-10 11:35] LABS: Anion Gap 6 (5-15); BUN 18 mg/dL (7-18); BUN/Creat Ratio 16.2 RATIO (10-20); Calcium,Total 8.5 mg/dL (8.5-10.1); Chloride 108 mmol/L (98-107); Creatinine, Serum 1.11 mg/dL (0.70-1.30); EST Glomerular Filtration Rate 71 mL/min (>60); Est Glom Filt Rate - Afr Amer 86 mL/min (>60); Estimated Creatinine Clearance 74.43 ml/min; Glucose 209 mg/dL (74-106); Potassium 4.1 mmol/L (3.5-5.1); Sodium Level 141 mmol/L (136-145); Troponin-I HS 7 pg/mL (3.0-78.0)
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
[2022-09-10 12:46] VITALS: BP 127/82; PULSE 68; RESP 16; O2SAT 98
== END 2022-09-10 12:47 | disposition home or self-care (01) ==
PROVIDERS: Emergency Provider Emergency Medicine; PCP Family Medicine; Visit Provider Emergency Medicine
DX: R53.1 Weakness (principal); I11.0 Hypertensive heart disease with heart failure; I50.32 Chronic diastolic (congestive) heart failure; E11.9 Type 2 diabetes mellitus without complications; Z79.4 Long term (current) use of insulin; R51.9 Headache, unspecified; I25.10 Atherosclerotic heart disease of native coronary artery without angina pectoris; E78.5 Hyperlipidemia, unspecified; Z79.01 Long term (current) use of anticoagulants; Z79.02 Long term (current) use of antithrombotics/antiplatelets; Z79.899 Other long term (current) drug therapy; Z86.711 Personal history of pulmonary embolism; Z95.5 Presence of coronary angioplasty implant and graft
CPT/HCPCS: 70450; 71045; 80048; 82962; 84484; 85025; 85610; 85730; 93005; 99284; A4216

== ENCOUNTER → 2022-09-23 | Outpatient (CLI) | payer OTHER, SELFPAY ==
[2021-12-08 07:45] VITALS: BMI 36.8
--- NOTE | 2022-09-23 15:44 | CT_ITS ---
STUDY: CTA CHEST REASON FOR EXAM: Male, 62 years old. REASSES PULM EMBOLI RUL RADIATION DOSAGE (If Supplied By Facility): CTDIvol = ( 14.80 ) mGy, DLP = ( 525.79 ) mGycm TECHNIQUE: The examination was performed with the intravenous administration of IV 100mL Isovue-370. Post-processing of the angiographic images was performed, with multiplanar reformation and 3D reconstruction. Individualized dose optimization techniques were used for this CT. COMPARISON: 02/25/2022 FINDINGS: Normal enhancement of the main pulmonary artery and right and left pulmonary arteries. Normal enhancement of the bilateral peripheral pulmonary arteries. There is no demonstrated pulmonary embolism. Normal thoracic aorta and visualized great vessels. There is no demonstrated aortic dissection. Heart is prominent and there is multivessel coronary artery calcification. Normal mediastinum. Normal hilar regions. Normal visualized trachea and bronchi. The lungs are well expanded. Lungs are clear of infiltration. There is a small noncalcified nodule in the left lower lobe measuring 8.5 mm. There is also a tiny noncalcified nodule in the left lower lobe and right lower lobe measuring approximately 3 mm in size Normal pleura. Normal chest wall structures. Dorsal spine demonstrates degenerative change. Large intrathoracic hiatal hernia is noted Nonspecific fatty infiltrated liver status post cholecystectomy. CT/CTA Chest W/WO Contrast IMPRESSION: No evidence for pulmonary embolus.. Subcentimeter nodules in both lower lobes of indeterminate etiology but stable since prior exam. Recommend clinical correlation and follow-up studies utilizing FLEISCHNER Society criteria if indicated Electronically Signed: Shaq Lyons MD at 19:04 EST ,
== END | disposition home or self-care (01) ==
LOC: CT 15:43
PROVIDERS: PCP Family Medicine; Referring Provider Family Medicine; Visit Provider Family Medicine
DX: I26.99 Other pulmonary embolism without acute cor pulmonale (principal)
CPT/HCPCS: 71275; Q9967

== ENCOUNTER → 2022-09-28 | Outpatient (CLI) | payer OTHER, SELFPAY ==
[2021-12-08 07:45] VITALS: BMI 36.8
[2022-09-28 12:23] LABS: Absolute Lymphocyte Count 2.04 X10^3/uL (0.83-4.51); Absolute Neutrophil Count 2.8 X10^3/uL (2.0-7.7); Basophil# 0.01 X10^3/uL; Basophil% 0.2 % (0-1); Eosinophil# 0.06 X10^3/uL; Eosinophils% 1.2 % (0-5); Hematocrit 41.1 % (40-54); Hemoglobin 13.2 g/dL (13.0-16.5); Lymphocyte # 2.04 X10^3/ul (0.83-4.51); Lymphocyte % 39.5 % (19-41); Mean Corp Hgb Conc 32.1 g/dL (32-36); Mean Corpuscular Volume 99.5 fL (80-94); Monocyte# 0.27 X10^3/uL; Monocyte% 5.2 % (0-10); NRBC Flagged by Analyzer 0 % (0-5); Neutrophil # 2.78 X10^3/uL (2.7-7.7); Neutrophil % 53.7 % (47-70); Platelet Count 194 K/mm3 (150-450); RBC Distribution Width CV 13.7 % (11.6-14.6); RBC Distribution Width SD 50.8 fl (35.1-43.9); Red Blood Count 4.13 M/mm3 (4.6-6.2); White Blood Count 5.2 K/mm3 (4.4-11.0)
[2022-09-28 12:51] LABS: Vitamin B12 745 pg/mL (211-911)
[2022-09-28 13:30] LABS: Microalbumin,Random Urine 17.2 mg/L (NO RANGE EST.); Microalbumin:Creatinine Ratio 5.5 mg/g CRE (<30 mg/g CRE)
[2022-09-28 13:43] LABS: ALB/GLOB Ratio 1.1 RATIO (0.9-2.4); AST(SGOT) 19 U/L (15-37); Alanine Aminotransfer ALT/SGPT 40 U/L (16-61); Albumin, Serum 3.3 g/dL (3.2-5.0); Alkaline Phosphatase 94 U/L (45-117); Anion Gap 7 (5-15); BUN 13 mg/dL (7-18); BUN/Creat Ratio 11.6 RATIO (10-20); Calcium,Total 8.5 mg/dL (8.5-10.1); Chloride 106 mmol/L (98-107); Cholesterol 144 mg/dL (200); Creatinine, Serum 1.12 mg/dL (0.70-1.30); EST Glomerular Filtration Rate 71 mL/min (>60); Est Glom Filt Rate - Afr Amer 85 mL/min (>60); Globulin 3.1 g/dL (2.2-4.2); Glucose 185 mg/dL (74-106); High Density Lipoprotein 30 mg/dL; PSA,Total - Annual Screen 3.15 ng/mL (0.00-4.00); Potassium 3.9 mmol/L (3.5-5.1); Protein, Total 6.4 g/dL (6.4-8.2); Sodium Level 139 mmol/L (136-145); Thyroid Stim Hormone (TSH) 1.75 uIU/mL (0.358-3.74); Triglycerides 311 mg/dL; Very Low Density Lipoprotein 62 mg/dL (5-40)
== END | disposition home or self-care (01) ==
LOC: BFHLAB 09:32
PROVIDERS: PCP Family Medicine; Visit Provider Family Medicine
DX: E11.9 Type 2 diabetes mellitus without complications (principal); I25.10 Atherosclerotic heart disease of native coronary artery without angina pectoris; D64.9 Anemia, unspecified; Z12.5 Encounter for screening for malignant neoplasm of prostate
CPT/HCPCS: 36415; 80053; 80061; 82043; 82570; 82607; 84153; 84443; 85025; G0103

== ENCOUNTER → 2022-09-30 | Outpatient (CLI) | payer OTHER, SELFPAY ==
[2021-12-08 07:45] VITALS: BMI 36.8
--- NOTE | 2022-10-02 10:50 | PFT ---
INTRODUCTION: The patient is a 62-year-old male that presents for pulmonary function studies secondary to a diagnosis of dyspnea. Respiratory therapy reported good patient effort. Bronchodilators were used during testing. INTERPRETATION: Forced expiration spirometry demonstrates no evidence of a large airways obstructive ventilatory defect. There was no significant response to aerosolized bronchodilators. Spirograms are of good quality and plateau normally. Body plethysmography was performed and revealed a decreased TLC to 5.1 L, 77% of predicted, indicative of a mild restrictive ventilatory defect. Diffusing capacity by single breath CO is within normal limits. IMPRESSION: Mild restrictive ventilatory impairment, likely secondary to body habitus.
== END | disposition home or self-care (01) ==
LOC: PSN 12:50
PROVIDERS: PCP Family Medicine; Referring Provider Family Medicine; Visit Provider Family Medicine
DX: J96.11 Chronic respiratory failure with hypoxia (principal)
CPT/HCPCS: 94060; 94726; 94729

== ENCOUNTER 2022-12-19 19:53 | Emergency (ER) | payer OTHER, SELFPAY ==
[2021-12-08 07:45] VITALS: BMI 36.8
[2022-12-19 19:54] VITALS: BP 148/117; PULSE 80; RESP 16; TEMP 36.6; O2SAT 97; BMI 38.0
--- NOTE | 2022-12-19 20:10 | CT_ITS ---
INDICATION: INJURY EXAMINATION: CT BRAIN - CT Head or Brain W/O Contrast Injection TECHNIQUE: Multiple axial images were obtained of the head without intravenous contrast. A radiation dose optimization technique was used for this scan. IV Contrast dosage and agent: None. RADIATION DOSAGE (If Supplied By Facility): CTDIvol = ( 44.99 ) mGy, DLP = ( 880.47 ) mGycm COMPARISON: No relevant prior examinations for comparison FINDINGS: HEMISPHERES: 1. The cerebral parenchyma, ventricular system, subarachnoid spaces have normal configuration and density. There is a normal gyral pattern. There is normal shah/white differentiation. No midline shift.. 2. The hemispheric white matter has normal appearance. 3. No intraparenchymal mass, hemorrhage, or acute territorial infarct. CEREBELLUM - BRAINSTEM: The cerebellum, brainstem, basilar and suprasellar cisterns have normal appearance. No Chiari malformation. PITUITARY: Infundibulum and pituitary have normal configuration. Midline structures appear normal. CSF SPACES: Appropriate for age. No hydrocephalus. Basal cisterns are patent. VESSELS: 1. Vascular calcifications in the cavernous carotid vessels. 2. No hyperdense vascular signs noted.. ORBITS AND PARANASAL SINUSES: 1. Normal appearance of the bony orbits. Normal appearance of the globes and retrobulbar soft tissues.. 2. Paranasal sinuses are clear. BONY ELEMENTS: Bony elements of the cranial vault, facial skeleton and skull base have normal appearance. SCALP AND SOFT TISSUES: Normal appearance of the soft tissues of the scalp and the visualized face OTHER: None ASPECTS Score for Acute Strokes: 10 CT/Brain/Head without Contrast IMPRESSION: 1. No intracranial evidence of acute traumatic injury. 2. No intracranial mass, hemorrhage or acute territorial infarct. 3. No acute fractures identified. 4. No radiographically significant sinus disease.. Electronically Signed: Arpit Anderson MD at 20:50 EST ,
--- NOTE | 2022-12-19 20:10 | CT_ITS ---
INDICATION: INJURY EXAMINATION: CT CERVICAL SPINE - CT Spine Cervical W/O Contrast Injection TECHNIQUE: Helically acquired images were obtained of the cervical spine. 2D reformatted images were reviewed. A radiation dose optimization technique was used for this scan. IV Contrast dosage and agent: None. COMPARISON: None. FINDINGS: VERTEBRAE: No fracture or traumatic subluxation. No discrete lytic or blastic abnormality. Normal alignment. Normal craniocervical junction and cervicothoracic junction. Normal appearance of the odontoid process. DISCS and SPINAL CANAL: Disc heights are preserved. No critical stenosis. NECK SOFT TISSUES: No prevertebral soft tissue swelling. There is no cervical adenopathy. LUNG APICES: Clear. CT/Spine Cervical without Contras IMPRESSION: 1. No evidence of acute cervical spinal fracture or spondylolisthesis. No evidence of acutely acquired canal stenosis. Electronically Signed: Arpit Anderson MD at 20:47 EST ,
--- NOTE | 2022-12-19 20:46 | EKG12_ITS ---
Test Reason : FALL Blood Pressure : / mmHG Vent. Rate : 069 BPM Atrial Rate : 069 BPM P-R Int : 166 ms QRS Dur : 088 ms QT Int : 388 ms P-R-T Axes : 050 -15 002 degrees QTc Int : 415 ms Normal sinus rhythm Inferior infarct , age undetermined Abnormal ECG Confirmed by CLAUDIO MCKEON, MARILYN ([id number]), newspaper photo editor RADHA SENA ([id number]) on 12/21/2022 2:02:59 PM Referred By: Shannon Maya Confirmed By:MARILYN SNYDER MD
--- NOTE | 2022-12-19 20:50 | RAD_ITS ---
INDICATION: pain, injury EXAMINATION/TECHNIQUE: X-RAY - XR Ankle Min 3 Views COMPARISON: FINDINGS: Bones: There is normal bony alignment, trabecular pattern is normal. No fractures or focal lytic or sclerotic bony lesions. There is mild osteophyte formation arising from the medial and lateral malleolus. Mildly prominent plantar spur is present. Joints: Visualized joint spaces are maintained. No subluxation or displacement. No periarticular erosions. Soft tissues: Normal appearance of the soft tissues. No radiopaque foreign bodies noted. RAD/Ankle min 3 Views IMPRESSION: 1. Mild osteophyte formation involving the medial lateral malleolus. 2. No acute fracture or malalignment. 3. Incidental note of a plantar spur. Electronically Signed: Arpit Anderson MD at 21:20 EST ,
--- NOTE | 2022-12-19 20:50 | RAD_ITS ---
INDICATION: dizziness EXAMINATION/TECHNIQUE: X-RAY - XR Chest 2 Views COMPARISON: 09/10/2022 FINDINGS: LIFE-SUPPORT AND LINES: 1. None HEART AND VESSELS: The cardiac silhouette, pulmonary vasculature have normal appearance. No evidence of congestive failure. LUNGS AND PLEURAL SPACES: Lungs are clear. No focal infiltrate, consolidation or effusions. No evidence of pneumothorax. No pulmonary mass is noted. MEDIASTINUM AND HILAR REGIONS: No masses adenopathy noted. No areas of calcification. Visualized upper airway is normal in position. BONY ELEMENTS: No acute bony changes noted. RAD/Chest PA and Lateral IMPRESSION: 1. No evidence of acute cardiopulmonary process Electronically Signed: Arpit Anderson MD at 21:21 EST ,
[2022-12-19 21:07] LABS: Basophil# 0.01 X10^3/uL; Basophil% 0.2 % (0-1); Eosinophil# 0.05 X10^3/uL; Eosinophils% 1.1 % (0-5); Hematocrit 38.8 % (40-54); Hemoglobin 12.4 g/dL (13.0-16.5); Lymphocyte % 48.2 % (19-41); Mean Corpuscular Hgb 31.7 pg (27.0-32.0); Mean Corpuscular Volume 99.2 fL (80-94); Mean Platelet Vol. 9.3 fl (6.2-12.0); Monocyte# 0.27 X10^3/uL; Monocyte% 5.9 % (0-10); NRBC Flagged by Analyzer 0 % (0-5); Neutrophil # 2.01 X10^3/uL (2.7-7.7); Neutrophil % 44.2 % (47-70); Platelet Count 174 K/mm3 (150-450); RBC Distribution Width CV 12.7 % (11.6-14.6); RBC Distribution Width SD 45.7 fl (35.1-43.9); Red Blood Count 3.91 M/mm3 (4.6-6.2); White Blood Count 4.6 K/mm3 (4.4-11.0)
[2022-12-19] MEDS: Diphth,Pertuss(Acell),Tet Vac 0.5 ML Vial IM (21:27)
[2022-12-19 21:41] LABS: Color, Urine Yellow (Yellow); Glucose, Dipstick 100 mg/dl (Normal); Ketone-Dipstick Negative (Negative); Leukocyte Esterase-Dipstick 25 /ul (Negative); Nitrite-Dipstick Negative (Negative); Occult Blood-Urine Negative /ul (Negative); Protein-Dipstick 30 mg/dl (Negative); Specific Gravity, Urine 1.015 (1.002-1.030); Urine Bilirubin Dipstick Negative (Negative); Urine Clarity Clear (Clear); Urine Urobilinogen 1 mg/dl (Normal); Urine pH 6.5 (5.0 - 8.0)
[2022-12-19 21:43] LABS: Anion Gap 5 (5-15); BUN 17 mg/dL (7-18); BUN/Creat Ratio 15.7 RATIO (10-20); Calcium,Total 8.8 mg/dL (8.5-10.1); Chloride 108 mmol/L (98-107); Creatinine, Serum 1.08 mg/dL (0.70-1.30); EST Glomerular Filtration Rate 74 mL/min (>60); Est Glom Filt Rate - Afr Amer 89 mL/min (>60); Estimated Creatinine Clearance 75.53 ml/min; Glucose 196 mg/dL (74-106); Potassium 4.3 mmol/L (3.5-5.1); Sodium Level 143 mmol/L (136-145); Troponin-I HS (w/2H Reflex) 6 pg/mL (3.0-78.0)
[2022-12-19 21:49] LABS: Bacteria RARE /hpf (None Seen); Mucous, Urine RARE /hpf (<or=2+); Red Blood Cells-Urine 0-5 SEEN /hpf (0-5); Squamous Epithelial Cells - UA 0-5 SEEN /hpf (0-5); White Blood Cells 0-5 SEEN /hpf (0-5)
[2022-12-19 22:00] VITALS: BP 134/87; PULSE 71; RESP 19; O2SAT 95
--- NOTE | 2022-12-19 23:04 | ED.VIS.FALL ---
HPI HPI - Fall History of Present Illness Chief Complaint: Fall Narrative Narrative: Patient is a 62-year-old male with history of coronary artery disease, pulmonary emboli, heart attack, prior coronary stent as well as stroke and dyspnea on exertion who is on chronic Eliquis as well as Brilinta therapy. He is presenting after a fall. Patient that he was on the last step was actually the second last step and then tripped. His glasses hit his forehead. He complained of head pain immediately. He had dizziness after the fall but does not think he was dizzy beforehand. He was dizzy upon arrival to the ER. His cleaned up his wounds and applied topical antibiotic ointment to them. Patient currently is complaining of forehead pain from his fall, left ankle pain and right knee pain. No other injuries reported. No reported loss of consciousness. No other complaints at this time. Tetanus Immunization: Unknown [facility] Medical History (HFpEF) heart failure with preserved ejection fraction Actinic keratosis Acute kidney injury due to COVID-19 Anxiety Atherosclerotic heart disease of three affiliated coronary artery without angina pectoris Cheek mass Closed fracture of 5th metacarpal Contact dermatitis and eczema due to plant Diabetes Dizziness and giddiness Electric current accident Elevated troponin Essential (primary) hypertension GERD (gastroesophageal reflux disease) History of 2019 novel coronavirus disease (COVID-19) (~06/2021) History of non-ST elevation myocardial infarction (NSTEMI) (10/22/21) History of ventral hernia Hyperlipidemia IBS (irritable bowel syndrome) Intradermal nevus of face Neoplasm of skin of right cheek Neoplasm of skin of scalp Neoplasm of skin of scalp Neoplasm of skin of [place] region Non-ST elevation [place] (NSTEMI) Pneumonia due to 2019-nCoV (06/27/21) Right ventricular dilation Right ventricular systolic dysfunction Saddle pulmonary embolus Seborrheic keratosis Syncope and collapse Type 2 diabetes mellitus URI (upper respiratory infection) Home Medications alprazolam 1 mg tablet 1 mg PO QHS sleep 04/23/20 [History Last Taken 10/21/21] apixaban 5 mg tablet (Eliquis) 5 mg PO BID #70 tabs 08/12/21 [Rx Last Taken 10/21/21] citalopram 40 mg tablet 40 mg PO DAILY mental health 09/04/21 [History Last Taken 10/21/21] brimonidine 0.2 % eye drops 1 drp ophthalmic (eye) DAILY eye health 09/23/21 [History Last Taken 10/21/21] cyanocobalamin (vitamin B-12) 500 mcg tablet 500 mcg PO DAILY vitamin 10/22/21 [History Last Taken 10/21/21] garlic 100 mg tablet 100 mg PO DAILY supplement 10/22/21 [History Last Taken 10/21/21] ticagrelor 90 mg tablet (Brilinta) 90 mg PO BID #180 tabs 11/12/21 [Rx Last Taken Unknown] cholecalciferol (vitamin D3) 125 mcg (5,000 unit) tablet 125 mcg PO 2XW 12/18/21 [History Last Taken Unknown] glipizide 10 mg tablet 10 mg PO BID DM 12/18/21 [History Last Taken Unknown] insulin glargine 100 unit/mL (3 mL) subcutaneous pen (Lantus Solostar U-100 Insulin) 16 unit subcut DAILY DM 12/18/21 [History Last Taken Unknown] omeprazole 40 mg capsule,delayed release 40 mg PO DAILY 12/18/21 [History Last Taken Unknown] simvastatin 20 mg tablet 20 mg PO QHS 12/18/21 [History Last Taken Unknown] tamsulosin 0.4 mg capsule 0.4 mg PO DAILY 12/18/21 [History Last Taken Unknown] carvedilol 12.5 mg tablet 12.5 mg PO BID #180 tabs 02/12/22 [Rx Last Taken Unknown] dicyclomine 10 mg capsule 10 mg PO DAILY PRN Nausea 08/13/22 [History Last Taken Unknown] Allergy/AdvReac Type Severity Reaction Status Date / Time adhesive Allergy Unknown Unknown Verified 12/19/22 19:57 meperidine HCl [From Demerol] Allergy Unknown Hives Verified 12/19/22 19:57 cefadroxil hydrate AdvReac Unknown Other Verified 12/19/22 19:57 [From Duricef] Family History Mother Cancer Diabetes Father Diabetes Hypertension Hyperlipidemia CVA (cerebral vascular accident) CAD (coronary artery disease) Hx CABG Brother Diabetes Myocardial infarction Surgical History History of arthroscopy of right knee (2005) History of coronary artery stent placement (10/23/21) History of excision of lesion History of left heart catheterization (12/13/14) History of left knee surgery History of loop recorder (03/15/19) History of Shannan fundoplication (2000) History of repair of hiatal hernia (2000) History of right knee surgery Hx laparoscopic cholecystectomy (08/2012) Social History household members: spouse Smoking Status: Never smoker alcohol intake: never substance use type: does not use caffeine: Yes Type: coffee what type of physical activity do you participate in: none seatbelt use: always do you feel safe at home: Yes additional social history: DOES NOT TAKE ASPIRIN DOES TAKE IBUPROFEN NEEDED ROS ROS ED Constitutional Constitutional ED: Reports other Details: Dizziness ; Denies chills or fever(s) Eyes Eyes: Denies blurry vision or change in vision ENT ENT ED: Denies rhinorrhea or sore throat Cardiovascular Cardiovascular: Denies chest pain Respiratory/Chest Respiratory/Chest: Denies cough or dyspnea Gastrointestinal Gastrointestinal: Denies abdominal pain, nausea or vomiting Musculoskeletal Musculoskeletal: Reports other Details: Right knee pain, left ankle pain ; Denies back pain or neck pain Integumentary Reports Abrasions Neurologic Neurologic: Reports headache(s); Denies paresthesias or weakness Psychiatric Psychiatric: Denies anxiety Hematologic/Lymphatic Hematologic/Lymphatic: Reports easy bleeding and easy bruising EXAM Physical Exam Const Vital Signs: 12/19/22 19:54 12/19/22 20:41 12/19/22 22:00 Temperature 97.8 F Temperature Source Oral Pulse Rate 80 71 Respiratory Rate 16 19 H Respiratory Effort Normal Non-Labored Respiratory Depth Normal Respiratory Pattern Normal Blood Pressure 148/117 H 134/87 H Blood Pressure Mean 127 102 Pulse Ox 97 95 Oxygen Delivery Method Room Air Room Air Room Air 12/20/22 00:00 12/20/22 01:09 Temperature Temperature Source Pulse Rate 67 80 Respiratory Rate 18 24 H Respiratory Effort Respiratory Depth Respiratory Pattern Blood Pressure 125/87 H 132/89 H Blood Pressure Mean 99 Pulse Ox 95 95 Oxygen Delivery Method Room Air Positive well nourished and well developed General Appearance ED: well developed and NAD HEENT Reports normocephalic and TM's normal bilaterally trauma; Negative for hematoma Neck full ROM and supple General: Negative for tenderness Chest Wall inspection of chest normal and palpation of chest normal Resp normal respiratory effort and clear to auscultation bilaterally Cardio regular rate, regular rhythm and no murmurs GI non-tender and no masses Palpation: soft Extremity Extremity Narrative: No obvious deformity. Normal range of motion. No pinpoint bony tenderness. Mild tenderness to the medial aspect of the right knee with a localized area of erythema. No instability of the knee appreciated. Patient has mild tenderness and abrasion to the lateral aspect of the left ankle. No pinpoint bony tenderness. Normal range of motion. No obvious deformity of the ankle. Neuro oriented x3, CN's II-XII intact bilaterally, moves all extremities, no focal motor deficits and no sensory deficits noted Delilah Coma Scale: document GCS findings Spontaneous Obeys Commands Oriented 15 Sensorium / Orientation: alert Motor Exam: Negative for general weakness Psych mental status grossly normal and thought process normal Skin Skin Narrative: Superficial linear, partial-thickness abrasions to the forehead. Small area of erythema with no abrasion to the right medial knee. Small area of abrasion to the left lateral ankle. Rashes: no rashes MDM MDM MDM Narrative Medical decision making narrative: CardiacPatient is evaluated for injuries associate with a fall on anticoagulation as well as dizziness after the fall. He has a pretty extensive medical history and is concerned that there could be something going on with his heart given history of so she is requesting further evaluation. This seems reasonable as patient was complained of dizziness. Differential includes concussion, anterior cranial hemorrhage, cardiac arrhythmia, ACS, anemia and electrolyte abnormality. EKG does not consistent with any acute ischemic process. CT of the brain and C-spine do not show any acute process include intracranial hemorrhage or fracture. CBC, BMP, delta high-sensitivity troponin and urinalysis largely normal. No signs of underlying infection, cardiac strain or electrolyte abnormality. Ankle x-ray and chest x-ray obtained and independently reviewed by myself as well as radiology. No acute process including fracture is appreciated. This really sounds like it was a mechanical fall. I feel that patient can be discharged home. Patient is comfortable this. He is able to ambulate. Patient agreeable with plan of care. Encouraged to follow-up with primary care doctor. Tetanus is updated in the emergency room. Lab Data Attestation: I reviewed the patient's lab results. Labs: Laboratory Results - last 24 hr 12/19/22 12/19/22 12/19/22 21:00 21:00 21:35 WBC 4.6 RBC 3.91 L Hgb 12.4 L Hct 38.8 L MCV 99.2 H MCH 31.7 MCHC 32.0 RDW Std Deviation 45.7 H RDW Coeff of Juancarlos 12.7 Plt Count 174 MPV 9.3 Immature Gran % (Auto) 0.400 Neut % (Auto) 44.2 L Lymph % (Auto) 48.2 H [place] % (Auto) 5.9 Eos % (Auto) 1.1 Baso % (Auto) 0.2 Absolute Neuts (auto) 2.0 Absolute Lymphs (auto) 2.20 Nucleated RBC % 0 Sodium 143 Potassium 4.3 Chloride 108 H Carbon Dioxide 30.0 Anion Gap 5 BUN 17 Creatinine 1.08 Estim Creat Clear Calc 75.53 Est GFR (MDRD) Af Amer 89 Est GFR (MDRD) Non-Af 74 BUN/Creatinine Ratio 15.7 Glucose 196 H Calcium 8.8 Troponin I High Sens 6 Urine Color Yellow Urine Clarity Clear Urine pH 6.5 Ur Specific [place] 1.015 Urine Protein 30 H Urine Glucose (UA) 100 H Urine Ketones Negative Urine Occult Blood Negative Urine Nitrite Negative Urine Bilirubin Negative Urine Urobilinogen 1 H Ur Leukocyte Esterase 25 H Urine RBC 0-5 SEEN Urine WBC 0-5 SEEN Ur Squamous Epith Cells 0-5 SEEN Urine Bacteria RARE Urine Mucus RARE 12/19/22 23:12 WBC RBC Hgb Hct MCV MCH MCHC RDW Std Deviation RDW Coeff of Juancarlos Plt Count MPV Immature Gran % (Auto) Neut % (Auto) Lymph % (Auto) [place] % (Auto) Eos % (Auto) Baso % (Auto) Absolute Neuts (auto) Absolute Lymphs (auto) Nucleated RBC % Sodium Potassium Chloride Carbon Dioxide Anion Gap BUN Creatinine Estim Creat Clear Calc Est GFR (MDRD) Af Amer Est GFR (MDRD) Non-Af BUN/Creatinine Ratio Glucose Calcium Troponin I High Sens 6 Urine Color Urine Clarity Urine pH Ur Specific [place] Urine Protein Urine Glucose (UA) Urine Ketones Urine Occult Blood Urine Nitrite Urine Bilirubin Urine Urobilinogen Ur Leukocyte Esterase Urine RBC Urine WBC Ur Squamous Epith Cells Urine Bacteria Urine Mucus Radiography Diagnostic Testing: Clinical Impression(s) from Imaging Studies Brain CT 12/19/22 20:10 IMPRESSION: 1. No intracranial evidence of acute traumatic injury. 2. No intracranial mass, hemorrhage or acute territorial infarct. 3. No acute fractures identified. 4. No radiographically significant sinus disease.. Electronically Signed: Arpit Anderson MD at 20:50 EST , Cervical Spine CT 12/19/22 20:10 IMPRESSION: 1. No evidence of acute cervical spinal fracture or spondylolisthesis. No evidence of acutely acquired canal stenosis. Electronically Signed: Arpit Anderson MD at 20:47 EST , Ankle X-Ray 12/19/22 20:50 IMPRESSION: 1. Mild osteophyte formation involving the medial lateral malleolus. 2. No acute fracture or malalignment. 3. Incidental note of a plantar spur. Electronically Signed: Arpit Anderson MD at 21:20 EST , Chest X-Ray 12/19/22 20:50 IMPRESSION: 1. No evidence of acute cardiopulmonary process Electronically Signed: Arpit Anderson MD at 21:21 EST , Rhythm Strip Rhythm Strip: Sinus Rhythm Rate: 69 Ectopy: None EKG Initial EKG: Attestation: I personally reviewed and interpreted this EKG as follows: Interpretation: Sinus Rhythm Comments: Normal sinus rhythm at a rate of 69 bpm Left axis deviation Normal intervals Normal ST segment No change compared to prior EKG Discharge Plan Triage Chief Complaint: Fall ED Provider: Shannon Maya Dx/Rx/DC Orders Clinical Impression: Fall from stairs, Closed head injury, Dizziness, Abrasion of face, Left ankle sprain, Contusion of right knee, initial encounter, 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 Instructions: ED Abrasion, ED Dizziness, Uncertain Cause, ED Head Injury (Adult), ED Ankle Sprain (Adult), ED Fall Prevention Prescriptions: No Action citalopram 40 mg tablet 40 mg PO DAILY cholecalciferol (vitamin D3) 125 mcg (5,000 unit) tablet 125 mcg PO 2XW omeprazole 40 mg capsule,delayed release(DR/EC) 40 mg PO DAILY simvastatin 20 mg tablet 20 mg PO QHS tamsulosin 0.4 mg capsule 0.4 mg PO DAILY Brilinta 90 mg tablet 90 mg PO BID Qty: 180 3RF carvedilol 12.5 mg tablet 12.5 mg PO BID Qty: 180 3RF dicyclomine 10 mg capsule 10 mg PO DAILY PRN (Reason: Nausea) alprazolam 1 MG tablet 1 mg PO QHS Eliquis 5 mg tablet 5 mg PO BID Qty: 70 0RF Rx Instructions: Take 10 mg twice daily for 7 days followed by 5 mg twice daily. brimonidine 0.2 % drops 1 drp ophthalmic (eye) DAILY garlic 100 mg Tablet 100 mg PO DAILY cyanocobalamin (vitamin B-12) 500 mcg Tablet 500 mcg PO DAILY glipizide 10 mg tablet 10 mg PO BID Lantus Solostar U-100 Insulin 100 unit/mL (3 mL) insulin pen 16 unit SUBCUT DAILY Primary Care Provider: Bryn Renteria Referrals: Bryn Renteria, [Primary Care Provider] - Activity Restrictions/Additional Instructions: Tylenol as needed for pain. Your work-up was largely normal today. I feel it is safe you to go home. If you have further dizziness, or develop chest pain, difficulty breathing or strokelike symptoms please return to the ER immediately. No signs of bleeding inside the head or around the brain on your CT. Disposition Disposition: Home, Self Care Discharge Date/Time: 12/20/22 01:17
[2022-12-19 23:05] LABS: Reflex Troponin-HS? (from REC) Y
[2022-12-20] VITALS: BP 125/87; PULSE 67; RESP 18; O2SAT 95
[2022-12-20 00:12] LABS: Troponin-I HS 6 pg/mL (3.0-78.0)
[2022-12-20 01:09] VITALS: BP 132/89; PULSE 80; RESP 24; O2SAT 95
== END 2022-12-20 01:17 | disposition home or self-care (01) ==
PROVIDERS: Emergency Provider Emergency Medicine; PCP Family Medicine; Referring Provider Emergency Medicine; Visit Provider Emergency Medicine
DX: S09.90XA Unspecified injury of head, initial encounter (principal); I11.0 Hypertensive heart disease with heart failure; I50.30 Unspecified diastolic (congestive) heart failure; E11.9 Type 2 diabetes mellitus without complications; I25.10 Atherosclerotic heart disease of native coronary artery without angina pectoris; S80.01XA Contusion of right knee, initial encounter; E78.5 Hyperlipidemia, unspecified; Z79.01 Long term (current) use of anticoagulants; W10.9XXA Fall (on) (from) unspecified stairs and steps, initial encounter; S93.402A Sprain of unspecified ligament of left ankle, initial encounter; Z95.5 Presence of coronary angioplasty implant and graft
CPT/HCPCS: 70450; 71046; 72125; 73610; 80048; 81001; 84484; 85025; 90715; 93005; 99284; A4216

== ENCOUNTER → 2023-08-02 | Outpatient (CLI) | payer OTHER, SELFPAY ==
[2021-12-08 07:45] VITALS: BMI 36.8
[2023-08-02 13:03] VITALS: PULSE 71; PULSE 74; PULSE 79; PULSE 83; PULSE 85; PULSE 86; PULSE 90; PULSE 91; O2SAT 93; O2SAT 94; O2SAT 95; O2SAT 96
--- NOTE | 2023-08-02 13:06 | CPS ---
PATIENT HAS HOME OXYGEN THROUGH [facility] FROM [facility] IN 2020. PATIENT HAS NOT BEEN USING HIS OXYGEN HE FEELS HE DOES NOT NEED IT. THIS ENTIRE TEST WAS PERFORMED WITH THE PATIENT ON ROOM AIR. PATIENT CARRIED CONVERSATION THROUGHOUT THE WALK, AMBULATION SPEED LIMITED SOMEWHAT BY HIP ISSUES UNABLE TO BE SURGICALLY TREATED PER PT REPORT. PATIENT DOES STATE OCCASIONAL USE OF NOCTURNAL OXYGEN FOR SLEEP. PATIENT AMBULATED 781FT DURING FLAT WALK TESTING.
--- NOTE | 2023-08-03 07:51 | WT_ITS ---
PSN 6 Minute Walk Test 6 Minute Walk Test 6 Minute Walk Test: 6 Minute Walk Test PSN:6-Minute Walk Test Start: 08/02/23 13:03 Freq: Status: Active Protocol: [id number].6MINW Document 08/02/23 13:03 [facility] (Rec: 08/02/23 13:10 [facility] [id number]) 6 Minute Walk Test Date Performed 08/02/23 Time Performed 12:30 Height 5 ft 11 in Weight: 255 lb Weight in Pounds 255.[address]: Bryn Renteria Assistive device used: None Pre-test Oxygen Delivery Method Room Air Pulse Ox 96 Pulse Rate (60-100) 71 Dyspnea Shara Scale (0-10) 1 1st minute Oxygen Delivery Method Room Air Pulse Ox 93 Pulse Rate (60-100) 79 Dyspnea Shara Scale (0-10) 2 Number of Rests Taken 0 Reported Symptoms Increased Work of Breathing 2nd minute Oxygen Delivery Method Room Air Pulse Ox 95 Pulse Rate (60-100) 83 Dyspnea Shara Scale (0-10) 2 Number of Rests Taken 0 Reported Symptoms Increased Work of Breathing 3rd minute Oxygen Delivery Method Room Air Pulse Ox 95 Pulse Rate (60-100) 85 Dyspnea Shara Scale (0-10) 2 Number of Rests Taken 0 Reported Symptoms Increased Work of Breathing 4th minute Oxygen Delivery Method Room Air Pulse Ox 96 Pulse Rate (60-100) 86 Dyspnea Shara Scale (0-10) 2 Number of Rests Taken 0 Reported Symptoms Increased Work of Breathing 5th minute Oxygen Delivery Method Room Air Pulse Ox 94 Pulse Rate (60-100) 90 Dyspnea Shara Scale (0-10) 2 Number of Rests Taken 0 Reported Symptoms Increased Work of Breathing 6th minute Oxygen Delivery Method Room Air Pulse Ox 94 Pulse Rate (60-100) 91 Dyspnea Shara Scale (0-10) 2 Number of Rests Taken 0 Reported Symptoms Increased Work of Breathing Post-test Oxygen Delivery Method Room Air Pulse Ox 96 Pulse Rate (60-100) 74 Dyspnea Shara Scale (0-10) 1 Full Laps Walked 13 Partial Lap, Number of Tiles Walked 14 Total Distance Walked (ft) 781 08/02/23 13:06 Cardiopulmonary Services by JanuaryJanuary PATIENT HAS HOME OXYGEN THROUGH [facility] FROM [facility] IN 2020. PATIENT HAS NOT BEEN USING HIS OXYGEN HE FEELS HE DOES NOT NEED IT. THIS ENTIRE TEST WAS PERFORMED WITH THE PATIENT ON ROOM AIR. PATIENT CARRIED CONVERSATION THROUGHOUT THE WALK, AMBULATION SPEED LIMITED SOMEWHAT BY HIP ISSUES UNABLE TO BE SURGICALLY TREATED PER PT REPORT. PATIENT DOES STATE OCCASIONAL USE OF NOCTURNAL OXYGEN FOR SLEEP. PATIENT AMBULATED 781FT DURING [place] AT WALK TESTING. Initialized on 08/02/23 13:06 - END OF NOTE Interpretation Interpretation: The patient ambulated 781 feet over the course of 6 minutes beginning on room air without assistive devices. Pretesting oxygen saturation was noted to be 96% on room air. With ambulation, the evie oxygen saturation was 93%. There was no significant exertional oxygen desaturation. Recommendations Recommendations: There is no indication for the use of supplemental oxygen at this time.
== END | disposition home or self-care (01) ==
LOC: PSN 12:33
PROVIDERS: PCP Family Medicine; Referring Provider Family Medicine; Visit Provider Family Medicine
DX: J96.11 Chronic respiratory failure with hypoxia (principal)
CPT/HCPCS: 94618

== ENCOUNTER 2024-03-01 19:52 | Inpatient (IN) | payer OTHER, MEDICARE, SELFPAY ==
[2021-12-08 07:45] VITALS: BMI 36.8
[2024-03-01] VITALS (11 sets, daily range): BP systolic 97–144; BP diastolic 75–85; PULSE 81–123; RESP 16–23; TEMP 36.8–39.5; O2SAT 89–94; BMI 36.1; BMI 36.3
--- NOTE | 2024-03-01 19:59 | EKG12_ITS ---
Test Reason : SOB Blood Pressure : / mmHG Vent. Rate : 121 BPM Atrial Rate : 121 BPM P-R Int : 142 ms QRS Dur : 086 ms QT Int : 302 ms P-R-T Axes : 044 -44 051 degrees QTc Int : 428 ms Sinus tachycardia Left axis deviation Abnormal ECG Confirmed by CLAUDIO MCKEON, MARILYN ([id number]), manager editorial CAROL BROWN ([id number]) on 03/02/2024 11:42:15 AM Referred By: Confirmed By:MARILYN SNYDER MD
--- NOTE | 2024-03-01 20:00 | RAD_ITS ---
INDICATION: SOB EXAMINATION/TECHNIQUE: X-RAY - XR Chest 1 View COMPARISON: None. FINDINGS: Streaky opacities in the left lower lung. Tortuous and calcified thoracic aorta. The heart is mildly enlarged. No pleural effusion or pneumothorax. Degenerative changes of the thoracic spine. Hiatal hernia. RAD/Chest 1 View (Portable) IMPRESSION: Streaky opacities in the left lower lung may represent atelectasis versus infection. Hiatal hernia. Electronically Signed: Isaac Wolf MD at 21:26 EDT ,
--- NOTE | 2024-03-01 20:22 | ED.RN ---
Addendum entered by Kathi Nielsen 03/01/24 20:38: Per pt and spouse and pt. Pt is to wear O2 at all times d/t hx of covid and multiple PE's but pt refuses. Original Note: when pt was ambulating back to room 7, pt became short of breath with exertion. pt vitals obtained and pts O2 sat decreased to 89% .
[2024-03-01 20:23] LABS: Absolute Lymphocyte Count 0.82 X10^3/uL (0.83-4.51); Basophil# 0.02 X10^3/uL; Basophil% 0.2 % (0-1); Hematocrit 38.7 % (40-54); Hemoglobin 12.6 g/dL (13.0-16.5); Lymphocyte # 0.82 X10^3/ul (0.83-4.51); Lymphocyte % 9.9 % (19-41); Mean Corp Hgb Conc 32.6 g/dL (32-36); Mean Corpuscular Hgb 31.7 pg (27.0-32.0); Mean Corpuscular Volume 97.5 fL (80-94); Mean Platelet Vol. 9.8 fl (6.2-12.0); Monocyte# 0.37 X10^3/uL; Monocyte% 4.5 % (0-10); NRBC Flagged by Analyzer 0 % (0-5); Neutrophil # 7.01 X10^3/uL (2.7-7.7); Platelet Count 203 K/mm3 (150-450); RBC Distribution Width CV 12.8 % (11.6-14.6); RBC Distribution Width SD 45.4 fl (35.1-43.9); Red Blood Count 3.97 M/mm3 (4.6-6.2); White Blood Count 8.3 K/mm3 (4.4-11.0)
[2024-03-01 20:47] LABS: Anion Gap 5 (5-15); BUN 20 mg/dL (7-18); BUN/Creat Ratio 11.6 RATIO (10-20); Calcium,Total 8.9 mg/dL (8.5-10.1); Chloride 103 mmol/L (98-107); Creatinine, Serum 1.72 mg/dL (0.70-1.30); EST Glomerular Filtration Rate 43 mL/min (>60); Est Glom Filt Rate - Afr Amer 52 mL/min (>60); Estimated Creatinine Clearance 57.31 ml/min; Glucose 448 mg/dL (74-106); Sodium Level 134 mmol/L (136-145); Troponin-I HS 10 pg/mL (3.0-78.0)
[2024-03-01] MEDS: Acetaminophen 500 MG Tablet 1000 MG PO (21:04)
[2024-03-01] MEDS: 0.9% Normal Saline (1000mL) 1,000 ML 999 ML IV ×2 (21:04→23:09)
--- NOTE | 2024-03-01 21:07 | EDS_ITS ---
HPI History of Present Illness Chief Complaint: Shortness of Breath Narrative Narrative: 63-year-old male presenting with shortness of breath. He said fevers, chills, body aches for about a week. He has 2 grandchildren that have both COVID and rhinovirus. His states that they have double pneumonia as well. Patient has not been checking his temperature at home because they do not have a thermometer but he feels like he has chills and and subjective fevers. Patient is not eating and drinking very much due to not feeling well. He is not treating his fevers and chills with Tylenol or ibuprofen. Patient does however states his blood sugars have been in the low 100s. He denies chest pain. Previously he was on oxygen several months ago with history of PEs in the past but he did not like the oxygen because he felt like people are making fun of him so he took it off. [facility] Medical History (Updated 03/01/24 @ 22:[address] Genevieve Case MD) (HFpEF) heart failure with preserved ejection fraction Actinic keratosis Anxiety Atherosclerotic heart disease of [place] coronary artery without angina pectoris Cheek mass Closed fracture of 5th metacarpal Contact dermatitis and eczema due to plant Diabetes Dilated aortic root DVT (deep venous thrombosis) Electric current accident Elevated troponin Essential (primary) hypertension GERD (gastroesophageal reflux disease) History of 2019 novel coronavirus disease (COVID-19) (~06/2021) History of non-ST elevation myocardial infarction (NSTEMI) (10/22/21) History of ventral hernia Hyperlipidemia IBS (irritable bowel syndrome) Intradermal nevus of face Neoplasm of skin of right cheek Neoplasm of skin of scalp Neoplasm of skin of scalp Neoplasm of skin of anabaptist region Non-ST elevation [place] (NSTEMI) Pneumonia due to 2019-nCoV (06/27/21) Right ventricular dilation Right ventricular systolic dysfunction Saddle pulmonary embolus Seborrheic keratosis Syncope and collapse Type 2 diabetes mellitus URI (upper respiratory infection) Home Medications alprazolam 1 mg tablet 1 mg PO QHS sleep 04/23/20 [History Last Taken 10/21/21] citalopram 40 mg tablet 40 mg PO DAILY mental health 09/04/21 [History Last Taken 10/21/21] brimonidine 0.2 % eye drops 1 drp ophthalmic (eye) DAILY eye health 09/23/21 [History Last Taken 10/21/21] cyanocobalamin (vitamin B-12) 500 mcg tablet 500 mcg PO DAILY vitamin 10/22/21 [History Last Taken 10/21/21] cholecalciferol (vitamin D3) 125 mcg (5,000 unit) tablet 125 mcg PO 2XW 12/18/21 [History Last Taken Unknown] omeprazole 40 mg capsule,delayed release 40 mg PO DAILY 12/18/21 [History Last Taken Unknown] dicyclomine 10 mg capsule 10 mg PO TID Nausea 08/13/22 [History Last Taken Unknown] carvedilol 12.5 mg tablet 12.5 mg PO BID #180 tabs 02/11/23 [Rx Last Taken Unknown] clopidogrel 75 mg tablet 75 mg PO DAILY 03/01/24 [History Last Taken Unknown] dulaglutide 0.75 mg/0.5 mL subcutaneous pen injector (Trulicity) 0.75 mg subcut MO 03/01/24 [History Last Taken Unknown] memantine 10 mg tablet 10 mg PO DAILY 03/01/24 [History Last Taken Unknown] Allergy/AdvReac Type Severity Reaction Status Date / Time adhesive Allergy Unknown Unknown Verified 03/01/24 19:57 meperidine HCl [From Demerol] Allergy Unknown Hives Verified 03/01/24 19:57 cefadroxil hydrate AdvReac Unknown Other Verified 03/01/24 19:57 [From Duricef] Family History Mother Cancer Diabetes Father Diabetes Hypertension Hyperlipidemia CVA (cerebral vascular accident) CAD (coronary artery disease) Hx CABG Brother Diabetes Myocardial infarction Surgical History History of arthroscopy of right knee (2005) History of coronary artery stent placement (10/23/21) History of excision of lesion History of left heart catheterization (12/13/14) History of left knee surgery History of loop recorder (03/15/19) History of Shannan fundoplication (2000) History of repair of hiatal hernia (2000) History of right knee surgery Hx laparoscopic cholecystectomy (08/2012) Social History household members: spouse Smoking Status: Never smoker alcohol intake: never substance use type: does not use caffeine: Yes Type: coffee what type of physical activity do you participate in: none seatbelt use: always do you feel safe at home: Yes additional social history: DOES NOT TAKE ASPIRIN DOES TAKE IBUPROFEN NEEDED ROS ROS ED Constitutional Constitutional ED: Reports chills and fever(s); Denies sweats Eyes Eyes: Denies blurry vision or change in vision ENT ENT ED: Denies ear pain or sore throat Cardiovascular Cardiovascular: Denies chest pain, palpitations or racing heartbeat Respiratory/Chest Respiratory/Chest: Reports cough, dyspnea and dyspnea on exertion; Denies sputum Gastrointestinal Gastrointestinal: Denies abdominal pain, constipation, diarrhea, nausea or vomiting Genitourinary Genitourinary ED: Denies dysuria, hematuria or urinary frequency Musculoskeletal Musculoskeletal: Denies arthralgias, myalgias or neck pain Integumentary Denies abscess, Abrasions or rash Neurologic Neurologic: Reports headache(s); Denies paresthesias or weakness Psychiatric Psychiatric: Denies anxiety, depression, suicidal ideation or suicidal thoughts Endocrine Endocrinology: Denies polydipsia or polyuria EXAM Physical Exam Const Vital Signs: 03/01/24 19:53 03/01/24 19:58 03/01/24 19:58 Temperature 100.0 F H Temperature Source Temporal Pulse Rate 123 H Respiratory Rate 16 Respiratory Effort Respiratory Depth Respiratory Pattern Blood Pressure 102/82 H Blood Pressure Mean 88 Pulse Ox 91 89 Oxygen Delivery Method Room Air Room Air Room Air Oxygen Flow Rate (L/min) 03/01/24 19:58 03/01/24 20:27 03/01/24 20:31 Temperature 103.1 F H Temperature Source Oral Pulse Rate 113 H Respiratory Rate 19 H 21 H Respiratory Effort Short of Breath Respiratory Depth Shallow Respiratory Pattern Tachypnea Blood Pressure 140/78 H Blood Pressure Mean 98 Pulse Ox 89 91 Oxygen Delivery Method Room Air Room Air Room Air Oxygen Flow Rate (L/min) 03/01/24 21:00 03/01/24 21:52 03/01/24 22:00 Temperature 103 F H 101 F H Temperature Source Oral Oral Pulse Rate 111 H 100 98 Respiratory Rate 23 H 18 Respiratory Effort Respiratory Depth Respiratory Pattern Blood Pressure 129/85 H 97/76 Blood Pressure Mean 99 83 Pulse Ox 90 94 Oxygen Delivery Method Room Air Nasal Cannula Oxygen Flow Rate (L/min) 2 Positive well nourished General Appearance ED: NAD; Negative for pallor HEENT Reports dry mucous membranes Mouth ED: Yes dry mucous membranes Mouth: dry mucous membranes Eyes PERRL and EOMs intact bilaterally Neck no lymphadenopathy Resp normal respiratory effort and clear to auscultation bilaterally Cardio regular rhythm Rate: tachycardic GI non-tender Neuro oriented x3 and CN's II-XII intact bilaterally Sensorium / Orientation: alert Motor Exam: strength 5/5 throughout Psych mental status grossly normal Skin no wounds General Skin Exam: Negative for jaundice or pallor MDM MDM MDM Narrative Medical decision making narrative: 63-year-old male presenting with shortness of breath. He was exposed to COVID and rhinovirus by his grandchildren's been sick about a week. Differential includes COVID, influenza, RSV, other viral etiology, pneumonia, dehydration, anemia, electrolyte abnormalities, ACS. CBC was obtained to assess white blood cell count, hemoglobin, BMP to assess renal function, electrolytes, glucose. High-sensitivity troponin and EKG to assess for ischemia/arrhythmia. Chest x- ray to rule out pneumonia. Patient was given IV fluids. His CBC was unremarkable. BMP shows creatinine elevated at 1.72 which is abnormal for him. He was given 2 L of IV fluids. Glucose is 448 without anion gap. High- sensitivity troponin is 10. EKG on my interpretation shows sinus tachycardia at a rate of 121 bpm without sign of ischemic change. Patient's heart rate did slow down with fluid resuscitation. Blood pressures improved to 118/78. He still requiring oxygen and was hypoxic on arrival. Tylenol was given for his fever and is now resolved. Chest x-ray on my interpretation shows a left lower lung infiltrate. Radiology interprets this and agrees. Since patient is not hypoxic we will treat him with Rocephin and azithromycin for pneumonia. He is admitted to the hospitalist. His COVID, flu, RSV are negative and his viral respiratory panel is pending. Impression: 1. Pneumonia 2. Hypoxic respiratory failure 3. FREEDOM Lab Data Labs: Laboratory Results - last 24 hr 03/01/24 20:15 WBC 8.3 RBC 3.97 L Hgb 12.6 L Hct 38.7 L MCV 97.5 H MCH 31.7 MCHC 32.6 RDW Std Deviation 45.4 H RDW Coeff of Juancarlos 12.8 Plt Count 203 MPV 9.8 Immature Gran % (Auto) 0.400 Neut % (Auto) 85.0 H Lymph % (Auto) 9.9 L [place] % (Auto) 4.5 Eos % (Auto) 0.0 Baso % (Auto) 0.2 Absolute Neuts (auto) 7.0 Absolute Lymphs (auto) 0.82 L Nucleated RBC % 0 Sodium 134 L Potassium 4.0 Chloride 103 Carbon Dioxide 26.0 Anion Gap 5 BUN 20 H Creatinine 1.72 H Estim Creat Clear Calc 57.31 Est GFR (MDRD) Af Amer 52 L Est GFR (MDRD) Non-Af 43 L BUN/Creatinine Ratio 11.6 Glucose 448 H Calcium 8.9 Troponin I High Sens 10 Radiography Diagnostic Testing: Clinical Impression(s) from Imaging Studies Chest X-Ray 03/01/24 20:00 IMPRESSION: Streaky opacities in the left lower lung may represent atelectasis versus infection. Hiatal hernia. Electronically Signed: Isaac Wolf MD at 21:26 EDT , Discharge Plan Disposition Disposition: Acute Care Hospital [facility] Discharge Date/Time: 03/01/24 23:14
--- NOTE | 2024-03-01 22:46 | HP.PCM.HOS_ITS ---
HPI - General General Date of Admission: 03/01/24 Date of Service: 03/01/24 Chief Complaint: Dyspnea, cough, fever, chills. HPI Narrative The patient is a 63 y/o M w/ PMHx: Anxiety and Depression, Chronic dementia unclear type with unclear behavioral disturbance history, Obesity, Chronic anemia, CKD stage II, Anxiety and Depression, HFpEF, HTN, HLD, Hx VTE (DVT, Saddle PE), IBS, Diabetes mellitus type II, CAD s/p PCI, GERD w/ Shannan fund oplication who presents to the [facility] ED on 03/01/24 with history of 2 weeks of initially upper respiratory type symptoms with cough, congestion, rhinorrhea eventually transitioning to more productive cough with dyspnea and fever and chills over the last several days with poor oral intake and general malaise and fatigue not taking any [id number] Tylenol or ibuprofen despite his fevers with blood sugars reportedly being in the low 100s prompting eventual ED evaluation. Patient reports that his 2 grandchildren have also been sick as well as his but the grandchildren seem to have improved and his is also slowly improving. He notes that his cough eventually now has productive yellow sputum. Patient does report that he has been on oxygen previously several months prior secondary history of pulmonary emboli but does not like using it secondary to social stigma. Workup in the ED included T initially 100, heart rate initially 123, BP initially 102/82, respiratory rate 16 and initially 91% on room air however desaturated down to 87 to 88% on room air with improvement to 94% on 2 L nasal cannula, Tmax in the ED 103.1, current vital signs heart rate 98, BP 97/76, respiratory rate 18, CBC with WBC 8.3, hemoglobin 12.6, MCV 97.5, platelet 203 with lymphopenia, BMP with sodium 134, BUN/creatinine 20/1.72, GFR 43, glucose 148, troponin 10, chest x-ray with streaky opacities left lower lung concerning for possible pneumonia, hiatal hernia, rapid SARS COVID/influenza/RSV PCR negative, pending full respiratory viral panel ordered per ED. in the ED patient ministered 1 L normal saline, Tylenol 1000 mg p.o. x 1, IV Rocephin and IV azithromycin. [facility] Medical History (Updated 03/01/24 @ 22:[address] Geenvieve Case MD) (HFpEF) heart failure with preserved ejection fraction Actinic keratosis Anxiety Atherosclerotic heart disease of [place] coronary artery without angina pectoris Cheek mass Closed fracture of 5th metacarpal Contact dermatitis and eczema due to plant Diabetes Dilated aortic root DVT (deep venous thrombosis) Electric current accident Elevated troponin Essential (primary) hypertension GERD (gastroesophageal reflux disease) History of 2019 novel coronavirus disease (COVID-19) (~06/2021) History of non-ST elevation myocardial infarction (NSTEMI) (10/22/21) History of ventral hernia Hyperlipidemia IBS (irritable bowel syndrome) Intradermal nevus of face Neoplasm of skin of right cheek Neoplasm of skin of scalp Neoplasm of skin of scalp Neoplasm of skin of nondenominational region Non-ST elevation [place] (NSTEMI) Pneumonia due to 2019-nCoV (06/27/21) Right ventricular dilation Right ventricular systolic dysfunction Saddle pulmonary embolus Seborrheic keratosis Syncope and collapse Type 2 diabetes mellitus URI (upper respiratory infection) Home Medications alprazolam 1 mg tablet 1 mg PO QHS sleep 04/23/20 [History Last Taken 10/21/21] citalopram 40 mg tablet 40 mg PO DAILY mental health 09/04/21 [History Last Taken 10/21/21] brimonidine 0.2 % eye drops 1 drp ophthalmic (eye) DAILY eye health 09/23/21 [History Last Taken 10/21/21] cyanocobalamin (vitamin B-12) 500 mcg tablet 500 mcg PO DAILY vitamin 10/22/21 [History Last Taken 10/21/21] cholecalciferol (vitamin D3) 125 mcg (5,000 unit) tablet 125 mcg PO 2XW 12/18/21 [History Last Taken Unknown] omeprazole 40 mg capsule,delayed release 40 mg PO DAILY 12/18/21 [History Last Taken Unknown] dicyclomine 10 mg capsule 10 mg PO TID Nausea 08/13/22 [History Last Taken Unknown] carvedilol 12.5 mg tablet 12.5 mg PO BID #180 tabs 02/11/23 [Rx Last Taken Unknown] clopidogrel 75 mg tablet 75 mg PO DAILY 03/01/24 [History Last Taken Unknown] dulaglutide 0.75 mg/0.5 mL subcutaneous pen injector (Trulicity) 0.75 mg subcut MO 03/01/24 [History Last Taken Unknown] memantine 10 mg tablet 10 mg PO DAILY 03/01/24 [History Last Taken Unknown] Allergy/AdvReac Type Severity Reaction Status Date / Time adhesive Allergy Unknown Unknown Verified 03/01/24 19:57 meperidine HCl [From Demerol] Allergy Unknown Hives Verified 03/01/24 19:57 cefadroxil hydrate AdvReac Unknown Other Verified 03/01/24 19:57 [From Duricef] Family History Mother Cancer Diabetes Father Diabetes Hypertension Hyperlipidemia CVA (cerebral vascular accident) CAD (coronary artery disease) Hx CABG Brother Diabetes Myocardial infarction Surgical History History of arthroscopy of right knee (2005) History of coronary artery stent placement (10/23/21) History of excision of lesion History of left heart catheterization (12/13/14) History of left knee surgery History of loop recorder (03/15/19) History of Shannan fundoplication (2000) History of repair of hiatal hernia (2000) History of right knee surgery Hx laparoscopic cholecystectomy (08/2012) Social History household members: spouse Smoking Status: Never smoker alcohol intake: never substance use type: does not use caffeine: Yes Type: coffee what type of physical activity do you participate in: none seatbelt use: always do you feel safe at home: Yes additional social history: DOES NOT TAKE ASPIRIN DOES TAKE IBUPROFEN NEEDED ROS ROS Narrative Admission Review of Systems: CONSTITUTIONAL: No weight loss, + fever, chills, weakness or fatigue. HEENT: + Mild generalized headache, cough, congestion, rhinorrhea Eyes: No visual loss, blurred vision, double vision or yellow sclerae. Ears, Nose, Throat: No hearing loss, sneezing. SKIN: No rash or itching, lesions, wounds. CARDIOVASCULAR: No chest pain, chest pressure or chest discomfort, palpitations, edema, orthopnea, syncopal events. RESPIRATORY: + Dyspnea, productive cough. No wheezing, hemoptysis. GASTROINTESTINAL: + Anorexia. No nausea, vomiting or diarrhea, abdominal pain, melena, BRBPR. GENITOURINARY: No dysuria, frequency, urgency or retention. NEUROLOGICAL: + Headache. No dizziness, syncope, paralysis, ataxia, numbness or tingling in the extremities, focal weakness, change in bowel or bladder control, seizure. MUSCULOSKELETAL: + muscle, back pain, joint pain or stiffness. HEMATOLOGIC: + Chronic anemia, easy bleeding/bruising.. LYMPHATICS: No enlarged nodes. No history of splenectomy. PSYCHIATRIC: + History of anxiety and depression. ENDOCRINOLOGIC: No reports of sweating, cold or heat intolerance. No polyuria or polydipsia. ALLERGIES: + History of hives. Vital Signs Vital Signs Vital Signs: 03/01/24 19:53 03/01/24 19:58 03/01/24 19:58 Temperature 100.0 F H Temperature Source Temporal Pulse Rate 123 H Respiratory Rate 16 Respiratory Effort Respiratory Depth Respiratory Pattern Blood Pressure 102/82 H Blood Pressure Mean 88 Pulse Ox 91 89 Oxygen Delivery Method Room Air Room Air Room Air Oxygen Flow Rate (L/min) 03/01/24 19:58 03/01/24 20:27 03/01/24 20:31 Temperature 103.1 F H Temperature Source Oral Pulse Rate 113 H Respiratory Rate 19 H 21 H Respiratory Effort Short of Breath Respiratory Depth Shallow Respiratory Pattern Tachypnea Blood Pressure 140/78 H Blood Pressure Mean 98 Pulse Ox 89 91 Oxygen Delivery Method Room Air Room Air Room Air Oxygen Flow Rate (L/min) 03/01/24 21:00 03/01/24 21:52 03/01/24 22:00 Temperature 103 F H 101 F H Temperature Source Oral Oral Pulse Rate 111 H 100 98 Respiratory Rate 23 H 18 Respiratory Effort Respiratory Depth Respiratory Pattern Blood Pressure 129/85 H 97/76 Blood Pressure Mean 99 83 Pulse Ox 90 94 Oxygen Delivery Method Room Air Nasal Cannula Oxygen Flow Rate (L/min) 2 Weight Weight: 259 lb Body Mass Index (BMI) 36.1 Physical Exam Narrative Physical Examination: General: Awake, alert, oriented x 3 and cooperative, seated upright in the ED bed, fatigued and ill-appearing. Skin: Normal color, normal turgor, no icterus, no cyanosis except occasional abrasion. HEENT: AT/NC, EOMI, PERRLA, dry MM, poor dentition, no carotid bruits or JVD noted. Lungs: Diminished, distant, greater bases, left greater than right, mildly increased respiratory rate but no distress, no markedly appreciated rales, ronchi or wheezing. Heart: Tachycardic with regular rhythm; no gallop, rub audible. Abdomen: Soft, obese, NTTP, ND, mildly hyperactive BS, no appreciated HSM. Extremities: No cyanosis, no clubbing, mild ankle not markedly pitting edema. Neurological: Patient awake, alert, oriented as noted, cognitive function intact; pupils equally reactive to light and accommodation, cranial nerves grossly normal, moving all 4 extremities, no focal deficits, strength moderately to severely globally decreased secondary to acute presentation complaints. Psychiatric: Affect appears flat, fatigued, ill-appearing, no acute evidence of depressive or anxiety feelings but does have underlying history. Results Lab / Micro Data 03/01/24 20:15 03/01/24 20:15 Labs: Laboratory Results - last 24 hr 03/01/24 20:15: WBC 8.3, RBC 3.97 L, Hgb 12.6 L, Hct 38.7 L, MCV 97.5 H, MCH 31.7, MCHC 32.6, RDW Std Deviation 45.4 H, RDW Coeff of Juancarlos 12.8, Plt Count 203, MPV 9.8, Immature Gran % (Auto) 0.400, Neut % (Auto) 85.0 H, Lymph % (Auto) 9.9 L, [place] % (Auto) 4.5, Eos % (Auto) 0.0, Baso % (Auto) 0.2, Absolute Neuts (auto) 7.0, Absolute Lymphs (auto) 0.82 L, Nucleated RBC % 0, Sodium 134 L, Potassium 4.0, Chloride 103, Carbon Dioxide 26.0, Anion Gap 5, BUN 20 H, Creatinine 1.72 H , Estim Creat Clear Calc 57.31, Est GFR (MDRD) Af Amer 52 L, Est GFR (MDRD) Non- Af 43 L, BUN/Creatinine Ratio 11.6, Glucose 448 H, Calcium 8.9, Troponin I High Sens 10 Micro: Microbiology 03/01/24 21:04 Mucosa - Nose SARS-CoV-2, Influenza & RSV (PCR) - Final Imaging Radiology Impression Chest X-Ray 03/01/24 20:00 IMPRESSION: Streaky opacities in the left lower lung may represent atelectasis versus infection. Hiatal hernia. Electronically Signed: Isaac Wolf MD at 21:26 EDT , Assessment & Plan Assessment/Plan (1) Hypoxia: (2) Pneumonia: PLAN: Plan The patient is a 63 y/o M w/ PMHx: Anxiety and Depression, Chronic dementia unclear type with unclear behavioral disturbance history, Obesity, Chronic anemia, CKD stage II, Anxiety and Depression, HFpEF, HTN, HLD, Hx VTE (DVT, Saddle PE), IBS, Diabetes mellitus type II, CAD s/p PCI, GERD w/ Shannan fundoplication who presents to the [facility] ED on 03/01/24 with history of 2 weeks of initially upper respiratory type symptoms with cough, congestion, rhinorrhea eventually transitioning to more productive cough with dyspnea and fever and chills over the last several days with poor oral intake and general malaise and fatigue not taking any [id number] Tylenol or ibuprofen despite his fevers with blood sugars reportedly being in the low 100s prompting eventual ED evaluation. Patient does report that he has been on oxygen previously several months prior secondary history of pulmonary emboli but does not like using it se condary to social stigma. #1. Acute Hypoxia secondary to Suspected Recent Acute Viral Syndrome with now Suspected superimposed Acute Left lower lobe possibly bacterial pneumonia: Will admit to [facility], maintain on oxygen with wean as tolerated to room air, continue ATC budesonide, PRN albuterol, maintained on IV Rocephin and Azithromycin, HOB, IS parameters w/ pending sputum cultures and urine antigens. Procalcitonin requested. Full respiratory viral panel pending per ED. PT/OT/case management consultation for discharge planning. #2. Acute Kidney Injury on Chronic Kidney Disease Stage II: Admission BUN/Cr 20/1.72, GFR 43, baseline renal function primarily 1.0-1.1, baseline GFR 60-70 primarily, will judiciously hydrate given underlying heart failure history, hold nephrotoxic medications and repeat CMP in AM. #3. Diabetes mellitus type II with presentation with hyperglycemia but reported history at home per family and patient episodes of blood sugars in the low 100s which is not baseline for patient: Holding patient dulaglutide, from current list does not appear to be on any other regimen but clarifying to be cautious, monitor for any hypoglycemia but currently elevated blood sugars thus will use Accu-Chek with sliding scales as needed and may add long-acting small amount if necessary, maintain on ADA diet. #4. HFpEF: Will continue Plavix, Coreg, not on statin therapy nor CLARENCE inhibitor/ARB nor any diuretic therapy, most recent echocardiogram noted 11/18/2021 with normal LV size, LV systolic function normal, EF 53%, stage I diastolic dysfunction, mildly dilated aortic root. Will judiciously hydrate as noted. #5. CAD: Status post PCI, will continue Plavix, Coreg, not on statin therapy, not on CLARENCE or/ARB possibly secondary to underlying renal disease or reaction but unclear #6. Hypertension: Continue home regimen including Coreg, PRN hydralazine. #7. Hyperlipidemia: Not on statin therapy per current list, defer to outpatient. #8. History of VTE: Patient with previous history of DVT, saddle PE, sounds as though this was post COVID thus considered provoked, not chronically anticoagulated per current medication list but clarifying to be cautious, in the interim will maintain on chemoprophylaxis #9. Chronic macrocytic anemia: Admission hemoglobin 12.6, MCV 97.5, baseline hemoglobin 12 primarily, stable, continue to trend. #10. GERD: Status post previous Shannan with fundoplication, continue patient on PPI. #11. Chronic dementia unclear type with unclear behavioral disturbance history: Complicates presentation, will continue patient home memantine home regimen. #12. Anxiety and depression: We will continue patient home citalopram and cautiously nightly alprazolam especially given underlying dementia. #13. Obesity: Weight loss and lifestyle changes encouraged. #14. DVT prophylaxis: Lovenox. #15. CODE status: Patient HCPOA and living will are not in place but he notes his would be his medical decision-maker if necessary. Discussed CODE status at length including difference between FULL code, DNR-CCA and DNR-CC status. Following discussions about the differences in these status, requested Full Code status. Advanced Care Planning Face to Face Time: 16 minutes. Charges/Coding Visit Charges Inpatient E&M: 11835 Init Hosp L3 Procedures Hospitalists Procedures: 64256 Advncd Care Plan 30 Min
[2024-03-01] MEDS: Ceftriaxone 1 GM/50 ML BAG IV (23:09)
[2024-03-01 23:18] LABS: Mucous, Urine 0 SEEN /hpf (<or=2+); Red Blood Cells-Urine 0 SEEN /hpf (0-5); Squamous Epithelial Cells - UA 0 SEEN /hpf (0-5)
[2024-03-01 23:22] LABS: Color, Urine Yellow (Yellow); Glucose, Dipstick 1000 mg/dl (Normal); Ketone-Dipstick 5 mg/dl (Negative); Leukocyte Esterase-Dipstick Negative /ul (Negative); Nitrite-Dipstick Negative (Negative); Occult Blood-Urine 10 /ul (Negative); Protein-Dipstick 15 mg/dl (Negative); Urine Bilirubin Dipstick Negative (Negative); Urine Clarity Clear (Clear); Urine Urobilinogen 1 mg/dl (Normal)
[2024-03-01 23:29] LABS: Bacteria RARE /hpf (None Seen); White Blood Cells 0-5 SEEN /hpf (0-5)
[2024-03-02] VITALS (8 sets, daily range): BP systolic 105–117; BP diastolic 72–77; PULSE 71–99; RESP 16–18; TEMP 36.4–37.3; O2SAT 90–96; BMI 36.5
[2024-03-02] MEDS: Azithromycin 500 MG in Dextrose 5%-Water (250mL Bag) 250 ML 250 MG IV ×2 (00:07→22:38)
[2024-03-02] MEDS: 0.9% Normal Saline (1000mL) 1,000 ML 125 ML IV (00:07)
[2024-03-02 00:44] LABS: Procalcitonin 0.23 ng/mL (0.00-0.09)
[2024-03-02 00:46] LABS: Bedside Glucose 363 mg/dL (74-106)
[2024-03-02] MEDS: Dicyclomine 10 MG Capsule PO ×3 (05:42→20:58)
[2024-03-02] MEDS: Insulin Lispro 100 UNIT/ML INSULN.PEN SC ×4 (05:46→21:00)
[2024-03-02 06:37] LABS: Absolute Neutrophil Count 4.7 X10^3/uL (2.0-7.7); Basophil# 0.01 X10^3/uL; Basophil% 0.2 % (0-1); Hematocrit 34.5 % (40-54); Hemoglobin 10.9 g/dL (13.0-16.5); Lymphocyte % 16.2 % (19-41); Mean Corp Hgb Conc 31.6 g/dL (32-36); Mean Corpuscular Hgb 31.8 pg (27.0-32.0); Mean Corpuscular Volume 100.6 fL (80-94); Monocyte# 0.47 X10^3/uL; Monocyte% 7.6 % (0-10); NRBC Flagged by Analyzer 0 % (0-5); Neutrophil # 4.66 X10^3/uL (2.7-7.7); Neutrophil % 75.5 % (47-70); Platelet Count 178 K/mm3 (150-450); RBC Distribution Width CV 12.9 % (11.6-14.6); RBC Distribution Width SD 48.1 fl (35.1-43.9); Red Blood Count 3.43 M/mm3 (4.6-6.2); White Blood Count 6.2 K/mm3 (4.4-11.0)
[2024-03-02 06:40] LABS: Bedside Glucose 283 mg/dL (74-106)
[2024-03-02 07:01] LABS: ALB/GLOB Ratio 0.6 RATIO (0.9-2.4); AST(SGOT) 26 U/L (15-37); Alanine Aminotransfer ALT/SGPT 31 U/L (16-61); Albumin, Serum 2.5 g/dL (3.2-5.0); Alkaline Phosphatase 92 U/L (45-117); Anion Gap 4 (5-15); BUN 16 mg/dL (7-18); BUN/Creat Ratio 13.3 RATIO (10-20); Calcium,Total 8.4 mg/dL (8.5-10.1); Chloride 108 mmol/L (98-107); EST Glomerular Filtration Rate 65 mL/min (>60); Est Glom Filt Rate - Afr Amer 79 mL/min (>60); Estimated Creatinine Clearance 82.44 ml/min; Glucose 292 mg/dL (74-106); Potassium 4.4 mmol/L (3.5-5.1); Protein, Total 6.5 g/dL (6.4-8.2); Sodium Level 141 mmol/L (136-145)
[2024-03-02] MEDS: BRIMONIDINE 0.2% 5ML BOTTLE 1 DRP OPHTHALMIC (07:24)
[2024-03-02] MEDS: Pantoprazole Sodium 40 MG Tablet PO (07:25)
[2024-03-02] MEDS: Carvedilol 12.5 MG Tablet PO ×2 (07:25→16:13)
[2024-03-02] MEDS: Citalopram 40 MG TABLET PO (07:25)
[2024-03-02] MEDS: Clopidogrel Bisulfate 75 MG Tablet PO (07:25)
[2024-03-02] MEDS: Enoxaparin 40 MG/0.4 ML Syringe SC (07:25)
[2024-03-02] MEDS: Glucerna Shake 120 ML LIQUID PO ×4 (07:28→21:10)
[2024-03-02] MEDS: Memantine Hydrochloride 10 MG Tablet PO (07:30)
[2024-03-02] MEDS: Budesonide Respules 0.5 MG/2 ML AMPUL.NEB. INHALATION ×2 (07:42→19:40)
--- NOTE | 2024-03-02 10:20 | CASEMGMT ---
VAHID KAPOOR NOTE: RN EMELIA to room to meet with patient for initial transition planning/care coordination assessment. VAHID KAPOOR introduced self and role at [facility]. Patient lying in bed, alert and oriented. Patient willing to participate in assessment and is able to answer all questions appropriately. Care providers, pharmacy, and demographics verified. 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 retail Insurance: MMO Prescription Benefit: yes LNOK: Living Arrangements: Patient lives with in a split level home with 4 steps to upper level and 6 steps to lower level. Family room and bathroom on lower level. Bedroom, kitchen, and another bathroom on upper level. Patient is independent and able to ambulate stairs at home w/out difficulty. Transportation: drives most of the time. Pt states he drives [id number]. DME: Patient has a pulse ox and functioning glucometer w/supplies. Pt states he also has all insulin/supplies and medications @ home that is needed. Pt states he used to have home O2 (from [employer]) but has returned it. Pt states if he would qualify for home O2 @ discharge that he would want [employer] again. HHC/SNF: Patient has had [facility] HHC in the past. No hx of SNF. Pt wishes to discharge home and denies having any concerns/needs w/going home. He declines wanting HHC or OP therapy. Plan: Home Julieth RAYMOND RN, CM
[2024-03-02 11:26] LABS: Bedside Glucose 212 mg/dL (74-106)
--- NOTE | 2024-03-02 13:10 | PN_ITS ---
Subjective Subjective Patient seen and examined. He was admitted with a complaint of shortness of breath and is being managed for community-acquired pneumonia likely postviral. He still feels a bit short of breath and admits to a cough which is occasionally productive. He denies any fever or chills or nausea vomiting or any other sym ptoms. He says his grandchildren had similar symptoms and his also but they are all improving. He is on 2 L of oxygen at time of review. Objective Data Objective Data Vital Signs: Vital Signs Temp Pulse Resp BP Pulse Ox O2 Del Method O2 Flow Rate 98.1 F 86 16 107/72 94 Room Air 2 03/02/24 11:20 03/02/24 11:20 03/02/24 11:20 03/02/24 11:20 03/02/24 11:20 03/02/24 11:20 03/02/24 08:39 FiO2 2 03/02/24 01:55 Oxygen Flow Rate (L/min) 2 Oxygen Delivery Method Room Air Weight: 260 lb 12.909 oz Body Mass Index (BMI) 36.5 Intake & Output: Intake and Output for Last 24 Hours 02/29/24 03/01/24 03/02/24 23:59 23:59 23:59 Intake Total 1050 / 1050 2705 / 2705 Output Total 750 / 750 Balance 1050 / 1050 1955 / 1955 Lab / Micro Data 03/02/24 05:52 03/02/24 05:52 Labs: Laboratory Results - last 24 hr 03/01/24 20:15: WBC 8.3, RBC 3.97 L, Hgb 12.6 L, Hct 38.7 L, MCV 97.5 H, MCH 31.7, MCHC 32.6, RDW Std Deviation 45.4 H, RDW Coeff of Juancarlos 12.8, Plt Count 203, MPV 9.8, Immature Gran % (Auto) 0.400, Neut % (Auto) 85.0 H, Lymph % (Auto) 9.9 L, [place] % (Auto) 4.5, Eos % (Auto) 0.0, Baso % (Auto) 0.2, Absolute Neuts (auto) 7.0, Absolute Lymphs (auto) 0.82 L, Nucleated RBC % 0, Sodium 134 L, Potassium 4.0, Chloride 103, Carbon Dioxide 26.0, Anion Gap 5, BUN 20 H, Creatinine 1.72 H , Estim Creat Clear Calc 57.31, Est GFR (MDRD) Af Amer 52 L, Est GFR (MDRD) Non- Af 43 L, BUN/Creatinine Ratio 11.6, Glucose 448 H, Calcium 8.9, Troponin I High Sens 10 03/01/24 23:10: Urine Color Yellow, Urine Clarity Clear, Urine pH 5.0, Ur Specific [place] 1.010, Urine Protein 15 H, Urine Glucose (UA) 1000 H, Urine Ketones 5 H, Urine Occult Blood 10 H, Urine Nitrite Negative, Urine Bilirubin Negative, Urine Urobilinogen 1 H, Ur Leukocyte Esterase Negative, Urine RBC 0 SEEN, Urine WBC 0-5 SEEN, Ur Squamous Epith Cells 0 SEEN, Urine Bacteria RARE, Urine Mucus 0 SEEN 03/02/24 00:06: Procalcitonin 0.23 H, POC Glucose 363 H 03/02/24 05:45: POC Glucose 283 H 03/02/24 05:52: WBC 6.2, RBC 3.43 L, Hgb 10.9 L, Hct 34.5 L, MCV 100.6 H, MCH 31.8, MCHC 31.6 L, RDW Std Deviation 48.1 H, RDW Coeff of Juancarlos 12.9, Plt Count 178, MPV 10.0, Immature Gran % (Auto) 0.500, Neut % (Auto) 75.5 H, Lymph % (Auto) 16.2 L, [place] % (Auto) 7.6, Eos % (Auto) 0.0, Baso % (Auto) 0.2, Absolute Neuts (auto) 4.7, Absolute Lymphs (auto) 1.00, Nucleated RBC % 0, Sodium 141, Potassium 4.4, Chloride 108 H, Carbon Dioxide 29.0, Anion Gap 4 L, BUN 16, Creatinine 1.20, Estim Creat Clear Calc 82.44, Est GFR (MDRD) Af Amer 79, Est GFR (MDRD) Non-Af 65, BUN/Creatinine Ratio 13.3, Glucose 292 H, Calcium 8.4 L, Total Bilirubin 0.40, AST 26, ALT 31, Alkaline Phosphatase 92, Total Protein 6.5, Albumin 2.5 L, Globulin 4.0, Albumin/Globulin Ratio 0.6 L 03/02/24 10:57: POC Glucose 212 H Micro: Microbiology 03/02/24 05:50 Sputum, Expectorated/Coughed Gram Stain - Final 03/02/24 05:50 Urine, Random Legionella Antigen - Final 03/02/24 05:50 Urine, Random Streptococcus pneumoniae Antigen (M - Final 03/01/24 21:04 Mucosa - Nasopharyngeal Respiratory Panel (PCR) - Final 03/01/24 21:04 Mucosa - Nose SARS-CoV-2, Influenza & RSV (PCR) - Final Radiography Diagnostic Testing: Radiology Impression Chest X-Ray 03/01/24 20:00 IMPRESSION: Streaky opacities in the left lower lung may represent atelectasis versus infection. Hiatal hernia. Electronically Signed: Isaac Wolf MD at 21:26 EDT , Physical Exam Const alert, oriented x3 and no apparent distress General Appearance: cooperative and well developed HEENT normocephalic, head/scalp atraumatic, moist oral mucous membranes and oropharynx normal Eyes PERRL and EOMs intact bilaterally Neck supple and no JVD Lymph Lymphatic: no lymphadenopathy noted and no lymphedema noted Resp Resp Narrative: Mildly diminished breath sounds bibasilarly. Few crackles. Was on 2 L of oxygen but subsequently weaned down to room air. Cardio regular rate, regular rhythm, S1 normal heart sound, S2 normal heart sound and no murmurs GI normal to inspection, nondistended, normoactive bowel sounds, soft to palpation and non-tender Extremity normal capillary refill, no clubbing, cyanosis or edema and no calf tenderness General Extremity: no tenderness to palpation of joints or extremities Skin General Skin Exam: no breakdown and turgor normal Neuro CN's II-XII intact bilaterally, no focal motor deficits, no sensory deficits noted and deep tendon reflexes 2+ bilaterally Motor Exam: strength 5/5 throughout and general weakness Psych thought process normal, cooperative and affect normal Appearance: appropriate Assessment & Plan Assessment/Plan (1) Pneumonia: (2) Hypoxia: PLAN: Plan #Hypoxia due to superimposed pneumonia in the setting of recent acute viral syndrome * was on 2L of oxygen. Now on room air * breathing treatment with bronchodilators. Titarte oxygen to maintain sats >90% * on IV rocephin and azithromycin * urine for strep and legionella pending. * titrate oxygen to maintain sats >90% * #Type 2 diabetes mellitus * Home dose of dulaglutide on hold. Insulin sliding scale. Accu-Cheks ACHS. * #Heart failure preserved ejection fraction: Not in exacerbation. Has known EF of 53% with stage I diastolic dysfunction. Stable. #CAD s/p PCI: On Coreg and Plavix. Not on statin. Unclear why. #Hypertension: On Coreg. IV hydralazine as needed #History of DVT and PE: not currently anticoagulated. Stable #GERD: s/p Shannan fundoplication. stable #Anxiety and depression; on citalopram DVT prophylaxis: lovenox Charges/Coding Visit Charges Inpatient E&M: 43918 Subs Hosp L2
[2024-03-02 16:41] LABS: Bedside Glucose 238 mg/dL (74-106)
[2024-03-02] MEDS: Albuterol 2.5 MG/3 ML VIAL.NEB. INHALATION (19:40)
[2024-03-02 20:42] LABS: Bedside Glucose 232 mg/dL (74-106)
[2024-03-02] MEDS: ALPRAZolam 0.5 MG Tablet 1 MG PO (20:58)
[2024-03-02] MEDS: Ceftriaxone 1 GM/50 ML BAG IV (20:58)
[2024-03-03 06:00] VITALS: BP 136/97; PULSE 96; RESP 18; TEMP 36.6; O2SAT 95; BMI 36.5
[2024-03-03] MEDS: Insulin Lispro 100 UNIT/ML INSULN.PEN SC ×2 (06:03→12:18)
[2024-03-03] MEDS: Dicyclomine 10 MG Capsule PO ×2 (06:03→13:51)
[2024-03-03] MEDS: guaiFENesin 10 ML UDC (200MG/10ML) 20 ML PO (06:08)
[2024-03-03 06:32] LABS: Bedside Glucose 252 mg/dL (74-106)
[2024-03-03 06:58] VITALS: PULSE 95; RESP 18; O2SAT 95
[2024-03-03] MEDS: Budesonide Respules 0.5 MG/2 ML AMPUL.NEB. INHALATION (06:58)
[2024-03-03 07:13] LABS: Absolute Lymphocyte Count 1.65 X10^3/uL (0.83-4.51); Absolute Neutrophil Count 4.9 X10^3/uL (2.0-7.7); Basophil# 0.04 X10^3/uL; Basophil% 0.6 % (0-1); Eosinophil# 0.07 X10^3/uL; Hematocrit 34.1 % (40-54); Hemoglobin 10.9 g/dL (13.0-16.5); Lymphocyte # 1.65 X10^3/ul (0.83-4.51); Lymphocyte % 22.7 % (19-41); Mean Corpuscular Hgb 31.8 pg (27.0-32.0); Mean Corpuscular Volume 99.4 fL (80-94); Mean Platelet Vol. 10.2 fl (6.2-12.0); Monocyte# 0.49 X10^3/uL; Monocyte% 6.7 % (0-10); NRBC Flagged by Analyzer 0 % (0-5); Neutrophil # 4.92 X10^3/uL (2.7-7.7); Neutrophil % 67.6 % (47-70); Platelet Count 198 K/mm3 (150-450); RBC Distribution Width CV 12.7 % (11.6-14.6); RBC Distribution Width SD 46.4 fl (35.1-43.9); Red Blood Count 3.43 M/mm3 (4.6-6.2); White Blood Count 7.3 K/mm3 (4.4-11.0)
[2024-03-03 07:21] VITALS: BP 111/64; PULSE 88; RESP 16; TEMP 37.2; O2SAT 93
[2024-03-03] MEDS: Carvedilol 12.5 MG Tablet PO (07:34)
[2024-03-03 08:22] LABS: Anion Gap 6 (5-15); BUN 13 mg/dL (7-18); BUN/Creat Ratio 11.6 RATIO (10-20); Calcium,Total 8.3 mg/dL (8.5-10.1); Chloride 105 mmol/L (98-107); Creatinine, Serum 1.12 mg/dL (0.70-1.30); EST Glomerular Filtration Rate 70 mL/min (>60); Est Glom Filt Rate - Afr Amer 85 mL/min (>60); Estimated Creatinine Clearance 88.32 ml/min; Glucose 250 mg/dL (74-106); Potassium 4.2 mmol/L (3.5-5.1); Sodium Level 137 mmol/L (136-145)
[2024-03-03 10:27] VITALS: O2SAT 92; O2SAT 93
[2024-03-03] MEDS: Pantoprazole Sodium 40 MG Tablet PO (10:30)
[2024-03-03] MEDS: BRIMONIDINE 0.2% 5ML BOTTLE 1 DRP OPHTHALMIC (10:31)
[2024-03-03] MEDS: Memantine Hydrochloride 10 MG Tablet PO (10:31)
[2024-03-03] MEDS: Citalopram 40 MG TABLET PO (10:31)
[2024-03-03] MEDS: Enoxaparin 40 MG/0.4 ML Syringe SC (10:31)
[2024-03-03] MEDS: Clopidogrel Bisulfate 75 MG Tablet PO (10:32)
[2024-03-03] MEDS: Glucerna Shake 120 ML LIQUID PO ×2 (10:34→13:50)
--- NOTE | 2024-03-03 10:52 | CASEMGMT ---
Pt does not qualify for home oxygen.
[2024-03-03 13:52] VITALS: BP 118/75; PULSE 92; RESP 16; TEMP 36.6; O2SAT 92
[2024-03-03 14:05] LABS: Bedside Glucose 245 mg/dL (74-106)
--- NOTE | 2024-03-03 14:19 | DCINST_ITS ---
Discharge Instructions Diet Discharge Diet: Low fat / Low cholesterol Activity Discharge Activity: Return to Normal Activity Weight Bearing Status: Weight bearing as tolerated Dressing / Incision Call your doctor if you observe: Fever of 101 or Higher, Shortness of breath, Dizziness, Swelling in the ankles and Chest pain Follow Up Care Test Results: Test results from this visit will be discussed in further detail at your follow- up appointment, if applicable. Discharge Plan Admission Admit Date/Time: 03/01/24 22:48 Primary Reason for Your Visit: pneumonia Attending Provider: Sherry Miranda Primary Care Provider: Bryn Renteria Consulting Providers: Genevieve Case Instructions Patient Instructions: ED Pneumonia (Adult) Discharge Orders/Prescriptions Prescriptions: New levofloxacin 500 mg tablet 500 mg PO DAILY Qty: 3 0RF Continued citalopram 40 mg tablet 40 mg PO DAILY cholecalciferol (vitamin D3) 125 mcg (5,000 unit) tablet 125 mcg PO 2XW omeprazole 40 mg capsule,delayed release(DR/EC) 40 mg PO DAILY dicyclomine 10 mg capsule 10 mg PO TID carvedilol 12.5 mg tablet 12.5 mg PO BID Qty: 180 3RF alprazolam 1 MG tablet 1 mg PO QHS brimonidine 0.2 % drops 1 drp ophthalmic (eye) DAILY cyanocobalamin (vitamin B-12) 500 mcg Tablet 500 mcg PO DAILY clopidogrel 75 mg tablet 75 mg PO DAILY memantine 10 mg tablet 10 mg PO DAILY Trulicity 0.75 mg/0.5 mL pen injector 0.75 mg subcut MO Referrals / Follow Up: Bryn Renteria DO [Primary Care Provider] - Within 2 Weeks Disposition Disposition (needs filled in before D/C Order can be placed): Home, Self Care
--- NOTE | 2024-03-03 14:23 | DS.PCM_ITS ---
Providers Date of Admission: 03/01/24 Date of Discharge: 03/03/24 Primary Care Physician: Dr. Bryn Renteria DO Reason For Visit: HYPOXIA, RECEN VIRAL SYNDROME->PNA Diagnosis Discharge Diagnosis (1) Pneumonia: Status: Acute Code(s): J18.9 - Pneumonia, unspecified organism (2) Hypoxia: Status: Acute Code(s): R09.02 - Hypoxemia Plan #Hypoxia due to superimposed pneumonia in the setting of recent acute viral syndrome * was on 2L of oxygen. Now on room air * breathing treatment with bronchodilators. Titarte oxygen to maintain sats >90% * on IV rocephin and azithromycin * urine for strep and legionella pending. * titrate oxygen to maintain sats >90% * #Type 2 diabetes mellitus * Home dose of dulaglutide on hold. Insulin sliding scale. Accu-Cheks ACHS. * #Heart failure preserved ejection fraction: Not in exacerbation. Has known EF of 53% with stage I diastolic dysfunction. Stable. #CAD s/p PCI: On Coreg and Plavix. Not on statin. Unclear why. #Hypertension: On Coreg. IV hydralazine as needed #History of DVT and PE: not currently anticoagulated. Stable #GERD: s/p Shannan fundoplication. stable #Anxiety and depression; on citalopram DVT prophylaxis: lovenox Medications at Discharge Home Medications alprazolam 1 mg tablet 1 mg PO QHS sleep 04/23/20 citalopram 40 mg tablet 40 mg PO DAILY mental health 09/04/21 brimonidine 0.2 % eye drops 1 drp ophthalmic (eye) DAILY eye health 09/23/21 cyanocobalamin (vitamin B-12) 500 mcg tablet 500 mcg PO DAILY vitamin 10/22/21 cholecalciferol (vitamin D3) 125 mcg (5,000 unit) tablet 125 mcg PO 2XW 12/18/21 omeprazole 40 mg capsule,delayed release 40 mg PO DAILY 12/18/21 dicyclomine 10 mg capsule 10 mg PO TID Nausea 08/13/22 carvedilol 12.5 mg tablet 12.5 mg PO BID #180 tabs 02/11/23 clopidogrel 75 mg tablet 75 mg PO DAILY 03/01/24 dulaglutide 0.75 mg/0.5 mL subcutaneous pen injector (Trulicity) 0.75 mg subcut MO 03/01/24 memantine 10 mg tablet 10 mg PO DAILY 03/01/24 levofloxacin 500 mg tablet 500 mg PO DAILY #3 tabs 03/03/24 Hospital Course Operations None Procedures None Summary of Care Provided Minutes Spent on Discharge: 47 Hospital Course: Patient is a 63-year-old male with a past medical history as outlined including cough, fever and chills as well as shortness of breath. He was admitted through the ED on 03/01/2024 with a complaint of cough, congestion and rhinorrhea which have been going on for about 2 weeks prior to admission. Cough became more productive and he had not been eating and drinking well and generally felt weak. He checked his sugars and his blood sugars were in the low 100 so he decided to come into the ED. He said his grandchildren and had also been sick and his grandchildren had actually been admitted in the hospital because of this respiratory illness. Review of systems otherwise negative. He had previously been on oxygen but said he had stopped using it because he did not think he needed it and also due to his perceived social stigma of oxygen use. On admi ssion he was hypoxic with oxygen saturation going down to 87% on room air and improved to 94% on 2 L of oxygen. Chest x-ray showed streaky opacities in the left lower lung field concerning for possible pneumonia. Respiratory panel was negative. He was admitted and managed for hypoxia due to superimposed pneumonia in the setting of upper respiratory tract viral infection. Respiratory panel was negative. He was placed on IV ceftriaxone and azithromycin. His shortness of breath improved and he felt much better. He was weaned off of oxygen to room air. He had walking pulse ox which showed that he did not require any oxygen. He remained stable and was discharged about 03/03/2024. He is to follow-up with his primary care doctor within 1 to 2 weeks. Patient seen and examined prior to discharge. He had no active complaints and felt well. Review of systems otherwise negative. Labs and vitals reviewed. Home medication reviewed and reconciled. He was discharged on a 3-day course of p.o. levofloxacin 500 mg daily to complete a 5-day course of antibiotics. Physical Exam Const alert, oriented x3 and no apparent distress General Appearance: cooperative, comfortable, well kempt and well developed HEENT normocephalic, head/scalp atraumatic, hearing grossly normal bilaterally, moist oral mucous membranes and oropharynx normal Mouth: oral and palatal mucosa normal Eyes PERRL, EOMs intact bilaterally and conjunctivae normal Neck no lymphadenopathy, supple and no JVD Lymph Lymphatic: no lymphadenopathy noted and no lymphedema noted Resp Resp Narrative: Mildly diminished breath sounds bibasilarly. No crackles. On room air. Cardio regular rate, regular rhythm, S1 normal heart sound, S2 normal heart sound and no murmurs GI normal to inspection, nondistended, normoactive bowel sounds, soft to palpation and non-tender Extremity normal to inspection, full ROM, normal capillary refill, no clubbing, cyanosis or edema and no calf tenderness General Extremity: no tenderness to palpation of joints or extremities Skin General Skin Exam: no breakdown and turgor normal Neuro oriented x3, CN's II-XII intact bilaterally, moves all extremities, no focal motor deficits, no sensory deficits noted and deep tendon reflexes 2+ bilaterally Sensorium / Orientation: awake and alert Motor Exam: strength 5/5 throughout and general weakness Psych thought process normal, cooperative and affect normal Appearance: appropriate Weight / BMI Weight Weight: 260 lb 12.909 oz Body Mass Index (BMI) 36.5 ABG / Lab / Microbiology Data 03/03/24 06:02 03/03/24 06:02 Laboratory: Laboratory Results - last 24 hr 03/02/24 16:10: POC Glucose 238 H 03/02/24 20:24: POC Glucose 232 H 03/03/24 06:02: WBC 7.3, RBC 3.43 L, Hgb 10.9 L, Hct 34.1 L, MCV 99.4 H, MCH 31.8, MCHC 32.0, RDW Std Deviation 46.4 H, RDW Coeff of Juancarlos 12.7, Plt Count 198, MPV 10.2, Immature Gran % (Auto) 1.400 H, Neut % (Auto) 67.6, Lymph % (Auto) 22.7, [place] % (Auto) 6.7, Eos % (Auto) 1.0, Baso % (Auto) 0.6, Absolute Neuts (auto) 4.9, Absolute Lymphs (auto) 1.65, Nucleated RBC % 0, Sodium 137, Potassium 4.2, Chloride 105, Carbon Dioxide 26.0, Anion Gap 6, BUN 13, Cre atinine 1.12, Estim Creat Clear Calc 88.32, Est GFR (MDRD) Af Amer 85, Est GFR (MDRD) Non-Af 70, BUN/Creatinine Ratio 11.6, Glucose 250 H, Calcium 8.3 L, POC Glucose 252 H 03/03/24 12:16: POC Glucose 245 H Microbiology: Microbiology 03/02/24 05:50 Sputum, Expectorated/Coughed Gram Stain - Final 03/02/24 05:50 Sputum, Expectorated/Coughed Respiratory Culture - Preliminary 03/02/24 05:50 Urine, Random Legionella Antigen - Final 03/02/24 05:50 Urine, Random Streptococcus pneumoniae Antigen (M - Final 03/01/24 21:04 Mucosa - Nasopharyngeal Respiratory Panel (PCR) - Final 03/01/24 21:04 Mucosa - Nose SARS-CoV-2, Influenza & RSV (PCR) - Final D/C Instructions Discharge Diet: Low fat / Low cholesterol Discharge Activity: Return to Normal Activity Weight Bearing Status: Weight bearing as tolerated and Full weight bearing Call your doctor if you observe: Fever of 101 or Higher, Shortness of breath, Dizziness, Swelling in the ankles and Chest pain Meaningful Use Info Meaningful Use Meaningful Use Diagnoses (Choose all that apply): None applicable Ischemic Stroke Statin Dosing Therapy Reference: STATIN DOSE THERAPY REFERENCE: * Patients > 75 years receive moderate or high dose statin therapy. * Patients 75 years or YOUNGER should receive HIGH intensity statin dose unless contraindicated. You will be required to document reason for non-treatment if statin daily dose does not meet guidelines. HIGH DOSE STATIN THERAPY DAILY Atorvastatin > than or = to 40 mg Rosuvastatin > than or = to 20 mg Amlodipine + Atorvastatin > than or = to 2.5/40 mg Ezetimibe + Simvastatin 10/80 mg Simvastatin 80mg Discharge Plan Admission Admit Date/Time: 03/01/24 22:48 Primary Reason for Your Visit: pneumonia Attending Provider: Sherry Miranda Primary Care Provider: Bryn Renteria Consulting Providers: Genevieve Case Instructions Patient Instructions: ED Pneumonia (Adult) Discharge Orders/Prescriptions Prescriptions: New levofloxacin 500 mg tablet 500 mg PO DAILY Qty: 3 0RF Continued citalopram 40 mg tablet 40 mg PO DAILY cholecalciferol (vitamin D3) 125 mcg (5,000 unit) tablet 125 mcg PO 2XW omeprazole 40 mg capsule,delayed release(DR/EC) 40 mg PO DAILY dicyclomine 10 mg capsule 10 mg PO TID carvedilol 12.5 mg tablet 12.5 mg PO BID Qty: 180 3RF alprazolam 1 MG tablet 1 mg PO QHS brimonidine 0.2 % drops 1 drp ophthalmic (eye) DAILY cyanocobalamin (vitamin B-12) 500 mcg Tablet 500 mcg PO DAILY clopidogrel 75 mg tablet 75 mg PO DAILY memantine 10 mg tablet 10 mg PO DAILY Trulicity 0.75 mg/0.5 mL pen injector 0.75 mg subcut MO Referrals / Follow Up: Bryn Renteria DO [Primary Care Provider] - Within 2 Weeks Disposition Disposition (needs filled in before D/C Order can be placed): Home, Self Care Charges/Coding Visit Charges Inpatient E&M: 43116 Disch Hosp >30min
--- NOTE | 2024-03-03 14:59 | PHA.DC_ITS ---
Pharmacy [facility] has performed discharge medication reconciliation and counseling for this patient. The patient's discharge medication list was reviewed for discrepancies and discrepancies were resolved. The patient was counseled on the following discharge medications and changes in medications for homegoing were reviewed. The Reason for Use, instructions for use, and potential side effects were reviewed for all new medications. The patient's questions regarding all of their medications were answered. 1. Levofloxacin 500 mg PO Daily x 3 days The patient was able to verbally demonstrate an understanding of their discharge medications. Medications at Discharge Home Medications alprazolam 1 mg tablet 1 mg PO QHS sleep 04/23/20 citalopram 40 mg tablet 40 mg PO DAILY mental health 09/04/21 brimonidine 0.2 % eye drops 1 drp ophthalmic (eye) DAILY eye health 09/23/21 cyanocobalamin (vitamin B-12) 500 mcg tablet 500 mcg PO DAILY vitamin 10/22/21 cholecalciferol (vitamin D3) 125 mcg (5,000 unit) tablet 125 mcg PO 2XW 12/18/21 omeprazole 40 mg capsule,delayed release 40 mg PO DAILY 12/18/21 dicyclomine 10 mg capsule 10 mg PO TID Nausea 08/13/22 carvedilol 12.5 mg tablet 12.5 mg PO BID #180 tabs 02/11/23 clopidogrel 75 mg tablet 75 mg PO DAILY 03/01/24 dulaglutide 0.75 mg/0.5 mL subcutaneous pen injector (Trulicity) 0.75 mg subcut MO 03/01/24 memantine 10 mg tablet 10 mg PO DAILY 03/01/24 levofloxacin 500 mg tablet 500 mg PO DAILY #3 tabs 03/03/24
== END 2024-03-03 15:17 | disposition home or self-care (01) | DRG 194 ==
LOC: ED 21:17 → MS3 03-02 01:03
PROVIDERS: Admitting Provider Family Medicine; Emergency Provider Student in an Organized Health Care Education/Training Program; PCP Family Medicine; Visit Provider Student in an Organized Health Care Education/Training Program
DX: J18.9 Pneumonia, unspecified organism (principal); N17.9 Acute kidney failure, unspecified; I13.0 Hypertensive heart and chronic kidney disease with heart failure and stage 1 through stage 4 chronic kidney disease, or unspecified chronic kidney disease; F03.911 Unspecified dementia, unspecified severity, with agitation; I50.32 Chronic diastolic (congestive) heart failure; E11.22 Type 2 diabetes mellitus with diabetic chronic kidney disease; D53.9 Nutritional anemia, unspecified; E11.65 Type 2 diabetes mellitus with hyperglycemia; F32.A Depression, unspecified; I25.10 Atherosclerotic heart disease of native coronary artery without angina pectoris; K21.9 Gastro-esophageal reflux disease without esophagitis; N18.2 Chronic kidney disease, stage 2 (mild); E78.5 Hyperlipidemia, unspecified; I25.2 Old myocardial infarction; F41.9 Anxiety disorder, unspecified; E66.9 Obesity, unspecified; Z95.5 Presence of coronary angioplasty implant and graft; Z79.02 Long term (current) use of antithrombotics/antiplatelets; R09.02 Hypoxemia; Z85.828 Personal history of other malignant neoplasm of skin; Z79.899 Other long term (current) drug therapy; Z90.49 Acquired absence of other specified parts of digestive tract; Z68.36 Body mass index [BMI] 36.0-36.9, adult; Z79.85 Long-term (current) use of injectable non-insulin antidiabetic drugs
CPT/HCPCS: 36415; 71045; 80048; 80053; 81001; 82962; 84145; 84484; 85025; 87070; 87077; 87205; 87449; 87631; 87633; 93005; 94640; 94668; 94760; 97802; 99252; 99284; J7030; J7050; A4216; G0463

== ENCOUNTER 2024-06-07 00:53 | Inpatient (IN) | payer OTHER, MEDICARE, SELFPAY ==
[2021-12-08 07:45] VITALS: BMI 36.8
[2024-06-07] VITALS (10 sets, daily range): BP systolic 124–155; BP diastolic 95–104; PULSE 17–94; RESP 17–89; TEMP 36.2–36.8; O2SAT 93–97; BMI 35.5; BMI 35.0; BMI 35.2
--- NOTE | 2024-06-07 01:15 | CT_ITS ---
EXAM: CT ABDOMEN AND PELVIS WITH INTRAVENOUS CONTRAST CLINICAL INDICATION: ? SBO TECHNIQUE: Helically acquired images were obtained of the abdomen and pelvis with intravenous contrast. This CT exam was performed using one or more of the following dose reduction techniques: automated exposure control, adjustment of the mA and/or kV according to patient size, and/or use of iterative reconstruction technique. CONTRAST: IV 100mL [id number]-370 RADIATION DOSE: CTDIvol = 26.39 mGy, DLP = 1994.99 mGy-cm COMPARISON: KUB from same date. Previous CT abdomen and pelvis 07/21/2014 FINDINGS: LOWER THORAX: Stable hiatal hernia and fundoplication changes. Lung bases are clear. No cardiomegaly. No significant pericardial effusion. ABDOMEN: LIVER: Unremarkable. Homogeneous. No focal mass. GALLBLADDER AND BILE DUCTS: Cholecystectomy. No intra- or extrahepatic biliary ductal dilation. PANCREAS: Unremarkable. No focal cystic or solid mass. SPLEEN: Unremarkable. Normal size without focal cystic or solid mass. ADRENALS: Unremarkable. No nodules. KIDNEYS AND URETERS: Unremarkable. Normal renal size and position. No hydronephrosis. STOMACH AND BOWEL: Multiple distended and dilated small bowel loops measuring up to 4.5 cm, with a transition point in the right lower quadrant, the more distal small bowel loops are decompressed. Some diverticular disease of the colon but no diverticulitis. PELVIS: APPENDIX: The appendix is normal. BLADDER: Unremarkable. REPRODUCTIVE: Unremarkable as visualized. No mass. ABDOMEN and PELVIS: INTRAPERITONEAL SPACE: Trace amount of free fluid in the pelvis. No free air. BONES/JOINTS: Degenerative changes of the spine. No suspicious lytic or blastic abnormality. SOFT TISSUES: Unremarkable. No discrete abdominal or pelvic wall hernia. VASCULATURE: Unremarkable. Abdominal aorta is non-dilated. LYMPH NODES: Unremarkable. No enlarged lymph nodes. TUBES, LINES AND DEVICES: Enteric tube extending into the body of the stomach. CT/Abdomen/Pelvis W IV Cont ONLY IMPRESSION: 1. Multiple distended and dilated small bowel loops measuring up to 4.5 cm, with a transition point in the right lower quadrant, the more distal small bowel loops are decompressed. This is concerning for a bowel obstruction, which may be secondary to stricture or adhesions. 2. Stable hiatal hernia and fundoplication changes. Electronically Signed: Sánchez Gifford MD at 2:27 EDT ,
--- NOTE | 2024-06-07 01:16 | RAD_ITS ---
EXAM: XR ABDOMEN, 1 VIEW CLINICAL INDICATION: NG Insertion TECHNIQUE: Frontal supine view of the abdomen/pelvis. COMPARISON: No relevant prior studies available. FINDINGS: LOWER THORAX: No acute pathology. GASTROINTESTINAL TRACT: Unremarkable. Non-obstructive. No bowel or stomach distention. ORGANS: Unremarkable as visualized. No organomegaly. No abnormal calcifications. BONES/JOINTS: No acute pathology. SOFT TISSUES: No acute pathology. TUBES, LINES AND DEVICES: Enteric tube with tip in the body of the stomach. RAD/Abdomen Single View (Portable) IMPRESSION: Enteric tube with tip in the body of the stomach. Electronically Signed: Sánchez Gifford MD at 2:17 EDT ,
[2024-06-07 01:23] LABS: Absolute Lymphocyte Count 2.68 X10^3/uL (0.83-4.51); Absolute Neutrophil Count 3.3 X10^3/uL (2.0-7.7); Basophil# 0.03 X10^3/uL; Basophil% 0.5 % (0-1); Eosinophils% 1.5 % (0-5); Hematocrit 46.4 % (40-54); Hemoglobin 15.1 g/dL (13.0-16.5); Lymphocyte # 2.68 X10^3/ul (0.83-4.51); Mean Corp Hgb Conc 32.5 g/dL (32-36); Mean Corpuscular Hgb 31.3 pg (27.0-32.0); Mean Corpuscular Volume 96.3 fL (80-94); Mean Platelet Vol. 9.8 fl (6.2-12.0); Monocyte# 0.42 X10^3/uL; Monocyte% 6.4 % (0-10); NRBC Flagged by Analyzer 0 % (0-5); Neutrophil # 3.28 X10^3/uL (2.7-7.7); Neutrophil % 50.3 % (47-70); Platelet Count 222 K/mm3 (150-450); RBC Distribution Width CV 13.2 % (11.6-14.6); RBC Distribution Width SD 46.4 fl (35.1-43.9); Red Blood Count 4.82 M/mm3 (4.6-6.2); White Blood Count 6.5 K/mm3 (4.4-11.0)
[2024-06-07] MEDS: 0.9% Normal Saline (1000mL) 1,000 ML 999 ML IV (01:35)
[2024-06-07] MEDS: Ondansetron 4 MG/2 ML Vial IV (01:35)
[2024-06-07] MEDS: Morphine 4 MG/ML Syringe IV (01:35)
[2024-06-07 01:52] LABS: AST(SGOT) 23 U/L (15-37); Alanine Aminotransfer ALT/SGPT 32 U/L (16-61); Albumin, Serum 3.7 g/dL (3.2-5.0); Alkaline Phosphatase 103 U/L (45-117); Anion Gap 4 (5-15); BUN 15 mg/dL (7-18); Bilirubin, Direct 0.12 mg/dL (0.00-0.30); Chloride 110 mmol/L (98-107); EST Glomerular Filtration Rate 50 mL/min (>60); Est Glom Filt Rate - Afr Amer 61 mL/min (>60); Estimated Creatinine Clearance 64.05 ml/min; Globulin 3.5 g/dL (2.2-4.2); Glucose 251 mg/dL (74-106); Lipase 45 U/L (13-75); Potassium 4.4 mmol/L (3.5-5.1); Protein, Total 7.2 g/dL (6.4-8.2); Sodium Level 141 mmol/L (136-145)
[2024-06-07] MEDS: HYDROmorphone 1 MG/ML Syringe IV (02:35)
[2024-06-07] MEDS: Oxymetazoline 0.05% 1 SPRAY SPRAY.BTL 2 SPRAY NASAL (03:07)
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
[2024-06-07] MEDS: 0.9% Saline Lock 10 ML Syringe IV ×2 (05:19→21:36)
[2024-06-07] MEDS: 0.9% Normal Saline (1000mL) 1,000 ML 75 ML IV (05:19)
[2024-06-07] MEDS: Pantoprazole Sodium 40 MG in 0.9% Normal Saline (100mL MB+) 100 ML 330 MG IV ×2 (05:22→21:08)
[2024-06-07] MEDS: Insulin Lispro 100 UNIT/ML INSULN.PEN SC ×2 (05:27→12:02)
[2024-06-07 06:22] LABS: Bedside Glucose 201 mg/dL (74-106)
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
[2024-06-07] MEDS: Enoxaparin 40 MG/0.4 ML Syringe SC (09:33)
--- NOTE | 2024-06-07 11:42 | CASEMGMT ---
VAHID KAPOOR Assessment Face to Face with patient for initial transition planning/care coordination assessment. VAHID KAPOOR introduced self and role at [facility], pt voices understanding. Pt is A&Ox4 and is resting comfortably in bed and is calm. Pt at bedside. Care providers, pharmacy, and demographics verified. Admitting dx: SBO WILSON Strata: 2 PCP: Bryn Renteria Specialists: RAMIN Preferred Pharmacy: [facility] Insurance: [employer] [place], MCR A Only Prescription Benefit: Yes, through [employer] LNOK: Yanique Patel (W) Living Arrangements: Pt lives with his in a split level home with a flat entrance. Pt states that there are 4 steps to the lower portion and 8 steps to the upper ADLs/IADLs: Ind. 6-Click click is 24 Transportation: Self, . Denies concerns DME: Pulse [employer]. BGM and supplies. FWW. Cane. BP Monitor. Pt has a Hx with home O2 through [facility] and states that if he were to qualify for home oxygen that he would prefer to go through [employer] again. HHC/SNF: Denies history or needs Pt?s goal: Home Plan: DC home with pt once medically ready with potential oxygen. Pt states that her and the pt DIL are in healthcare and will be able to provide the pt with support at home. Pt denies needs including HHC, OP Tx, or SNF. Pt states that he feels safe with this plan. CM to follow. Zonia Mercado RN, CM
[2024-06-07 12:29] LABS: Bedside Glucose 156 mg/dL (74-106)
--- NOTE | 2024-06-07 15:22 | PCM.PROGNOTE ---
Subjective Subjective Patient seen and examined. His significant other was by his bedside. He had no complaints. He is passing gas but he has not had a bowel movement. His abdomen does remain distended. General surgery is on board. He has remained hemodynamically stable. Review of systems otherwise negative. Objective Data Objective Data Vital Signs: Vital Signs Temp Pulse Resp BP Pulse Ox O2 Del Method 97.9 F 86 18 139/101 H 95 Room Air 06/07/24 14:00 06/07/24 14:00 06/07/24 14:00 06/07/24 14:00 06/07/24 14:00 06/07/24 14:00 Oxygen Delivery Method Room Air Weight: 251 lb 5.231 oz Body Mass Index (BMI) 35.2 Intake & Output: Intake and Output for Last 24 Hours 06/05/24 06/06/24 06/07/24 23:59 23:59 23:59 Intake Total 1615 / 1615 Output Total 200 / 200 Balance 1415 / 1415 Lab / Micro Data 06/07/24 01:05 06/07/24 01:05 Labs: Laboratory Results - last 24 hr 06/07/24 01:05: WBC 6.5, RBC 4.82, Hgb 15.1, Hct 46.4, MCV 96.3 H, MCH 31.3, MCHC 32.5, RDW Std Deviation 46.4 H, RDW Coeff of Juancarlos 13.2, Plt Count 222, MPV 9.8, Immature Gran % (Auto) 0.300, Neut % (Auto) 50.3, Lymph % (Auto) 41.0, [place] % (Auto) 6.4, Eos % (Auto) 1.5, Baso % (Auto) 0.5, Absolute Neuts (auto) 3.3, Absolute Lymphs (auto) 2.68, Nucleated RBC % 0, Sodium 141, Potassium 4.4, Chloride 110 H, Carbon Dioxide 27.0, Anion Gap 4 L, BUN 15, Creatinine 1.50 H, Estim Creat Clear Calc 64.05, Est GFR (MDRD) Af Amer 61, Est GFR (MDRD) Non-Af 50 L, BUN/Creatinine Ratio 10.0, Glucose 251 H, Calcium 9.0, Total Bilirubin 0.40, Direct Bilirubin 0.12, AST 23, ALT 32, Alkaline Phosphatase 103, Total Protein 7.2, Albumin 3.7, Globulin 3.5, Lipase 45 06/07/24 01:26: Lactic Acid 1.0 06/07/24 05:17: POC Glucose 201 H 06/07/24 12:01: POC Glucose 156 H Radiography Diagnostic Testing: Radiology Impression Abdomen/Pelvis CT 06/07/24 01:15 IMPRESSION: 1. Multiple distended and dilated small bowel loops measuring up to 4.5 cm, with a transition point in the right lower quadrant, the more distal small bowel loops are decompressed. This is concerning for a bowel obstruction, which may be secondary to stricture or adhesions. 2. Stable hiatal hernia and fundoplication changes. Electronically Signed: Sánchez Gifford MD at 2:27 EDT Reading Location ID and State: [employer] / [place] Tel , Service support , KUB X-Ray 06/07/24 01:16 IMPRESSION: Enteric tube with tip in the body of the stomach. Electronically Signed: Sánchze Gifford MD at 2:17 EDT , Physical Exam Const alert, oriented x3 and no apparent distress General Appearance: cooperative and well developed HEENT normocephalic, head/scalp atraumatic, moist oral mucous membranes and oropharynx normal Eyes PERRL and EOMs intact bilaterally Neck no lymphadenopathy, supple and no JVD Lymph Lymphatic: no lymphadenopathy noted and no lymphedema noted Resp normal respiratory effort, normal air movement and clear to auscultation bilaterally Cardio regular rate, regular rhythm, S1 normal heart sound, S2 normal heart sound and no murmurs GI GI Narrative: Abdomen moderately distended. Hyperactive bowel sounds. NG tube in situ. No tenderness with palpation. Extremity normal capillary refill, no clubbing, cyanosis or edema and no calf tenderness General Extremity: no tenderness to palpation of joints or extremities Skin General Skin Exam: no breakdown Neuro CN's II-XII intact bilaterally, no focal motor deficits and no sensory deficits noted Motor Exam: strength 5/5 throughout and general weakness Psych thought process normal and cooperative Appearance: appropriate Assessment & Plan Assessment/Plan (1) SBO (small bowel obstruction): PLAN: Plan #Small bowel obstruction NG tube remains in situ general surgery on board CT of the abdomen done on admission showed multiple distended and dilated small bowel loops measuring up to 4.5cm, with a transition point in the lower right quadrant, with the more distal small bowel loops being decompressed general surgery on board. To continue keeping n.p.o. and continue IV fluid administration. Per general surgery, plan is for contrast study with Gastrografin tomorrow. #FREEDOM: Creatinine was 1.5 on admission. Being hydrated with IV fluids. Will trend creatinine. #Type 2 diabetes mellitus: Dulaglutide on hold. Currently NPO. Insulin sliding scale. Accu-Cheks every 6 hourly. # Heart failure preserved ejection fraction: All meds on hold as patient is currently NPO. Has known EF of 53% with stage I diastolic dysfunction #CAD s/p PCI: Plavix and Coreg on hold due to patient being FREEDOM. Currently not on a statin or CLARENCE inhibitor or ARB. #Hypertension: Coreg on hold as patient is NPO. IV hydralazine as needed #Chronic dementia: On memantine which is on hold as he is NPO. #Anxiety and depression: On citalopram and alprazolam. All oral meds remain on hold as he is n.p.o. DVT prophylaxis: Lovenox Charges/Coding Visit Charges Inpatient E&M: 94083 Subs Hosp L2
[2024-06-07 17:18] LABS: Bedside Glucose 137 mg/dL (74-106)
[2024-06-07] MEDS: Phenol/Sodium Phenolate 180ML 2 SPRAY MUCOUS MEM (21:35)
[2024-06-07] MEDS: 0.9% Normal Saline (250mL Bag) 250 ML 15 ML IV (21:36)
[2024-06-08 00:21] LABS: Bedside Glucose 159 mg/dL (74-106)
[2024-06-08 04:52] VITALS: BMI 35.2
[2024-06-08 05:42] VITALS: BP 121/89; PULSE 82; RESP 18; TEMP 36.6; O2SAT 95
[2024-06-08 06:07] LABS: Bedside Glucose 139 mg/dL (74-106)
[2024-06-08 07:26] LABS: Absolute Lymphocyte Count 1.99 X10^3/uL (0.83-4.51); Absolute Neutrophil Count 3.5 X10^3/uL (2.0-7.7); Basophil# 0.01 X10^3/uL; Basophil% 0.2 % (0-1); Eosinophil# 0.08 X10^3/uL; Eosinophils% 1.3 % (0-5); Hematocrit 42.1 % (40-54); Hemoglobin 13.8 g/dL (13.0-16.5); Lymphocyte # 1.99 X10^3/ul (0.83-4.51); Lymphocyte % 33.4 % (19-41); Mean Corp Hgb Conc 32.8 g/dL (32-36); Mean Corpuscular Hgb 32.2 pg (27.0-32.0); Mean Corpuscular Volume 98.1 fL (80-94); Mean Platelet Vol. 10.2 fl (6.2-12.0); Monocyte# 0.33 X10^3/uL; Monocyte% 5.5 % (0-10); NRBC Flagged by Analyzer 0 % (0-5); Neutrophil # 3.54 X10^3/uL (2.7-7.7); Neutrophil % 59.4 % (47-70); Platelet Count 217 K/mm3 (150-450); RBC Distribution Width CV 13.3 % (11.6-14.6); RBC Distribution Width SD 47.3 fl (35.1-43.9); Red Blood Count 4.29 M/mm3 (4.6-6.2)
[2024-06-08 08:06] LABS: ALB/GLOB Ratio 0.9 RATIO (0.9-2.4); AST(SGOT) 17 U/L (15-37); Alanine Aminotransfer ALT/SGPT 23 U/L (16-61); Alkaline Phosphatase 98 U/L (45-117); Anion Gap 4 (5-15); BUN 16 mg/dL (7-18); BUN/Creat Ratio 15.2 RATIO (10-20); Calcium,Total 8.5 mg/dL (8.5-10.1); Chloride 110 mmol/L (98-107); Creatinine, Serum 1.05 mg/dL (0.70-1.30); EST Glomerular Filtration Rate 76 mL/min (>60); Est Glom Filt Rate - Afr Amer 92 mL/min (>60); Globulin 3.2 g/dL (2.2-4.2); Glucose 146 mg/dL (74-106); Potassium 3.9 mmol/L (3.5-5.1); Protein, Total 6.2 g/dL (6.4-8.2); Sodium Level 143 mmol/L (136-145)
--- NOTE | 2024-06-08 08:10 | RAD_ITS ---
STUDY: X-RAY - ABDOMEN/PELVIS REASON FOR EXAM: Male, 63 years old. SBO TECHNIQUE: Single AP view of the abdomen / pelvis. COMPARISON: 06/07/2024 FINDINGS: Nasogastric tube with the tip proximal to the diaphragm likely in the distal esophagus. There is an unremarkable bowel gas pattern. The visualized liver, spleen and kidneys are grossly normal in size and morphology. Normal soft tissue structures. Normal visualized osseous structures. RAD/Abdomen Single View (Portable) IMPRESSION: Nasogastric tube and midline likely in the distal esophagus. No bowel obstruction. Electronically Signed: Arpit North MD at 8:47 EDT ,
[2024-06-08] MEDS: Enoxaparin 40 MG/0.4 ML Syringe SC (08:43)
[2024-06-08] MEDS: Pantoprazole Sodium 40 MG in 0.9% Normal Saline (100mL MB+) 100 ML 330 MG IV (08:44)
--- NOTE | 2024-06-08 09:03 | PCM.PN.SRG ---
Subjective Subjective Patient is evaluated resting comfortably in bed. He notes have multiple (8) liquid bowel movements over night. He denies nausea, vomiting. NG tube intact with prince/light brown fluid within the canister. He denies any abdominal pain. He is passing flatus. Objective Data Objective Data Vital Signs: Vital Signs Temp Pulse Resp BP Pulse Ox O2 Del Method 98 F 82 18 121/89 H 95 Room Air 06/08/24 05:42 06/08/24 05:42 06/08/24 05:42 06/08/24 05:42 06/08/24 05:42 06/08/24 05:42 Oxygen Delivery Method Room Air Weight: 251 lb 8.759 oz Body Mass Index (BMI) 35.2 Intake & Output: Intake and Output for Last 24 Hours 06/06/24 06/07/24 06/08/24 23:59 23:59 23:59 Intake Total 2991.25 / 2991.25 375 / 375 Output Total 1100 / 1100 300 / 300 Balance 1891.25 / 1891.25 75 / 75 Lab / Micro Data 06/08/24 06:27 06/08/24 06:27 Labs: Laboratory Results - last 24 hr 06/07/24 12:01: POC Glucose 156 H 06/07/24 16:52: POC Glucose 137 H 06/07/24 23:53: POC Glucose 159 H 06/08/24 05:41: POC Glucose 139 H 06/08/24 06:27: WBC 6.0, RBC 4.29 L, Hgb 13.8, Hct 42.1, MCV 98.1 H, MCH 32.2 H, MCHC 32.8, RDW Std Deviation 47.3 H, RDW Coeff of Juancarlos 13.3, Plt Count 217, MPV 10.2, Immature Gran % (Auto) 0.200, Neut % (Auto) 59.4, Lymph % (Auto) 33.4, [place] % (Auto) 5.5, Eos % (Auto) 1.3, Baso % (Auto) 0.2, Absolute Neuts (auto) 3.5, Absolute Lymphs (auto) 1.99, Nucleated RBC % 0, Sodium 143, Potassium 3.9, Chloride 110 H, Carbon Dioxide 29.0, Anion Gap 4 L, BUN 16, Creatinine 1.05, Estim Creat Clear Calc 92.50, Est GFR (MDRD) Af Amer 92, Est GFR (MDRD) Non-Af 76, BUN/Creatinine Ratio 15.2, Glucose 146 H, Calcium 8.5, Total Bilirubin 0.70, AST 17, ALT 23, Alkaline Phosphatase 98, Total Protein 6.2 L, Albumin 3.0 L, Globulin 3.2, Albumin/Globulin Ratio 0.9 Micro: Microbiology 06/07/24 21:00 Stool Clostridioides difficile (PCR) - Final Physical Exam GI GI Narrative: Abdomen- obese, soft, slight tenderness to palpation of the right lower quadrant and midline abdomen superior to the umbilicus. Assessment & Plan Assessment/Plan (1) SBO (small bowel obstruction): PLAN: I am following this patient in conjunction with Dr. Grande in Dr. Khoury's absence. He has independently evaluated this patient. Plan for a small bowel follow-through today with Gastrografin imaging immediately, 3H, 6H and 12H. Continue NPO Stool collected for enteric path C Diff negative Encourage ambulation and IS Will continue to monitor this patient. No surgical intervention planned at this time. Charges/Coding Visit Charges Inpatient E&M: 33202 Subs Hosp L1
[2024-06-08 10:00] VITALS: BP 145/93; PULSE 87; RESP 18; TEMP 36.2; O2SAT 97
--- NOTE | 2024-06-08 10:10 | RAD_ITS ---
INDICATION: Small bowel obstruction. EXAMINATION/TECHNIQUE: SMALL BOWEL FOLLOW-through Gastrografin was administered through the NG tube. COMPARISON: Abdomen/pelvic CT dated June 07, 2024 FINDINGS: After contrast there is a normal appearing collapsed stomach with dilated ileum. A 3 hour image shows dilated ileum, relatively normal jejunum and contrast in the adjacent colon. No disproportionate dilatation of bowel. RAD/Small Bowel Series Only IMPRESSION: Mild dilatation of small bowel at the three-hour film. No other evidence Electronically Signed: Gary Cardenas MD at 14:41 EDT ,
[2024-06-08 11:50] VITALS: O2SAT 96
[2024-06-08 11:59] LABS: Bedside Glucose 136 mg/dL (74-106)
--- NOTE | 2024-06-08 13:29 | PN_ITS ---
Subjective Subjective Patient seen and examined. His significant other was by his bedside. He is now having diarrhea, and said he had 8 episodes overnight. He is passing gas also and feels his abdominal distension has gone down significantly. NG tube remains in situ. Objective Data Objective Data Vital Signs: Vital Signs Temp Pulse Resp BP Pulse Ox O2 Del Method 97.1 F L 87 18 145/93 H 96 Room Air 06/08/24 10:00 06/08/24 10:00 06/08/24 10:00 06/08/24 10:00 06/08/24 11:50 06/08/24 11:50 Oxygen Delivery Method Room Air Weight: 251 lb 8.759 oz Body Mass Index (BMI) 35.2 Intake & Output: Intake and Output for Last 24 Hours 06/06/24 06/07/24 06/08/24 23:59 23:59 23:59 Intake Total 2991.25 / 2991.25 485 / 485 Output Total 1100 / 1100 300 / 300 Balance 1891.25 / 1891.25 185 / 185 Lab / Micro Data 06/08/24 06:27 06/08/24 06:27 Labs: Laboratory Results - last 24 hr 06/07/24 16:52: POC Glucose 137 H 06/07/24 23:53: POC Glucose 159 H 06/08/24 05:41: POC Glucose 139 H 06/08/24 06:27: WBC 6.0, RBC 4.29 L, Hgb 13.8, Hct 42.1, MCV 98.1 H, MCH 32.2 H, MCHC 32.8, RDW Std Deviation 47.3 H, RDW Coeff of Juancarlos 13.3, Plt Count 217, MPV 10.2, Immature Gran % (Auto) 0.200, Neut % (Auto) 59.4, Lymph % (Auto) 33.4, [place] % (Auto) 5.5, Eos % (Auto) 1.3, Baso % (Auto) 0.2, Absolute Neuts (auto) 3.5, Absolute Lymphs (auto) 1.99, Nucleated RBC % 0, Sodium 143, Potassium 3.9, Chloride 110 H, Carbon Dioxide 29.0, Anion Gap 4 L, BUN 16, Creatinine 1.05, Estim Creat Clear Calc 92.50, Est GFR (MDRD) Af Amer 92, Est GFR (MDRD) Non-Af 76, BUN/Creatinine Ratio 15.2, Glucose 146 H, Calcium 8.5, Total Bilirubin 0.70, AST 17, ALT 23, Alkaline Phosphatase 98, Total Protein 6.2 L, Albumin 3.0 L, Globulin 3.2, Albumin/Globulin Ratio 0.9 06/08/24 11:38: POC Glucose 136 H Micro: Microbiology 06/07/24 21:00 Stool Enteric Bacteriology - Final 06/07/24 21:00 Stool Clostridioides difficile (PCR) - Final Physical Exam Const alert, oriented x3 and no apparent distress General Appearance: cooperative and well developed HEENT normocephalic, head/scalp atraumatic, moist oral mucous membranes and oropharynx normal Eyes PERRL and EOMs intact bilaterally Neck no lymphadenopathy, supple and no JVD Lymph Lymphatic: no lymphadenopathy noted and no lymphedema noted Resp normal respiratory effort, normal air movement and clear to auscultation bilaterally Cardio regular rate, regular rhythm, S1 normal heart sound, S2 normal heart sound and no murmurs GI GI Narrative: abdominal distension has improved markedly. Audible bowel sounds. . NG tube in situ. No tenderness with palpation. Extremity normal capillary refill, no clubbing, cyanosis or edema and no calf tenderness General Extremity: no tenderness to palpation of joints or extremities Skin General Skin Exam: no breakdown Neuro CN's II-XII intact bilaterally, no focal motor deficits and no sensory deficits noted Motor Exam: strength 5/5 throughout and general weakness Psych thought process normal and cooperative Appearance: appropriate Assessment & Plan Assessment/Plan (1) SBO (small bowel obstruction): PLAN: Plan #Small bowel obstruction * NG tube remains in situ * general surgery on board * CT of the abdomen done on admission showed multiple distended and dilated small bowel loops measuring up to 4.5cm, with a transition point in the lower right quadrant, with the more distal small bowel loops being decompressed * general surgery on board. remains NPO. Now having diarrhea and abdominal distension has improved markedly * KUB done this morning; read is pending. * #FREEDOM: resolved. Cr is down to 1.05 #Type 2 diabetes mellitus: Dulaglutide on hold. Currently NPO. Insulin sliding scale. Accu-Cheks every 6 hourly. # Heart failure preserved ejection fraction: All meds on hold as patient is currently NPO. Has known EF of 53% with stage I diastolic dysfunction #CAD s/p PCI: Plavix and Coreg on hold due to patient being FREEDOM. Currently not on a statin or CLARENCE inhibitor or ARB. #Hypertension: Coreg on hold as patient is NPO. IV hydralazine as needed #Chronic dementia: On memantine which is on hold as he is NPO. #Anxiety and depression: On citalopram and alprazolam. All oral meds remain on hold as he is n.p.o. DVT prophylaxis: Lovenox Charges/Coding Visit Charges Inpatient E&M: 90817 Subs Hosp L2
[2024-06-08 14:13] VITALS: BP 126/94; PULSE 93; RESP 18; TEMP 36.7; O2SAT 94
[2024-06-08 16:57] LABS: Bedside Glucose 101 mg/dL (74-106)
[2024-06-08 20:15] VITALS: BP 148/94; PULSE 84; RESP 18; TEMP 36.6; O2SAT 95
--- NOTE | 2024-06-08 22:13 | PN.HOSP_ITS ---
Hospitalist Note staffing operations manager noting patient with resolved SBO on clears, NGT has been d/c. Will change accu check to ACHS and will add back home medications per patient request.
[2024-06-08 22:53] LABS: Bedside Glucose 131 mg/dL (74-106)
[2024-06-09 03:38] VITALS: BP 134/84; PULSE 84; RESP 18; TEMP 36.7; O2SAT 92
[2024-06-09] MEDS: Pantoprazole Sodium 40 MG Tablet PO (05:14)
[2024-06-09 06:00] VITALS: BMI 34.3
[2024-06-09 06:12] LABS: Absolute Lymphocyte Count 1.79 X10^3/uL (0.83-4.51); Absolute Neutrophil Count 2.9 X10^3/uL (2.0-7.7); Basophil# 0.02 X10^3/uL; Basophil% 0.4 % (0-1); Hematocrit 44.1 % (40-54); Hemoglobin 14.3 g/dL (13.0-16.5); Lymphocyte # 1.79 X10^3/ul (0.83-4.51); Mean Corp Hgb Conc 32.4 g/dL (32-36); Mean Corpuscular Hgb 31.3 pg (27.0-32.0); Mean Corpuscular Volume 96.5 fL (80-94); Mean Platelet Vol. 9.8 fl (6.2-12.0); Monocyte# 0.33 X10^3/uL; Monocyte% 6.5 % (0-10); NRBC Flagged by Analyzer 0 % (0-5); Neutrophil # 2.86 X10^3/uL (2.7-7.7); Neutrophil % 55.9 % (47-70); Platelet Count 197 K/mm3 (150-450); RBC Distribution Width CV 12.9 % (11.6-14.6); RBC Distribution Width SD 45.6 fl (35.1-43.9); Red Blood Count 4.57 M/mm3 (4.6-6.2); White Blood Count 5.1 K/mm3 (4.4-11.0)
[2024-06-09 06:46] LABS: Anion Gap 5 (5-15); BUN 14 mg/dL (7-18); BUN/Creat Ratio 14.5 RATIO (10-20); Chloride 104 mmol/L (98-107); Creatinine, Serum 0.97 mg/dL (0.70-1.30); EST Glomerular Filtration Rate 83 mL/min (>60); Est Glom Filt Rate - Afr Amer 101 mL/min (>60); Estimated Creatinine Clearance 100.13 ml/min; Glucose 141 mg/dL (74-106); Potassium 3.6 mmol/L (3.5-5.1); Sodium Level 138 mmol/L (136-145)
[2024-06-09 07:29] LABS: Bedside Glucose 148 mg/dL (74-106)
--- NOTE | 2024-06-09 09:24 | PCM.PN.SRG ---
Subjective Subjective Patient seen and examined during AM rounds. He is found pacing the room. He shares that he has had a number of bowel movements this morning. He denies any nausea with his diet. He does remark that there is still some tenderness along his previous midline laparotomy incision. Objective Data Objective Data Vital Signs: Vital Signs Temp Pulse Resp BP Pulse Ox O2 Del Method 98.1 F 84 18 134/84 H 92 Room Air 06/09/24 03:38 06/09/24 03:38 06/09/24 03:38 06/09/24 03:38 06/09/24 03:38 06/09/24 03:38 Oxygen Delivery Method Room Air Weight: 245 lb 9.519 oz Body Mass Index (BMI) 34.3 Intake & Output: Intake and Output for Last 24 Hours 06/07/24 06/08/24 06/09/24 23:59 23:59 23:59 Intake Total 2991.25 / 2991.25 485 / 485 700 / 700 Output Total 1100 / 1100 550 / 550 Balance 1891.25 / 1891.25 -65 / -65 700 / 700 Lab / Micro Data 06/09/24 05:09 06/09/24 05:09 Labs: Laboratory Results - last 24 hr 06/08/24 11:38: POC Glucose 136 H 06/08/24 16:29: POC Glucose 101 06/08/24 22:34: POC Glucose 131 H 06/09/24 05:09: WBC 5.1, RBC 4.57 L, Hgb 14.3, Hct 44.1, MCV 96.5 H, MCH 31.3, MCHC 32.4, RDW Std Deviation 45.6 H, RDW Coeff of Juancarlos 12.9, Plt Count 197, MPV 9.8, Immature Gran % (Auto) 0.200, Neut % (Auto) 55.9, Lymph % (Auto) 35.0, [place] % (Auto) 6.5, Eos % (Auto) 2.0, Baso % (Auto) 0.4, Absolute Neuts (auto) 2.9, Absolute Lymphs (auto) 1.79, Nucleated RBC % 0, Sodium 138, Potassium 3.6, Chloride 104, Carbon Dioxide 29.0, Anion Gap 5, BUN 14, Creatinine 0.97, Estim Creat Clear Calc 100.13, Est GFR (MDRD) Af Amer 101, Est GFR (MDRD) Non-Af 83, BUN/Creatinine Ratio 14.5, Glucose 141 H, Calcium 9.0 06/09/24 06:31: POC Glucose 148 H Micro: Microbiology 06/07/24 21:00 Stool Enteric Bacteriology - Final 06/07/24 21:00 Stool Clostridioides difficile (PCR) - Final Radiography Diagnostic Testing: Radiology Impression KUB X-Ray 06/08/24 08:10 IMPRESSION: Nasogastric tube and midline likely in the distal esophagus. No bowel obstruction. Electronically Signed: Arpit North MD at 8:47 EDT , Small Bowel X-Ray 06/08/24 10:10 IMPRESSION: Mild dilatation of small bowel at the three-hour film. No other evidence Electronically Signed: Gary Cardenas MD at 14:41 EDT , Physical Exam Const oriented x3 and no apparent distress Resp normal respiratory effort GI GI Narrative: Nondistended, soft, mild tenderness to palpation along midline without signs of rebound or guarding Assessment & Plan Assessment/Plan (1) SBO (small bowel obstruction): PLAN: Patient successfully completed small bowel follow-through yesterday with only mild dilation noted of the jejunum but unimpeded contrast entrance to the colon. Thus NG tube was removed and patient tolerated advance to clear liquid diet yesterday. Abdominal exam remains largely benign today with only some mild residual tenderness centrally. I suspect a component of this is the cathartic effect of the contrast on the bowel. However, I am recommending the patient that even if we were able to advance him without difficulty to a soft low fiber diet today that he should continue this for a couple of weeks before gradually transitioning to an unrestricted diet. Examples of foods were given. I have advanced him to a full liquid diet this morning and we will monitor for tolerance. It is noted that in the interim since my last note patient's enteric pathogen panel has returned negative (along with his C. difficile that resulted earlier). Houston Grande MD General Surgery Endocrine Surgery Pager: [facility] [address] [place] [address] [address] [place] [address] Office: [phone] Charges/Coding Visit Charges Inpatient E&M: 37081 Subs Hosp L2
[2024-06-09 09:30] VITALS: BP 135/84; PULSE 92; RESP 16; TEMP 36.8; O2SAT 97
[2024-06-09 09:32] VITALS: O2SAT 94; O2SAT 97
[2024-06-09] MEDS: Carvedilol 12.5 MG Tablet PO (09:43)
[2024-06-09] MEDS: Enoxaparin 40 MG/0.4 ML Syringe SC (09:43)
[2024-06-09] MEDS: BRIMONIDINE 0.2% 5ML BOTTLE 1 DRP OPHTHALMIC (09:43)
[2024-06-09] MEDS: Citalopram 40 MG TABLET PO (09:43)
[2024-06-09] MEDS: Clopidogrel Bisulfate 75 MG Tablet PO (09:44)
[2024-06-09] MEDS: Memantine Hydrochloride 10 MG Tablet PO (09:44)
[2024-06-09 13:01] LABS: Bedside Glucose 183 mg/dL (74-106)
--- NOTE | 2024-06-09 13:10 | DCINST_ITS ---
Discharge Instructions Diet Discharge Diet: Soft diet Activity Discharge Activity: Return to Normal Activity Weight Bearing Status: Weight bearing as tolerated Dressing / Incision Call your doctor if you observe: Fever of 101 or Higher and - (uncontrolled abdominal pain) Follow Up Care Test Results: Test results from this visit will be discussed in further detail at your follow- up appointment, if applicable. Discharge Plan Admission Admit Date/Time: 06/07/24 03:28 Primary Reason for Your Visit: small bowel obstruction Attending Provider: Sherry Miranda Primary Care Provider: Bryn Renteria Consulting Providers: Poornima Khoury; Genevieve Case Instructions Patient Instructions: Small Bowel Obstruction Discharge Orders/Prescriptions Prescriptions: Continued citalopram 40 mg tablet 40 mg PO DAILY cholecalciferol (vitamin D3) 125 mcg (5,000 unit) tablet 125 mcg PO 2XW omeprazole 40 mg capsule,delayed release(DR/EC) 40 mg PO DAILY alprazolam 1 MG tablet 1 mg PO QHS brimonidine 0.2 % drops 1 drp ophthalmic (eye) DAILY cyanocobalamin (vitamin B-12) 500 mcg Tablet 500 mcg PO DAILY clopidogrel 75 mg tablet 75 mg PO DAILY memantine 10 mg tablet 21 mg PO DAILY Trulicity 0.75 mg/0.5 mL pen injector 0.75 mg subcut MO carvedilol 12.5 mg tablet 12.5 mg PO BID Qty: 180 3RF Referrals / Follow Up: Bryn Renteria DO [Primary Care Provider] - Within 1 Week Disposition Disposition (needs filled in before D/C Order can be placed): Home, Self Care
--- NOTE | 2024-06-09 13:11 | PCM.DC.SUM ---
Providers Date of Admission: 06/07/24 Date of Discharge: 06/09/24 Primary Care Physician: Dr. Bryn Renteria, Consultations 06/07/24 04:50 Consult: General Surgery Routine Consulting Provider: Poornima Khoury Reason for Consult: SBO EMERGENT Consult: No MD Notified: Yes Date Notified: 06/07/24 Time Notified: 03:29 Method of Notification: ED Physician Initiated Reason For Visit: SBO Diagnosis Discharge Diagnosis (1) SBO (small bowel obstruction): Status: Acute Code(s): K56.609 - Unspecified intestinal obstruction, unspecified as to partial versus complete obstruction Plan #Small bowel obstruction NG tube remains in situ general surgery on board CT of the abdomen done on admission showed multiple distended and dilated small bowel loops measuring up to 4.5cm, with a transition point in the lower right quadrant, with the more distal small bowel loops being decompressed general surgery on board. remains NPO. Now having diarrhea and abdominal distension has improved markedly KUB done this morning; read is pending. #FREEDOM: resolved. Cr is down to 1.05 #Type 2 diabetes mellitus: Dulaglutide on hold. Currently NPO. Insulin sliding scale. Accu-Cheks every 6 hourly. # Heart failure preserved ejection fraction: All meds on hold as patient is currently NPO. Has known EF of 53% with stage I diastolic dysfunction #CAD s/p PCI: Plavix and Coreg on hold due to patient being FREEDOM. Currently not on a statin or CLARENCE inhibitor or ARB. #Hypertension: Coreg on hold as patient is NPO. IV hydralazine as needed #Chronic dementia: On memantine which is on hold as he is NPO. #Anxiety and depression: On citalopram and alprazolam. All oral meds remain on hold as he is n.p.o. DVT prophylaxis: Lovenox Medications at Discharge Home Medications alprazolam 1 mg tablet 1 mg PO QHS sleep 04/23/20 citalopram 40 mg tablet 40 mg PO DAILY mental health 09/04/21 brimonidine 0.2 % eye drops 1 drp ophthalmic (eye) DAILY eye health 09/23/21 cyanocobalamin (vitamin B-12) 500 mcg tablet 500 mcg PO DAILY vitamin 10/22/21 cholecalciferol (vitamin D3) 125 mcg (5,000 unit) tablet 125 mcg PO 2XW supplement 12/18/21 omeprazole 40 mg capsule,delayed release 40 mg PO DAILY gerd 12/18/21 clopidogrel 75 mg tablet 75 mg PO DAILY thinner 03/01/24 dulaglutide 0.75 mg/0.5 mL subcutaneous pen injector (Trulicity) 0.75 mg subcut MO diabetes 03/01/24 memantine 10 mg tablet 21 mg PO DAILY dementia 03/01/24 carvedilol 12.5 mg tablet 12.5 mg PO BID #180 tabs 05/09/24 Hospital Course Operations None Procedures None Summary of Care Provided Minutes Spent on Discharge: 52 Hospital Course: Patient is a 63-year-old male with a past medical history as outlined including history of GERD who is s/p nisin fundoplication was admitted through the ED on 06/07/2024 with a complaint of abdominal pain and worsening abdominal distention. He was having bowel movements and passing gas but the abdominal distention and pain worsened so he came into the ED. CT of the abdomen and pelvis done showed multiple distended and dilated small loops of bowel measuring up to 4.5 cm with transition point in the right lower quadrant with more distal small bowel loops decompressed and concerning for small bowel obstruction likely due to strictures or adhesions. He was kept n.p.o. and general surgery was consulted. Management was conservative. Patient eventually started having diarrhea that is also subsequently improved. He had a small bowel follow-through which showed only mild dilatation of the jejunum but unimpeded contrast enhancement to the colon. NG tube was removed and patient tolerated clear liquid diet. He subsequently tolerated a soft diet as well and remained stable. He was discharged home on 06/09/2024. He is follow-up with his primary care doctor and general surgery within 1 to 2 weeks. He was counseled to be on the soft diet until he follows up with general surgery. Patient seen and examined prior to discharge. His significant other was by his bedside. He had no active complaints. Review of systems otherwise negative. Labs and vitals reviewed. Home medication reviewed and reconciled. Physical Exam Const alert, oriented x3 and no apparent distress General Appearance: cooperative, comfortable, well kempt and well developed Orientation / Consciousness: awake HEENT normocephalic, head/scalp atraumatic, hearing grossly normal bilaterally, moist oral mucous membranes and oropharynx normal Mouth: oral and palatal mucosa normal Eyes PERRL, EOMs intact bilaterally and conjunctivae normal Neck no lymphadenopathy, supple and no JVD Lymph Lymphatic: no lymphadenopathy noted and no lymphedema noted Resp normal respiratory effort, normal air movement and clear to auscultation bilaterally Cardio regular rate, regular rhythm, S1 normal heart sound, S2 normal heart sound and no murmurs GI GI Narrative: NG tube removed, abdomen soft, minimal tenderness. NO guarding or rebound tenderness. Extremity normal to inspection, full ROM, normal capillary refill, no clubbing, cyanosis or edema and no calf tenderness General Extremity: no tenderness to palpation of joints or extremities Skin no rashes or lesions noted and no wounds General Skin Exam: no breakdown Neuro oriented x3, CN's II-XII intact bilaterally, moves all extremities, no focal motor deficits and no sensory deficits noted Sensorium / Orientation: awake and alert Motor Exam: strength 5/5 throughout Psych thought process normal and cooperative Appearance: appropriate Weight / BMI Weight Weight: 245 lb 9.519 oz Body Mass Index (BMI) 34.3 ABG / Lab / Microbiology Data 06/09/24 05:09 06/09/24 05:09 Laboratory: Laboratory Results - last 24 hr 06/08/24 16:29: POC Glucose 101 06/08/24 22:34: POC Glucose 131 H 06/09/24 05:09: WBC 5.1, RBC 4.57 L, Hgb 14.3, Hct 44.1, MCV 96.5 H, MCH 31.3, MCHC 32.4, RDW Std Deviation 45.6 H, RDW Coeff of Juancarlos 12.9, Plt Count 197, MPV 9.8, Immature Gran % (Auto) 0.200, Neut % (Auto) 55.9, Lymph % (Auto) 35.0, [place] % (Auto) 6.5, Eos % (Auto) 2.0, Baso % (Auto) 0.4, Absolute Neuts (auto) 2.9, Absolute Lymphs (auto) 1.79, Nucleated RBC % 0, Sodium 138, Potassium 3.6, Chloride 104, Carbon Dioxide 29.0, Anion Gap 5, BUN 14, Creatinine 0.97, Estim Creat Clear Calc 100.13, Est GFR (MDRD) Af Amer 101, Est GFR (MDRD) Non-Af 83, BUN/Creatinine Ratio 14.5, Glucose 141 H, Calcium 9.0 06/09/24 06:31: POC Glucose 148 H 06/09/24 12:43: POC Glucose 183 H Microbiology: Microbiology 06/07/24 21:00 Stool Enteric Bacteriology - Final 06/07/24 21:00 Stool Clostridioides difficile (PCR) - Final Radiography Diagnostic Testing: Radiology Impression KUB X-Ray 06/08/24 08:10 IMPRESSION: Nasogastric tube and midline likely in the distal esophagus. No bowel obstruction. Electronically Signed: Arpit North MD at 8:47 EDT , Small Bowel X-Ray 06/08/24 10:10 IMPRESSION: Mild dilatation of small bowel at the three-hour film. No other evidence Electronically Signed: Gary Cardenas MD at 14:41 EDT , D/C Instructions Discharge Diet: Soft diet Discharge Activity: Return to Normal Activity Weight Bearing Status: Weight bearing as tolerated Call your doctor if you observe: Fever of 101 or Higher, Shortness of breath, Dizziness, Chest pain, Uncontrolled pain and - (uncontrolled abdominal pain) Meaningful Use Info Meaningful Use Meaningful Use Diagnoses (Choose all that apply): None applicable Ischemic Stroke Statin Dosing Therapy Reference: STATIN DOSE THERAPY REFERENCE: * Patients > 75 years receive moderate or high dose statin therapy. * Patients 75 years or YOUNGER should receive HIGH intensity statin dose unless contraindicated. You will be required to document reason for non-treatment if statin daily dose does not meet guidelines. HIGH DOSE STATIN THERAPY DAILY Atorvastatin > than or = to 40 mg Rosuvastatin > than or = to 20 mg Amlodipine + Atorvastatin > than or = to 2.5/40 mg Ezetimibe + Simvastatin 10/80 mg Simvastatin 80mg Discharge Plan Admission Admit Date/Time: 06/07/24 03:28 Primary Reason for Your Visit: small bowel obstruction Attending Provider: Sherry Miranda Primary Care Provider: Bryn Renteria Consulting Providers: Poornima Khoury; Genevieve Case Instructions Patient Instructions: Small Bowel Obstruction Discharge Orders/Prescriptions Prescriptions: Continued citalopram 40 mg tablet 40 mg PO DAILY cholecalciferol (vitamin D3) 125 mcg (5,000 unit) tablet 125 mcg PO 2XW omeprazole 40 mg capsule,delayed release(DR/EC) 40 mg PO DAILY alprazolam 1 MG tablet 1 mg PO QHS brimonidine 0.2 % drops 1 drp ophthalmic (eye) DAILY cyanocobalamin (vitamin B-12) 500 mcg Tablet 500 mcg PO DAILY clopidogrel 75 mg tablet 75 mg PO DAILY memantine 10 mg tablet 21 mg PO DAILY Trulicity 0.75 mg/0.5 mL pen injector 0.75 mg subcut MO carvedilol 12.5 mg tablet 12.5 mg PO BID Qty: 180 3RF Referrals / Follow Up: Bryn Renteria DO [Primary Care Provider] - Within 1 Week Disposition Disposition (needs filled in before D/C Order can be placed): Home, Self Care Charges/Coding Visit Charges Inpatient E&M: 11390 Disch Hosp >30min
== END 2024-06-09 13:40 | disposition home or self-care (01) | DRG 389 ==
LOC: ED 02:00 → MS3 03:50
PROVIDERS: Admitting Provider Family Medicine; Emergency Provider Emergency Medicine; PCP Family Medicine; Visit Provider Student in an Organized Health Care Education/Training Program
DX: K56.609 Unspecified intestinal obstruction, unspecified as to partial versus complete obstruction (principal); I50.32 Chronic diastolic (congestive) heart failure; N17.9 Acute kidney failure, unspecified; I13.0 Hypertensive heart and chronic kidney disease with heart failure and stage 1 through stage 4 chronic kidney disease, or unspecified chronic kidney disease; E11.22 Type 2 diabetes mellitus with diabetic chronic kidney disease; D53.9 Nutritional anemia, unspecified; E66.9 Obesity, unspecified; F03.90 Unspecified dementia, unspecified severity, without behavioral disturbance, psychotic disturbance, mood disturbance, and anxiety; F32.A Depression, unspecified; E78.5 Hyperlipidemia, unspecified; I25.10 Atherosclerotic heart disease of native coronary artery without angina pectoris; N18.2 Chronic kidney disease, stage 2 (mild); K21.9 Gastro-esophageal reflux disease without esophagitis; K44.9 Diaphragmatic hernia without obstruction or gangrene; R19.7 Diarrhea, unspecified; F41.9 Anxiety disorder, unspecified; I25.2 Old myocardial infarction; Z86.718 Personal history of other venous thrombosis and embolism; Z95.5 Presence of coronary angioplasty implant and graft; Z86.16 Personal history of COVID-19; Z79.85 Long-term (current) use of injectable non-insulin antidiabetic drugs; Z82.3 Family history of stroke; Z79.02 Long term (current) use of antithrombotics/antiplatelets; Z79.891 Long term (current) use of opiate analgesic; Z87.442 Personal history of urinary calculi; Z68.35 Body mass index [BMI] 35.0-35.9, adult
CPT/HCPCS: 36415; 74018; 74177; 74250; 80048; 80053; 80076; 82962; 83605; 83690; 85025; 87493; 87506; 94668; 99285; J7030; J7050; Q9967; A4216; J2405

== ENCOUNTER 2025-01-03 06:56 | Observation (INO) | payer OTHER, MEDICARE, SELFPAY ==
[2021-12-08 07:45] VITALS: BMI 36.8
[2025-01-03] VITALS (11 sets, daily range): BP systolic 117–139; BP diastolic 63–98; PULSE 75–93; RESP 16–28; TEMP 36.6–36.9; O2SAT 94–98; BMI 38.5; BMI 38.6
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
[2025-01-03 07:16] LABS: Absolute Lymphocyte Count 1.99 X10^3/uL (0.83-4.51); Absolute Neutrophil Count 2.4 X10^3/uL (2.0-7.7); Basophil# 0.02 X10^3/uL; Basophil% 0.4 % (0-1); Eosinophil# 0.08 X10^3/uL; Eosinophils% 1.6 % (0-5); Hematocrit 37.8 % (40-54); Hemoglobin 12.8 g/dL (13.0-16.5); Lymphocyte # 1.99 X10^3/ul (0.83-4.51); Lymphocyte % 40.8 % (19-41); Mean Corp Hgb Conc 33.9 g/dL (32-36); Mean Corpuscular Hgb 32.9 pg (27.0-32.0); Mean Corpuscular Volume 97.2 fL (80-94); Mean Platelet Vol. 9.5 fl (6.2-12.0); Monocyte# 0.34 X10^3/uL; NRBC Flagged by Analyzer 0 % (0-5); Neutrophil # 2.42 X10^3/uL (2.7-7.7); Neutrophil % 49.6 % (47-70); Platelet Count 178 K/mm3 (150-450); Red Blood Count 3.89 M/mm3 (4.6-6.2); White Blood Count 4.9 K/mm3 (4.4-11.0)
--- NOTE | 2025-01-03 07:25 | RAD_ITS ---
PROCEDURE: CHEST PA AND LATERAL REASON FOR EXAM: Chest pain TECHNIQUE: Frontal and lateral views of the chest. COMPARISON: None. FINDINGS: The heart size is normal. The mediastinal contour is unremarkable. The lungs are clear. The bones are unremarkable. Surgical clips seen within the left upper abdominal quadrant. RAD/Chest PA and Lateral IMPRESSION: No focal infiltrate or consolidation is seen within the lungs. Reading Location: [id number]
[2025-01-03 07:48] LABS: Pro- Brain NATRIURETIC PEPTIDE 103 pg/mL (<=900)
[2025-01-03 08:16] LABS: Troponin T High Sensitivity 14 ng/L (<=22)
[2025-01-03 08:28] LABS: Anion Gap 13 (5-15); BUN 14 mg/dL (4-19); BUN/Creat Ratio 14.6 RATIO (10-20); Calcium,Total 8.8 mg/dL (7.6-11.0); Carbon Dioxide 20.7 mmol/L (21.0-32.0); Chloride 103 mmol/L (98-108); Creatinine, Serum 0.97 mg/dL (0.70-1.20); EST Glomerular Filtration Rate 88 (>60); Estimated Creatinine Clearance 103.62 ml/min (50-250); Glucose 210 mg/dL (70-99); Potassium 3.8 mmol/L (3.3-5.1); Sodium Level 137 mmol/L (133-145)
[2025-01-03] MEDS: Mag Hydrox/Al Hydrox/Simeth 30 ML UDC PO (09:51)
[2025-01-03] MEDS: Lidocaine 2% Viscous15 ML UDC 5 ML PO (09:52)
[2025-01-03 09:56] LABS: TROPONIN VARIANCE 2 HR 1; Troponin T High Sens 2 HR 13 ng/L (<=19)
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
[2025-01-03 13:10] LABS: TROPONIN VARIANCE 4 HR 0; Troponin T High Sens 4 HR 14 ng/L (<=19)
[2025-01-03 14:50] LABS: Bedside Glucose 132 mg/dL (74-106)
[2025-01-03 17:32] LABS: Bedside Glucose 151 mg/dL (74-106)
[2025-01-03] MEDS: Carvedilol 12.5 MG Tablet PO (18:13)
[2025-01-03 22:41] LABS: Bedside Glucose 185 mg/dL (74-106)
[2025-01-03] MEDS: Insulin Lispro 100 UNIT/ML INSULN.PEN SC (22:51)
[2025-01-03] MEDS: ALPRAZolam 0.5 MG Tablet 1 MG PO (22:52)
[2025-01-03] MEDS: Memantine Hydrochloride 10 MG Tablet PO (22:52)
[2025-01-04 03:40] VITALS: BP 123/82; PULSE 83; RESP 16; TEMP 36.6; O2SAT 96
[2025-01-04 06:26] LABS: Absolute Lymphocyte Count 1.69 X10^3/uL (0.83-4.51); Absolute Neutrophil Count 1.9 X10^3/uL (2.0-7.7); Basophil# 0.01 X10^3/uL; Basophil% 0.3 % (0-1); Eosinophil# 0.08 X10^3/uL; Hematocrit 36.4 % (40-54); Lymphocyte # 1.69 X10^3/ul (0.83-4.51); Lymphocyte % 42.3 % (19-41); Mean Corpuscular Hgb 32.3 pg (27.0-32.0); Mean Corpuscular Volume 97.8 fL (80-94); Mean Platelet Vol. 9.5 fl (6.2-12.0); Monocyte# 0.27 X10^3/uL; Monocyte% 6.8 % (0-10); NRBC Flagged by Analyzer 0 % (0-5); Neutrophil # 1.94 X10^3/uL (2.7-7.7); Neutrophil % 48.3 % (47-70); Platelet Count 162 K/mm3 (150-450); RBC Distribution Width SD 49.9 fl (35.1-43.9); Red Blood Count 3.72 M/mm3 (4.6-6.2)
[2025-01-04 06:54] LABS: Anion Gap 10 (5-15); BUN 15 mg/dL (4-19); BUN/Creat Ratio 14.5 RATIO (10-20); Calcium,Total 8.8 mg/dL (7.6-11.0); Carbon Dioxide 24.9 mmol/L (21.0-32.0); Chloride 104 mmol/L (98-108); Creatinine, Serum 1.02 mg/dL (0.70-1.20); EST Glomerular Filtration Rate 82 (>60); Estimated Creatinine Clearance 98.75 ml/min (50-250); Glucose 171 mg/dL (70-99); Potassium 3.8 mmol/L (3.3-5.1); Sodium Level 139 mmol/L (133-145)
[2025-01-04 09:11] LABS: Hemoglobin A1c 7.1 % (<=5.6)
[2025-01-04] MEDS: Cyanocobalamin 500 MCG Tablet PO (11:19)
[2025-01-04] MEDS: Memantine Hydrochloride 5 MG Tablet PO (11:19)
[2025-01-04] MEDS: BRIMONIDINE 0.2% 5ML BOTTLE 1 DRP OPHTHALMIC (11:19)
[2025-01-04] MEDS: Clopidogrel Bisulfate 75 MG Tablet PO (11:20)
[2025-01-04] MEDS: Cholecalciferol (Vit D3) 125 MCG CAPSULE (5,000 UNITS) PO (11:20)
[2025-01-04] MEDS: Pantoprazole Sodium 40 MG Tablet PO (11:20)
[2025-01-04 11:22] VITALS: BP 121/81; PULSE 84; RESP 16; TEMP 36.6; O2SAT 96
[2025-01-04 11:58] LABS: Bedside Glucose 214 mg/dL (74-106)
--- NOTE | 2025-01-04 12:13 | CASEMGMT ---
Met with patient to complete VARELA form. VARELA form explained to patient who voiced understanding and signed form. Original form placed in pt?s chart and copy provided to patient. Day Wise, Discharge Planning Asst
--- NOTE | 2025-01-04 12:45 | STRESSREP_ITS ---
Stress Test Report Date: 01/04/2025 Procedure: Pharmacologic stress nuclear imaging study Indications: Chest pain Consent: Per the patient Procedure: The patient underwent pharmacologic (Regadenoson 0.4mg ) evaluation with a peak heart rate of 102 beats per minute (65%predicted maximal heart rate) and a peak blood pressure of 130/82 mmHg. The baseline ECG demonstrated sinus rhythm. The peak pharmacologic ECG demonstrated no ischemic changes. There were no cardiac dysrhythmias pretest, during pharmacologic infusion, or recovery. Baseline complaint of chest discomfort which remained unchanged post pharmacologic infusion. The patient was injected with 14.7 millicuries of technetium 99m Cardiolite and subsequently rest SPECT Cardiolite nuclear imaging was obtained in the horizontal long, vertical long, and short axis views. The patient underwent pharmacologic (Regadenoson) evaluation. The patient was injected with 45.0 millicuries of technetium 99m Cardiolite and subsequently stress SPECT Cardiolite nuclear imaging was obtained in the horizontal long, vertical long, and short axis views. A gated Cardiolite study at peak stress was obtained. The examination was stopped secondary to completion of protocol. Rest and stress SPECT Cardiolite nuclear imaging status post realignment, normalization, and attenuation correction demonstrate a mild perfusion defect of the apex at rest which shows minimal worsening post stress. Consider previous nontransmural infarct with minimal meka-infarct ischemia. There is end systolic thickening and brightening. The gated Cardiolite study demonstrates myocardial thickening and inward wall motion. The reported LVEF is 56%. Impression: 1. Pharmacologic (Regadenoson) evaluation 2. Peak pharmacologic ECG with no ischemic changes. 3. There were no cardiac dysrhythmias pretest, during pharmacologic infusion, or recovery. 5. Mild resting perfusion defect of the apex with minimal worsening post pharmacologic stress. Consider previous nontransmural infarct with minimal meka-infarct ischemia versus physiological thinning. 6. The gated Cardiolite study reports an LVEF of 56%. This note was generated with [employer]ation software. It may contain incorrect words, spelling, and punctuation that were not noted in checking the note before signing.
--- NOTE | 2025-01-04 13:40 | PCM.DC.SUM ---
Providers Date of Admission: 01/03/25 Date of Discharge: 01/04/25 Primary Care Physician: Dr. Bryn Renteria DO Reason For Visit: CHEST PAIN Diagnosis Discharge Diagnosis (1) Chest pain: Status: Acute Code(s): R07.9 - Chest pain, unspecified Medications at Discharge Home Medications alprazolam 1 mg tablet 1 mg PO QHS sleep 04/23/20 brimonidine 0.2 % eye drops 1 drp ophthalmic (eye) DAILY eye health 09/23/21 cyanocobalamin (vitamin B-12) 500 mcg tablet 500 mcg PO DAILY vitamin 10/22/21 cholecalciferol (vitamin D3) 125 mcg (5,000 unit) tablet 125 mcg PO DAILY supplement 12/18/21 omeprazole 40 mg capsule,delayed release 40 mg PO DAILY gerd 12/18/21 clopidogrel 75 mg tablet 75 mg PO DAILY thinner 03/01/24 dulaglutide 0.75 mg/0.5 mL subcutaneous pen injector (Trulicity) 0.75 mg subcut MO diabetes 03/01/24 carvedilol 12.5 mg tablet 12.5 mg PO BID #180 tabs 05/09/24 glipizide 10 mg tablet, extended release 24 hr 10 mg PO DAILY 01/03/25 memantine 21 mg capsule sprinkle,extended release 24hr 21 mg PO DAILY 01/03/25 Hospital Course Operations None Procedures EKG, Stress test and - (Chest x-ray) Summary of Care Provided Minutes Spent on Discharge: 35 Hospital Course: Patient is a 64-year-old male who presented to [facility] ED on 01/03/2025 with chest pain. Short hospital course as noted below. Patient discharged home in stable condition on 01/04. 1. Chest pain, ACS ruled out ? Presented with chest pain that felt similar to prior cardiac chest pain. EKG unremarkable. Troponins and BNP normal. Chest x-ray unremarkable. Stress test on 01/04 showed mild resting perfusion defect of the apex with minimal worsening post pharmacologic stress; no ischemic EKG changes and EF 56%. ACS ruled out. Continue home Plavix and Coreg. Recommend close outpatient follow-up with cardiology on discharge. 2. History of CAD with stenting, chronic HFpEF, hypertension, hyperlipidemia ? Follows with outpatient cardiology. Had stenting x 2 done in 2020. Last echo in 11/2021 showed EF 53%, stage I diastolic dysfunction, no other significant abnormalities. Euvolemic on admit, no concern for heart exacerbation. Continue home Coreg on discharge. Not on statin for unclear reason. 3. Type 2 diabetes mellitus ? Treated with sliding scale insulin with meals while inpatient. Okay to resume home glipizide and Trulicity on discharge. 4. Dementia ? Continue home memantine. 5. Anxiety/depression ? Continue home alprazolam at night. 6. GERD with history of Shannan fundoplication ? Continue home PPI. 7. History of VTE ? Completed anticoagulation. Stable. 8. History of small bowel obstruction ? Patient hospitalized here in June 2024 for small bowel obstruction. Surgery followed. Resolved with NG tube, no need for surgical intervention. Total clinical time spent by myself addressing the patient's medical issues, reviewing all the data, and collaborating with patient's care team: 35 minutes. Physical Exam Const alert, oriented x3 and no apparent distress Constitutional Narrative: Upper middle-aged male, class II obesity, sitting up comfortably in bed, conversing normally, in no acute distress. General Appearance: cooperative and comfortable HEENT normocephalic, head/scalp atraumatic, hearing grossly normal bilaterally, nasal mucous membranes and turbinates normal and moist oral mucous membranes Eyes PERRL, EOMs intact bilaterally and conjunctivae normal Neck full ROM Chest inspection of chest normal Resp normal respiratory effort, normal air movement, no use of accessory muscles and clear to auscultation bilaterally Cardio regular rate, regular rhythm, no murmurs and peripheral pulses 2+ throughout GI normal to inspection, nondistended, normoactive bowel sounds, soft to palpation, non-tender and non-distended Back/Spine normal ROM Extremity normal to inspection, full ROM and no pedal edema Skin no rashes or lesions noted Neuro moves all extremities and no focal motor deficits Speech: speech normal Motor Exam: strength 5/5 throughout Psych mental status grossly normal Weight / BMI Weight Weight: 125.6 kg Body Mass Index (BMI) 38.6 ABG / Lab / Microbiology Data 01/04/25 05:08 01/04/25 05:08 Laboratory: Laboratory Results - last 24 hr 01/03/25 13:23: POC Glucose 132 H 01/03/25 17:11: POC Glucose 151 H 01/03/25 22:15: POC Glucose 185 H 01/04/25 05:08: WBC 4.0 L, RBC 3.72 L, Hgb 12.0 L, Hct 36.4 L, MCV 97.8 H, MCH 32.3 H, MCHC 33.0, RDW Std Deviation 49.9 H, RDW Coeff of Juancarlos 14.0, Plt Count 162, MPV 9.5, Immature Gran % (Auto) 0.300, Neut % (Auto) 48.3, Lymph % (Auto) 42.3 H, [place] % (Auto) 6.8, Eos % (Auto) 2.0, Baso % (Auto) 0.3, Absolute Neuts (auto) 1.9 L, Absolute Lymphs (auto) 1.69, Nucleated RBC % 0, Sodium 139, Potassium 3.8, Chloride 104, Carbon Dioxide 24.9, Anion Gap 10, BUN 15, Creatinine 1.02, Estim Creat Clear Calc 98.75, Est GFR (MDRD) Non-Af 82, BUN/Creatinine Ratio 14.5, Glucose 171 H, Hemoglobin A1c 7.1, Calcium 8.8 01/04/25 11:40: POC Glucose 214 H D/C Instructions DC O2, CPAP, BIPAP Needs Home O2 Discharge instructions: No Meaningful Use Info Meaningful Use Meaningful Use Diagnoses (Choose all that apply): None applicable Ischemic Stroke Statin Dosing Therapy Reference: STATIN DOSE THERAPY REFERENCE: * Patients > 75 years receive moderate or high dose statin therapy. * Patients 75 years or YOUNGER should receive HIGH intensity statin dose unless contraindicated. You will be required to document reason for non-treatment if statin daily dose does not meet guidelines. HIGH DOSE STATIN THERAPY DAILY Atorvastatin > than or = to 40 mg Rosuvastatin > than or = to 20 mg Amlodipine + Atorvastatin > than or = to 2.5/40 mg Ezetimibe + Simvastatin 10/80 mg Simvastatin 80mg Discharge Plan Admission Admit Date/Time: 01/03/25 10:43 Primary Reason for Your Visit: Chest pain Attending Provider: Lc Young Primary Care Provider: Bryn Renteria Consulting Providers: Sherry Miranda Instructions Additional Instructions / Restrictions: Continue continue all home medications as normal. Please call the cardiology office to schedule a follow-up appointment in the next 2 to 4 weeks. Discharge Orders/Prescriptions Prescriptions: Continued cholecalciferol (vitamin D3) 125 mcg (5,000 unit) tablet 125 mcg PO DAILY omeprazole 40 mg capsule,delayed release(DR/EC) 40 mg PO DAILY alprazolam 1 MG tablet 1 mg PO QHS brimonidine 0.2 % drops 1 drp ophthalmic (eye) DAILY cyanocobalamin (vitamin B-12) 500 mcg Tablet 500 mcg PO DAILY clopidogrel 75 mg tablet 75 mg PO DAILY Trulicity 0.75 mg/0.5 mL pen injector 0.75 mg subcut MO memantine 21 mg capsule,sprinkle,ER 24hr 21 mg PO DAILY glipizide 10 mg tablet extended release 24hr 10 mg PO DAILY carvedilol 12.5 mg tablet 12.5 mg PO BID Qty: 180 3RF Discontinued memantine 10 mg tablet 21 mg PO DAILY Referrals / Follow Up: Harvey Pittman MD [Med Staff - Active Staff] - Bryn Renteria DO [Primary Care Provider] - Disposition Disposition (needs filled in before D/C Order can be placed): Home, Self Care Charges/Coding Visit Charges Inpatient E&M: 75997 Disch Hosp >30min
[2025-01-04] MEDS: Insulin Lispro 100 UNIT/ML INSULN.PEN SC (13:47)
--- NOTE | 2025-01-04 14:38 | PHA.DC.MR.R ---
Pharmacy [place] Med Reconciliation Pharmacy Service has performed discharge medication reconciliation for this patient. The patient's discharge medication list was reviewed for discrepancies and discrepancies were resolved. Medications at Discharge Home Medications alprazolam 1 mg tablet 1 mg PO QHS sleep 04/23/20 brimonidine 0.2 % eye drops 1 drp ophthalmic (eye) DAILY eye health 09/23/21 cyanocobalamin (vitamin B-12) 500 mcg tablet 500 mcg PO DAILY vitamin 10/22/21 cholecalciferol (vitamin D3) 125 mcg (5,000 unit) tablet 125 mcg PO DAILY supplement 12/18/21 omeprazole 40 mg capsule,delayed release 40 mg PO DAILY gerd 12/18/21 clopidogrel 75 mg tablet 75 mg PO DAILY thinner 03/01/24 dulaglutide 0.75 mg/0.5 mL subcutaneous pen injector (Trulicity) 0.75 mg subcut MO diabetes 03/01/24 carvedilol 12.5 mg tablet 12.5 mg PO BID #180 tabs 05/09/24 glipizide 10 mg tablet, extended release 24 hr 10 mg PO DAILY 01/03/25 memantine 21 mg capsule sprinkle,extended release 24hr 21 mg PO DAILY 01/03/25
--- NOTE | 2025-01-04 14:54 | CHAPLAIN ---
Type of Pastoral Visit _x__ Initial Visit ___ Follow-up Visit ___ On-call Visit ___ General Patient Visit ___ Spiritual Assessment ___ Family Conference ___ Bereavement ___ Rapid Response ___ Code Blue ___ Other (describe below) Pastoral Care Referral From _x__ Patient ___ Family ___ Nurse ___ Physician ___ Welcome Center Agent ___ Director Of Informatics ___ Other (describe below) Sacrament/Intervention _x__ Active listening ___ Anointing ___ Hoahaoism ___ Bereavement ___ Communion ___ Ivelisse exploration ___ ___ Life review ___ Prayer ___ Reconciliation ___ Sacrament of Sick _x__ Supportive presence ___ Wedding ___ Other (describe below) Pastoral Comments patient is waiting for discharge; spouse is with him; pt acknowledges that it was difficult to wait many hours in the ED before getting a room; pt says that he is not sure what the medical team decided yet and is hoping to get more answers before he leaves; pt is thankful to be going home though and denies that he has any further needs
--- NOTE | 2025-01-04 15:00 | CASEMGMT ---
VAHID CM into pt room, pt present. Pt states he is indep at home and his works from home and is available should he need it. Pt denies any homegoing needs at this time. Pt is dressed and ready for dc.
[2025-01-04 15:20] VITALS: BP 124/85; PULSE 89; RESP 16; TEMP 36.6; O2SAT 95
[2025-01-04 15:21] VITALS: BP 124/85; PULSE 89; RESP 19; TEMP 36.6; O2SAT 95
== END 2025-01-04 15:24 | disposition home or self-care (01) ==
LOC: ED 10:49 → PCU 11:41 → MS2 22:15
PROVIDERS: Admitting Provider Student in an Organized Health Care Education/Training Program; Emergency Provider Emergency Medicine; PCP Family Medicine; Visit Provider Hospitalist
DX: R07.89 Other chest pain (principal); I50.32 Chronic diastolic (congestive) heart failure; I11.0 Hypertensive heart disease with heart failure; F03.90 Unspecified dementia, unspecified severity, without behavioral disturbance, psychotic disturbance, mood disturbance, and anxiety; E11.9 Type 2 diabetes mellitus without complications; I25.10 Atherosclerotic heart disease of native coronary artery without angina pectoris; Z79.85 Long-term (current) use of injectable non-insulin antidiabetic drugs; F41.9 Anxiety disorder, unspecified; K21.9 Gastro-esophageal reflux disease without esophagitis; Z79.02 Long term (current) use of antithrombotics/antiplatelets; Z79.84 Long term (current) use of oral hypoglycemic drugs; E78.5 Hyperlipidemia, unspecified; Z86.718 Personal history of other venous thrombosis and embolism; Z79.899 Other long term (current) drug therapy; F32.A Depression, unspecified; Z86.711 Personal history of pulmonary embolism
CPT/HCPCS: 36415; 71046; 78452; 80048; 82962; 83036; 83880; 84484; 85025; 93005; 93017; 97802; 99221; 99285; A9500; A4216; G0378; J2785

== ENCOUNTER → 2025-06-07 | Outpatient (CLI) | payer OTHER, SELFPAY ==
[2021-12-08 07:45] VITALS: BMI 36.8
[2025-06-07 13:18] LABS: AST(SGOT) 19 U/L (<=37); Alanine Aminotransfer ALT/SGPT 22 U/L (<=46); Albumin, Serum 3.9 g/dL (3.4-4.8); Alkaline Phosphatase 117 U/L (40-129); Bilirubin, Direct 0.13 mg/dL (0.00-0.30); Cholesterol 195 mg/dL (<=200); Globulin 2.6 g/dL (2.2-4.2); Low Density Lipoprotein Calc. 41 mg/dL; PSA,Total - Annual Screen 4.45 ng/mL (0.02-4.00); Triglycerides 637 mg/dL; Very Low Density Lipoprotein 127 mg/dL (5-40); cholesterol:hdl ratio screen 7.30
[2025-06-07 22:10] LABS: Creatinine, Urine (random) 285.00 mg/dL (39.00-259.00)
[2025-06-07 22:23] LABS: Microalbumin,Random Urine 21.7 mg/L (<20 mg/L)
== END | disposition home or self-care (01) ==
LOC: BFHLAB 09:31
PROVIDERS: PCP Family Medicine; Visit Provider Family Medicine
DX: E11.9 Type 2 diabetes mellitus without complications (principal); I25.10 Atherosclerotic heart disease of native coronary artery without angina pectoris; Z12.5 Encounter for screening for malignant neoplasm of prostate
CPT/HCPCS: 36415; 80061; 80076; 82043; 82570; 84153; G0103

== ENCOUNTER 2025-07-13 10:23 | Emergency (ER) | payer OTHER, MEDICARE, SELFPAY ==
[2021-12-08 07:45] VITALS: BMI 36.8
[2025-07-13] VITALS (8 sets, daily range): BP systolic 146–172; BP diastolic 91–116; PULSE 68–86; RESP 15–18; TEMP 36.6–37; O2SAT 93–100; BMI 38.3
--- NOTE | 2025-07-13 10:33 | RAD_ITS ---
PROCEDURE: HIP, UNI W/ PELVIS 2-3 VIEWS 07/13/2025 REASON FOR EXAM: INJURY TECHNIQUE: Procedure Code: [facility] Modality: DX Procedure: HIP, UNI W/ PELVIS 2-3 VIEWS Laterality: Left COMPARISON: 04/23/2020 FINDINGS: Bones: Bone mineralization is preserved. There is no displaced fracture. No destructive bone lesion seen. Joints: Mild degenerative changes of the left hip joint with narrowing of the inferior medial joint space. SI joints symphysis pubis and right hip appear stable. Soft tissues: No abnormality Other: RAD/HIP, UNI W/ Pelvis 2-3 Views IMPRESSION: No displaced fracture of the left hip or pelvis. Reading Location: [id number]
--- NOTE | 2025-07-13 10:34 | EKG12_ITS ---
Test Reason : Blood Pressure : */* mmHG Vent. Rate : 68 BPM Atrial Rate : 68 BPM P-R Int : 150 ms QRS Dur : 92 ms QT Int : 412 ms P-R-T Axes : 50 -37 -9 degrees QTcB Int : 438 ms Normal sinus rhythm Left axis deviation Borderline Confirmed by Houston Sinha ([id number]), editor dictionary JESSE ALVAREZ ([id number]) on 07/16/2025 1:08:04 PM Referred By: BRYCE Confirmed By: Houston Sinha
[2025-07-13 10:47] LABS: Hematocrit 38.5 % (40-54); Hemoglobin 12.6 g/dL (13.0-16.5); Immature Granulocytes Count 0.020 X10^3/uL (0.0-0.0); Mean Corp Hgb Conc 32.7 g/dL (32-36); Mean Corpuscular Volume 95.3 fL (80-94); Mean Platelet Vol. 9.4 fl (6.2-12.0); NRBC Flagged by Analyzer 0 % (0-5); Platelet Count 179 K/mm3 (150-450); RBC Distribution Width CV 13.3 % (11.6-14.6); RBC Distribution Width SD 46.8 fl (35.1-43.9); Red Blood Count 4.04 M/mm3 (4.6-6.2); White Blood Count 5.1 K/mm3 (4.4-11.0)
--- NOTE | 2025-07-13 10:53 | EDS_ITS ---
HPI History of Present Illness Chief Complaint: Lower Extremity Injury Informant: patient, spouse/S.O. and EMS Narrative Narrative: 64-year-old male states he woke up and was getting out of bed but stumbled and doing so and fell out, onto his left hip. Severe immediate pain, not able to move or put any weight on it EMS needed to bring him to the hospital. Denies hitting his head, loss of consciousness, denies any other pain or injury although the pain radiates down his thigh to his knee. He is on clopidogrel because of history of heart stents, has not yet taken it today. [facility] Medical History SBO (small bowel obstruction) Requires continuous at home supplemental oxygen Kidney stones Dementia DVT (deep venous thrombosis) Dilated aortic root History of non-ST elevation myocardial infarction (NSTEMI) (10/22/21) (HFpEF) heart failure with preserved ejection fraction Right ventricular systolic dysfunction Atherosclerotic heart disease of [place] coronary artery without angina pectoris Non-ST elevation ND (NSTEMI) History of 2019 novel coronavirus disease (COVID-19) (~06/2021) Elevated troponin Hyperlipidemia Right ventricular dilation Saddle pulmonary embolus Pneumonia due to 2019-nCoV (06/27/21) URI (upper respiratory infection) Anxiety GERD (gastroesophageal reflux disease) Neoplasm of skin of hindu region Neoplasm of skin of scalp Intradermal nevus of face Seborrheic keratosis Actinic keratosis Diabetes Neoplasm of skin of scalp Neoplasm of skin of right cheek Cheek mass IBS (irritable bowel syndrome) Closed fracture of 5th metacarpal Contact dermatitis and eczema due to plant Type 2 diabetes mellitus Essential (primary) hypertension History of ventral hernia Syncope and collapse Electric current accident Home Medications ?Medication ?Instructions ?Recorded ?Last Taken ?Type alprazolam 1 mg tablet 1 mg PO QHS sleep 04/23/20 1 12/22/20 History brimonidine 0.2 % eye drops 1 drp ophthalmic (eye) AARON LY eye 09/23/21 01/02/25 History health cyanocobalamin (vitamin B-12) 500 500 mcg PO DAILY vit wh[place] 10/22/21 10/21/21 History mcg tablet cholecalciferol (vitamin D3) 125 125 mcg PO DAILY supp lement 12/18/21 Unknown History mcg (5,000 unit) tablet omeprazole 40 mg capsule,delayed 40 mg PO DAILY gerd 0 12/18/21 Unknown History release clopidogrel 75 mg tablet 75 mg PO DAILY thinner 03/01 Unknown History dulaglutide 0.75 mg/0.5 mL 0.75 mg subcut MO diabetes 03/01/24 Unknown History subcutaneous pen injector (Trulicity) glipizide 10 mg tablet, extended 10 mg PO DAILY 01/02/25 History release 24 hr memantine 21 mg capsule 21 mg PO DAILY 01/03/2502/23 History sprinkle,extended release 24hr carvedilol 12.5 mg tablet 12.5 mg PO BID #180 tabs Unknown Rx Allergy/AdvReac Type Severity Reaction Status Date / Time adhesive Allergy Unknown Unknown Verified 01/03/25 06:57 meperidine HCl (From Demerol) Allergy Unknown Hives Verified 01/03/25 06:57 metformin AdvReac Intermediate Diarrhea Verified 01/03/25 06:57 cefadroxil hydrate (From AdvReac Unknown Other Verified 01/03/25 06:57 Duricef) Family History Mother Cancer Diabetes Father Diabetes Hypertension Hyperlipidemia CVA (cerebral vascular accident) CAD (coronary artery disease) Hx CABG Brother Diabetes Myocardial infarction Surgical History History of cholecystectomy History of coronary artery stent placement (10/23/21) History of excision of lesion History of loop recorder (03/15/19) History of left heart catheterization (12/13/14) History of left knee surgery History of right knee surgery History of repair of hiatal hernia (2000) History of Shannan fundoplication (2000) History of arthroscopy of right knee (2005) Hx laparoscopic cholecystectomy (08/2012) Social History household members: spouse Smoking Status: Never smoker alcohol intake: never substance use type: does not use caffeine: Yes Type: coffee what type of physical activity do you participate in: none seatbelt use: always do you feel safe at home: Yes additional social history: DOES NOT TAKE ASPIRIN DOES TAKE IBUPROFEN NEEDED ROS ROS ED Constitutional Constitutional ED: Denies chills or fever(s) Eyes Eyes: Denies change in vision or diplopia ENT ENT ED: Denies rhinorrhea or sore throat Cardiovascular Cardiovascular: Denies chest pain or palpitations Respiratory/Chest Respiratory/Chest: Denies cough or dyspnea Gastrointestinal Gastrointestinal: Denies abdominal pain, diarrhea, nausea or vomiting Genitourinary Genitourinary ED: Denies dysuria or hematuria Musculoskeletal Musculoskeletal: Reports extremity pain; Denies neck pain Integumentary Denies Abrasions, rash or wounds Neurologic Neurologic: Denies paresthesias or weakness Psychiatric Psychiatric: Denies anxiety or suicidal thoughts EXAM Physical Exam Const Vital Signs: 07/13/25 10:23 07/13/25 12:23 07/13/25 12:45 Temperature 97.9 F 98 F Temperature Source Oral Pulse Rate 69 85 85 Respiratory Rate 16 15 15 Blood Pressure 172/110 H 146/100 H 146/100 H Blood Pressure Mean 130 115 115 Pulse Ox 96 98 98 Oxygen Delivery Method Room Air 07/13/25 14:00 07/13/25 16:00 Temperature Temperature Source Pulse Rate 70 68 Respiratory Rate Blood Pressure 166/107 H 160/100 H Blood Pressure Mean 126 120 Pulse Ox 99 100 Oxygen Delivery Method Positive well nourished and well developed General Appearance ED: well developed and NAD HEENT Reports moist mucous membranes normocephalic and atraumatic Eyes PERRL and EOMs intact bilaterally Neck full ROM and supple Resp normal respiratory effort and clear to auscultation bilaterally Cardio regular rate, regular rhythm and no murmurs GI non-tender and non-distended Auscultation: normoactive bowel sounds Palpation: soft Back/Spine normal ROM and normal to inspection General Back: other FROM Extremity Extremity Narrative: Tender left lateral hip at the greater trochanter. Pelvis is stable to APC. Significant limited range of motion and pain with passive range of motion with regards to the left hip, limited range of motion of the knee due to pain at the hip but there is no significant tenderness there or in the thigh. All compartments are soft and nondistended. Neurovascular intact distally no other areas of extremity tenderness. Full range of motion of both arms and the right lower extremity. General Extremety ED: Yes tenderness; Negative for edema or pulses abnormal General Extremity: Negative for edema or pulses abnormal Neuro oriented x3, no focal motor deficits and no sensory deficits noted Sensorium / Orientation: alert Motor Exam: strength 5/5 throughout Psych mental status grossly normal and thought process normal Skin no wounds Rashes: no rashes MDM MDM MDM Narrative Medical decision making narrative: Suspicious for possible injury to the left hip, as he fell on it and is having symptoms there that suggest the joint is the issue. X-rays however 3 views including pelvis on my interpretation are negative for fracture so I sent in for a CT. I reviewed those images and the report which I agree with, it is negative for any acute fracture. He can barely move it without any significant pain has had several doses of pain medication here in the ED, and my suspicion for possible occult fracture of the hip is relatively high. For that reason I think he would benefit from admission and advanced imaging. Given my high suspicion for a hip fracture, I obtained preoperative EKG and chest x-ray, 1 view and my interpretation is unremarkable. I discussed with hospitalist who examined the patient and thought this was more his back so I reexamined him. He is having a lot of trouble flexing his left thigh due to pain, but most of it is in his left low back now, which was not the case initially. With logroll he does not have groin pain as he did on the initial exam. I did straight leg raise and it is technically negative, but he has pain radiating down into his left knee/thigh, but no radicular symptoms further. I attempted to get the patient to stand at the side of the bed but he refused to try, saying that it hurts in his left buttock and the lateral hip too much to do so or even attempt. For these reasons, I am ordering stat MRI of the lumbar spine, where he does not have any bony tenderness so I do not think he needs a CT of this area, in addition to the left hip to rule out occult fracture. He understands that if this is contusion or strain, that admitting him would not be indicated, and he may need a cane or a walker to help get around if he is having a much trouble. Discussed with patient and his , awaiting MRI imaging. Lab Data Attestation: I reviewed the patient's lab results. Labs: Laboratory Results - last 24 hr 07/13/25 10:42 WBC 5.1 RBC 4.04 L Hgb 12.6 L Hct 38.5 L MCV 95.3 H MCH 31.2 MCHC 32.7 RDW Std Deviation 46.8 H RDW Coeff of Juancarlos 13.3 Plt Count 179 MPV 9.4 Immature Gran % (Auto) 0.400 Neut % (Auto) 64.8 Lymph % (Auto) 27.6 [place] % (Auto) 4.9 Eos % (Auto) 1.9 Baso % (Auto) 0.4 Absolute Neuts (auto) 3.3 Absolute Lymphs (auto) 1.42 Nucleated RBC % 0 Sodium 139 Potassium 4.8 Chloride 106 Carbon Dioxide 23.2 Anion Gap 10 BUN 16 Creatinine 1.00 Estim Creat Clear Calc 100.34 Est GFR (MDRD) Non-Af 84 BUN/Creatinine Ratio 15.6 Glucose 325 H Calcium 8.9 Radiography Diagnostic Testing: Clinical Impression(s) from Imaging Studies Hip/Pelvis X-Ray 07/13/25 10:33 IMPRESSION: No displaced fracture of the left hip or pelvis. Reading Location: [facility] Chest X-Ray 07/13/25 11:05 IMPRESSION: No acute cardiopulmonary process. Reading Location: [facility] Lower Extremity CT 07/13/25 12:10 IMPRESSION: No fracture is seen. Degenerative changes of the left hip joint and left sacroiliac joint. Reading Location: [facility] Rhythm Strip Rhythm Strip: Sinus Rhythm Rate: 70 Ectopy: None EKG Initial EKG: Attestation: I personally reviewed and interpreted this EKG as follows: Interpretation: Sinus Rhythm, No Acute Injury Pattern and LAFB Comments: Normal intervals. Prior EKG tracings: available for review Prior: Unchanged Management Discussion w/another healthcare provider: Hospitalist Discharge Plan Triage Chief Complaint: Lower Extremity Injury ED Provider: Juan A Skinner Dx/Rx/DC Orders Clinical Impression: Injury of left hip, Unable to bear weight on left lower extremity, Accidental fall from bed, Injury of lower back Prescriptions: No Action cholecalciferol (vitamin D3) 125 mcg (5,000 unit) tablet 125 mcg PO DAILY omeprazole 40 mg capsule,delayed release(DR/EC) 40 mg PO DAILY alprazolam 1 MG tablet 1 mg PO QHS brimonidine 0.2 % drops 1 drp ophthalmic (eye) DAILY cyanocobalamin (vitamin B-12) 500 mcg Tablet 500 mcg PO DAILY clopidogrel 75 mg tablet 75 mg PO DAILY Trulicity 0.75 mg/0.5 mL pen injector 0.75 mg subcut MO memantine 21 mg capsule,sprinkle,ER 24hr 21 mg PO DAILY glipizide 10 mg tablet extended release 24hr 10 mg PO DAILY carvedilol 12.5 mg tablet 12.5 mg PO BID Qty: 180 3RF Primary Care Provider: Bryn Renteria Referrals: Bryn Renteria DO [Primary Care Provider] - Print Language: Malaysian
--- NOTE | 2025-07-13 11:05 | RAD_ITS ---
PROCEDURE: CHEST 1 VIEW 07/13/2025 REASON FOR EXAM: FALL TECHNIQUE: Procedure Code: RADCXPA Modality: DX Procedure: CHEST 1 VIEW Frontal view of the chest. COMPARISON: None FINDINGS: The cardiac and mediastinal contours are normal. The lungs are clear. No effusion. No pneumothorax. Osseous structures are normal. RAD/Chest 1 View IMPRESSION: No acute cardiopulmonary process. Reading Location: [id number]
[2025-07-13 11:27] LABS: Anion Gap 10 (5-15); BUN 16 mg/dL (4-19); BUN/Creat Ratio 15.6 RATIO (10-20); Calcium,Total 8.9 mg/dL (7.6-11.0); Carbon Dioxide 23.2 mmol/L (21.0-32.0); Chloride 106 mmol/L (98-108); Estimated Creatinine Clearance 100.34 ml/min (50-250); Glucose 325 mg/dL (70-99); Potassium 4.8 mmol/L (3.3-5.1)
--- NOTE | 2025-07-13 12:10 | CT_ITS ---
PROCEDURE: EXTREMITY LOWER WITHOUT CONTRA 07/13/2025 REASON FOR EXAM: LEFT HIP INJURY, UNABLE TO WB, NML XR TECHNIQUE: Procedure Code: CTELWO Modality: CT Procedure: EXTREMITY LOWER WITHOUT CONTRA Coronal and Sagittal reconstruction series were provided. CONTRAST: None One or more dose reduction techniques were used (e.g., Automated exposure control, adjustment of the mA and/or kV according to patient size, use of iterative reconstruction technique). RADIATION DOSE SUMMARY: CTDlvol: 34.05 mGy DLP: 1514.02 mGycm COMPARISON: Prior radiographs done earlier in the day. FINDINGS: Bones: No fracture or dislocation. Joints: Degenerative changes of the left sacroiliac joint with degenerative spur formation. Mild degree of left hip joint osteoarthritis. Soft Tissues: Unremarkable. CT/Extremity Lower without Contra IMPRESSION: No fracture is seen. Degenerative changes of the left hip joint and left sacroiliac joint. Reading Location: [facility]
--- NOTE | 2025-07-13 13:37 | MRI_ITS ---
PROCEDURE: LOWER EXT JOINT ONLY (ROUTINE) 07/13/2025 REASON FOR EXAM: FALL/INJURY, UNABLE TO WB, NEG XR/CT TECHNIQUE: Procedure Code: MRILEJ Modality: MR Procedure: LOWER EXT JOINT ONLY (ROUTINE) Multiplanar and multisequence images were obtained without IV contrast administration. COMPARISON: COMPARISON : CT. FINDINGS: Bones and bone marrow: Specifically age-appropriate degenerative changes in the hips. No fractures. Sacrum and bony pelvis negative. Imaged proximal femurs negative. Again no fracture. Effusion: Negative for hip effusion. Soft Tissues: There is an oblong shape lesion in the subcutaneous aspect of the left buttock overlying the left gluteus muscle. This measures 5.5 x [address] this has isointensity to muscle and has calcifications. On T1 weighted images this is isointense to dark. No definitive solid component. Remainder of the musculature negative. Prostate heterogeneous. Remainder of the imaged soft tissues of the pelvis negative. Ligaments and Tendons: Hamstring tendons and iliopsoas tendons intact. MRI/Lower Ext Joint Only (Routine) IMPRESSION: Negative for acute fracture of the hips or pelvis. [place] shape lesion in the left buttock superficial to the gluteus talya musc le and in the subcutaneous soft tissues. Favor subacute hematoma or seroma. Repeat MR in 4-6 months with and without gadolinium to confirm resolution recom mended. Reading Location: [id number]
--- NOTE | 2025-07-13 13:37 | MRI_ITS ---
PROCEDURE: MRI SPINE LUMBAR (ROUTINE) 07/13/2025 REASON FOR EXAM: INTRACTABLE LOW BACK PAIN W/ RAD LLE TECHNIQUE: Procedure Code: MRISPL Modality: MR Procedure: SPINE LUMBAR (ROUTINE) Multiplanar and multisequential MRI of the lumbar spine was performed without contrast. COMPARISON: Radiographs dated 04/23/2020. FINDINGS: No fracture or subluxation. Alignment is anatomic. Preserved vertebral body heights. Normal marrow signal. Mild multilevel spondylotic changes with varying degrees of disc desiccation and narrowing, small anterior endplate osteophytes, and hypertrophic facet arthropathy. Conus appears normal in signal and morphology, terminating at T12-L1. Normal appearance of the cauda equina. Unremarkable paravertebral and retroperitoneal soft tissues. L1-2: No spinal canal or neural foraminal narrowing. L2-3: Slight dorsal annular disc bulging without significant spinal canal or foraminal narrowing. L3-4: Asymmetric left dorsal disc bulge, combined with ligamentum flavum/facet hypertrophy results in mild spinal canal narrowing, predominantly with effacement of the lateral recesses, greater on the left. Mild right and moderate left neural foraminal narrowing. There is contact and possibly impingement on the traversing left L3 and L4 nerve roots. L4-5: Dorsal disc bulge with superimposed small central disc protrusion indenting the ventral thecal sac, without significant spinal canal narrowing. Mild bilateral neural foraminal narrowing. L5-S1: Dorsal disc bulge with superimposed right subarticular zone 8 mm disc extrusion, causing effacement of the right lateral recess. Mild left and moderate right neural foraminal narrowing, with contact on the exiting right L5 and S1 nerves. MRI/Spine Lumbar (Routine) IMPRESSION: 1. No fracture or malalignment. Mild spondylotic changes as described. 2. Disc bulge with evul-lvngchm-[id number]-right lateral recess stenosis at L3-4. Co ntact and possible impingement on the traversing left L3 and L4 nerve roots. 3. Right subarticular 8 mm disc extrusion at L5-S1, with effacement of the righ t lateral recess and moderate right neural foraminal narrowing, contacting the exiting right L5 and S1 nerves. Reading Location: [facility]
--- NOTE | 2025-07-13 15:01 | ED.RN ---
pt is out of department- in mri- unable to give medication dose
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
== END 2025-07-13 22:34 | disposition home or self-care (01) ==
PROVIDERS: Emergency Provider Emergency Medicine; PCP Family Medicine; Visit Provider Emergency Medicine
DX: M54.16 Radiculopathy, lumbar region (principal); I11.0 Hypertensive heart disease with heart failure; I50.32 Chronic diastolic (congestive) heart failure; F03.90 Unspecified dementia, unspecified severity, without behavioral disturbance, psychotic disturbance, mood disturbance, and anxiety; E11.9 Type 2 diabetes mellitus without complications; E78.5 Hyperlipidemia, unspecified; K21.9 Gastro-esophageal reflux disease without esophagitis; Z79.84 Long term (current) use of oral hypoglycemic drugs; I25.10 Atherosclerotic heart disease of native coronary artery without angina pectoris; Z79.02 Long term (current) use of antithrombotics/antiplatelets; Z79.85 Long-term (current) use of injectable non-insulin antidiabetic drugs; R29.898 Other symptoms and signs involving the musculoskeletal system; W06.XXXA Fall from bed, initial encounter; Z95.5 Presence of coronary angioplasty implant and graft; I25.2 Old myocardial infarction; Z85.828 Personal history of other malignant neoplasm of skin; Z79.899 Other long term (current) drug therapy; Z90.49 Acquired absence of other specified parts of digestive tract; S30.0XXA Contusion of lower back and pelvis, initial encounter
CPT/HCPCS: 71045; 72148; 73502; 73700; 73721; 80048; 85025; 93005; 96374; 96375; 96376; 99285; A4216; J2405

== ENCOUNTER 2025-09-05 07:07 | Emergency (ER) | payer OTHER, SELFPAY ==
[2021-12-08 07:45] VITALS: BMI 36.8
[2025-09-05 07:08] VITALS: BP 129/99; PULSE 116; RESP 18; TEMP 36.9; O2SAT 98
--- NOTE | 2025-09-05 07:22 | VDLE_ITS ---
Reason For Study VL/Venous Duplex US, Unilateral
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
[2025-09-05 09:07] VITALS: BP 140/68; PULSE 82; RESP 16; O2SAT 99
[2025-09-05 09:32] VITALS: BMI 35.8
[2025-09-05 11:00] VITALS: BP 148/60; PULSE 82; RESP 16; O2SAT 99
[2025-09-05 11:03] VITALS: BP 138/62; PULSE 78; RESP 18; TEMP 36.6; O2SAT 99
== END 2025-09-05 11:07 | disposition home or self-care (01) ==
PROVIDERS: Emergency Provider Emergency Medicine; PCP Family Medicine; Visit Provider Emergency Medicine
DX: I82.412 Acute embolism and thrombosis of left femoral vein (principal); I11.0 Hypertensive heart disease with heart failure; I50.32 Chronic diastolic (congestive) heart failure; E11.9 Type 2 diabetes mellitus without complications; E78.5 Hyperlipidemia, unspecified; I25.10 Atherosclerotic heart disease of native coronary artery without angina pectoris; I25.2 Old myocardial infarction; Z79.01 Long term (current) use of anticoagulants; Z79.02 Long term (current) use of antithrombotics/antiplatelets; Z79.85 Long-term (current) use of injectable non-insulin antidiabetic drugs; Z79.899 Other long term (current) drug therapy; Z86.711 Personal history of pulmonary embolism; Z95.5 Presence of coronary angioplasty implant and graft
CPT/HCPCS: 93971; 96372; 99282

== ENCOUNTER 2025-09-07 09:41 | Observation (INO) | payer OTHER, SELFPAY ==
[2021-12-08 07:45] VITALS: BMI 36.8
[2025-09-07] VITALS (7 sets, daily range): BP systolic 117–136; BP diastolic 84–98; PULSE 91–102; RESP 16–24; TEMP 36.5–37.1; O2SAT 94–97; BMI 35.4
--- NOTE | 2025-09-07 10:08 | CT_ITS ---
PROCEDURE: CTA CHEST W/WO CONTRAST 09/07/2025 REASON FOR EXAM: PULMONARY EMBOLISM TECHNIQUE: Procedure Code: [id number] Modality: CT Procedure: CTA CHEST W/WO CONTRAST Multiplanar Sagittal and Coronal images were obtained. CONTRAST: Isovue 370 VOLUME: 75 mL One or more dose reduction techniques were used (e.g., Automated exposure control, adjustment of the mA and/or kV according to patient size, use of iterative reconstruction technique). RADIATION DOSE SUMMARY: CTDlvol: 15.8 mGy DLP: 1165.09 mGycm COMPARISON: CTA chest September 2024. # of known CTs in the past 12 months: 0 # of known Cardiac Nuclear Medicine Studies in the past 12 months: 0 FINDINGS: Thoracic Aorta: Unremarkable. Atherosclerotic calcifications. Heart: No cardiomegaly. Atherosclerotic calcifications of the coronary arteries. Pulmonary Vessels: Filling defect involving both the right and left main main pulmonary arteries and extending to the bilateral lower left lobar arteries and left upper lobar artery consistent with saddle pulmonary embolism. Hardware: Unremarkable. Lymph nodes: No lymphadenopathy. Lungs and Airways: Multiple pulmonary nodules with the largest measures 7 mm in the left lower lobe. Pleura: No pleural effusion or pneumothorax. Upper Abdomen: Hiatal hernia measures 6 x 5 x 5 cm. Bones: No acute bony abnormalities. CT/CTA Chest W/WO Contrast IMPRESSION: Filling defect involving both the right and left main main pulmonary arteries a nd extending to the bilateral lower left lobar arteries and left upper lobar artery consistent with saddle pulmonary embolism. Multiple pulmonary nodules with the largest measures [address] chest in 6 month s and [address] scans in 18 months and 24 months is recommended. Findings were discussed with Dr. Amor on 09/07/2025 12:08 p.m.. Reading Location: [facility]
--- NOTE | 2025-09-07 10:09 | EKG12_ITS ---
Test Reason : LOWER LEG SWELLING Blood Pressure : */* mmHG Vent. Rate : 96 BPM Atrial Rate : 96 BPM P-R Int : 158 ms QRS Dur : 98 ms QT Int : 332 ms P-R-T Axes : 50 -55 44 degrees QTcB Int : 419 ms Normal sinus rhythm Left axis deviation Abnormal ECG Confirmed by Houston Sinha ([id number]), web editor RADHA SENA ([id number]) on 09/12/2025 5:49:38 AM Referred By: Confirmed By: Houston Sinha
[2025-09-07 10:35] LABS: Hematocrit 39.2 % (40-54); Hemoglobin 12.5 g/dL (13.0-16.5); Immature Granulocytes Count 0.040 X10^3/uL (0.0-0.0); Mean Corp Hgb Conc 31.9 g/dL (32-36); Mean Corpuscular Volume 96.1 fL (80-94); Mean Platelet Vol. 9.0 fl (6.2-12.0); NRBC Flagged by Analyzer 0 % (0-5); Platelet Count 182 K/mm3 (150-450); RBC Distribution Width CV 13.2 % (11.6-14.6); RBC Distribution Width SD 46.6 fl (35.1-43.9); Red Blood Count 4.08 M/mm3 (4.6-6.2); White Blood Count 6.0 K/mm3 (4.4-11.0)
--- NOTE | 2025-09-07 10:44 | EX.ED.DYSGE1 ---
HPI History of Present Illness Chief Complaint: Shortness of Breath Informant: patient and spouse/S.O. Narrative Narrative: 64-year-old male presenting to the emergency room with a chief complaint of shortness of breath. On September 05 the patient was diagnosed with a left leg DVT. He was given a dose of Lovenox and was started on Eliquis. He states he has had 2 doses of the Eliquis. He notes that the left leg is more swollen and painful. He notes a chest heaviness and shortness of breath at rest and on exertion. He states he has had a prior pulmonary embolism when he had COVID. He notes a history of coronary artery disease follows locally with [facility] Dr. Pittman. He denies any fever. [facility] Medical History SBO (small bowel obstruction) Requires continuous at home supplemental oxygen Kidney stones Dementia DVT (deep venous thrombosis) Dilated aortic root History of non-ST elevation myocardial infarction (NSTEMI) (10/22/21) (HFpEF) heart failure with preserved ejection fraction Right ventricular systolic dysfunction Atherosclerotic heart disease of [place] coronary artery without angina pectoris Non-ST elevation [place] (NSTEMI) History of 2019 novel coronavirus disease (COVID-19) (~06/2021) Elevated troponin Hyperlipidemia Right ventricular dilation Saddle pulmonary embolus Pneumonia due to 2019-nCoV (06/27/21) URI (upper respiratory infection) Anxiety GERD (gastroesophageal reflux disease) Neoplasm of skin of gnostic[place] region Neoplasm of skin of scalp Intradermal nevus of face Seborrheic keratosis Actinic keratosis Diabetes Neoplasm of skin of scalp Neoplasm of skin of right cheek Cheek mass IBS (irritable bowel syndrome) Closed fracture of 5th metacarpal Contact dermatitis and eczema due to plant Type 2 diabetes mellitus Essential (primary) hypertension History of ventral hernia Syncope and collapse Electric current accident Home Medications ?Medication ?Instructions ?Recorded ?Last Taken ?Type alprazolam 1 mg tablet 1 mg PO QHS sleep 04/23/20 10/21/21 History brimonidine 0.2 % eye drops 1 drp ophthalmic (eye) DAILY eye 09/23/21 01/02/25 History health cyanocobalamin (vitamin B-12) 500 500 mcg PO DAILY vitamin 10/22/21 10/21/21 History mcg tablet cholecalciferol (vitamin D3) 125 125 mcg PO DAILY supplement 12/18/21 Unknown History mcg (5,000 unit) tablet omeprazole 40 mg capsule,delayed 40 mg PO DAILY gerd 12/18/21 Unknown History release dulaglutide 0.75 mg/0.5 mL 0.75 mg subcut MO diabetes 03/01/24 Unknown History subcutaneous pen injector (Trulicity) glipizide 10 mg tablet, extended 10 mg PO DAILY 01/03/25 01/02/25 History release 24 hr memantine 21 mg capsule 21 mg PO DAILY 01/03/25 01/02/25 History sprinkle,extended release 24hr carvedilol 12.5 mg tablet 12.5 mg PO BID #180 tabs 06/14/25 Unknown Rx hydrocodone-acetaminophen 5-325mg 1 tab PO Q6H PRN PRN Pain 3 days 07/13/25 Unknown Rx 5mg-325mg #10 TABLETS apixaban 5 mg (74 tabs) tablets in See Rx Instructions PO .COMPLEX 09/05/25 Unknown Rx a dose pack (Eliquis DVT-PE Treat #74 tabs 30D Start) Allergy/AdvReac Type Severity Reaction Status Date / Time adhesive Allergy Unknown Unknown Verified 09/07/25 09:45 meperidine HCl (From Demerol) Allergy Unknown Hives Verified 09/07/25 09:45 metformin AdvReac Intermediate Diarrhea Verified 09/07/25 09:45 cefadroxil hydrate (From AdvReac Unknown Other Verified 09/07/25 09:45 Duricef) Family History Mother Cancer Diabetes Father Diabetes Hypertension Hyperlipidemia CVA (cerebral vascular accident) CAD (coronary artery disease) Hx CABG Brother Diabetes Myocardial infarction Surgical History History of cholecystectomy History of coronary artery stent placement (10/23/21) History of excision of lesion History of loop recorder (03/15/19) History of left heart catheterization (12/13/14) History of left knee surgery History of right knee surgery History of repair of hiatal hernia (2000) History of Shannan fundoplication (2000) History of arthroscopy of right knee (2005) Hx laparoscopic cholecystectomy (08/2012) Social History household members: spouse Smoking Status: Never smoker alcohol intake: never substance use type: does not use caffeine: Yes Type: coffee what type of physical activity do you participate in: none seatbelt use: always do you feel safe at home: Yes additional social history: DOES NOT TAKE ASPIRIN DOES TAKE IBUPROFEN NEEDED ROS ROS ED Constitutional Constitutional ED: Denies chills, fever(s) or weight loss Eyes Eyes: Denies change in vision or diplopia ENT ENT ED: Denies ear pain, rhinorrhea or sore throat Cardiovascular Cardiovascular: Denies chest pain, orthopnea, palpitations or racing heartbeat Respiratory/Chest Respiratory/Chest: Reports dyspnea and dyspnea on exertion; Denies cough or orthopnea Gastrointestinal Gastrointestinal: Denies abdominal pain, diarrhea, nausea or vomiting Genitourinary Genitourinary ED: Denies dysuria, hematuria or urinary frequency Musculoskeletal Musculoskeletal: Reports other Details: Left leg pain and swelling ; Denies arthralgias or myalgias Integumentary Denies abscess or rash Neurologic Neurologic: Denies headache(s) or weakness Psychiatric Psychiatric: Denies anxiety, depression, suicidal ideation or suicidal thoughts Endocrine Endocrinology: Denies polydipsia, polyphagia or polyuria Allergic/Immunologic Allergic/Immunologic ED: Denies mouth swelling, tongue swelling or urticaria EXAM Physical Exam Const Vital Signs: 09/07/25 09:42 09/07/25 10:00 09/07/25 10:28 Temperature 97.7 F L Temperature Source Temporal Pulse Rate 99 99 Respiratory Rate 16 19 H Respiratory Effort Normal Non-Labored Respiratory Depth Normal Respiratory Pattern Normal Blood Pressure 136/89 H 122/89 H Blood Pressure Mean 104 100 Pulse Ox 95 96 Oxygen Delivery Method Room Air Room Air 09/07/25 11:41 Temperature Temperature Source Pulse Rate 96 Respiratory Rate 24 H Respiratory Effort Respiratory Depth Respiratory Pattern Blood Pressure Blood Pressure Mean Pulse Ox 95 Oxygen Delivery Method Room Air Positive well nourished, well developed and obese General Appearance ED: well developed and NAD Nutritional Appearance: obese HEENT Reports normocephalic, head/scalp atraumatic and moist mucous membranes Eyes PERRL and EOMs intact bilaterally Neck no lymphadenopathy, supple and no JVD Resp normal respiratory effort and clear to auscultation bilaterally Cardio regular rate, regular rhythm and no murmurs Rate: tachycardic GI normal to inspection, nondistended, normoactive bowel sounds and non-tender Palpation: soft Back/Spine no CVA tenderness and normal ROM Extremity Extremity Narrative: The skin of the left leg is not white or deeply purple/blue. He appears to have good perfusion of the toes. It is diffusely swollen and mildly tender. General Extremety ED: Yes edema General Extremity: edema left lower extremity Neuro oriented x3 and CN's II-XII intact bilaterally Sensorium / Orientation: alert Motor Exam: strength 5/5 throughout Psych mental status grossly normal Mood & Affect: Negative for depressed or tearful Skin no rashes or lesions noted and no wounds MDM MDM MDM Narrative Medical decision making narrative: Differential diagnosis includes but not limited to pulmonary embolism DVT medication reaction congestive heart failure electrolyte abnormality acute coronary syndrome phlegmasia cerulea Ravi's/albicans Patient's EKG is a normal sinus rhythm at a rate of 96 bpm. Troponin and BNP are 16 and 42 respectively. Glucose 199 creatinine 1.01 white count is 6 hemoglobin 12.5 platelet count 182. Normal LFTs. CTA of the chest was obtained which demonstrates pulmonary embolism/saddle pulmonary embolism. I spoke with the hospitalist who was able to get in contact with Dr. Cohen from vascular surgery. Plan of care is going to be admission for further monitoring and evaluation. History & Record Review Discussion w/independent historian: Patient and Significant other Additional record(s) reviewed:: Prior ED visit and Prior labs Lab Data Attestation: I reviewed the patient's lab results. Labs: Laboratory Results - last 24 hr 09/07/25 10:25 WBC 6.0 RBC 4.08 L Hgb 12.5 L Hct 39.2 L MCV 96.1 H MCH 30.6 MCHC 31.9 L RDW Std Deviation 46.6 H RDW Coeff of Juancarlos 13.2 Plt Count 182 MPV 9.0 Immature Gran % (Auto) 0.700 Neut % (Auto) 63.2 Lymph % (Auto) 25.6 [place] % (Auto) 7.2 Eos % (Auto) 3.0 Baso % (Auto) 0.3 Absolute Neuts (auto) 3.8 Absolute Lymphs (auto) 1.53 Nucleated RBC % 0 Sodium 139 Potassium 4.0 Chloride 103 Carbon Dioxide 27.4 Anion Gap 9 BUN 15 Creatinine 1.01 Est GFR (MDRD) Non-Af 83 BUN/Creatinine Ratio 14.7 Glucose 199 H Calcium 9.2 Total Bilirubin 0.51 AST 17 ALT 16 Alkaline Phosphatase 98 Troponin T High Sens 16 D NT pro BNP II 42 Total Protein 6.3 Albumin 3.7 Globulin 2.6 Albumin/Globulin Ratio 1.4 Radiography Diagnostic Testing: Clinical Impression(s) from Imaging Studies Chest CTA 09/07/25 10:08 IMPRESSION: Filling defect involving both the right and left main main pulmonary arteries and extending to the bilateral lower left lobar arteries and left upper lobar artery consistent with saddle pulmonary embolism. Multiple pulmonary nodules with the largest measures [address] chest in 6 months and [address] scans in 18 months and 24 months is recommended. Findings were discussed with Dr. Amor on 09/07/2025 12:08 p.m.. Reading Location: [facility] EKG Initial EKG: Attestation: I personally reviewed and interpreted this EKG as follows: Comments: Normal sinus rhythm ventricular rate of 96 bpm Management Discussion w/another healthcare provider: Hospitalist (Dr Nguyễn) Discharge Plan Dx/Rx/DC Orders Clinical Impression: Pulmonary embolism, Acute deep vein thrombosis (DVT) of left lower extremity, Acute dyspnea Disposition Disposition: [facility]
[2025-09-07 11:21] LABS: AST(SGOT) 17 U/L (<=37); Alanine Aminotransfer ALT/SGPT 16 U/L (<=46); Albumin, Serum 3.7 g/dL (3.4-4.8); Alkaline Phosphatase 98 U/L (40-129); Anion Gap 9 (5-15); BUN 15 mg/dL (4-19); BUN/Creat Ratio 14.7 RATIO (10-20); Calcium,Total 9.2 mg/dL (7.6-11.0); Carbon Dioxide 27.4 mmol/L (21.0-32.0); Chloride 103 mmol/L (98-108); Globulin 2.6 g/dL (2.2-4.2); Glucose 199 mg/dL (70-99); Potassium 4.0 mmol/L (3.3-5.1); Pro- Brain NATRIURETIC PEPTIDE 42 pg/mL (<=900)
[2025-09-07 11:36] LABS: Troponin T High Sensitivity 16 ng/L (<=22)
--- NOTE | 2025-09-07 12:53 | PCM.HP.STD ---
HPI - General General Date of Admission: 09/07/25 Date of Service: 09/07/25 Chief Complaint: SOB [facility] Narrative [address], is a 64-year-old male with a history of PE during COVID no longer on anticoagulation, coronary artery disease following with Dr. Pittman, diabetes presented [facility] ED 09/07/2025 with shortness of breath. He was seen in the ED on the fifth and diagnosed with left lower extremity DVT, given dose of Lovenox and started on Eliquis, has had 2 doses of the Eliquis but notes that left leg is more swollen and painful and then began to have chest heaviness and shortness of breath on exertion. In the ED temp 97.7, heart rate 99 blood pressure 136/89, respiratory 16 pulse ox 95% on room air. CBC with hemoglobin 12.5 and white count of 6, CMP only notable for glucose 199, troponin and proBNP within normal limits. CTA of chest did not note filling defects in right and left main pulmonary arteries extending to the bilateral lower left lobar arteries consistent with saddle PE. Also noted multiple pulmonary nodules with the largest measuring 7 mm and follow-up scans in 6-month recommended. Given patient's clot burden hospitalist contacted. Discussed with vascular and majority of the clot burden is peripheral and not central, no right heart strain noted on CT, proBNP within normal limits and troponin unremarkable. Patient vitally stable. No indication for thrombectomy at this time but it is recommended that patient be admitted for observation overnight. Likely not Eliquis failure as he has only taken 2 doses, more likely left lower extremity DVT embolized after treatment was started. Patient evaluated at bedside for admission. Patient reported that on Wednesday he noted increased swelling in his left lower extremity, ultimately coming to the hospital 09/05 and was placed on Eliquis after getting a dose of Lovenox. Since then patient has had increased shortness of breath particularly on exertion as well as chest heaviness on exertion and continued swelling of left lower extremity. Notes cough with brown looking sputum for about a week but no shortness of breath until the past couple of days. Denies any other URI symptoms and no fevers or chills. Reports right now mostly noticing the shortness of breath if he tries to take a deep breath, denying chest pain at this time [facility] Medical History SBO (small bowel obstruction) Requires continuous at home supplemental oxygen Kidney stones Dementia DVT (deep venous thrombosis) Dilated aortic root History of non-ST elevation myocardial infarction (NSTEMI) (10/22/21) (HFpEF) heart failure with preserved ejection fraction Right ventricular systolic dysfunction Atherosclerotic heart disease of [place] coronary artery without angina pectoris Non-ST elevation [place] (NSTEMI) History of 2019 novel coronavirus disease (COVID-19) (~06/2021) Elevated troponin Hyperlipidemia Right ventricular dilation Saddle pulmonary embolus Pneumonia due to 2019-nCoV (06/27/21) URI (upper respiratory infection) Anxiety GERD (gastroesophageal reflux disease) Neoplasm of skin of [place]abaptism region Neoplasm of skin of scalp Intradermal nevus of face Seborrheic keratosis Actinic keratosis Diabetes Neoplasm of skin of scalp Neoplasm of skin of right cheek Cheek mass IBS (irritable bowel syndrome) Closed fracture of 5th metacarpal Contact dermatitis and eczema due to plant Type 2 diabetes mellitus Essential (primary) hypertension History of ventral hernia Syncope and collapse Electric current accident Home Medications ?Medication ?Instructions ?Recorded ?Last Taken ?Type alprazolam 1 mg tablet 1 mg PO QHS sleep 04/23/20 10/21/21 History brimonidine 0.2 % eye drops 1 drp ophthalmic (eye) DAILY eye 09/23/21 01/02/25 History health cyanocobalamin (vitamin B-12) 500 500 mcg PO DAILY vitamin 10/22/21 10/21/21 History mcg tablet cholecalciferol (vitamin D3) 125 125 mcg PO DAILY supplement 12/18/21 Unknown History mcg (5,000 unit) tablet omeprazole 40 mg capsule,delayed 40 mg PO DAILY gerd 12/18/21 Unknown History release dulaglutide 0.75 mg/0.5 mL 0.75 mg subcut MO diabetes 03/01/24 Unknown History subcutaneous pen injector (Trulicity) glipizide 10 mg tablet, extended 10 mg PO DAILY 01/03/25 01/02/25 History release 24 hr memantine 21 mg capsule 21 mg PO DAILY 01/03/25 01/02/25 History sprinkle,extended release 24hr carvedilol 12.5 mg tablet 12.5 mg PO BID #180 tabs 06/14/25 Unknown Rx hydrocodone-acetaminophen 5-325mg 1 tab PO Q6H PRN PRN Pain 3 days 07/13/25 Unknown Rx 5mg-325mg #10 TABLETS apixaban 5 mg (74 tabs) tablets in See Rx Instructions PO .COMPLEX 09/05/25 Unknown Rx a dose pack (Eliquis DVT-PE Treat #74 tabs 30D Start) albuterol sulfate 90 mcg/actuation 1 puff inhalation Q4H PRN 09/07/25 Unknown History aerosol inhaler shortness of breath or wheezing aspirin 81 mg tablet 81 mg PO DAILY 09/07/25 Unknown History dicyclomine 10 mg capsule 10 mg PO ACHS PRN ibs 09/07/25 Unknown History Allergy/AdvReac Type Severity Reaction Status Date / Time adhesive Allergy Unknown Unknown Verified 09/07/25 09:45 meperidine HCl (From Demerol) Allergy Unknown Hives Verified 09/07/25 09:45 metformin AdvReac Intermediate Diarrhea Verified 09/07/25 09:45 cefadroxil hydrate (From AdvReac Unknown Other Verified 09/07/25 09:45 Duricef) Family History Mother Cancer Diabetes Father Diabetes Hypertension Hyperlipidemia CVA (cerebral vascular accident) CAD (coronary artery disease) Hx CABG Brother Diabetes Myocardial infarction Surgical History History of cholecystectomy History of coronary artery stent placement (10/23/21) History of excision of lesion History of loop recorder (03/15/19) History of left heart catheterization (12/13/14) History of left knee surgery History of right knee surgery History of repair of hiatal hernia (2000) History of Shannan fundoplication (2000) History of arthroscopy of right knee (2005) Hx laparoscopic cholecystectomy (08/2012) Social History household members: spouse Smoking Status: Never smoker alcohol intake: never substance use type: does not use caffeine: Yes Type: coffee what type of physical activity do you participate in: none seatbelt use: always do you feel safe at home: Yes additional social history: DOES NOT TAKE ASPIRIN DOES TAKE IBUPROFEN NEEDED ROS ROS Narrative General: Denies fever/chills HENT: Denies headache, denies stuffy nose, denies sore throat EYES: Denies changes in vision Resp: Cough for 1 week with brown sputum, increased shortness of breath over the past 1 to 2 days Cardiac: Chest heaviness with ambulation GI: Denies abdominal pain, chronic IBS symptoms with no acute change, denies nausea/vomiting : Denies changes in urination Extremity: Left lower extremity swelling MSK: Denies weakness Neuro: Denies any numbness/tingling Heme: Denies any bleeding or bruising Skin: Denies rashes Psychiatric: No complaints voiced Vital Signs Vital Signs Vital Signs: 09/07/25 09:42 09/07/25 10:00 09/07/25 10:28 Temperature 97.7 F L Temperature Source Temporal Pulse Rate 99 99 Respiratory Rate 16 19 H Respiratory Effort Normal Non-Labored Respiratory Depth Normal Respiratory Pattern Normal Blood Pressure 136/89 H 122/89 H Blood Pressure Mean 104 100 Pulse Ox 95 96 Oxygen Delivery Method Room Air Room Air 09/07/25 11:41 Temperature Temperature Source Pulse Rate 96 Respiratory Rate 24 H Respiratory Effort Respiratory Depth Respiratory Pattern Blood Pressure Blood Pressure Mean Pulse Ox 95 Oxygen Delivery Method Room Air Physical Exam Narrative General: Alert, oriented, no apparent distress HEENT: Atraumatic, normocephalic Eyes: Anicteric, normal conjunctiva, extraocular movements grossly intact Neck: Supple Respiratory: Clear to auscultation bilaterally, slightly tachypneic due to shallow breaths but does not appear to be overtly distressed Cardiovascular: Regular rate and rhythm, heart rate high 90s GI: Protuberant abdomen is nontender Extremities: Left lower extremity edema Musculoskeletal: Moving all extremities Neuro: No overt focal neurological deficits Skin: No rashes appreciated Psych: Cooperative Results Lab / Micro Data 09/07/25 10:25 09/07/25 10:25 Labs: Laboratory Results - last 24 hr 09/07/25 10:25: WBC 6.0, RBC 4.08 L, Hgb 12.5 L, Hct 39.2 L, MCV 96.1 H, MCH 30.6, MCHC 31.9 L, RDW Std Deviation 46.6 H, RDW Coeff of Juancarlos 13.2, Plt Count 182, MPV 9.0, Immature Gran % (Auto) 0.700, Neut % (Auto) 63.2, Lymph % (Auto) 25.6, [place] % (Auto) 7.2, Eos % (Auto) 3.0, Baso % (Auto) 0.3, Absolute Neuts (auto) 3.8, Absolute Lymphs (auto) 1.53, Nucleated RBC % 0, Sodium 139, Potassium 4.0, Chloride 103, Carbon Dioxide 27.4, Anion Gap 9, BUN 15, Creatinine 1.01, Est GFR (MDRD) Non-Af 83, BUN/Creatinine Ratio 14.7, Glucose 199 H, Calcium 9.2, Total Bilirubin 0.51, AST 17, ALT 16, Alkaline Phosphatase 98, Troponin T High Sens 16 D, NT pro BNP II 42, Total Protein 6.3, Albumin 3.7, Globulin 2.6, Albumin/Globulin Ratio 1.4 Imaging Radiology Impression Chest CTA 09/07/25 10:08 IMPRESSION: Filling defect involving both the right and left main main pulmonary arteries and extending to the bilateral lower left lobar arteries and left upper lobar artery consistent with saddle pulmonary embolism. Multiple pulmonary nodules with the largest measures [address] chest in 6 months and [address] scans in 18 months and 24 months is recommended. Findings were discussed with Dr. Amor on 09/07/2025 12:08 p.m.. Reading Location: [facility] Assessment & Plan Assessment/Plan (1) Pulmonary embolism: (2) Acute deep vein thrombosis (DVT) of left lower extremity: PLAN: Plan # Pulmonary embolism and DVT -Noted 2 days ago to have left lower extremity DVT, given a dose of Lovenox and started on Eliquis -Patient then noted shortness of breath and presented and CTA showed PE -Does meet criteria for saddle PE however most with clot burden peripheral -Patient presently hemodynamically stable, no heart strain on CTA and proBNP 42 with troponin of 16 -Will continue patient on Eliquis, as above likely not failure of treatment -Will monitor overnight and obtain echocardiogram in the a.m., can likely DC home 09/08/2025 if patient remains stable #Pulmonary nodules - CTA noted multiple pulmonary nodules with largest measuring 7 mm and recommended follow-up scans starting at 6 months - Patient and believe he has been told about this before and they have been serial monitored #Type 2 diabetes mellitus -Glucose checks and sliding scale insulin - Hold home oral hypoglycemics #Hx of CAD -Follows outpatient with [facility] -Continue home medications #GERD -Continue PPI #DVT ppx: Patient started on full dose anticoagulation Yael Nguyễn MD Charges/Coding Visit Charges Inpatient E&M: 57885 Init Hosp L2
[2025-09-07 13:12] LABS: Troponin T High Sens 2 HR 15 ng/L (<=22)
--- NOTE | 2025-09-07 13:49 | ECHOCS_ITS ---
Reason For Study Reason For Study: PULMONARY EMBOLSIM Procedure This was a 2D Doppler, Color Flow transthoracic echocardiogram. The study was technically difficult. Contrast injection was performed. Exam performed portable in patient room. Left Ventricle Normal left ventricular size. Left ventricular EF by 2D Sol's biplane: 49% Grade 1 diastolic dysfunction E/e' suggest normal filling pressures LVEF is mildly reduced. Mild global hypokinesis. Right Ventricle Mildly dilated RV. Borderline reduced reduced RV function. Right ventricular systolic pressure estimated to be 30 to 35 mmHg mmHg. Atria The left and right atria are normal. Right atrial pressure: 8 mmHg. Mitral Valve The mitral valve is structurally normal. No prolapse or stenosis seen. No mitral stenosis. No mitral regurgitation. Tricuspid Valve Normal tricuspid valve. There is no tricuspid stenosis. Trace tricuspid regurgitation. Aortic Valve Normal aortic valve. Trisinus/trileaflet aortic valve. There is no hemodynamically significant aortic stenosis. There is no aortic regurgitation. Pulmonic Valve Normal pulmonic valve. No pulmonic stenosis. No pulmonic regurgitation. Great Vessels Normal sized aortic root. Ascending aortic diameter: 3.8 cm. Pericardium/Pleural Epicardial fat. No pericardial effusion. Medication Diluted definity 4ml given slow IV push to enhance endocardial definition. MMode/2D Measurements & Calculations LVIDd: 4.4 cm IVSd: 0.79 cm Ao root diam: 3.8 cm LVIDs: 3.4 cm LVPWd: 0.94 cm RVDd: 4.6 cm FS: 23.2 % LAV(MOD-bp): 51.1 ml LVAd ap4: 34.7 cm2 LVAd ap2: 26.9 cm2 LAV(MOD-bp) Indexed: 21.9 ml/m2 LVLd ap4: 8.2 cm LVLd ap2: 7.9 cm LAV(MOD-sp2): 41.3 ml EDV(MOD-sp4): 114.2 ml EDV(MOD-sp2): 74.3 ml LAV(MOD-sp4): 59.3 ml EDV(sp4-el): 123.9 ml EDV(sp2-el): 77.8 ml LVAs ap4: 22.8 cm2 LVAs ap2: 18.7 cm2 LVLs ap4: 7.4 cm LVLs ap2: 7.7 cm ESV(MOD-sp4): 57.6 ml ESV(MOD-sp2): 37.2 ml ESV(sp4-el): 59.6 ml ESV(sp2-el): 38.7 ml EF(MOD-sp4): 49.6 % EF(MOD-sp2): 50.0 % EF(sp4-el): 51.9 % SV(MOD-sp4): 56.7 ml SV(MOD-sp2): 37.1 ml SV(sp4-el): 64.4 ml SI(MOD-sp4): 24.3 ml/m2 SI(MOD-sp2): 15.9 ml/m2 LA A4 area: 20.4 cm2 LA dimension(2D): 3.8 cm RA A4 area: 13.2 cm2 TAPSE: 1.4 cm Time Measurements MV dec time: 0.15 sec Doppler Measurements & Calculations MV E max gael: 40.4 cm/sec Lat Peak E' Gael: 9.6 cm/sec Med Peak E' Gael: 4.9 cm/sec MV A max gael: 64.8 cm/sec E/E' lat: 4.2 E/E' med: 8.2 MV E/A: 0.62 MV dec slope: 263.4 cm/sec2 Ao V2 max: 113.7 cm/sec LV V1 max: 70.4 cm/sec Ao max P.2 mmHg LV V1 max P.0 mmHg Ao V2 mean: 79.6 cm/sec LV V1 mean P.1 mmHg Ao mean P.9 mmHg LV V1 mean: 49.1 cm/sec Ao V2 VTI: 20.5 cm LV V1 VTI: 12.9 cm AV (velocity ratio): 0.63 PA V2 max: 70.7 cm/sec TR max gael: 256.8 cm/sec TR max P.4 mmHg ECHO/Echo Complete W/ Contrast Interpretation Summary Left ventricular EF by 2D Sol's biplane: 49% LVEF is mildly reduced. Grade 1 diastolic dysfunction E/e' suggest normal filling pressures Mild global hypokinesis. Borderline reduced reduced RV function There is no hemodynamically significant valvular disease. Ordering Physician: Yael Nguyễn Referring Physician: Bryn Renteria Performed By: Lala Castro RDCS
[2025-09-07] MEDS: MELATONIN 10 MG TABLET PO (21:08)
[2025-09-07] MEDS: APIXABAN 5 MG TABLET 10 MG PO (21:09)
[2025-09-08 03:00] VITALS: PULSE 94
[2025-09-08 04:38] VITALS: BP 112/76; PULSE 88; RESP 17; TEMP 36.9; O2SAT 94
[2025-09-08 05:39] LABS: Hematocrit 38.2 % (40-54); Hemoglobin 12.2 g/dL (13.0-16.5); Immature Granulocytes Count 0.030 X10^3/uL (0.0-0.0); Mean Corp Hgb Conc 31.9 g/dL (32-36); Mean Corpuscular Volume 96.5 fL (80-94); Mean Platelet Vol. 9.3 fl (6.2-12.0); NRBC Flagged by Analyzer 0 % (0-5); Platelet Count 193 K/mm3 (150-450); RBC Distribution Width CV 13.3 % (11.6-14.6); RBC Distribution Width SD 47.3 fl (35.1-43.9); Red Blood Count 3.96 M/mm3 (4.6-6.2); White Blood Count 5.1 K/mm3 (4.4-11.0)
[2025-09-08 06:16] LABS: Anion Gap 10 (5-15); BUN 11 mg/dL (4-19); BUN/Creat Ratio 12.3 RATIO (10-20); Calcium,Total 8.9 mg/dL (7.6-11.0); Carbon Dioxide 23.5 mmol/L (21.0-32.0); Chloride 105 mmol/L (98-108); Estimated Creatinine Clearance 107.04 ml/min (50-250); Glucose 136 mg/dL (70-99); Potassium 3.9 mmol/L (3.3-5.1)
[2025-09-08 09:34] VITALS: O2SAT 94; O2SAT 97
[2025-09-08] MEDS: BRIMONIDINE 0.2% 5ML BOTTLE 1 DRP OPHTHALMIC (09:54)
[2025-09-08] MEDS: APIXABAN 5 MG TABLET 10 MG PO (09:55)
--- NOTE | 2025-09-08 10:40 | CASEMGMT ---
VAHID KAPOOR in to discuss needs at discharge. RN EMELIA supplied [employer] savings card to patient. Will monitor patient for home oxygen, prefers [employer], green sheet on chart. Patient denied further needs or help at discharge. Patient had no further questions.
[2025-09-08 10:45] VITALS: BP 116/74; PULSE 92; RESP 16; TEMP 36.8; O2SAT 97
[2025-09-08] MEDS: Memantine Hydrochloride 10 MG Tablet PO (11:27)
--- NOTE | 2025-09-08 11:57 | DCINST_ITS ---
Discharge Instructions DC O2, CPAP, BIPAP needs Home O2 Discharge instructions: No Dressing / Incision Discharge Activity: - (Increase activity as tolerated) Follow Up Care Test Results: Test results from this visit will be discussed in further detail at your follow- up appointment, if applicable. Discharge Plan Admission Admit Date/Time: 09/07/25 12:53 Primary Reason for Your Visit: Shortness of breath, pulmonary embolism Attending Provider: Yael Nguyễn Primary Care Provider: Bryn Renteria Instructions Patient Instructions: DVT/PE Discharge instruction sheet, ED Deep Vein Thrombosis (DVT) Additional Instructions / Restrictions: DISCHARGE INSTRUCTIONS PLEASE READ *Please take this with you to your next doctors appointment* - Please continue Eliquis as previously prescribed - Given you are starting Eliquis your aspirin will be discontinued - Please follow-up with the vascular doctor, Dr. Cohen, upon discharge. Please call the office to schedule a follow-up appointment for your blood clot in your leg and lungs - You will need a repeat echocardiogram in 3 months to follow-up and monitor heart function, this can be coordinated through your primary care physician's office -Please call your primary care provider's office upon discharge to schedule a hospital follow up within 1 week. -For any concerning signs or symptoms please call 911 or proceed to the nearest emergency department Discharge Orders/Prescriptions Prescriptions: Continued cholecalciferol (vitamin D3) 125 mcg (5,000 unit) tablet 125 mcg PO DAILY omeprazole 40 mg capsule,delayed release(DR/EC) 40 mg PO DAILY alprazolam 1 MG tablet 1 mg PO QHS brimonidine 0.2 % drops 1 drp ophthalmic (eye) DAILY cyanocobalamin (vitamin B-12) 500 mcg Tablet 500 mcg PO DAILY Trulicity 0.75 mg/0.5 mL pen injector 0.75 mg subcut MO memantine 21 mg capsule,sprinkle,ER 24hr 21 mg PO DAILY glipizide 10 mg tablet extended release 24hr 10 mg PO DAILY hydrocodone-acetaminophen 5-325 mg tablet 1 tab PO Q6H PRN PRN (Reason: Pain) 3 Days Qty: 10 0RF Eliquis DVT-PE Treat 30D Start 5 mg (74 tabs) tablets,dose pack See Rx Instructions .ROUTE .COMPLEX Qty: 74 0RF Rx Instructions: orally per package directions dicyclomine 10 mg capsule 10 mg PO ACHS PRN (Reason: ibs) albuterol sulfate 90 mcg/actuation HFA aerosol inhaler 1 puff inhalation Q4H PRN (Reason: shortness of breath or wheezing) carvedilol 12.5 mg tablet 12.5 mg PO BID Qty: 180 3RF Discontinued aspirin 81 mg tablet 81 mg PO DAILY Referrals / Follow Up: Germán Cohne MD [Med Staff - Active Staff, Vascular Surgery] Referral Note: - Please follow-up with the vascular doctor, Dr. Cohen, upon discharge. Please call the office to schedule a follow-up appointment for your blood clot in your leg and lungs Bryn Renteria DO [Primary Care Provider, Family Practice] - Within 1 Week Disposition Disposition (needs filled in before D/C Order can be placed): Home, Self Care
--- NOTE | 2025-09-08 12:00 | PCM.DC.SUM ---
Providers Date of Admission: 09/07/25 Date of Discharge: 09/08/25 Primary Care Physician: Dr. Bryn Renteria DO Reason For Visit: PULMONARY EMBOLISM Diagnosis Discharge Diagnosis (1) Pulmonary embolism: Status: Acute Code(s): I26.99 - Other pulmonary embolism without acute cor pulmonale (2) Acute deep vein thrombosis (DVT) of left lower extremity: Status: Acute Code(s): I82.402 - Acute embolism and thrombosis of unspecified deep veins of left lower extremity Plan #Acute Pulmonary embolism and DVT #Pulmonary nodules #Type 2 diabetes mellitus #Hx of CAD 2/ stenting >12 months ago #GERD Medications at Discharge Home Medications alprazolam 1 mg tablet 1 mg PO QHS sleep 04/23/20 brimonidine 0.2 % eye drops 1 drp ophthalmic (eye) DAILY eye health 09/23/21 cyanocobalamin (vitamin B-12) 500 mcg tablet 500 mcg PO DAILY vitamin 10/22/21 cholecalciferol (vitamin D3) 125 mcg (5,000 unit) tablet 125 mcg PO DAILY supplement 12/18/21 omeprazole 40 mg capsule,delayed release 40 mg PO DAILY gerd 12/18/21 dulaglutide 0.75 mg/0.5 mL subcutaneous pen injector (Trulicity) 0.75 mg subcut MO diabetes 03/01/24 glipizide 10 mg tablet, extended release 24 hr 10 mg PO DAILY 01/03/25 memantine 21 mg capsule sprinkle,extended release 24hr 21 mg PO DAILY 01/03/25 carvedilol 12.5 mg tablet 12.5 mg PO BID #180 tabs 06/14/25 hydrocodone-acetaminophen 5-325mg 5mg-325mg 1 tab PO Q6H PRN PRN Pain 3 days #10 TABLETS 07/13/25 apixaban 5 mg (74 tabs) tablets in a dose pack (Eliquis DVT-PE Treat 30D Start) See Rx Instructions PO .COMPLEX #74 tabs 09/05/25 albuterol sulfate 90 mcg/actuation aerosol inhaler 1 puff inhalation Q4H PRN shortness of breath or wheezing 09/07/25 dicyclomine 10 mg capsule 10 mg PO ACHS PRN ibs 09/07/25 Hospital Course Procedures Transthoracic echo Summary of Care Provided Minutes Spent on Discharge: 31 Hospital Course: Per HPI: AVE AKOSUA, is a 64-year-old male with a history of PE during COVID no longer on anticoagulation, coronary artery disease following with Dr. Pittman, diabetes presented [facility] ED 09/07/2025 with shortness of breath. He was seen in the ED on the fifth and diagnosed with left lower extremity DVT, given dose of Lovenox and started on Eliquis, has had 2 doses of the Eliquis but notes that left leg is more swollen and painful and then began to have chest heaviness and shortness of breath on exertion. In the ED temp 97.7, heart rate 99 blood pressure 136/89, respiratory 16 pulse ox 95% on room air. CBC with hemoglobin 12.5 and white count of 6, CMP only notable for glucose 199, troponin and proBNP within normal limits. CTA of chest did not note filling defects in right and left main pulmonary arteries extending to the bilateral lower left lobar arteries consistent with saddle PE. Also noted multiple pulmonary nodules with the largest measuring 7 mm and follow-up scans in 6-month recommended. Given patient's clot burden hospitalist contacted. Discussed with vascular and majority of the clot burden is peripheral and not central, no right heart strain noted on CT, proBNP within normal limits and troponin unremarkable. Patient vitally stable. No indication for thrombectomy at this time but it is recommended that patient be admitted for observation overnight. Likely not Eliquis failure as he has only taken 2 doses, more likely left lower extremity DVT embolized after treatment was started. Patient evaluated at bedside for admission. Patient reported that on Wednesday he noted increased swelling in his left lower extremity, ultimately coming to the hospital 09/05 and was placed on Eliquis after getting a dose of Lovenox. Since then patient has had increased shortness of breath particularly on exertion as well as chest heaviness on exertion and continued swelling of left lower extremity. Notes cough with brown looking sputum for about a week but no shortness of breath until the past couple of days. Denies any other URI symptoms and no fevers or chills. Reports right now mostly noticing the shortness of breath if he tries to take a deep breath, denying chest pain at this time INTERVAL HISTORY: Patient remained hemodynamically stable and was able to be ambulated without need for O2. Troponins were 16 and subsequently 15 with proBNP of 42, obtained echocardiogram which showed normal left ventricular size and LVEF of ~50% (noted at 49% based on 2D Sol's biplane) with borderline reduced RV function, vital stable. Given continued stability on anticoagulation feel it is reasonable for patient to be discharged and to follow-up. Given the DVT and PE information provided to follow-up with vascular in the office, also advised to repeat echo in ~3 months given the borderline RV function. On day of discharge patient reports breathing a little bit better, still has left lower extremity swelling, no other new or acute complaints. Was able to ambulate and feels comfortable with going home. Discussed with patient's at bedside as well and she is also comfortable with this plan. Discharge instructions as follows: - Please continue Eliquis as previously prescribed - Given you are starting Eliquis your aspirin will be discontinued - Please follow-up with the vascular doctor, Dr. Cohen, upon discharge. Please call the office to schedule a follow-up appointment for your blood clot in your leg and lungs - You will need a repeat echocardiogram in 3 months to follow-up and monitor heart function, this can be coordinated through your primary care physician's office -Please call your primary care provider's office upon discharge to schedule a hospital follow up within 1 week. -For any concerning signs or symptoms please call 911 or proceed to the nearest emergency department Physical Exam Narrative General: Alert, oriented, no apparent distress HEENT: Atraumatic, normocephalic Eyes: Anicteric, normal conjunctiva, extraocular movements grossly intact Neck: Supple Respiratory: Clear to auscultation bilaterally, no acute respiratory distress Cardiovascular: Regular rate and rhythm GI: Protuberant abdomen is nontender Extremities: Left lower extremity edema unchanged Musculoskeletal: Moving all extremities Neuro: No overt focal neurological deficits Skin: No rashes appreciated Psych: Cooperative Weight / BMI Weight Weight: 115.212 kg Body Mass Index (BMI) 35.4 ABG / Lab / Microbiology Data 09/08/25 04:52 09/08/25 04:52 Laboratory: Laboratory Results - last 24 hr 09/07/25 12:41: Troponin T Hi Sens 2 Hr 15 09/07/25 16:46: POC Glucose 96 09/07/25 20:59: POC Glucose 146 H 09/08/25 04:52: WBC 5.1, RBC 3.96 L, Hgb 12.2 L, Hct 38.2 L, MCV 96.5 H, MCH 30.8, MCHC 31.9 L, RDW Std Deviation 47.3 H, RDW Coeff of Juancarlos 13.3, Plt Count 193, MPV 9.3, Immature Gran % (Auto) 0.600, Neut % (Auto) 58.7, Lymph % (Auto) 30.6, Dauphin % (Auto) 7.1, Eos % (Auto) 2.6, Baso % (Auto) 0.4, Absolute Neuts (auto) 3.0, Absolute Lymphs (auto) 1.55, Nucleated RBC % 0, Sodium 139, Potassium 3.9, Chloride 105, Carbon Dioxide 23.5, Anion Gap 10, BUN 11, Creatinine 0.90, Estim Creat Clear Calc 107.04, Est GFR (MDRD) Non-Af 95, BUN/Creatinine Ratio 12.3, Glucose 136 H, Calcium 8.9 09/08/25 06:44: POC Glucose 132 H 09/08/25 11:25: POC Glucose 192 H Radiography Diagnostic Testing: Radiology Impression Chest CTA 09/07/25 10:08 IMPRESSION: Filling defect involving both the right and left main main pulmonary arteries and extending to the bilateral lower left lobar arteries and left upper lobar artery consistent with saddle pulmonary embolism. Multiple pulmonary nodules with the largest measures [address] chest in 6 months and [address] scans in 18 months and 24 months is recommended. Findings were discussed with Dr. Amor on 09/07/2025 12:08 p.m.. Reading Location: [facility] Echocardiogram 09/07/25 13:49 Interpretation Summary Left ventricular EF by 2D Sol's biplane: 49% LVEF is mildly reduced. Grade 1 diastolic dysfunction E/e' suggest normal filling pressures Mild global hypokinesis. Borderline reduced reduced RV function There is no hemodynamically significant valvular disease. Ordering Physician: Yael Nguyễn Referring Physician: Bryn Renteria Performed By: Lala Castro RDCS D/C Instructions DC O2, CPAP, BIPAP Needs Home O2 Discharge instructions: No Meaningful Use Info Meaningful Use Meaningful Use Diagnoses (Choose all that apply): VTE VTE Anticoag overlap given w/in hospital stay or rx'd at dc?: Yes Pt receive overlap for 5 days?: Yes Discharge Plan Admission Admit Date/Time: 09/07/25 12:53 Primary Reason for Your Visit: Shortness of breath, pulmonary embolism Attending Provider: Yael Nguyễn Primary Care Provider: Bryn Renteria Instructions Patient Instructions: DVT/PE Discharge instruction sheet, ED Deep Vein Thrombosis (DVT) Additional Instructions / Restrictions: DISCHARGE INSTRUCTIONS PLEASE READ *Please take this with you to your next doctors appointment* - Please continue Eliquis as previously prescribed - Given you are starting Eliquis your aspirin will be discontinued - Please follow-up with the vascular doctor, Dr. Cohen, upon discharge. Please call the office to schedule a follow-up appointment for your blood clot in your leg and lungs - You will need a repeat echocardiogram in 3 months to follow-up and monitor heart function, this can be coordinated through your primary care physician's office -Please call your primary care provider's office upon discharge to schedule a hospital follow up within 1 week. -For any concerning signs or symptoms please call 911 or proceed to the nearest emergency department Discharge Orders/Prescriptions Prescriptions: Continued cholecalciferol (vitamin D3) 125 mcg (5,000 unit) tablet 125 mcg PO DAILY omeprazole 40 mg capsule,delayed release(DR/EC) 40 mg PO DAILY alprazolam 1 MG tablet 1 mg PO QHS brimonidine 0.2 % drops 1 drp ophthalmic (eye) DAILY cyanocobalamin (vitamin B-12) 500 mcg Tablet 500 mcg PO DAILY Trulicity 0.75 mg/0.5 mL pen injector 0.75 mg subcut MO memantine 21 mg capsule,sprinkle,ER 24hr 21 mg PO DAILY glipizide 10 mg tablet extended release 24hr 10 mg PO DAILY hydrocodone-acetaminophen 5-325 mg tablet 1 tab PO Q6H PRN PRN (Reason: Pain) 3 Days Qty: 10 0RF Eliquis DVT-PE Treat 30D Start 5 mg (74 tabs) tablets,dose pack See Rx Instructions .ROUTE .COMPLEX Qty: 74 0RF Rx Instructions: orally per package directions dicyclomine 10 mg capsule 10 mg PO ACHS PRN (Reason: ibs) albuterol sulfate 90 mcg/actuation HFA aerosol inhaler 1 puff inhalation Q4H PRN (Reason: shortness of breath or wheezing) carvedilol 12.5 mg tablet 12.5 mg PO BID Qty: 180 3RF Discontinued aspirin 81 mg tablet 81 mg PO DAILY Referrals / Follow Up: Germán Cohen MD [Med Staff - Active Staff, Vascular Surgery] Referral Note: - Please follow-up with the vascular doctor, Dr. Cohen, upon discharge. Please call the office to schedule a follow-up appointment for your blood clot in your leg and lungs Bryn Renteria DO [Primary Care Provider, Family Practice] - Within 1 Week Disposition Disposition (needs filled in before D/C Order can be placed): Home, Self Care Charges/Coding Visit Charges Inpatient E&M: 08977 Disch Hosp >30min
== END 2025-09-08 13:17 | disposition home or self-care (01) ==
LOC: ED 12:21 → PCU 13:31
PROVIDERS: Admitting Provider Internal Medicine; Emergency Provider Emergency Medicine; PCP Family Medicine; Visit Provider Internal Medicine
DX: I26.99 Other pulmonary embolism without acute cor pulmonale (principal); F03.90 Unspecified dementia, unspecified severity, without behavioral disturbance, psychotic disturbance, mood disturbance, and anxiety; I82.402 Acute embolism and thrombosis of unspecified deep veins of left lower extremity; E11.9 Type 2 diabetes mellitus without complications; R91.8 Other nonspecific abnormal finding of lung field; I10 Essential (primary) hypertension; I25.2 Old myocardial infarction; I25.10 Atherosclerotic heart disease of native coronary artery without angina pectoris; E66.9 Obesity, unspecified; K21.9 Gastro-esophageal reflux disease without esophagitis; Z95.5 Presence of coronary angioplasty implant and graft; Z79.85 Long-term (current) use of injectable non-insulin antidiabetic drugs; Z79.84 Long term (current) use of oral hypoglycemic drugs; Z86.711 Personal history of pulmonary embolism; Z87.19 Personal history of other diseases of the digestive system; Z79.01 Long term (current) use of anticoagulants; Z90.49 Acquired absence of other specified parts of digestive tract; Z79.899 Other long term (current) drug therapy; Z68.35 Body mass index [BMI] 35.0-35.9, adult
CPT/HCPCS: 36415; 71275; 80048; 80053; 82962; 83880; 84484; 85025; 93005; 93306; 94668; 99221; 99285; Q9957; Q9967; A4216; C8929; G0378